=== PATIENT | male | born 1975 | race Caucasian/White ===

== ENCOUNTER 2018-06-13 03:10 | Emergency (ER) | payer BC, SELFPAY ==
[2018-06-13] VITALS (46 sets, daily range): BP systolic 121–171; BP diastolic 73–98; PULSE 64–81; RESP 9–20; TEMP 37; O2SAT 93–99
--- NOTE | 2018-06-13 03:17 | W.ED.GENAD ---
Discharge Plan Disposition Patient Disposition: HOME Condition: Good Discharge Details Chief Complaint: Chest Pain Clinical Impression: Chest pain Primary Care Provider: Rina Long ED Provider: Justice Awan Home Meds and New Rx's Prescriptions: Continued esomeprazole magnesium [Nexium] 20 mg Capsule,Delayed Release(Dr/Ec) 20 mg PO DAILY RF: 0 Discharge Instructions Instructions: Chest Pain (ED) Additional Instructions: Laboratory studies, chest x-ray, EKGs today were fine. You should follow-up with primary care next week and discuss outpatient stress testing. Return to emergency department if you develop new or worsening pain, shortness of breath, fever, other problems. Referrals: Rina Long [Primary Care Provider] - Medical Decision Making Patient presents to ED with substernal chest pressure on and off for the last few days. Has no associated symptoms. Has no cardiac risk factors. He is PERC negative. His EKG is sinus rhythm at a rate of 68. Slight left axis otherwise normal intervals and normal ST segments. Presuming his first troponin is normal he has a HEART score of 0. His history is not overly suspicious and may be related to his reflux. I will give him aspirin. Laboratory studies and chest x-ray ordered. Patient's first set of labs are unremarkable. First troponin negative. Chest x-ray is normal. He has been sleeping and having no pain while here. Second troponin is normal. EKG is unchanged. Continues to have mild left axis but normal ST segments. Patient to follow-up with primary care next week for consider alteration of outpatient stress testing. Return to ED if he develops increasing or new pain, shortness of breath, fever, or other concerns. HPI General Mode of arrival: ambulatory. Date/Time Provider Initiated Documentation: 06/13/18 03:16. Limitations to Documentation: no limitations. Information obtained by: patient. HPI Narrative: Patient presents to ED with complaint of chest pain. He has had chest pain on and off for a few days. Mostly substernal but a little bit left-sided. Described as a pressure tightness. No real radiation. Sometimes feels like his left arm is heavy but does not actually have pain in it. He has no fever or cough. He has no difficulty breathing. He has no leg pain or leg swelling. Does have a history of reflux. Denies nausea or abdominal pain. Been bothering him tonight for the last couple of hours so he came in for evaluation. Currently at the time of my interview he has no pain. Related Data Home Medications Medication Instructions Recorded Confirmed esomeprazole magnesium [Nexium] 20 mg PO DAILY 06/13/18 06/13/18 Allergies Allergy/AdvReac Type Severity Reaction Status Date / Time No Known Allergies Allergy Unverified 06/13/18 03:30 Review of Systems Constitutional Denies chills, Denies fever(s), Denies headache(s), Denies malaise and Denies weakness Eyes Denies change in vision, Denies eye discharge, Denies irritation and Denies eye pain ENT Denies otalgia, Denies headache(s), Denies neck pain and Denies sore throat Cardiovascular Reports chest pain, Denies pedal edema, Denies edema, Denies leg edema, Denies lightheadedness, Denies palpitations and Denies dyspnea Respiratory Denies chest congestion, Denies cough and Denies dyspnea Gastrointestinal Denies abdominal pain, Denies diarrhea, Denies nausea and Denies vomiting Genitourinary Denies hematuria, Denies difficulty urinating, Denies dysuria, Denies urinary frequency and Denies urinary urgency Musculoskeletal Denies back pain, Denies myalgias, Denies arthralgias, Denies joint swelling, Denies neck pain, Denies numbness and Denies tingling Integumentary/Breasts Denies erythema and Denies rash Neurologic Denies confusion, Denies headache(s), Denies focal weakness, Denies numbness, Denies tingling and Denies weakness Psychiatric Denies confusion Endocrine Denies palpitations [facility] Medical History GERD (gastroesophageal reflux disease) (Chronic) Heart murmur (Chronic) Social History Smoking/Tobacco Use Status: Never Exam Const General: cooperative, comfortable and no acute distress Orientation: alert and oriented x3 HENMT Head: normocephalic and atraumatic Mouth: moist mucous membranes Eyes Conjunctivae: conjunctivae normal Pupils: PERRL EOM: EOM intact bilaterally Neck Neck: full ROM, no lymphadenopathy, trachea midline and supple Resp Effort & Inspection: normal respiratory effort Auscultation: clear to auscultation bilaterally Cardio Rate: regular rate Rhythm: regular rhythm Heart Sounds: S1 normal, S2 normal and murmur systolic Pulses: normal peripheral pulses GI Inspection: non-distended Palpation: soft, not firm, no guarding and nontender Skin General skin exam: no erythema Rashes: no rashes Trauma: no lacerations or abrasions Other: warm and dry Neuro General: alert, oriented x3, no focal motor deficits and CN's II-XI intact bilaterally Cognition: normal cognition Speech: speech normal Sensory Exam: no sensory deficits noted Extrem General: normal to inspection, full ROM and no clubbing, cyanosis or edema Psych Appearance: grossly normal Mental Status: mental status grossly normal Affect: normal affect Attitude: cooperative
--- NOTE | 2018-06-13 03:34 | ED.GENADUL_ITS ---
Discharge Plan Disposition Patient Disposition: HOME Condition: Good Discharge Details Chief Complaint: Chest Pain Clinical Impression: Chest pain Primary Care Provider: Rina Long ED Provider: Justice Awan Home Meds and New Rx's Prescriptions: Continued esomeprazole magnesium [Nexium] 20 mg Capsule,Delayed Release(Dr/Ec) 20 mg PO DAILY RF: 0 Discharge Instructions Instructions: Chest Pain (ED) Additional Instructions: Laboratory studies, chest x-ray, EKGs today were fine. You should follow-up with primary care next week and discuss outpatient stress testing. Return to emergency department if you develop new or worsening pain, shortness of breath, fever, other problems. Referrals: Rina Long [Primary Care Provider] - Medical Decision Making Patient presents to ED with substernal chest pressure on and off for the last few days. Has no associated symptoms. Has no cardiac risk factors. He is PERC negative. His EKG is sinus rhythm at a rate of 68. Slight left axis otherwise normal intervals and normal ST segments. Presuming his first troponin is normal he has a HEART score of 0. His history is not overly suspicious and may be related to his reflux. I will give him aspirin. Laboratory studies and chest x-ray ordered. Patient's first set of labs are unremarkable. First troponin negative. Chest x-ray is normal. He has been sleeping and having no pain while here. Second troponin is normal. EKG is unchanged. Continues to have mild left axis but normal ST segments. Patient to follow-up with primary care next week for consider alteration of outpatient stress testing. Return to ED if he develops increasing or new pain, shortness of breath, fever, or other concerns. HPI General Mode of arrival: ambulatory . Date/Time Provider Initiated Documentation: 06/13/18 03:16 . Limitations to Documentation: no limitations . Information obtained by: patient . HPI Narrative: Patient presents to ED with complaint of chest pain. He has had chest pain on and off for a few days. Mostly substernal but a little bit left-sided. Described as a pressure tightness. No real radiation. Sometimes feels like his left arm is heavy but does not actually have pain in it. He has no fever or cough. He has no difficulty breathing. He has no leg pain or leg swelling. Does have a history of reflux. Denies nausea or abdominal pain. Been bothering him tonight for the last couple of hours so he came in for evaluation. Currently at the time of my interview he has no pain. Related Data Home Medications Medication Instructions Recorded Confirmed esomeprazole magnesium [Nexium] 20 mg PO DAILY 06/13/18 06/13/18 Allergies Allergy/AdvReac Type Severity Reaction Status Date / Time No Known Allergies Allergy Unverified 06/13/18 03:30 Review of Systems Constitutional Denies chills, Denies fever(s), Denies headache(s), Denies malaise and Denies weakness Eyes Denies change in vision, Denies eye discharge, Denies irritation and Denies eye pain ENT Denies otalgia, Denies headache(s), Denies neck pain and Denies sore throat Cardiovascular Reports chest pain, Denies pedal edema, Denies edema, Denies leg edema, Denies lightheadedness, Denies palpitations and Denies dyspnea Respiratory Denies chest congestion, Denies cough and Denies dyspnea Gastrointestinal Denies abdominal pain, Denies diarrhea, Denies nausea and Denies vomiting Genitourinary Denies hematuria, Denies difficulty urinating, Denies dysuria, Denies urinary frequency and Denies urinary urgency Musculoskeletal Denies back pain, Denies myalgias, Denies arthralgias, Denies joint swelling, Denies neck pain, Denies numbness and Denies tingling Integumentary/Breasts Denies erythema and Denies rash Neurologic Denies confusion, Denies headache(s), Denies focal weakness, Denies numbness, Denies tingling and Denies weakness Psychiatric Denies confusion Endocrine Denies palpitations [facility] Medical History GERD (gastroesophageal reflux disease) (Chronic) Heart murmur (Chronic) Social History Smoking/Tobacco Use Status: Never Exam Const General: cooperative, comfortable and no acute distress Orientation: alert and oriented x3 HENMT Head: normocephalic and atraumatic Mouth: moist mucous membranes Eyes Conjunctivae: conjunctivae normal Pupils: PERRL EOM: EOM intact bilaterally Neck Neck: full ROM, no lymphadenopathy, trachea midline and supple Resp Effort & Inspection: normal respiratory effort Auscultation: clear to auscultation bilaterally Cardio Rate: regular rate Rhythm: regular rhythm Heart Sounds: S1 normal, S2 normal and murmur systolic Pulses: normal peripheral pulses GI Inspection: non-distended Palpation: soft, not firm, no guarding and nontender Skin General skin exam: no erythema Rashes: no rashes Trauma: no lacerations or abrasions Other: warm and dry Neuro General: alert, oriented x3, no focal motor deficits and CN's II-XI intact bilaterally Cognition: normal cognition Speech: speech normal Sensory Exam: no sensory deficits noted Extrem General: normal to inspection, full ROM and no clubbing, cyanosis or edema Psych Appearance: grossly normal Mental Status: mental status grossly normal Affect: normal affect Attitude: cooperative
[2018-06-13] MEDS: Normal Saline Flush 10 ML SYR IVP (03:38)
[2018-06-13] MEDS: Aspirin 81 MG CHEW 324 MG CH (03:38)
--- NOTE | 2018-06-13 03:45 | DI.RAD_ITS ---
SYMPTOM/DIAGNOSIS: CHEST PAIN PA AND LATERAL CHEST: No priors. The heart is normal in size. The lungs are clear. The mediastinal structures and pleura appear intact. CONCLUSION: Normal chest.
[2018-06-13 03:52] LABS: Abs Immature Grans 0.02 k/cumm (0.0-0.09); Absolute Basophil Count 0.02 k/cumm (0.0-0.2); Absolute Eosinophil Count 0.33 k/cumm (0.0-0.7); Absolute Lymphocyte Count 2.49 k/cumm (1.2-3.4); Absolute Monocyte Count 0.53 k/cumm (0.11-0.7); Absolute Neutrophil Count 4.33 k/cumm (1.2-6.7); Basophils % 0.3; Eosinophils % 4.3; HCT 43.7 % (40.0-50.0); HGB 15.3 g/dL (13.5-17.5); Immature Grans % 0.3; Lymphocytes % 32.3; Mean Corpuscular Hemoglobin 30.1 pg (27.0-33.0); Mean Corpuscular Volume 85.9 fL (80-95); Mean Platelet Volume 9.6 fL (8.0-11.0); Monocytes % 6.9; Neutrophils % 55.9; Platelet Count 266 x1000/uL (130-400); RBC 5.09 m/cumm (4.50-6.00); RBC Distribution Width 12.8 % (11.8-14.1); White Blood Cell Count 7.72 k/cumm (4.4-10.8)
[2018-06-13 04:03] LABS: ALT 30 U/L (12-78); AST 14 U/L (15-37); Albumin 4.2 g/dL (3.4-5.0); Alkaline Phosphatase 73 U/L (46-116); Anion Gap 8.3 mmol/L (3-11); BUN 9 mg/dL (7-18); Bilirubin, Total 0.6 mg/dL (0.2-1.0); CO2 28.7 mmol/L (21.0-32.0); Calcium 8.9 mg/dL (8.5-10.1); Chloride 102 mmol/L (98-107); Glucose 116 mg/dL (70-100); Magnesium 1.8 mg/dL (1.8-2.4); Potassium 3.6 mmol/L (3.5-5.1); Sodium 139 mmol/L (136-145); Total Protein 7.7 g/dL (6.4-8.2)
[2018-06-13 04:04] LABS: Troponin I < 0.02 ng/mL (0.00-0.06)
--- NOTE | 2018-06-13 06:16 | DI.VRAD_ITS ---
EXAM: XR Chest, 2 Views EXAM DATE/TIME: 06/13/2018 3:47 AM CLINICAL HISTORY: 43 years old, male; Pain; Chest pain; Left-sided chest pain; Patient HX: Chest tightness over the last few days and left upper chest pain today. TECHNIQUE: XR of the chest, 2 views. COMPARISON: No relevant prior studies available. FINDINGS: Lungs: Unremarkable. No consolidation. Pleural space: Unremarkable. No pleural effusion. No pneumothorax. Heart/Mediastinum: Unremarkable. No cardiomegaly. Bones/joints: Unremarkable. IMPRESSION: No acute findings. Dictated and Authenticated by: Michael Em MD. Ordering:JASPREET Rendon MD
[2018-06-13 06:53] LABS: Troponin I < 0.02 ng/mL (0.00-0.06)
== END 2018-06-13 07:37 | disposition home or self-care (01) ==
PROVIDERS: Emergency Provider Emergency Medicine; PCP Family Medicine
DX: R07.9 Chest pain, unspecified (principal); K21.9 Gastro-esophageal reflux disease without esophagitis
CPT/HCPCS: 36415; 80053; 93005; 99285; 71046; 83735; 84484; 85025; 93010; 99284

== ENCOUNTER 2018-07-21 08:04 | Outpatient (REF) | payer BC, SELFPAY | END 2018-07-21 08:24 | LOC: NCHCN 08:04 | PROVIDERS: PCP Family Medicine; Visit Provider Internal Medicine | DX: R14.0 Abdominal distension (gaseous) (principal); R19.7 Diarrhea, unspecified | CPT/HCPCS: 82272; 83630 ==

== ENCOUNTER 2018-07-22 08:06 | Outpatient (REF) | payer BC, SELFPAY ==
[2018-07-23 11:06] LABS: Campylobacter PCR SEE COMMENTS; Salmonella PCR SEE COMMENTS; Shiga Toxin PCR SEE COMMENTS; Shigella/Enteroinvasive Ecoli SEE COMMENTS
== END 2018-07-22 08:26 ==
LOC: NCHCN 08:06
PROVIDERS: PCP Family Medicine; Visit Provider Internal Medicine
DX: R19.7 Diarrhea, unspecified (principal); R14.0 Abdominal distension (gaseous)
CPT/HCPCS: 87329; 87505

== ENCOUNTER 2018-07-27 12:14 | Emergency (ER) | payer BC, SELFPAY ==
[2018-07-27] VITALS (18 sets, daily range): BP systolic 123–156; BP diastolic 65–84; PULSE 90–114; RESP 8–22; TEMP 36.7–38.8; O2SAT 93–98
--- NOTE | 2018-07-27 13:19 | ED.GENADUL_ITS ---
Discharge Plan Disposition Patient Disposition: HOME Discharge Details Chief Complaint: Nausea/Vomit/Diar Clinical Impression: Colitis, Hypokalemia Primary Care Provider: Rina Long ED Provider: David Simms Home Meds and New Rx's Prescriptions: New metronidazole 500 mg tablet 500 mg PO TID Qty: 29 RF: 0 ciprofloxacin HCl 500 mg tablet 500 mg PO BID Qty: 16 RF: 0 No Action acetaminophen [Tylenol] 325 mg Tablet 650 mg PO Q6H PRNRF: 0 esomeprazole magnesium [Nexium] 40 mg Capsule,Delayed Release(Dr/Ec) 40 mg PO DAILY RF: 0 Discharge Instructions Instructions: Hypokalemia (ED), Colitis (ED) Additional Instructions: Be sure to drink plenty of clear fluid -like Gatorade - to stay hydrated. Please follow-up with your primary care physician -call for an appointment. Follow-up with general surgery as scheduled for endoscopy and colonoscopy. Take antibiotic as prescribed. Be sure to complete the full course. Return to the ER for any worsening or new concerning symptoms. Referrals: Rina Long [Primary Care Provider] - Discharge Data Discharge Date/Time-TO BE ENTERED AT DEPARTURE: 07/27/18 19:11 Medical Decision Making 13:18 -- 43yo male here with 2 weeks of diarrhea, intermittent bloody stool, generalized body aches and abdominal pain. Tender in his left lower quadrant. Concern for acute surgical pathology including diverticulitis with perforation, consider abscess. Plan to CT abdomen pelvis. Patient appears dehydrated. We will give him IV fluid bolus. Consider electrolyte abnormalities. --CT of the abdomen pelvis interpreted by radiology: Low-attenuation bowel wall thickening is seen throughout the colon consistent with colitis. Differential diagnosis includes infectious and inflammatory etiologies. --Reassessed after IV fluid and is improved. Patient does have hypokalemia. Patient was given p.o. and IV potassium. Plan at this time is to discharge on Flagyl and ciprofloxacin and have him follow-up with his primary care physician and for endoscopy as scheduled. HPI General Mode of arrival: ambulatory . Date/Time Provider Initiated Documentation: 07/27/18 12:51 . Limitations to Documentation: no limitations . Information obtained by: patient . HPI Narrative: 43-year-old male with history of GERD, here with chief complaint of loose stool. Patient notes symptoms started about 2 weeks ago and have persisted. He said intermittently bloody stool. Symptoms are severe with no modifiers. He notes associated generalized achiness and fatigue. He was seen by his primary care physician last week and diagnosed with colitis. He has been maintaining bowel rest and continues to have symptoms. He has had intermittent fever. Also intermittent nausea. He has not been treated with antibiotics. No recent freshwater ingestion. No recent travel. Related Data Home Medications Medication Instructions Recorded Confirmed acetaminophen [Tylenol] 650 mg PO Q6H PRN 07/27/18 07/27/18 ciprofloxacin HCl 500 mg PO BID #16 tab 07/27/18 esomeprazole magnesium [Nexium] 40 mg PO DAILY 07/27/18 07/27/18 metronidazole 500 mg PO TID #29 tab 07/27/18 Previous Rx's Medication Instructions Recorded ciprofloxacin HCl 500 mg PO BID #16 tab 07/27/18 metronidazole 500 mg PO TID #29 tab 07/27/18 Allergies Allergy/AdvReac Type Severity Reaction Status Date / Time No Known Allergies Allergy Verified 07/27/18 12:34 General Stated Complaint: Nausea/Vomit/Diar REBECCA: 3 Review of Systems Review of Systems All systems reviewed & are unremarkable except as noted in HPI and below Respiratory Denies cough Gastrointestinal Reports abdominal pain, Reports diarrhea and Reports nausea PFSH Medical History Chest pain due to gastrointestinal reflux disease (Chronic) GERD (gastroesophageal reflux disease) (Chronic) Shoulder joint pain (Acute) Heart murmur (Chronic) VSD (ventricular septal defect) (Chronic) Surgical History History of esophagogastroduodenoscopy (EGD) (Chronic) Social History Smoking and Tabacco status: Never Exam Const General: cooperative and no acute distress HENMT Head: normocephalic and atraumatic Mouth: mucous membranes dry Eyes Conjunctivae: normal conjunctivae Sclera: normal sclerae EOM: EOM intact bilaterally Neck Neck: trachea midline and supple Resp Auscultation: clear to auscultation bilaterally, no rales, no rhonchi and no wheezes Cardio Jugular venous pressure: no JVD Rate: regular rate and not tachycardic Rhythm: regular rhythm Heart Sounds: murmur systolic III/ GI Palpation: soft, not firm, no guarding, no masses, not rigid and tender in the LLQ Auscultation: normal bowel sounds Skin General skin exam: no rashes or lesions noted Neuro General: alert, awake, oriented x3 and tone normal Extrem General: no edema Psych Appearance: grossly normal Mental Status: mental status grossly normal Speech and Movement: speech and movement normal Course Vital Signs Temperature 36.7 C 07/27/18 12:29 Pulse 94 H 07/27/18 12:29 Respiratory Rate 12 07/27/18 12:29 Blood Pressure 145/84 H 07/27/18 12:29 Pulse Oximetry 98 07/27/18 12:29 Temperature 36.7 C 07/27/18 12:29 Temperature Source Temporal Artery Scan 07/27/18 12:29 Pulse 94 H 07/27/18 12:29 Respiratory Rate 12 07/27/18 12:29 Respiratory Effort Non-Labored 07/27/18 12:32 Blood Pressure 145/84 H 07/27/18 12:29 Blood Pressure Position Sitting 07/27/18 12:29 Pulse Oximetry 98 07/27/18 12:29 Oxygen Delivery Method Room Air 07/27/18 12:29 Oxygen Flow Rate 0 07/27/18 12:29 Pain Level 0 07/27/18 12:29
[2018-07-27] MEDS: Lactated Ringers 1,000 ML 1000 ML IV ×2 (13:30→16:03)
[2018-07-27 13:34] LABS: Lactate 1.3 mmol/L (0.6-1.4)
[2018-07-27 13:36] LABS: Abs Immature Grans 0.09 k/cumm (0.0-0.09); Absolute Monocyte Count 1.98 k/cumm (0.11-0.7); Basophils % 0.2; Eosinophils % 1.4; HCT 40.4 % (40.0-50.0); Immature Grans % 0.5; Lymphocytes % 14.6; Mean Corp. HGB Concentration 34.7 g/dL (32.0-36.0); Mean Corpuscular Hemoglobin 29.2 pg (27.0-33.0); Mean Corpuscular Volume 84.2 fL (80-95); Mean Platelet Volume 9.4 fL (8.0-11.0); Monocytes % 10.4; Neutrophils % 72.9; Platelet Count 418 x1000/uL (130-400); RBC Distribution Width 13.1 % (11.8-14.1)
[2018-07-27] MEDS: Omnipaque 350 MG/ML 100 ML BTL IJ (13:36)
[2018-07-27 13:37] LABS: Absolute Basophil Count 0.04 k/cumm (0.0-0.2); Absolute Eosinophil Count 0.27 k/cumm (0.0-0.7); Absolute Lymphocyte Count 2.77 k/cumm (1.2-3.4); Absolute Neutrophil Count 13.85 k/cumm (1.2-6.7)
[2018-07-27 13:38] LABS: Bilirubin Small (Negative); Blood Trace-intact (Negative); Clarity Clear; Glucose Negative (Negative); Ketones 40 mg/dL (Negative); Leukocyte Esterase Negative (Negative); Nitrite Negative (Negative); Specific Gravity 1.015 (1.005-1.025)
[2018-07-27 13:50] LABS: ALT 57 U/L (12-78); AST 33 U/L (15-37); Albumin 3.2 g/dL (3.4-5.0); Alkaline Phosphatase 93 U/L (46-116); Anion Gap 10.8 mmol/L (3-11); BUN 6 mg/dL (7-18); Bilirubin, Total 0.8 mg/dL (0.2-1.0); CO2 28.2 mmol/L (21.0-32.0); CREATININE 1.11 mg/dL (0.70-1.30); Calcium 8.7 mg/dL (8.5-10.1); Chloride 99 mmol/L (98-107); Glucose 102 mg/dL (70-100); Lipase 98 U/L (73-393); Potassium 3.1 mmol/L (3.5-5.1); Sodium 138 mmol/L (136-145); Total Protein 7.9 g/dL (6.4-8.2)
[2018-07-27 13:50] LABS: Bacteria Rare HPF (Negative); C & S Indicated? No; Casts Negative LPF (Negative); Crystals Negative HPF (Negative); Epithelial Cells Rare HPF (Negative); Mucus Trace (Negative); WBC Negative HPF (0-5)
--- NOTE | 2018-07-27 13:50 | DI.CT_ITS ---
SYMPTOMS/DIAGNOSIS: ABD PAIN, LLQ TENDERNESS CT SCAN OF THE ABDOMEN AND PELVIS: CT scan of the abdomen and pelvis was performed following the uneventful administration of intravenous contrast material. There are no priors for comparison. The lung bases are clear. The liver, spleen, pancreas, gallbladder, bile ducts and adrenal glands are unremarkable. The portal and superior mesenteric veins and splenic veins are all patent. The abdominal aorta is of normal caliber. No significant abdominal or pelvic adenopathy or pneumoperitoneum is seen. There is minimal atherosclerosis of the thoracic aorta. There is bowel wall thickening seen in the colon predominantly involving the transverse, descending and sigmoid colon. There does appear to be mild thickening of the wall of the rectum. The remainder of the bowel is unremarkable. There is a normal appendix present. There is spondylolysis at L 5 with grade 1 spondylolisthesis of L 5 on S 1. IMPRESSION: Findings consistent with colitis. This may represent infectious or inflammatory colitis.
--- NOTE | 2018-07-27 14:47 | DI.VRAD_ITS ---
EXAM: CT Abdomen and Pelvis With Contrast EXAM DATE/TIME: 07/27/2018 1:12 PM CLINICAL HISTORY: 43 years old, male; Pain and signs and symptoms; Nausea and vomiting; Abdominal pain; Localized; Left lower quadrant (llq) TECHNIQUE: Axial computed tomography images of the abdomen and pelvis with intravenous contrast. Coronal and sagittal reformatted images were created and reviewed. CONTRAST: 100 ml of Omnipaque 350 administered intravenously. COMPARISON: No relevant prior studies available. FINDINGS: Lower thorax: No acute findings. ABDOMEN: Liver: Normal. No mass. Gallbladder and bile ducts: Normal. No calcified stones. No ductal dilation. Pancreas: Normal. No ductal dilation. Spleen: Normal. No splenomegaly. Adrenals: Normal. No mass. Kidneys and ureters: Normal. No hydronephrosis. Stomach and bowel: Low-attenuation bowel wall thickening is seen throughout the colon consistent with colitis. Differential diagnosis includes infectious and inflammatory etiologies.. Appendix: Normal appendix PELVIS: Bladder: Unremarkable as visualized. Reproductive: Unremarkable as visualized. ABDOMEN and PELVIS: Intraperitoneal space: Normal. No free air. No significant fluid collection. Bones/joints: There is a bilateral spondylolysis defect of the L5-S1 level, with grade 1 spondylolisthesis. Soft tissues: Unremarkable. Vasculature: Normal. No abdominal aortic aneurysm. Lymph nodes: Small retroperitoneal nodes IMPRESSION: Low-attenuation bowel wall thickening is seen throughout the colon consistent with colitis. Differential diagnosis includes infectious and inflammatory etiologies.. Dictated and Authenticated by: Jus Perdomo MD. Ordering:TALA Hernandez MD
[2018-07-27] MEDS: POTASSIUM CHLORIDE 20 MEQ/100 ML BAG 50 MEQ IVPB (16:03)
[2018-07-27 16:04] LABS: Magnesium 1.9 mg/dL (1.8-2.4)
[2018-07-27] MEDS: Potassium Chloride 10 MEQ TABCR 20 MEQ PO (16:28)
[2018-07-27] MEDS: metroNIDAZOLE 500 MG TAB PO (19:02)
[2018-07-27] MEDS: Ciprofloxacin 500 MG TAB PO (19:03)
== END 2018-07-27 19:11 | disposition home or self-care (01) ==
PROVIDERS: Emergency Provider Student in an Organized Health Care Education/Training Program; PCP Family Medicine
DX: K92.1 Melena (principal); R10.32 Left lower quadrant pain; K52.9 Noninfective gastroenteritis and colitis, unspecified; E87.6 Hypokalemia; R11.2 Nausea with vomiting, unspecified
CPT/HCPCS: 12001; 36415; 80053; 83690; 94640; 96360; 96361; 96365; 96366; 99284; 99285; 74177; 81003; 81015; 83605; 83735; 85025; J3480; J3490

== ENCOUNTER 2018-07-30 16:30 | Emergency (ER) | payer BC, SELFPAY ==
[2018-07-30] VITALS (7 sets, daily range): BP systolic 114–152; BP diastolic 59–86; PULSE 93–108; RESP 16–22; TEMP 36.8–39.6; O2SAT 94–100
[2018-07-30] MEDS: Normal Saline 1,000 ML 1000 ML IV ×2 (17:28→19:25)
[2018-07-30 17:38] LABS: HCT 41.6 % (40.0-50.0); HGB 14.3 g/dL (13.5-17.5); Mean Corp. HGB Concentration 34.4 g/dL (32.0-36.0); Mean Corpuscular Hemoglobin 28.7 pg (27.0-33.0); Mean Corpuscular Volume 83.4 fL (80-95); Mean Platelet Volume 9.6 fL (8.0-11.0); Platelet Count 481 x1000/uL (130-400); RBC 4.99 m/cumm (4.50-6.00); RBC Distribution Width 13.2 % (11.8-14.1); White Blood Cell Count 16.45 k/cumm (4.4-10.8)
[2018-07-30 17:45] LABS: ALT 62 U/L (12-78); AST 41 U/L (15-37); Albumin 2.8 g/dL (3.4-5.0); Alkaline Phosphatase 112 U/L (46-116); Anion Gap 11.2 mmol/L (3-11); BUN 6 mg/dL (7-18); Bilirubin, Total 0.8 mg/dL (0.2-1.0); CO2 27.8 mmol/L (21.0-32.0); CREATININE 0.97 mg/dL (0.70-1.30); Calcium 8.7 mg/dL (8.5-10.1); Chloride 97 mmol/L (98-107); Glucose 125 mg/dL (70-100); Lipase 110 U/L (73-393); Potassium 3.2 mmol/L (3.5-5.1); Sodium 136 mmol/L (136-145); Total Protein 7.9 g/dL (6.4-8.2)
[2018-07-30 17:52] LABS: Absolute Eosinophil Count 0.33 k/cumm (0.0-0.7); Absolute Monocyte Count 1.32 k/cumm (0.11-0.7); Absolute Neutrophil Count 12.01 k/cumm (1.2-6.7); Atypical Lymphocytes % 0; Diff Comment Manual Differential; RBC Morphology Normal
[2018-07-30] MEDS: ACETAMINOPHEN 1,000 MG/100 ML BTL 400 MG IVPB (18:39)
--- NOTE | 2018-07-30 18:47 | NUR.NOTE ---
patient medicated per provider order Nursing Note:
[2018-07-30 19:07] LABS: Bilirubin Moderate (Negative); Blood Negative (Negative); Clarity Clear; Glucose 100 mg/dL (Negative); Ketones >=160 mg/dL (Negative); Leukocyte Esterase Negative (Negative); Nitrite Negative (Negative); Urobilinogen >=8.0 EU/dL (Up TO 0.2); pH 7.5 (5-8)
[2018-07-30 19:21] LABS: Bacteria Rare HPF (Negative); C & S Indicated? No; Casts Negative LPF (Negative); Crystals Negative HPF (Negative); Epithelial Cells Rare HPF (Negative); Mucus Negative (Negative); RBC 0-2 (0-2); WBC 0-2 HPF (0-5)
--- NOTE | 2018-07-30 20:25 | DI.RAD_ITS ---
SYMPTOMS/DIAGNOSIS: ABD PAIN ACUTE ABDOMINAL SERIES: Comparison 06/13/18. PA CHEST: The heart size and pulmonary vasculature are within normal limits. The lungs are clear and well expanded. No effusions or pneumothoraces are identified. IMPRESSION: No acute pulmonary process. FLAT AND UPRIGHT ABDOMEN: The bowel gas pattern is nonspecific without evidence of obstruction. No organomegaly or pneumoperitoneum is seen. The bones and joints appear intact. IMPRESSION: No evidence of an acute abdomen.
[2018-07-30 20:30] LABS: ESR 64 MM/HR (0-15)
--- NOTE | 2018-07-30 20:59 | DI.VRAD_ITS ---
EXAM: XR Abdomen 2 Views with XR Chest 1 View EXAM DATE/TIME: 07/30/2018 7:49 PM CLINICAL HISTORY: 43 years old, male; Pain; Abdominal pain; Generalized TECHNIQUE: XR of the abdomen (2 views) with XR chest (1 view). COMPARISON: CR XR CHEST 2V PA LATERAL 06/13/2018 3:42 AM FINDINGS: Lungs: Normal. No consolidation. Pleural space: Normal. No pneumothorax. Heart/Mediastinum: Normal. No cardiomegaly. Gastrointestinal tract: Nonobstructive bowel gas pattern with distal rectal air present. Fecal material seen in the ascending colon. Intraperitoneal space: No abnormal calcifications or mass effect. Bones/joints: Normal. No acute fracture. Soft tissues: Normal. IMPRESSION: 1. Negative for acute thoracic pathology. 2. Negative for acute abdominal pathology. Dictated and Authenticated by: Jagdish Mcclure MD. Ordering:GLORY Tenorio MD
--- NOTE | 2018-07-30 20:59 | NUR.NOTE ---
Nursing Note: Pt resting in bed, no further needs at this time. results pending. will continue to monitor.
--- NOTE | 2018-07-30 21:28 | W.ED.GENAD ---
Discharge Plan Disposition Patient Disposition: HOME Condition: Stable Discharge Details Chief Complaint: Abd Prob Clinical Impression: Colitis with rectal bleeding Primary Care Provider: Rina Long ED Provider: Jona Madden Home Meds and New Rx's Prescriptions: New promethazine [Phenergan] 25 mg suppository 25 mg [place] Q6H PRN (Reason: nausea and vomiting) Qty: 12 RF: 0 ondansetron 4 mg tablet,disintegrating 4 mg PO TID PRN (Reason: nausea and vomiting) Qty: 12 RF: 0 Continued acetaminophen [Tylenol] 325 mg Tablet 650 mg PO Q6H PRNRF: 0 esomeprazole magnesium [Nexium] 40 mg Capsule,Delayed Release(Dr/Ec) 40 mg PO DAILY RF: 0 Discontinued metronidazole 500 mg tablet 500 mg PO TID Qty: 29 RF: 0 ciprofloxacin HCl 500 mg tablet 500 mg PO BID Qty: 16 RF: 0 Discharge Instructions Instructions: Rectal Bleeding (ED), Clear Liquid Diet (ED), Colitis (ED) Additional Instructions: Return immediately to the emergency department for any new or significant worsening of symptoms, change in your symptoms, severe abdominal pain, or any concerns you have. Otherwise start clear liquid diet this evening and follow bowel prep as recommended by general surgery office and keep your appointment with them for Saturday. Feel free to call their office for any further questions that you may have or return to emergency department as needed. Referrals: [facility] [Provider Group] (As needed for any further questions in regards to your colonoscopy and keep your appointment for saturday) Discharge Data Discharge Date/Time-TO BE ENTERED AT DEPARTURE: 07/30/18 21:55 Medical Decision Making Patient presenting to the emergency department for chief complaint of abdominal pain, nausea vomiting, and bloody diarrhea. Patient states that this is been going on for the past 3 weeks with visits to his primary care provider to the emergency department. Left lower quadrant tenderness, labs reviewed and show improvement from Saturday. Patient given IV fluids and Phenergan. spoke with surgeon senior application programmer Dr. Goncalves about need for CT imaging due to patient recently having imaging performed. She recommended against CT imaging but did state to have send out additional labs for workup of Crohn's and for patient to be on clear liquid diet. She was informed that patient became febrile in the emergency department is not hypotensive no signs of toxicity or sepsis are noted at this time. She stated to have patient stop Cipro Flagyl if this is causing more nausea vomiting and previous stool specimen showed no infectious process more concern for inflammatory markers. Return precautions discussed, and for patient to continue with plan to have colonoscopy on Saturday as scheduled. Patient was prescribed rectal Phenergan and ODT Zofran. He was also informed to stay well-hydrated. After discussion of diagnosis and plan of care patient has no further needs, questions, or concerns and states clear understanding to return to the emergency department for any worsening symptoms. HPI General Mode of arrival: ambulatory. Date/Time Provider Initiated Documentation: 07/30/18 16:43. Limitations to Documentation: no limitations. Information obtained by: patient, RN notes reviewed and old records reviewed. History of Present Illness 43 year old M presents to the emergency department with the chief complaint of Abdominal pain, nausea, diarrhea, described as mild, Quality is described as aching, and is localized to the abdomen. Patient started experiencing this week(s) (3) and it has been colicky. No relieving factors improve symptom(s), No exacerbating factors reported . Patient did receive the following treatments prior to arrival, none Related Data Home Medications Medication Instructions Recorded Confirmed acetaminophen [Tylenol] 650 mg PO Q6H PRN 07/27/18 08/01/18 esomeprazole magnesium [Nexium] 40 mg PO DAILY 07/27/18 08/01/18 ondansetron 4 mg PO TID PRN #12 tab 07/30/18 08/01/18 promethazine [Phenergan] 25 mg CO Q6H PRN #12 each 07/30/18 08/01/18 Previous Rx's Medication Instructions Recorded ondansetron 4 mg PO TID PRN #12 tab 07/30/18 promethazine [Phenergan] 25 mg CO Q6H PRN #12 each 07/30/18 Allergies Allergy/AdvReac Type Severity Reaction Status Date / Time No Known Allergies Allergy Verified 07/29/18 14:21 General Stated Complaint: Abd Prob REBECCA: 3 Review of Systems Constitutional Denies chills, Reports fever(s) and Reports poor appetite Cardiovascular Denies chest pain and Denies dyspnea Respiratory Denies cough and Denies dyspnea Gastrointestinal Reports as per HPI, Reports abdominal pain, Denies melena, Reports hematochezia, Denies change in bowel habits, Denies constipation, Reports diarrhea, Reports nausea and Reports vomiting Genitourinary Denies hematuria, Denies difficulty urinating, Denies urinary hesitancy, Denies urinary incontinence and Denies urinary urgency Integumentary/Breasts Denies rash [facility] Medical History Chest pain due to gastrointestinal reflux disease (Chronic) GERD (gastroesophageal reflux disease) (Chronic) Shoulder joint pain (Acute) Heart murmur (Chronic) VSD (ventricular septal defect) (Chronic) Surgical History History of esophagogastroduodenoscopy (EGD) (Chronic) Social History Smoking and Tabacco status: Never Exam Const General: cooperative Orientation: alert, awake and oriented x3 Resp Effort & Inspection: normal respiratory effort and able to speak in complete sentences Auscultation: clear to auscultation bilaterally Cardio Rate: regular rate Rhythm: regular rhythm Heart Sounds: S1 normal and S2 normal GI Palpation: soft, no hepatosplenomegaly, not firm, no guarding, no masses, no pulsatile masses, not rigid, no splenomegaly and tender in the LLQ Auscultation: normal bowel sounds Back/Spine/Pelvis Back: no CVA tenderness Neuro General: alert, awake, oriented x3, gait normal and moves all extremities Course Vital Signs Temperature 36.8 C 07/30/18 16:34 Pulse 108 H 07/30/18 16:34 Respiratory Rate 18 07/30/18 16:34 Blood Pressure 152/86 H 07/30/18 16:34 Pulse Oximetry 100 07/30/18 16:34 Temperature 37.9 C H 07/30/18 19:24 Temperature Source Oral 07/30/18 19:24 Pulse 108 H 07/30/18 18:46 Respiratory Rate 18 07/30/18 19:24 Respiratory Effort Non-Labored 07/30/18 16:35 Blood Pressure 133/67 07/30/18 18:46 Blood Pressure Position Sitting 07/30/18 16:34 Pulse Oximetry 100 07/30/18 16:34 Pain Level 3 07/30/18 18:46 Lab/Test Results Lab/Test Results: Laboratory Tests Range/Units 07/30/18 07/30/18 07/30/18 17:22 17:22 17:22 WBC (4.4-10.8) k/cumm 16.45 H RBC (4.50-6.00) m/cumm 4.99 Hgb (13.5-17.5) g/dL 14.3 Hct (40.0-50.0) % 41.6 MCV (80-95) fL 83.4 MCH (27.0-33.0) pg 28.7 MCHC (32.0-36.0) g/dL 34.4 RDW (11.8-14.1) % 13.2 Plt Count (130-400) x1000/uL 481 H MPV (8.0-11.0) fL 9.6 Immature Gran % 0.0 Neutrophils % 68.0 Band Neutrophils % % 5.0 Lymphocytes % 17.0 Atypical Lymphs % 0 Monocytes % 8.0 Eosinophils % 2.0 Basophils % 0.0 Absolute Neutrophils (1.2-6.7) k/cumm 12.01 H Absolute Lymphocytes (1.2-3.4) k/cumm 2.80 Absolute Monocytes (0.11-0.7) k/cumm 1.32 H Absolute Eosinophils (0.0-0.7) k/cumm 0.33 Absolute Basophils (0.0-0.2) k/cumm 0.00 Differential Comment Manual differential RBC Morphology Normal ESR (0-15) MM/HR Sodium (136-145) mmol/L 136 Potassium (3.5-5.1) mmol/L 3.2 L Chloride (98-107) mmol/L 97 L Carbon Dioxide (21.0-32.0) mmol/L 27.8 Anion Gap (3-11) mmol/L 11.2 H BUN (7-18) mg/dL 6 L Creatinine (0.70-1.30) mg/dL 0.97 Estimated GFR/1.73 m2 (mL/min/1.73m2) >= 60.00 Glucose (70-100) mg/dL 125 H Calcium (8.5-10.1) mg/dL 8.7 Total Bilirubin (0.2-1.0) mg/dL 0.8 AST (15-37) U/L 41 H ALT (12-78) U/L 62 Alkaline Phosphatase (46-116) U/L 112 C-Reactive Protein (0.0-0.3) mg/dL 14.50 H Total Protein (6.4-8.2) g/dL 7.9 Albumin (3.4-5.0) g/dL 2.8 L Lipase (73-393) U/L 110 Urine Color (Yellow) Urine Clarity Urine pH (5-8) Ur Specific [place] (1.005-1.025) Urine Protein (Negative) mg/dL Urine Ketones (Negative) mg/dL Urine Blood (Negative) Urine Nitrite (Negative) Urine Bilirubin (Negative) Urine Urobilinogen (Up TO 0.2) EU/dL Ur Leukocyte Esterase (Negative) Urine RBC (0-2) Urine WBC (0-5) HPF Ur Epithelial Cells (Negative) HPF Urine Crystals (Negative) HPF Urine Bacteria (Negative) HPF Urine Casts (Negative) LPF Urine Mucus (Negative) Ur Culture Indicated? Urine Glucose (Negative) mg/dL Range/Units 07/30/18 07/30/18 17:22 19:02 WBC (4.4-10.8) k/cumm RBC (4.50-6.00) m/cumm Hgb (13.5-17.5) g/dL Hct (40.0-50.0) % MCV (80-95) fL MCH (27.0-33.0) pg MCHC (32.0-36.0) g/dL RDW (11.8-14.1) % Plt Count (130-400) x1000/uL MPV (8.0-11.0) fL Immature Gran % Neutrophils % Band Neutrophils % % Lymphocytes % Atypical Lymphs % Monocytes % Eosinophils % Basophils % Absolute Neutrophils (1.2-6.7) k/cumm Absolute Lymphocytes (1.2-3.4) k/cumm Absolute Monocytes (0.11-0.7) k/cumm Absolute Eosinophils (0.0-0.7) k/cumm Absolute Basophils (0.0-0.2) k/cumm Differential Comment RBC Morphology ESR (0-15) MM/HR 64 H Sodium (136-145) mmol/L Potassium (3.5-5.1) mmol/L Chloride (98-107) mmol/L Carbon Dioxide (21.0-32.0) mmol/L Anion Gap (3-11) mmol/L BUN (7-18) mg/dL Creatinine (0.70-1.30) mg/dL Estimated GFR/1.73 m2 (mL/min/1.73m2) Glucose (70-100) mg/dL Calcium (8.5-10.1) mg/dL Total Bilirubin (0.2-1.0) mg/dL AST (15-37) U/L ALT (12-78) U/L Alkaline Phosphatase (46-116) U/L C-Reactive Protein (0.0-0.3) mg/dL Total Protein (6.4-8.2) g/dL Albumin (3.4-5.0) g/dL Lipase (73-393) U/L Urine Color (Yellow) Yellow Urine Clarity Clear Urine pH (5-8) 7.5 Ur Specific [place] (1.005-1.025) 1.020 Urine Protein (Negative) mg/dL 30 H Urine Ketones (Negative) mg/dL >=160 H Urine Blood (Negative) Negative Urine Nitrite (Negative) Negative Urine Bilirubin (Negative) Moderate H Urine Urobilinogen (Up TO 0.2) EU/dL >=8.0 Ur Leukocyte Esterase (Negative) Negative Urine RBC (0-2) 0-2 Urine WBC (0-5) HPF 0-2 Ur Epithelial Cells (Negative) HPF Rare Urine Crystals (Negative) HPF Negative Urine Bacteria (Negative) HPF Rare Urine Casts (Negative) LPF Negative Urine Mucus (Negative) Negative Ur Culture Indicated? No Urine Glucose (Negative) mg/dL 100
--- NOTE | 2018-07-30 21:31 | ED.GENADUL_ITS ---
Discharge Plan Disposition Patient Disposition: HOME Condition: Stable Discharge Details Chief Complaint: Abd Prob Clinical Impression: Colitis with rectal bleeding Primary Care Provider: Rina Long ED Provider: Jona Madden Home Meds and New Rx's Prescriptions: New promethazine [Phenergan] 25 mg suppository 25 mg [place] Q6H PRN (Reason: nausea and vomiting) Qty: 12 RF: 0 ondansetron 4 mg tablet,disintegrating 4 mg PO TID PRN (Reason: nausea and vomiting) Qty: 12 RF: 0 Continued acetaminophen [Tylenol] 325 mg Tablet 650 mg PO Q6H PRNRF: 0 esomeprazole magnesium [Nexium] 40 mg Capsule,Delayed Release(Dr/Ec) 40 mg PO DAILY RF: 0 Discontinued metronidazole 500 mg tablet 500 mg PO TID Qty: 29 RF: 0 ciprofloxacin HCl 500 mg tablet 500 mg PO BID Qty: 16 RF: 0 Discharge Instructions Instructions: Rectal Bleeding (ED), Clear Liquid Diet (ED), Colitis (ED) Additional Instructions: Return immediately to the emergency department for any new or significant worsening of symptoms, change in your symptoms, severe abdominal pain, or any concerns you have. Otherwise start clear liquid diet this evening and follow bowel prep as recommended by general surgery office and keep your appointment with them for Saturday. Feel free to call their office for any further questions that you may have or return to emergency department as needed. Referrals: [facility] [Provider Group] (As needed for any further questions in regards to your colonoscopy and keep your appointment for saturday) Discharge Data Discharge Date/Time-TO BE ENTERED AT DEPARTURE: 07/30/18 21:55 Medical Decision Making Patient presenting to the emergency department for chief complaint of abdominal pain, nausea vomiting, and bloody diarrhea. Patient states that this is been going on for the past 3 weeks with visits to his primary care provider to the emergency department. Left lower quadrant tenderness, labs reviewed and show improvement from Saturday. Patient given IV fluids and Phenergan. spoke with surgeon concrete buildings assembler Dr. Goncalves about need for CT imaging due to patient recently having imaging performed. She recommended against CT imaging but did state to have send out additional labs for workup of Crohn's and for patient to be on clear liquid diet. She was informed that patient became febrile in the emergency department is not hypotensive no signs of toxicity or sepsis are noted at this time. She stated to have patient stop Cipro Flagyl if this is causing more nausea vomiting and previous stool specimen showed no infectious process more concern for inflammatory markers. Return precautions discussed, and for patient to continue with plan to have colonoscopy on Saturday as scheduled. Patient was prescribed rectal Phenergan and ODT Zofran. He was also informed to stay well-hydrated. After discussion of diagnosis and plan of care patient has no further needs, questions, or concerns and states clear understanding to return to the emergency department for any worsening symptoms. HPI General Mode of arrival: ambulatory . Date/Time Provider Initiated Documentation: 07/30/18 16:43 . Limitations to Documentation: no limitations . Information obtained by: patient, RN notes reviewed and old records reviewed . History of Present Illness 43 year old M presents to the emergency department with the chief complaint of Abdominal pain, nausea, diarrhea, described as mild, Quality is described as aching, and is localized to the abdomen. Patient started experiencing this week(s) (3) and it has been colicky. No relieving factors improve symptom(s), No exacerbating factors reported . Patient did receive the following treatments prior to arrival, none Related Data Home Medications Medication Instructions Recorded Confirmed acetaminophen [Tylenol] 650 mg PO Q6H PRN 07/27/18 08/01/18 esomeprazole magnesium [Nexium] 40 mg PO DAILY 07/27/18 08/01/18 ondansetron 4 mg PO TID PRN #12 tab 07/30/18 08/01/18 promethazine [Phenergan] 25 mg [place] Q6H PRN #12 each 07/30/18 08/01/18 Previous Rx's Medication Instructions Recorded ondansetron 4 mg PO TID PRN #12 tab 07/30/18 promethazine [Phenergan] 25 mg [place] Q6H PRN #12 each 07/30/18 Allergies Allergy/AdvReac Type Severity Reaction Status Date / Time No Known Allergies Allergy Verified 07/29/18 14:21 General Stated Complaint: Abd Prob REBECCA: 3 Review of Systems Constitutional Denies chills, Reports fever(s) and Reports poor appetite Cardiovascular Denies chest pain and Denies dyspnea Respiratory Denies cough and Denies dyspnea Gastrointestinal Reports as per HPI, Reports abdominal pain, Denies melena, Reports hematochezia, Denies change in bowel habits, Denies constipation, Reports diarrhea, Reports nausea and Reports vomiting Genitourinary Denies hematuria, Denies difficulty urinating, Denies urinary hesitancy, Denies urinary incontinence and Denies urinary urgency Integumentary/Breasts Denies rash [facility] Medical History Chest pain due to gastrointestinal reflux disease (Chronic) GERD (gastroesophageal reflux disease) (Chronic) Shoulder joint pain (Acute) Heart murmur (Chronic) VSD (ventricular septal defect) (Chronic) Surgical History History of esophagogastroduodenoscopy (EGD) (Chronic) Social History Smoking and Tabacco status: Never Exam Const General: cooperative Orientation: alert, awake and oriented x3 Resp Effort & Inspection: normal respiratory effort and able to speak in complete sentences Auscultation: clear to auscultation bilaterally Cardio Rate: regular rate Rhythm: regular rhythm Heart Sounds: S1 normal and S2 normal GI Palpation: soft, no hepatosplenomegaly, not firm, no guarding, no masses, no pulsatile masses, not rigid, no splenomegaly and tender in the LLQ Auscultation: normal bowel sounds Back/Spine/Pelvis Back: no CVA tenderness Neuro General: alert, awake, oriented x3, gait normal and moves all extremities Course Vital Signs Temperature 36.8 C 07/30/18 16:34 Pulse 108 H 07/30/18 16:34 Respiratory Rate 18 07/30/18 16:34 Blood Pressure 152/86 H 07/30/18 16:34 Pulse Oximetry 100 07/30/18 16:34 Temperature 37.9 C H 07/30/18 19:24 Temperature Source Oral 07/30/18 19:24 Pulse 108 H 07/30/18 18:46 Respiratory Rate 18 07/30/18 19:24 Respiratory Effort Non-Labored 07/30/18 16:35 Blood Pressure 133/67 07/30/18 18:46 Blood Pressure Position Sitting 07/30/18 16:34 Pulse Oximetry 100 07/30/18 16:34 Pain Level 3 07/30/18 18:46 Lab/Test Results Lab/Test Results: Laboratory Tests Range/Units 07/30/18 07/30/18 07/30/18 17:22 17:22 17:22 WBC (4.4-10.8) k/cumm 16.45 H RBC (4.50-6.00) m/cumm 4.99 Hgb (13.5-17.5) g/dL 14.3 Hct (40.0-50.0) % 41.6 MCV (80-95) fL 83.4 MCH (27.0-33.0) pg 28.7 MCHC (32.0-36.0) g/dL 34.4 RDW (11.8-14.1) % 13.2 Plt Count (130-400) x1000/uL 481 H MPV (8.0-11.0) fL 9.6 Immature Gran % 0.0 Neutrophils % 68.0 Band Neutrophils % % 5.0 Lymphocytes % 17.0 Atypical Lymphs % 0 Monocytes % 8.0 Eosinophils % 2.0 Basophils % 0.0 Absolute Neutrophils (1.2-6.7) k/cumm 12.01 H Absolute Lymphocytes (1.2-3.4) k/cumm 2.80 Absolute Monocytes (0.11-0.7) k/cumm 1.32 H Absolute Eosinophils (0.0-0.7) k/cumm 0.33 Absolute Basophils (0.0-0.2) k/cumm 0.00 Differential Comment Manual differential RBC Morphology Normal ESR (0-15) MM/HR Sodium (136-145) mmol/L 136 Potassium (3.5-5.1) mmol/L 3.2 L Chloride (98-107) mmol/L 97 L Carbon Dioxide (21.0-32.0) mmol/L 27.8 Anion Gap (3-11) mmol/L 11.2 H BUN (7-18) mg/dL 6 L Creatinine (0.70-1.30) mg/dL 0.97 Estimated GFR/1.73 m2 (mL/min/1.73m2) >= 60.00 Glucose (70-100) mg/dL 125 H Calcium (8.5-10.1) mg/dL 8.7 Total Bilirubin (0.2-1.0) mg/dL 0.8 AST (15-37) U/L 41 H ALT (12-78) U/L 62 Alkaline Phosphatase (46-116) U/L 112 C-Reactive Protein (0.0-0.3) mg/dL 14.50 H Total Protein (6.4-8.2) g/dL 7.9 Albumin (3.4-5.0) g/dL 2.8 L Lipase (73-393) U/L 110 Urine Color (Yellow) Urine Clarity Urine pH (5-8) Ur Specific [place] (1.005-1.025) Urine Protein (Negative) mg/dL Urine Ketones (Negative) mg/dL Urine Blood (Negative) Urine Nitrite (Negative) Urine Bilirubin (Negative) Urine Urobilinogen (Up TO 0.2) EU/dL Ur Leukocyte Esterase (Negative) Urine RBC (0-2) Urine WBC (0-5) HPF Ur Epithelial Cells (Negative) HPF Urine Crystals (Negative) HPF Urine Bacteria (Negative) HPF Urine Casts (Negative) LPF Urine Mucus (Negative) Ur Culture Indicated? Urine Glucose (Negative) mg/dL Range/Units 07/30/18 07/30/18 17:22 19:02 WBC (4.4-10.8) k/cumm RBC (4.50-6.00) m/cumm Hgb (13.5-17.5) g/dL Hct (40.0-50.0) % MCV (80-95) fL MCH (27.0-33.0) pg MCHC (32.0-36.0) g/dL RDW (11.8-14.1) % Plt Count (130-400) x1000/uL MPV (8.0-11.0) fL Immature Gran % Neutrophils % Band Neutrophils % % Lymphocytes % Atypical Lymphs % Monocytes % Eosinophils % Basophils % Absolute Neutrophils (1.2-6.7) k/cumm Absolute Lymphocytes (1.2-3.4) k/cumm Absolute Monocytes (0.11-0.7) k/cumm Absolute Eosinophils (0.0-0.7) k/cumm Absolute Basophils (0.0-0.2) k/cumm Differential Comment RBC Morphology ESR (0-15) MM/HR 64 H Sodium (136-145) mmol/L Potassium (3.5-5.1) mmol/L Chloride (98-107) mmol/L Carbon Dioxide (21.0-32.0) mmol/L Anion Gap (3-11) mmol/L BUN (7-18) mg/dL Creatinine (0.70-1.30) mg/dL Estimated GFR/1.73 m2 (mL/min/1.73m2) Glucose (70-100) mg/dL Calcium (8.5-10.1) mg/dL Total Bilirubin (0.2-1.0) mg/dL AST (15-37) U/L ALT (12-78) U/L Alkaline Phosphatase (46-116) U/L C-Reactive Protein (0.0-0.3) mg/dL Total Protein (6.4-8.2) g/dL Albumin (3.4-5.0) g/dL Lipase (73-393) U/L Urine Color (Yellow) Yellow Urine Clarity Clear Urine pH (5-8) 7.5 Ur Specific [place] (1.005-1.025) 1.020 Urine Protein (Negative) mg/dL 30 H Urine Ketones (Negative) mg/dL >=160 H Urine Blood (Negative) Negative Urine Nitrite (Negative) Negative Urine Bilirubin (Negative) Moderate H Urine Urobilinogen (Up TO 0.2) EU/dL >=8.0 Ur Leukocyte Esterase (Negative) Negative Urine RBC (0-2) 0-2 Urine WBC (0-5) HPF 0-2 Ur Epithelial Cells (Negative) HPF Rare Urine Crystals (Negative) HPF Negative Urine Bacteria (Negative) HPF Rare Urine Casts (Negative) LPF Negative Urine Mucus (Negative) Negative Ur Culture Indicated? No Urine Glucose (Negative) mg/dL 100
[2018-07-30] MEDS: Ondansetron O.D.T. 4 MG TABEF 8 MG PO (21:54)
[2018-08-01 14:26] LABS: ANA Interpretation Negative (NEGAT); ANCA Interpretation Negative (NEGAT)
== END 2018-07-30 21:55 | disposition home or self-care (01) ==
PROVIDERS: Emergency Provider Nurse Practitioner Family; PCP Family Medicine
DX: K52.89 Other specified noninfective gastroenteritis and colitis (principal); K62.5 Hemorrhage of anus and rectum
CPT/HCPCS: 36415; 80053; 83690; 85652; 86255; 96361; 96374; 96375; 99284; 74022; 81003; 81015; 85025; 86038; 86140; 86671; J0131

== ENCOUNTER 2018-08-01 14:50 | Inpatient (IN) | payer BC, SELFPAY ==
[2018-08-01 07:24] VITALS: BP 131/80; PULSE 97; RESP 16; TEMP 37.1; O2SAT 98
--- NOTE | 2018-08-01 08:18 | W.PM.ENDDOP ---
Date of service: 08/01/18 Time of Service: 08:18 Endoscopy Report DATE OF PROCEDURE: 08/01/18 PRE-OP DIAGNOSIS: dysphagia/llq pain and rectal bleeding POST-OP DIAGNOSIS: same PROCEDURE: egd w/ biopsy and flex sig w/ bx ANESTHESIA: MAC ESTIMATED BLOOD LOSS: 5 PATHOLOGY: other COMPLICATIONS: None DISPOSITION: same day INDICATIONS: dysphasia and Hx of prior esophageal stricture LLQ pain and rectal bleeding PREP: Miralax PROCEDURE START TIME: 08:56 PROCEDURE END TIME: 09:21 COLONOSCOPY RETRACTION TIME: n/a FINDINGS: CE: edema/swelling of bowel wall. bowel wall is very friable and bleeding. ulceration and membrane. from rectum to 30cm. at 30cm the colon b/c so swollen and narrowed that I cannot visualize the lumen and not safe to proceed and the procedure is abandoned. labs are drawn and pt will be started on IV PPI adn abx. admission if bed is available. stool for c dif sent. awaiting on labs to consider starting steroids. PROCEDURE DESCRIPTION: Mr. Nguyễn is here today for EGD and colonoscopy. Informed consent is obtained explaining risks and benefits of the procedure including but not limited to: Bleeding, infection, perforation, aspiration, and complications from anesthesia and other complications. Patient is brought back to the endoscopy suite and placed in supine position. Anesthesia is ministered per the department of anesthesia. Timeout is performed. The previously lubricated Olympus scope was inserted into the oropharynx and passed down into the esophagus. there are no esophageal erosions, varices, diverticular, stricture apparent. The scope was passed into the fundus. The pylorus is easily cannulated. The scope was passed in the first and second portions of the duodenum. Bile was identified there are no lesions or ulcers or other abnormalities within the duodenum. Biopsy was taken of the duodenum. Antrum and pylorus are normal. There is no signs of stricture or ulcer disease. Biopsies taken in the antrum. He does have a few small polyps within the body of the stomach. Finishing Area Operator sample was obtained. These are probably hypertrophied glands from being on long-standing PPI therapy. There is no redness, erosions, ulcerations, or gastritis. There is no mass other masses. Retroflexion is done. There is no hiatal hernia. GE junction is intact. There is no redness ulceration or stricture noted biopsy is taken of the GE junction and distal esophagus. The scope was then withdrawn. All biopsies are obtained. There is no bleeding noted. Scope had been exchanged and attention is turned to the colonoscopy topic portion of the procedure. Digital rectal exam was performed prior to beginning the procedure which did reveal gross blood in the purulent feculent discharge. There are no masses in the ano-rectal region and normal rectal tone. As we move into the rectum the mucosa was noted to be erythematous edematous very friable. There is no active arterial bleeding. There is anal sparing. the disease appears to extend from the rectum all the way to 30 cm. The disease becomes more severe as we progress and once a reached 30 cm, I am not able to visualize the lumen and the scope will not pass so the procedure was abandoned at this time time. There is extreme edema and swelling of the mucosa there is actually actual ulceration and have a whitish/yellowish mucoid membrane. Biopsies are taken at 30 cm 20 cm and in the rectum. No significant bleeding is noted. pt will be admitted for abx and steriods. results of labs and imaging are reviewed. IBD lads are sent. stool cultures are neg. C. diff is pd at this time.
--- NOTE | 2018-08-01 09:00 | STOM_PTH ---
PATIENT: Albert Nguyễn LOC: [id number] AGE/SX: 43/M ROOM: [id number] RE08/01/[address]: Catie Mcgrath : 1975 BED: B DIS: 08/12/2018 SPEC #: [id number] RECD: 08/01/18 12:58 STATUS: MITZY RE #: [id number] RANDEE: 08/01/18 09:[address]: Catie Mcgrath DEPT: Surgical Specimen RECD BY: Sofya Hensley ENTERED: 08/01/18 13:04 SP TYPE: STOMACH OTHR DR: Rina Long Tissues: 1 - STOMACH BIOPSY 2 - STOMACH BIOPSY 3 - STOMACH BIOPSY 4 - STOMACH BIOPSY 5 - ESOPHAGUS BIOPSY 6 - ESOPHAGUS BIOPSY 7 - BIOPSY BOWEL 8 - BIOPSY BOWEL 9 - BIOPSY BOWEL Procedures: GROSS AND MICRO LEVEL 4 IMMUNOPEROXIDASE STAIN Comments: [id number]
[2018-08-01] MEDS: Normal Saline Flush 10 ML SYR IV ×5 (09:45→20:33)
[2018-08-01] MEDS: Lactated Ringers 1,000 ML 80 ML IV (09:46)
[2018-08-01 10:15] VITALS: BP 118/67; PULSE 90; RESP 16; TEMP 37.2; O2SAT 95
[2018-08-01 10:22] LABS: HCT 33.6 % (40.0-50.0); HGB 11.6 g/dL (13.5-17.5); Mean Corp. HGB Concentration 34.5 g/dL (32.0-36.0); Mean Platelet Volume 9.3 fL (8.0-11.0); Platelet Count 368 x1000/uL (130-400); RBC Distribution Width 12.8 % (11.8-14.1); White Blood Cell Count 13.71 k/cumm (4.4-10.8)
[2018-08-01 10:34] LABS: Anion Gap 7.6 mmol/L (3-11); BUN 7 mg/dL (7-18); CO2 29.4 mmol/L (21.0-32.0); CREATININE 0.87 mg/dL (0.70-1.30); Calcium 7.5 mg/dL (8.5-10.1); Chloride 99 mmol/L (98-107); Glucose 114 mg/dL (70-100); Potassium 3.2 mmol/L (3.5-5.1); Sodium 136 mmol/L (136-145)
[2018-08-01 10:35] LABS: Magnesium 1.6 mg/dL (1.8-2.4)
[2018-08-01] MEDS: Pantoprazole 40 MG VIAL IVP ×2 (10:36→17:58)
[2018-08-01 10:38] LABS: Absolute Lymphocyte Count 1.23 k/cumm (1.2-3.4); Absolute Monocyte Count 1.78 k/cumm (0.11-0.7); Absolute Neutrophil Count 10.56 k/cumm (1.2-6.7); Atypical Lymphocytes % 3
[2018-08-01 10:39] LABS: Absolute Eosinophil Count 0.14 k/cumm (0.0-0.7); Diff Comment Manual Differential; RBC Morphology Normal
[2018-08-01] MEDS: CIPROFLOXACIN 400 MG/200 ML BAG 200 MG IVPB ×2 (10:40→20:33)
[2018-08-01 10:41] LABS: ALT 51 U/L (12-78); AST 22 U/L (15-37); Albumin 2.1 g/dL (3.4-5.0); Alkaline Phosphatase 112 U/L (46-116); Bilirubin, Direct 0.35 mg/dL (0.00-0.20); Bilirubin, Total 0.7 mg/dL (0.2-1.0); Total Protein 6.1 g/dL (6.4-8.2)
[2018-08-01 11:05] LABS: ESR 57 MM/HR (0-15)
[2018-08-01 11:08] LABS: INR 1.2 (0.9-1.1)
[2018-08-01] MEDS: MetroNIDAZOLE 500 MG/100 ML BAG 100 MG IVPB ×2 (11:57→18:07)
[2018-08-01] MEDS: Ondansetron 4 MG/2 ML VIAL IVP (12:04)
[2018-08-01 13:47] VITALS: BP 116/67; PULSE 108; RESP 20; TEMP 39.3; O2SAT 94
--- NOTE | 2018-08-01 14:22 | W.PM.HP.N ---
Date of service: 08/01/18 Time of Service: 14:22 History of Present Illness Chief Complaint: rectal bleeding and abdom pain Consults Consult date: 08/01/18 Review of Systems Review of Systems fever/chills. vomiting and can't eat/keep anything down. anorexia. + wt looss. All systems reviewed & are unremarkable except as noted in HPI and below Constitutional Reports anorexia, Reports body ache(s), Reports chills, Reports fatigue, Reports fever(s), Reports lethargy, Reports poor appetite, Reports weakness and Reports weight loss Comments: no URI type s/s. Eyes Comments: no pain. no drainage. no jaundice ENT Reports dysphagia Comments: no pain swallowing pt reports inability to swallow lg pills. he has a Hx of esophageal stricture which he had dilated >10yrs. + vomiting + anorexia + wt loss. no smoker. - thrush Cardiovascular Denies chest pain at rest, Denies chest pain with activity, Denies diaphoresis and Denies irregular heart rhythm Respiratory Denies chest congestion, Denies cough, Denies hemoptysis, Denies excessive phlegm production and Denies pain on inspiration Gastrointestinal Reports as per HPI, Reports abdominal pain, Denies melena, Reports bloating, Reports hematochezia, Reports change in bowel habits, Reports change in stool character, Reports cramping, Reports dysphagia, Reports early satiety, Reports diarrhea, Reports loose stools, Reports nausea, Reports vomiting and Denies hematemesis Genitourinary Denies difficulty urinating and Denies urinary incontinence Musculoskeletal Comments: no joint pain or swelling or resness Integumentary/Breasts Comments: no rashes or open lesions Neurologic Reports weakness Endocrine Reports fatigue Comments: no DM Allergic/Immunologic Reports as per HPI Comments: no prior hx or family hx of IBD. [facility] Medical History Chest pain due to gastrointestinal reflux disease (Chronic) GERD (gastroesophageal reflux disease) (Chronic) Shoulder joint pain (Acute) Heart murmur (Chronic) VSD (ventricular septal defect) (Chronic) Surgical History History of esophagogastroduodenoscopy (EGD) (Chronic) Social History Smoking and Tabacco status: Never Meds Home Medications Medication Instructions Recorded Confirmed Type acetaminophen [Tylenol] 650 mg PO Q6H PRN 07/27/18 08/01/18 History esomeprazole magnesium [Nexium] 40 mg PO DAILY 07/27/18 08/01/18 History ondansetron 4 mg PO TID PRN #12 tab 07/30/18 08/01/18 Rx promethazine [Phenergan] 25 mg [place] Q6H PRN #12 each 07/30/18 08/01/18 Rx Allergies Allergy/AdvReac Type Severity Reaction Status Date / Time No Known Allergies Allergy Verified 07/29/18 14:21 Exam Const General: in distress Orientation: alert, awake and oriented x3 Other: appears ill Eyes General: appearance normal, both eyes and all related structures Sclera: sclerae normal Neck Neck: no JVD Chest Chest: normal inspection of the chest Resp Effort & Inspection: normal respiratory effort, able to speak in complete sentences and no cough Auscultation: clear to auscultation bilaterally Cardio Jugular venous pressure: no JVD Rate: regular rate Rhythm: regular rhythm GI Inspection: normal to inspection, non-distended, no incisions and no striae Palpation: soft, no hernias and No ascites Auscultation: normal bowel sounds Rectal Exam: other Other: gross blood and muco-purulent discharge . mild pain in LLQ. no peritoneal signs Skin General skin exam: no rashes or lesions noted Results Imaging Abdomen CT scan report/results: report reviewed and image reviewed Imaging Studies: Patient Name: EMILY GAGNON #: [id number]: ER Ordering Provider: David Simms M.D. : [facility] ER Primary Care Provider: Rina Long Date of Exam: 07/27/18Sex: M : 1975Age: 43 Exam(s) a CT:CT abdomen & pelvis w SYMPTOMS/DIAGNOSIS: ABD PAIN, LLQ TENDERNESS CT SCAN OF THE ABDOMEN AND PELVIS: CT scan of the abdomen and pelvis was performed following the uneventful administration of intravenous contrast material. There are no priors for comparison. The lung bases are clear. The liver, spleen, pancreas, gallbladder, bile ducts and adrenal glands are unremarkable. The portal and superior mesenteric veins and splenic veins are all patent. The abdominal aorta is of normal caliber. No significant abdominal or pelvic adenopathy or pneumoperitoneum is seen. There is minimal atherosclerosis of the thoracic aorta. There is bowel wall thickening seen in the colon predominantly involving the transverse, descending and sigmoid colon. There does appear to be mild thickening of the wall of the rectum. The remainder of the bowel is unremarkable. There is a normal appendix present. There is spondylolysis at L 5 with grade 1 spondylolisthesis of L 5 on S 1. IMPRESSION: Findings consistent with colitis. This may represent infectious or inflammatory colitis. [id number]: Total DLP = 0.00 mGy-cm Ordered By: David Simms M.D. CC: Dictated By: Justice Cahrles M.D. 07/28/18 1445 <Electronically signed by Justice Charles M.D.> 07/29/18 1040 Transcribed By: Amanda Rodriguez 07/28/18 1506 This is privileged, confidential information intended only for the provider named. Any use or distribution by any person other than this provider is strictly prohibited. If you receive this report in error, please notify us immediately at [phone] and return the original report to us at the address above. Thank-you. Labs : 08/01/18 10:10 08/01/18 10:10 Laboratory Results - last 24 hr 08/01/18 08/01/18 08/01/18 09:25 10:10 10:10 WBC 13.71 H RBC 4.00 L Hgb 11.6 L D Hct 33.6 L MCV 84.0 MCH 29.0 MCHC 34.5 RDW 12.8 Plt Count 368 D MPV 9.3 Immature Gran % 0.0 Neutrophils % 72.0 Band Neutrophils % 5.0 Lymphocytes % 6.0 Atypical Lymphs % 3 Monocytes % 13.0 Eosinophils % 1.0 Basophils % 0.0 Absolute Neutrophils 10.56 H Absolute Lymphocytes 1.23 Absolute Monocytes 1.78 H Absolute Eosinophils 0.14 Absolute Basophils 0.00 Differential Comment Manual differential RBC Morphology Normal ESR 57 H PT INR Sodium Potassium Chloride Carbon Dioxide Anion Gap BUN Creatinine Estimated GFR/1.73 m2 Glucose Calcium Magnesium Total Bilirubin 0.7 Conjugated Bilirubin 0.35 H AST 22 ALT 51 Alkaline Phosphatase 112 Total Protein 6.1 L Albumin 2.1 L C.difficile Tox Ab Neut Cancelled 08/01/18 08/01/18 08/01/18 10:10 10:10 10:10 WBC RBC Hgb Hct MCV MCH MCHC RDW Plt Count MPV Immature Gran % Neutrophils % Band Neutrophils % Lymphocytes % Atypical Lymphs % Monocytes % Eosinophils % Basophils % Absolute Neutrophils Absolute Lymphocytes Absolute Monocytes Absolute Eosinophils Absolute Basophils Differential Comment RBC Morphology ESR PT 12.0 H INR 1.2 H Sodium 136 Potassium 3.2 L Chloride 99 Carbon Dioxide 29.4 Anion Gap 7.6 BUN 7 Creatinine 0.87 Estimated GFR/1.73 m2 >= 60.00 Glucose 114 H Calcium 7.5 L Magnesium 1.6 L Total Bilirubin Conjugated Bilirubin AST ALT Alkaline Phosphatase Total Protein Albumin C.difficile Tox Ab Neut 08/01/18 Unknown WBC RBC Hgb Hct MCV MCH MCHC RDW Plt Count MPV Immature Gran % Neutrophils % Band Neutrophils % Lymphocytes % Atypical Lymphs % Monocytes % Eosinophils % Basophils % Absolute Neutrophils Absolute Lymphocytes Absolute Monocytes Absolute Eosinophils Absolute Basophils Differential Comment RBC Morphology ESR PT INR Cancelled Sodium Potassium Chloride Carbon Dioxide Anion Gap BUN Creatinine Estimated GFR/1.73 m2 Glucose Calcium Magnesium Total Bilirubin Conjugated Bilirubin AST ALT Alkaline Phosphatase Total Protein Albumin C.difficile Tox Ab Neut Last Vital Signs Temp 39.3 C H 08/01/18 13:47 Pulse 108 H 08/01/18 13:47 Resp 20 08/01/18 13:47 BP 116/67 08/01/18 13:47 Pulse Ox 94 L 08/01/18 13:47 Procedures Other Procedure Description/Findings: EGD and CE w/ biopsy's
--- NOTE | 2018-08-01 14:32 | HPE_ITS ---
Date of service: 08/01/18 Time of Service: 14:22 History of Present Illness Chief Complaint: rectal bleeding and abdom pain Consults Consult date: 08/01/18 Review of Systems Review of Systems fever/chills. vomiting and can't eat/keep anything down. anorexia. + wt looss. All systems reviewed & are unremarkable except as noted in HPI and below Constitutional Reports anorexia, Reports body ache(s), Reports chills, Reports fatigue, Reports fever(s), Reports lethargy, Reports poor appetite, Reports weakness and Reports weight loss Comments: no URI type s/s. Eyes Comments: no pain. no drainage. no jaundice ENT Reports dysphagia Comments: no pain swallowing pt reports inability to swallow lg pills. he has a Hx of esophageal stricture which he had dilated >10yrs. + vomiting + anorexia + wt loss. no smoker. - thrush Cardiovascular Denies chest pain at rest, Denies chest pain with activity, Denies diaphoresis and Denies irregular heart rhythm Respiratory Denies chest congestion, Denies cough, Denies hemoptysis, Denies excessive phlegm production and Denies pain on inspiration Gastrointestinal Reports as per HPI, Reports abdominal pain, Denies melena, Reports bloating, Reports hematochezia, Reports change in bowel habits, Reports change in stool character, Reports cramping, Reports dysphagia, Reports early satiety, Reports diarrhea, Reports loose stools, Reports nausea, Reports vomiting and Denies hematemesis Genitourinary Denies difficulty urinating and Denies urinary incontinence Musculoskeletal Comments: no joint pain or swelling or resness Integumentary/Breasts Comments: no rashes or open lesions Neurologic Reports weakness Endocrine Reports fatigue Comments: no DM Allergic/Immunologic Reports as per HPI Comments: no prior hx or family hx of IBD. [facility] Medical History Chest pain due to gastrointestinal reflux disease (Chronic) GERD (gastroesophageal reflux disease) (Chronic) Shoulder joint pain (Acute) Heart murmur (Chronic) VSD (ventricular septal defect) (Chronic) Surgical History History of esophagogastroduodenoscopy (EGD) (Chronic) Social History Smoking and Tabacco status: Never Meds Home Medications Medication Instructions Recorded Confirmed Type acetaminophen [Tylenol] 650 mg PO Q6H PRN 07/27/18 08/01/18 History esomeprazole magnesium [Nexium] 40 mg PO DAILY 07/27/18 08/01/18 History ondansetron 4 mg PO TID PRN #12 tab 07/30/18 08/01/18 Rx promethazine [Phenergan] 25 mg [place] Q6H PRN #12 each 07/30/18 08/01/18 Rx Allergies Allergy/AdvReac Type Severity Reaction Status Date / Time No Known Allergies Allergy Verified 07/29/18 14:21 Exam Const General: in distress Orientation: alert, awake and oriented x3 Other: appears ill Eyes General: appearance normal, both eyes and all related structures Sclera: sclerae normal Neck Neck: no JVD Chest Chest: normal inspection of the chest Resp Effort & Inspection: normal respiratory effort, able to speak in complete sentences and no cough Auscultation: clear to auscultation bilaterally Cardio Jugular venous pressure: no JVD Rate: regular rate Rhythm: regular rhythm GI Inspection: normal to inspection, non-distended, no incisions and no striae Palpation: soft, no hernias and No ascites Auscultation: normal bowel sounds Rectal Exam: other Other: gross blood and muco-purulent discharge . mild pain in LLQ. no peritoneal signs Skin General skin exam: no rashes or lesions noted Results Imaging Abdomen CT scan report/results: report reviewed and image reviewed Imaging Studies: Patient Name: EMILY GAGNON #: [id number]: ER Ordering Provider: David Simms M.D. : [facility] ER Primary Care Provider: Rina Long Date of Exam: 07/27/18Sex: M : 1975Age: 43 Exam(s) a CT:CT abdomen & pelvis w SYMPTOMS/DIAGNOSIS: ABD PAIN, LLQ TENDERNESS CT SCAN OF THE ABDOMEN AND PELVIS: CT scan of the abdomen and pelvis was performed following the uneventful administration of intravenous contrast material. There are no priors for comparison. The lung bases are clear. The liver, spleen, pancreas, gallbladder, bile ducts and adrenal glands are unremarkable. The portal and superior mesenteric veins and splenic veins are all patent. The abdominal aorta is of normal caliber. No significant abdominal or pelvic adenopathy or pneumoperitoneum is seen. There is minimal atherosclerosis of the thoracic aorta. There is bowel wall thickening seen in the colon predominantly involving the transverse, descending and sigmoid colon. There does appear to be mild thickening of the wall of the rectum. The remainder of the bowel is unremarkable. There is a normal appendix present. There is spondylolysis at L 5 with grade 1 spondylolisthesis of L 5 on S 1. IMPRESSION: Findings consistent with colitis. This may represent infectious or inflammatory colitis. [id number]: Total DLP = 0.00 mGy-cm Ordered By: David Simms M.D. CC: Dictated By: Justice Charles M.D. 07/28/18 1445 <Electronically signed by Justice Charles M.D.> 07/29/18 1040 Transcribed By: Amanda Rodriguez 07/28/18 1506 This is privileged, confidential information intended only for the provider named. Any use or distribution by any person other than this provider is strictly prohibited. If you receive this report in error, please notify us immediately at [phone] and return the original report to us at the address above. Thank-you. Labs : 08/01/18 10:10 08/01/18 10:10 Laboratory Results - last 24 hr 08/01/18 08/01/18 08/01/18 09:25 10:10 10:10 WBC 13.71 H RBC 4.00 L Hgb 11.6 L D Hct 33.6 L MCV 84.0 MCH 29.0 MCHC 34.5 RDW 12.8 Plt Count 368 D MPV 9.3 Immature Gran % 0.0 Neutrophils % 72.0 Band Neutrophils % 5.0 Lymphocytes % 6.0 Atypical Lymphs % 3 Monocytes % 13.0 Eosinophils % 1.0 Basophils % 0.0 Absolute Neutrophils 10.56 H Absolute Lymphocytes 1.23 Absolute Monocytes 1.78 H Absolute Eosinophils 0.14 Absolute Basophils 0.00 Differential Comment Manual differential RBC Morphology Normal ESR 57 H PT INR Sodium Potassium Chloride Carbon Dioxide Anion Gap BUN Creatinine Estimated GFR/1.73 m2 Glucose Calcium Magnesium Total Bilirubin 0.7 Conjugated Bilirubin 0.35 H AST 22 ALT 51 Alkaline Phosphatase 112 Total Protein 6.1 L Albumin 2.1 L C.difficile Tox Ab Neut Cancelled 08/01/18 08/01/18 08/01/18 10:10 10:10 10:10 WBC RBC Hgb Hct MCV MCH MCHC RDW Plt Count MPV Immature Gran % Neutrophils % Band Neutrophils % Lymphocytes % Atypical Lymphs % Monocytes % Eosinophils % Basophils % Absolute Neutrophils Absolute Lymphocytes Absolute Monocytes Absolute Eosinophils Absolute Basophils Differential Comment RBC Morphology ESR PT 12.0 H INR 1.2 H Sodium 136 Potassium 3.2 L Chloride 99 Carbon Dioxide 29.4 Anion Gap 7.6 BUN 7 Creatinine 0.87 Estimated GFR/1.73 m2 >= 60.00 Glucose 114 H Calcium 7.5 L Magnesium 1.6 L Total Bilirubin Conjugated Bilirubin AST ALT Alkaline Phosphatase Total Protein Albumin C.difficile Tox Ab Neut 08/01/18 Unknown WBC RBC Hgb Hct MCV MCH MCHC RDW Plt Count MPV Immature Gran % Neutrophils % Band Neutrophils % Lymphocytes % Atypical Lymphs % Monocytes % Eosinophils % Basophils % Absolute Neutrophils Absolute Lymphocytes Absolute Monocytes Absolute Eosinophils Absolute Basophils Differential Comment RBC Morphology ESR PT INR Cancelled Sodium Potassium Chloride Carbon Dioxide Anion Gap BUN Creatinine Estimated GFR/1.73 m2 Glucose Calcium Magnesium Total Bilirubin Conjugated Bilirubin AST ALT Alkaline Phosphatase Total Protein Albumin C.difficile Tox Ab Neut Last Vital Signs Temp 39.3 C H 08/01/18 13:47 Pulse 108 H 08/01/18 13:47 Resp 20 08/01/18 13:47 BP 116/67 08/01/18 13:47 Pulse Ox 94 L 08/01/18 13:47 Procedures Other Procedure Description/Findings: EGD and CE w/ biopsy's
[2018-08-01] MEDS: ACETAMINOPHEN 1,000 MG/100 ML BTL 400 MG IVPB ×2 (14:56→22:00)
[2018-08-01 15:45] VITALS: BP 116/64; PULSE 102; RESP 18; TEMP 37.3; O2SAT 95
[2018-08-01] MEDS: Hydrocortisone SOD SUC. 100 MG VIAL IVP ×2 (16:00→22:00)
[2018-08-01] MEDS: Lactated Ringers 1,000 ML 125 ML IV (17:00)
[2018-08-01 17:03] VITALS: BP 121/72; PULSE 99; RESP 18; TEMP 37.1; O2SAT 95
[2018-08-01] MEDS: Enoxaparin 40 MG/0.4 ML SYR SC (18:04)
[2018-08-01] MEDS: MAGNESIUM SULFATE 2 GM/50 ML BAG IVPB (18:06)
[2018-08-02] VITALS (10 sets, daily range): BP systolic 101–139; BP diastolic 60–79; PULSE 66–81; RESP 16–18; TEMP 34.1–36.7; O2SAT 94–100
[2018-08-02] MEDS: MetroNIDAZOLE 500 MG/100 ML BAG 100 MG IVPB ×3 (01:35→17:57)
--- NOTE | 2018-08-02 01:44 | NUR.NOTE ---
Nursing Note: Pt is having low temps, see VS charting. Bed just changed as it was sweaty. Pt does not feel bad other than being tired. BG was checked one hour ago and was 158. Room temp was turned up, it does feel chilly in his room. Pt feels cool to the touch. He is A/O, following commands, Ind. with ambulation. Charge nurse notified and will continue to monitor.
[2018-08-02] MEDS: Lactated Ringers 1,000 ML 125 ML IV ×2 (02:17→12:01)
[2018-08-02] MEDS: Hydrocortisone SOD SUC. 100 MG VIAL IVP ×3 (06:19→21:26)
[2018-08-02] MEDS: ACETAMINOPHEN 1,000 MG/100 ML BTL 400 MG IVPB ×3 (06:20→21:25)
[2018-08-02 07:19] LABS: Abs Immature Grans 0.12 k/cumm (0.0-0.09); Absolute Basophil Count 0.01 k/cumm (0.0-0.2); Absolute Lymphocyte Count 0.86 k/cumm (1.2-3.4); Absolute Monocyte Count 0.99 k/cumm (0.11-0.7); Basophils % 0.1; HCT 34.8 % (40.0-50.0); Immature Grans % 0.9; Lymphocytes % 6.2; Mean Corp. HGB Concentration 34.5 g/dL (32.0-36.0); Mean Corpuscular Hemoglobin 29.1 pg (27.0-33.0); Mean Corpuscular Volume 84.5 fL (80-95); Mean Platelet Volume 9.9 fL (8.0-11.0); Monocytes % 7.1; Neutrophils % 85.7; Platelet Count 380 x1000/uL (130-400); RBC 4.12 m/cumm (4.50-6.00); White Blood Cell Count 13.92 k/cumm (4.4-10.8)
[2018-08-02 07:23] LABS: Absolute Neutrophil Count 11.93 k/cumm (1.2-6.7)
[2018-08-02 07:37] LABS: ALT 46 U/L (12-78); AST 20 U/L (15-37); Albumin 1.9 g/dL (3.4-5.0); Alkaline Phosphatase 107 U/L (46-116); Anion Gap 8.3 mmol/L (3-11); BUN 8 mg/dL (7-18); Bilirubin, Total 0.5 mg/dL (0.2-1.0); CO2 28.7 mmol/L (21.0-32.0); CREATININE 0.79 mg/dL (0.70-1.30); Calcium 7.8 mg/dL (8.5-10.1); Chloride 101 mmol/L (98-107); Glucose 144 mg/dL (70-100); Potassium 3.2 mmol/L (3.5-5.1); Sodium 138 mmol/L (136-145)
--- NOTE | 2018-08-02 07:50 | PDOC.CMIN ---
- If Service Date Differs Date of service: 08/02/18 Time of Service: 07:50 Care Management Initial Assess REASON FOR HOSPITALIZATION:: Rectal bleeding and abdominal pain, colitis PAST MEDICAL HISTORY/PAST SURGICAL HISTORY:: Chest pain, GERD, murmur, ventricular septal defect. 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 [facility] with his significant other Ginette , together they have 3 children. Albert is independent with activities of daily living, and transportation. CURRENT FUNCTIONAL STATUS:: Albert is lying in bed his significant other is at the bedside. Albert states that he has been having nausea and vomiting today he is not tolerating a clear liquid diet. He is on IV antibiotics, steroids, and antiemetics. He states he has been sick for several weeks, he states he has not been given a definite diagnosis. Albert states that he is discouraged, and has difficulty believing he will feel better. ADVANCE DIRECTIVES:: None on file-does not want to complete at this time. Has patient been provided with information about the portal?: Yes Did the patient sign up for the portal?: No CODE STATUS:: Full Code INSURANCE COVERAGE / FINANCIAL ISSUES:: [facility] CURRENT HOME/COMMUNITY SERVICES/EQUIPMENT:: No current services or equipment at home. PRIMARY CARE PHYSICIAN:: Dr. Long POTENTIAL DISCHARGE NEEDS:: Follow-up appointment scheduled with primary care and potential referral to GI. PATIENT/FAMILY EDUCATION NEEDS:: Discharge education, follow-up plan of care, ask me 3 and self-management. ANTICIPATED BARRIERS TO DISCHARGE:: None identified at this time. TRANSPORTATION:: Via private car with significant other at time of discharge. PLAN:: Albert remains inpatient today, IV antibiotics, steroids, IV fluids. He has had difficulty tolerating a clear liquid diet related to nausea and vomiting. Anticipate no additional services at time of discharge. CM to continue to provide support and ongoing discharge planning.
--- NOTE | 2018-08-02 07:54 | INITIAL_ITS ---
- If Service Date Differs Date of service: 08/02/18 Time of Service: 07:50 Care Management Initial Assess REASON FOR HOSPITALIZATION:: Rectal bleeding and abdominal pain, colitis PAST MEDICAL HISTORY/PAST SURGICAL HISTORY:: Chest pain, GERD, murmur, ventricu lar septal defect. 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 Albert is independent with activities of daily living, and transportation. CURRENT FUNCTIONAL STATUS:: Albert is lying in bed his significant other is at the bedside. Albert states that he has been having nausea and vomiting today he is not tolerating a clear liquid diet. He is on IV antibiotics, steroids, and antiemetics. He states he has been sick for several weeks, he states he has not been given a definite diagnosis. Albert states that he is discouraged, and has difficulty believing he will feel better. ADVANCE DIRECTIVES:: None on file-does not want to complete at this time. Has patient been provided with information about the portal?: Yes Did the patient sign up for the portal?: No CODE STATUS:: Full Code INSURANCE COVERAGE / FINANCIAL ISSUES:: [facility] CURRENT HOME/COMMUNITY SERVICES/EQUIPMENT:: No current services or equipment at home. PRIMARY CARE PHYSICIAN:: Dr. Long POTENTIAL DISCHARGE NEEDS:: Follow-up appointment scheduled with primary care and potential referral to GI. PATIENT/FAMILY EDUCATION NEEDS:: Discharge education, follow-up plan of care, ask me 3 and self-management. ANTICIPATED BARRIERS TO DISCHARGE:: None identified at this time. TRANSPORTATION:: Via private car with significant other at time of discharge. PLAN:: Albert remains inpatient today, IV antibiotics, steroids, IV fluids. He has had difficulty tolerating a clear liquid diet related to nausea and vomiting. Anticipate no additional services at time of discharge. CM to continue to provide support and ongoing discharge planning.
[2018-08-02] MEDS: Ondansetron 4 MG/2 ML VIAL IVP (08:02)
[2018-08-02] MEDS: CIPROFLOXACIN 400 MG/200 ML BAG 200 MG IVPB ×2 (09:03→20:20)
--- NOTE | 2018-08-02 11:32 | PHARADMIT ---
Addendum entered by Kt Gutierrez III 08/09/18 13:34: Pharmacy Note Subjective MD reports patient contines to improve post Infliximab. May have to continue TPN at home. Objective VS-OK K+2.3 Na-142 Mag-2.2 Phos-2.8 Havaing BM Assessment Flagyl DC'd, TPN continues, Required K+ 101mEq boluses x 4 Plan MD mesha decide on Saturday whether to continie TPN aat home. Original Note: Addendum entered by Kt Gutierrez III 08/08/18 11:32: Pharmacy Note Subjective MD notes that patient has tolerated second dose on Infliximab, and continues to show signs of improvement. Drank bottle of Gatorade, some dry heaves overnight, had two BMs (bloody). Objective VS-OK K+2.4 Phos-3.2 WBC-20.20 Albumin-1.9 Assessment TPN continues unchanged for now. On IV Hydrocortisone. Flagyl continues Plan Ulcerative colitis with rectal bleeding. Awaiting bowel to calm down. Original Note: Addendum entered by Kt Gutierrez III 08/07/18 16:01: Pharmacy Note Subjective Infliximab appears to have improved patient,. MD spoke the [facility] fellow , another Infliximab 850mg dose given today per their protocol. Objective VS-OK K+2.6 Mag-2.2 Na-140 Phos-2.8 H&H-11./33.6 WBC-16.30 passing liquid stool. Assessment TPN continues, Potassium IV bolus given 10mEq x4 dose. Cipro dc'd, Flagy continues. Plan If paatient continues to improve he will stay here, if not transfer to [facility] for surgery. Original Note: Addendum entered by Giovanna Benavidez 08/06/18 12:52: Pharmacy Note Subjective Objective VS-okay K+2.5 phos-2.3 WBC-14.08(down) Assessment Kphos added to TPN, additional K+ replacement given today infliximab ordered 850 mg x1 today per [facility] recommendation cipro and metronidazole continue (day 5) Plan possible transfer to [facility] if beds become available watch CRP Original Note: Addendum entered by Kt Gutierrez III 08/05/18 15:18: Pharmacy Note Subjective MD suspect Crohn's, PICC line ordered TPN starts tonight. Objective VS-OK K+3.0 WBC-25.11 H&H-12.3/36.9 Plts-572 Liquid stooling Assessment On IV Protonix & Steroids, IV Flagyl & Cipro Lovenox continues, Plan Watch Lytes, WBC, Plts. TPN is basic formula using 4.25/10 mix,which is back ordered Original Note: Admission Pharmacy Clinical Review ACUTE IBD-rectal bleed (Surgical pt, had Endoscopy & Colonoscopy 08/01/18) Code Status Full Code Current Weight 85.1 kg Renally Cleared and Narrow Therapeutic Index Meds CrCl~128ml/min QTc Value / Action Taken BP Control, Fever BP 136/76 Afebrile (Tmax 39.3) Electrolytes reviewed K+ 3.2 (not replaced) Mag 1.6 (2 gram IV last evening) DVT Prophylaxis Bloody stool....Lovenox 40mg (should be held?) Opiate Usage / Scheduled Bowel Regimen Ordered MS IVP-not using, no bowel meds, diarrhea Plt/SCr for Heparin / Enoxaparin Plt 380 SCr 0.79 INR for Warfarin H/H stable, WBC/Bands H/H 12.0/34.8 wBC 13.92 Antibiotic appropriateness Cipro/Flagyl IV Cultures and Sensitivities C.Diff Negative Blood cultures pending Surgical ABX d/c within 24 hr DM control / Insulin Dosing BG 144 Heart Failure (Check EF%) (ALLEN's, B-Block, Diuretics) IV to PO Switch IV APAP ATC...switch to oral when ready, Cipro/Flagyl IV steroids Home Meds Reviewed Home Meds Not Ordered Nexium (has Protonix IV), Promethazine (has Zofran) Comments N/V/D-bloody stool
--- NOTE | 2018-08-02 12:47 | PGE_ITS ---
Date of Service Date of service: 08/02/18 Time of Service: 12:45 Assessment and Plan (1) Colitis: Current visit: Yes Status: Acute 43 y/o male with colitis on limited colonoscopy 08/01/18. Biopsies and IBD workup pending. Blood cultures pending. C. diff screen (-). Bloody diarrhea. Continue Lovenox/ SCDs for DVT prophylaxis. Monitor H/H. Check U/A for hematuria. Continue steroids/Cipro/Flagyl. All questions answered. Patient agreeable with plans as discussed. (2) Hypokalemia: Current visit: Yes Status: Acute Likely related to diarrhea/emesis. Replace K+. Follow-up labs in am. (3) Hypomagnesemia: Current visit: Yes Status: Acute Likely related to diarrhea/emesis. Replace Magnesium. Follow-up labs in am. Subjective Interval history since last seen: Notified of reported hypothermia overnight. Resolved. More normothermic this am. Blood cultures sent. Patient denies abdominal pain at this time. He had emesis x 2 this am - bilious per nurse. (+) BM x3 - bloody, then blood w/ mucus, then worm-like. Patient noted to have hematuria this am per nurse. Taking clears. Labs noted. Hb - 12. WBC ~ 14. K - 3.2. Mg - 1.6. Exam Const General: cooperative and no acute distress Orientation: alert and oriented x3 [facility] Head: normocephalic and atraumatic Eyes Sclera: sclerae normal Resp Effort & Inspection: normal respiratory effort and able to speak in complete sentences GI Inspection: non-distended Palpation: soft, not firm, no guarding, no masses, not rigid and nontender Auscultation: normal bowel sounds Objective Objective Clinical Data: Abnormal lab results 08/02/18 08/02/18 Range/Units 06:20 06:20 WBC 13.92 H (4.4-10.8) k/cumm RBC 4.12 L (4.50-6.00) m/cumm Hgb 12.0 L (13.5-17.5) g/dL Hct 34.8 L (40.0-50.0) % Absolute Neutrophils 11.93 H (1.2-6.7) k/cumm Absolute Lymphocytes 0.86 L (1.2-3.4) k/cumm Absolute Monocytes 0.99 H (0.11-0.7) k/cumm Potassium 3.2 L (3.5-5.1) mmol/L Glucose 144 H (70-100) mg/dL Calcium 7.8 L (8.5-10.1) mg/dL Total Protein 6.0 L (6.4-8.2) g/dL Albumin 1.9 L (3.4-5.0) g/dL Vital Signs Temperature 36.3 C L 08/02/18 08:11 Temperature Source Temporal Artery Scan 08/02/18 08:11 Pulse 78 08/02/18 08:11 Pulse Rhythm Irregular 08/02/18 08:39 Respiratory Rate 18 08/02/18 08:11 Respiratory Effort Non-Labored 08/02/18 08:39 Respiratory Depth Normal 08/02/18 08:39 Respiratory Pattern Normal 08/02/18 08:39 Blood Pressure 136/76 08/02/18 08:11 Pulse Oximetry 97 08/02/18 08:11 Oxygen Delivery Method Room Air 08/02/18 08:11 Oxygen Flow Rate 0 08/02/18 08:11 Pain Level 0 08/02/18 08:11 Comment 08/02/18 08:11 Intake & Output 08/01/18 08/02/18 08/02/18 23:59 11:59 23:59 Intake Total 1586.667 / 5727.182 7525 / 3410 Output Total 1100 / 1100 Balance 1586.667 / 3122.466 3896 / 2310 Weight 85.1 kg Intake: IV 1526.667 / 5629.137 2172 / 2200 Oral 60 / 70 1210 / 1210 Output: Urine 500 / 500 Stool 300 / 300 Emesis 300 / 300 Other: Urine Color Light Lenora Dark Lenora Urine Appearance Clear Clear Urine Odor Normal Stool Characteristics Soft Liquid Mucoid Brown Bloody Emesis Description Retching Clear/Water Voiding Methods Urinal Laboratory Results WBC 13.92 k/cumm (4.4-10.8) H 08/02/18 06:20 RBC 4.12 m/cumm (4.50-6.00) L 08/02/18 06:20 Hgb 12.0 g/dL (13.5-17.5) L 08/02/18 06:20 Hct 34.8 % (40.0-50.0) L 08/02/18 06:20 MCV 84.5 fL (80-95) 08/02/18 06:20 MCH 29.1 pg (27.0-33.0) 08/02/18 06:20 MCHC 34.5 g/dL (32.0-36.0) 08/02/18 06:20 RDW 13.0 % (11.8-14.1) 08/02/18 06:20 Plt Count 380 x1000/uL (130-400) 08/02/18 06:20 MPV 9.9 fL (8.0-11.0) 08/02/18 06:20 Immature Gran % 0.9 08/02/18 06:20 Neutrophils % 85.7 08/02/18 06:20 Band Neutrophils % 5.0 % 08/01/18 10:10 Lymphocytes % 6.2 08/02/18 06:20 Atypical Lymphs % 3 08/01/18 10:10 Monocytes % 7.1 08/02/18 06:20 Eosinophils % 0.0 08/02/18 06:20 Basophils % 0.1 08/02/18 06:20 Absolute Neutrophils 11.93 k/cumm (1.2-6.7) H 08/02/18 06:20 Absolute Lymphocytes 0.86 k/cumm (1.2-3.4) L 08/02/18 06:20 Absolute Monocytes 0.99 k/cumm (0.11-0.7) H 08/02/18 06:20 Absolute Eosinophils 0.00 k/cumm (0.0-0.7) 08/02/18 06:20 Absolute Basophils 0.01 k/cumm (0.0-0.2) 08/02/18 06:20 Differential Comment Manual differential 08/01/18 10:10 RBC Morphology Normal 08/01/18 10:10 ESR 57 MM/HR (0-15) H 08/01/18 10:10 PT 12.0 sec (9.3-11.0) H 08/01/18 10:10 INR Cancelled 08/01/18 Unknown Sodium 138 mmol/L (136-145) 08/02/18 06:20 Potassium 3.2 mmol/L (3.5-5.1) L 08/02/18 06:20 Chloride 101 mmol/L (98-107) 08/02/18 06:20 Carbon Dioxide 28.7 mmol/L (21.0-32.0) 08/02/18 06:20 Anion Gap 8.3 mmol/L (3-11) 08/02/18 06:20 BUN 8 mg/dL (7-18) 08/02/18 06:20 Creatinine 0.79 mg/dL (0.70-1.30) 08/02/18 06:20 Estimated GFR/1.73 m2 >= 60.00 (mL/min/1.73m2) 08/02/18 06:20 Glucose 144 mg/dL (70-100) H 08/02/18 06:20 Calcium 7.8 mg/dL (8.5-10.1) L 08/02/18 06:20 Magnesium 1.6 mg/dL (1.8-2.4) L 08/01/18 10:10 Total Bilirubin 0.5 mg/dL (0.2-1.0) 08/02/18 06:20 Conjugated Bilirubin 0.35 mg/dL (0.00-0.20) H 08/01/18 10:10 AST 20 U/L (15-37) 08/02/18 06:20 ALT 46 U/L (12-78) 08/02/18 06:20 Alkaline Phosphatase 107 U/L (46-116) 08/02/18 06:20 Total Protein 6.0 g/dL (6.4-8.2) L 08/02/18 06:20 Albumin 1.9 g/dL (3.4-5.0) L 08/02/18 06:20 C.difficile Tox Ab Neut Cancelled 08/01/18 09:25
[2018-08-02] MEDS: MAGNESIUM SULFATE 1 GM/100 ML BAG IVPB (14:42)
[2018-08-02] MEDS: Enoxaparin 40 MG/0.4 ML SYR SC (16:02)
[2018-08-02] MEDS: Pantoprazole 40 MG VIAL IVP (16:04)
[2018-08-02] MEDS: Normal Saline Flush 10 ML SYR IV (16:05)
[2018-08-02] MEDS: POTASSIUM CHLORIDE 20 MEQ/100 ML BAG 50 MEQ IVPB ×2 (16:10→17:57)
[2018-08-03 00:10] VITALS: BP 109/64; PULSE 82; RESP 17; TEMP 36.7; O2SAT 98
[2018-08-03] MEDS: Normal Saline Flush 10 ML SYR IV ×5 (01:24→22:39)
[2018-08-03] MEDS: Ondansetron 4 MG/2 ML VIAL IVP ×3 (01:25→16:12)
[2018-08-03] MEDS: Lactated Ringers 1,000 ML 125 ML IV ×2 (01:32→01:33)
[2018-08-03] MEDS: MetroNIDAZOLE 500 MG/100 ML BAG 100 MG IVPB ×3 (01:34→18:36)
[2018-08-03] MEDS: Hydrocortisone SOD SUC. 100 MG VIAL IVP ×3 (06:13→22:39)
[2018-08-03] MEDS: ACETAMINOPHEN 1,000 MG/100 ML BTL 400 MG IVPB ×3 (06:15→22:39)
[2018-08-03 07:26] LABS: Abs Immature Grans 0.24 k/cumm (0.0-0.09); HGB 11.3 g/dL (13.5-17.5); Mean Corp. HGB Concentration 34.2 g/dL (32.0-36.0); Mean Corpuscular Hemoglobin 28.9 pg (27.0-33.0); Mean Corpuscular Volume 84.4 fL (80-95); Mean Platelet Volume 9.9 fL (8.0-11.0); Platelet Count 450 x1000/uL (130-400); RBC 3.91 m/cumm (4.50-6.00); White Blood Cell Count 18.96 k/cumm (4.4-10.8)
[2018-08-03 07:33] VITALS: BP 132/74; PULSE 75; RESP 18; TEMP 35.7; O2SAT 100
[2018-08-03 07:39] LABS: Anion Gap 7.8 mmol/L (3-11); BUN 5 mg/dL (7-18); CO2 30.2 mmol/L (21.0-32.0); CREATININE 0.78 mg/dL (0.70-1.30); Calcium 7.6 mg/dL (8.5-10.1); Chloride 102 mmol/L (98-107); Glucose 150 mg/dL (70-100); Sodium 140 mmol/L (136-145)
[2018-08-03] MEDS: CIPROFLOXACIN 400 MG/200 ML BAG 200 MG IVPB ×2 (07:53→20:15)
[2018-08-03 08:17] LABS: Absolute Lymphocyte Count 1.33 k/cumm (1.2-3.4); Absolute Monocyte Count 1.14 k/cumm (0.11-0.7); Atypical Lymphocytes % 1; Diff Comment Manual Differential
[2018-08-03 08:18] LABS: RBC Morphology Normal
--- NOTE | 2018-08-03 09:15 | PDOC.CMPRO ---
- If Service Date Differs Date of service: 08/03/18 Time of Service: 09:15 Care Management Progress Note S/O: No change in Albert status today. He will have a follow-up CT, continues on IV antibiotics, blood cultures pending. He continues to receive pain control and antiemetics as needed. A:Albert is a 43 year old male admitted with abdominal pain, colitis and recent weight loss P:Albert remains inpatient today, IV antibiotics, steroids, IV fluids. Albert continues to be monitored no change in status today. Anticipate no additional services at time of discharge. CM to continue to provide support and ongoing discharge planning.
--- NOTE | 2018-08-03 10:45 | PGE_ITS ---
Date of Service Date of service: 08/03/18 Time of Service: 10:39 Assessment and Plan (1) Colitis: Current visit: Yes Status: Acute 43 y/o male with colitis on limited colonoscopy 08/01/18. Biopsies and IBD workup pending. Blood cultures pending, (-) so far. C. diff screen (-). Bloody diarrhea. Continue Lovenox/ SCDs for DVT prophylaxis. Monitor H/H. Check U/A for hematuria. Continue steroids/Cipro/Flagyl. Leukocytosis with bandemia noted. Some of this may be attributable to steroids. However, his last CT was [address] abd/pelvis with po/iv contrast to rule out abscess/microperforation. Gross perforation unlikely as he is nontender at this time. All questions answered. Patient and family agreeable with plans as discussed. (2) Hypokalemia: Current visit: Yes Status: Acute Likely related to diarrhea/emesis. Add K+ to maintenance IVF. Follow-up labs in am. Subjective Interval history since last seen: Patient denies any abdominal pain at this t geraldine. He notes he is still having bloody diarrhea. C/o nausea and dry heaves. Tolerating sips of Gatorade. Low temp 34.1-36.3 again noted overnight. Blood cultures x 2 (-) so far. WBC ~ 19k with 27% bandemia noted. Last CT scan as noted on 07/27/16. Awaiting IBD panel. Patient seen with nurse, , parents at bedside. Exam Const General: cooperative and no acute distress Orientation: alert and oriented x3 [facility] Head: normocephalic and atraumatic Eyes Sclera: sclerae normal Resp Effort & Inspection: normal respiratory effort and able to speak in complete sentences GI Inspection: non-distended Palpation: soft, not firm, no guarding, not rigid and nontender Auscultation: normal bowel sounds Skin General skin exam: no rashes or lesions noted and no jaundice Neuro General: alert and oriented x3 Speech: speech normal Objective Objective Clinical Data: Abnormal lab results 08/03/18 08/03/18 Range/Units 06:28 06:28 WBC 18.96 H D (4.4-10.8) k/cumm RBC 3.91 L (4.50-6.00) m/cumm Hgb 11.3 L (13.5-17.5) g/dL Hct 33.0 L (40.0-50.0) % Plt Count 450 H (130-400) x1000/uL Absolute Neutrophils 16.50 H (1.2-6.7) k/cumm Absolute Monocytes 1.14 H (0.11-0.7) k/cumm Potassium 3.0 L (3.5-5.1) mmol/L BUN 5 L (7-18) mg/dL Glucose 150 H (70-100) mg/dL Calcium 7.6 L (8.5-10.1) mg/dL Vital Signs Temperature 35.7 C L 08/03/18 07:33 Temperature Source Tympanic 08/03/18 07:33 Pulse 75 08/03/18 07:33 Pulse Rhythm Regular 08/03/18 01:35 Respiratory Rate 18 08/03/18 07:33 Respiratory Effort 08/03/18 01:35 Respiratory Depth Normal 08/03/18 01:35 Respiratory Pattern Normal 08/03/18 01:35 Blood Pressure 132/74 08/03/18 07:33 Pulse Oximetry 100 08/03/18 07:33 Oxygen Delivery Method Room Air 08/03/18 07:33 Oxygen Flow Rate 0 08/03/18 07:33 Pain Level 5 08/03/18 07:53 Comment 08/02/18 08:11 Intake & Output 08/02/18 08/02/18 08/03/18 11:59 23:59 11:59 Intake Total 3710 / 5989.167 2279.167 / 5989.167 902.083 / 902.083 Output Total 1100 / 1100 Balance 2610 / 4889.167 2279.167 / 4889.167 902.083 / 902.083 Intake: IV 2500 / 3789.167 1289.167 / 3789.167 602.083 / 602.083 Oral 1210 / 2200 990 / 2200 300 / 300 Output: Urine 500 / 500 Stool 300 / 300 Emesis 300 / 300 Other: Urine Color Light Lenora Dark Lenora Urine Appearance Clear Clear Urine Odor Normal Comment unable to assess due to bloody stools. voided some with bm. REMINDED PT WE NEED A URINE SPECIMEN AND USE URINAL AFTER. PT REPORTS NOT MUCH URINE Stool Occult Blood Positive Stool Size Moderate Small Stool Characteristics Soft Mucoid Liquid Liquid Mucoid Brown Bloody Emesis Description Clear/Water Voiding Methods Urinal Toilet Toilet Laboratory Results WBC 18.96 k/cumm (4.4-10.8) H D 08/03/18 06:28 RBC 3.91 m/cumm (4.50-6.00) L 08/03/18 06:28 Hgb 11.3 g/dL (13.5-17.5) L 08/03/18 06:28 Hct 33.0 % (40.0-50.0) L 08/03/18 06:28 MCV 84.4 fL (80-95) 08/03/18 06:28 MCH 28.9 pg (27.0-33.0) 08/03/18 06:28 MCHC 34.2 g/dL (32.0-36.0) 08/03/18 06:28 RDW 13.0 % (11.8-14.1) 08/03/18 06:28 Plt Count 450 x1000/uL (130-400) H 08/03/18 06:28 MPV 9.9 fL (8.0-11.0) 08/03/18 06:28 Immature Gran % 0.0 08/03/18 06:28 Neutrophils % 60.0 08/03/18 06:28 Band Neutrophils % 27.0 % 08/03/18 06:28 Lymphocytes % 6.0 08/03/18 06:28 Atypical Lymphs % 1 08/03/18 06:28 Monocytes % 6.0 08/03/18 06:28 Eosinophils % 0.0 08/03/18 06:28 Basophils % 0.0 08/03/18 06:28 Absolute Neutrophils 16.50 k/cumm (1.2-6.7) H 08/03/18 06:28 Absolute Lymphocytes 1.33 k/cumm (1.2-3.4) 08/03/18 06:28 Absolute Monocytes 1.14 k/cumm (0.11-0.7) H 08/03/18 06:28 Absolute Eosinophils 0.00 k/cumm (0.0-0.7) 08/03/18 06:28 Absolute Basophils 0.00 k/cumm (0.0-0.2) 08/03/18 06:28 Differential Comment Manual differential 08/03/18 06:28 RBC Morphology Normal 08/03/18 06:28 ESR 57 MM/HR (0-15) H 08/01/18 10:10 PT 12.0 sec (9.3-11.0) H 08/01/18 10:10 INR Cancelled 08/01/18 Unknown Sodium 140 mmol/L (136-145) 08/03/18 06:28 Potassium 3.0 mmol/L (3.5-5.1) L 08/03/18 06:28 Chloride 102 mmol/L (98-107) 08/03/18 06:28 Carbon Dioxide 30.2 mmol/L (21.0-32.0) 08/03/18 06:28 Anion Gap 7.8 mmol/L (3-11) 08/03/18 06:28 BUN 5 mg/dL (7-18) L 08/03/18 06:28 Creatinine 0.78 mg/dL (0.70-1.30) 08/03/18 06:28 Estimated GFR/1.73 m2 >= 60.00 (mL/min/1.73m2) 08/03/18 06:28 Glucose 150 mg/dL (70-100) H 08/03/18 06:28 Calcium 7.6 mg/dL (8.5-10.1) L 08/03/18 06:28 Magnesium 2.0 mg/dL (1.8-2.4) 08/03/18 06:28 Total Bilirubin 0.5 mg/dL (0.2-1.0) 08/02/18 06:20 Conjugated Bilirubin 0.35 mg/dL (0.00-0.20) H 08/01/18 10:10 AST 20 U/L (15-37) 08/02/18 06:20 ALT 46 U/L (12-78) 08/02/18 06:20 Alkaline Phosphatase 107 U/L (46-116) 08/02/18 06:20 Total Protein 6.0 g/dL (6.4-8.2) L 08/02/18 06:20 Albumin 1.9 g/dL (3.4-5.0) L 08/02/18 06:20 C.difficile Tox Ab Neut Cancelled 08/01/18 09:25
[2018-08-03 11:50] VITALS: BP 137/80; PULSE 67; RESP 18; TEMP 35.9; O2SAT 98
[2018-08-03] MEDS: Omnipaque 350 MG/ML 100 ML BTL IV (12:48)
--- NOTE | 2018-08-03 12:58 | DI.CT_ITS ---
SYMPTOMS/DIAGNOSIS: LEUKOCYTOSIS, COLITIS, ACUTE IBD CT OF THE ABDOMEN AND PELVIS: Comparison is made with July,. Images were performed from the lung bases through the ischial tuberosities after IV and without oral contrast. There is again noted to be wall thickening of the colon seen from the ascending through the rectosigmoid. The findings are less prominent when compared with the previous exam. The appendix appears normal. There is a small amount of fluid in the low pelvis, similar to the previous exam. The bladder and prostate are unremarkable. No small bowel dilatation is seen. The lung bases are clear. The liver, gallbladder, spleen, pancreas, adrenals and kidneys are unremarkable. IMPRESSION: Some interval improvement in degree of previously noted colitis, greatest in the rectosigmoid. There is no evidence of abscess or perforation.
--- NOTE | 2018-08-03 13:40 | DI.VRAD_ITS ---
EXAM: CT Abdomen and Pelvis With Contrast EXAM DATE/TIME: 08/03/2018 10:38 AM CLINICAL HISTORY: 43 years old, male; Signs and symptoms; Other: Leukocytosis, colitis TECHNIQUE: Axial computed tomography images of the abdomen and pelvis with intravenous contrast. All CT scans at this facility use at least one of these dose optimization techniques: automated exposure control; mA and/or kV adjustment per patient size (includes targeted exams where dose is matched to clinical indication); or iterative reconstruction. Coronal and sagittal reformatted images were created and reviewed. COMPARISON: CT ABDOMEN PELVIS W 07/27/2018 1:36 PM FINDINGS: Lower thorax: No acute findings. ABDOMEN: Liver: Normal. No mass. Gallbladder and bile ducts: Normal. No calcified stones. No ductal dilation. Pancreas: Normal. No ductal dilation. Spleen: Normal. No splenomegaly. Adrenals: Normal. No mass. Kidneys and ureters: Normal. No hydronephrosis. Stomach and bowel: Low-attenuation bowel wall thickening is seen throughout the colon consistent with colitis. Differential diagnosis includes infectious and inflammatory etiologies.. Appendix: Normal appendix PELVIS: Bladder: Unremarkable as visualized. Reproductive: Unremarkable as visualized. ABDOMEN and PELVIS: Intraperitoneal space: Mild amount of free fluid in the pelvis. 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 Soft tissues: Unremarkable. Vasculature: Normal. No abdominal aortic aneurysm. Lymph nodes: Small retroperitoneal nodes IMPRESSION: Low-attenuation bowel wall thickening is seen throughout the colon consistent with colitis. Differential diagnosis includes infectious and inflammatory etiologies.. Dictated and Authenticated by: Jus Perdomo MD. Ordering:CYNTHIA Carrington MD
[2018-08-03 15:12] LABS: Bilirubin Negative (Negative); Blood Negative (Negative); Clarity Clear; Glucose Negative (Negative); Ketones Trace mg/dL (Negative); Leukocyte Esterase Negative (Negative); Nitrite Negative (Negative); Urobilinogen 0.2 EU/dL (Up TO 0.2); pH 7.5 (5-8)
[2018-08-03] MEDS: Enoxaparin 40 MG/0.4 ML SYR SC (16:13)
[2018-08-03] MEDS: Pantoprazole 40 MG VIAL IVP (16:13)
[2018-08-03 16:31] VITALS: BP 129/74; PULSE 77; RESP 17; TEMP 36.6; O2SAT 95
[2018-08-03 23:51] VITALS: BP 122/72; PULSE 83; RESP 17; TEMP 36.3; O2SAT 95
[2018-08-04] MEDS: MetroNIDAZOLE 500 MG/100 ML BAG 100 MG IVPB ×3 (02:01→17:48)
[2018-08-04] MEDS: ACETAMINOPHEN 1,000 MG/100 ML BTL 400 MG IVPB (05:12)
[2018-08-04] MEDS: Normal Saline Flush 10 ML SYR IV ×3 (05:13→16:16)
[2018-08-04] MEDS: Hydrocortisone SOD SUC. 100 MG VIAL IVP ×3 (05:13→21:56)
[2018-08-04 07:15] VITALS: BP 110/66; PULSE 61; RESP 18; TEMP 36.8; O2SAT 96
[2018-08-04 07:17] LABS: HCT 32.3 % (40.0-50.0); Mean Corp. HGB Concentration 34.1 g/dL (32.0-36.0); Mean Corpuscular Volume 85.2 fL (80-95); Mean Platelet Volume 9.9 fL (8.0-11.0); Platelet Count 428 x1000/uL (130-400); RBC 3.79 m/cumm (4.50-6.00); RBC Distribution Width 13.3 % (11.8-14.1); White Blood Cell Count 19.42 k/cumm (4.4-10.8)
[2018-08-04 07:32] LABS: ALT 40 U/L (12-78); AST 30 U/L (15-37); Albumin 1.8 g/dL (3.4-5.0); Alkaline Phosphatase 94 U/L (46-116); Anion Gap 5.2 mmol/L (3-11); BUN 3 mg/dL (7-18); Bilirubin, Total 0.4 mg/dL (0.2-1.0); CO2 31.8 mmol/L (21.0-32.0); CREATININE 0.79 mg/dL (0.70-1.30); Calcium 7.7 mg/dL (8.5-10.1); Chloride 102 mmol/L (98-107); Glucose 180 mg/dL (70-100); Potassium 3.1 mmol/L (3.5-5.1); Sodium 139 mmol/L (136-145); Total Protein 5.6 g/dL (6.4-8.2)
--- NOTE | 2018-08-04 07:34 | W.PM.PROGNOT ---
Date of Service Date of service: 08/04/18 Time of Service: 07:15 Assessment and Plan (1) Hypokalemia: Current visit: Yes Status: Acute P\\ Replace with 4 riders of potassium (2) Colitis: Current visit: Yes Status: Acute A\\ Leukocytosis but no fevers. CT scan yesterday without free air or worsening inflammation. ? due to steroid. Platelet count decreasing. Will check ESR to make sure it is coming down Abdomen is benign P\\ Continue with antibiotics and prednisone Adnvance diet to regular low fiber as tolerated Subjective Interval history since last seen: Feeling a little better today. Has pain in the LLQ right before he has to have a BM. Still with liquid, bloody BM's. Some nausea/dry heaving. Not related to eating. NO fevers or chills. Exam Resp Effort & Inspection: normal respiratory effort Auscultation: clear to auscultation bilaterally Cardio Rate: regular rate Rhythm: regular rhythm Heart Sounds: no gallops, no murmurs and no rubs GI Inspection: normal to inspection Palpation: soft, no hepatosplenomegaly and nontender Auscultation: normal bowel sounds Objective Objective Clinical Data: Abnormal lab results 08/03/18 08/03/18 08/03/18 Range/Units 06:28 06:28 14:55 WBC 18.96 H D (4.4-10.8) k/cumm RBC 3.91 L (4.50-6.00) m/cumm Hgb 11.3 L (13.5-17.5) g/dL Hct 33.0 L (40.0-50.0) % Plt Count 450 H (130-400) x1000/uL Absolute Neutrophils 16.50 H (1.2-6.7) k/cumm Absolute Monocytes 1.14 H (0.11-0.7) k/cumm Potassium 3.0 L (3.5-5.1) mmol/L BUN 5 L (7-18) mg/dL Glucose 150 H (70-100) mg/dL Calcium 7.6 L (8.5-10.1) mg/dL Urine Ketones Trace H (Negative) mg/dL Vital Signs Temperature 97.3 F L 08/03/18 23:51 Temperature Source Tympanic 08/03/18 23:51 Pulse 83 08/03/18 23:51 Pulse Rhythm Regular 08/04/18 07:21 Respiratory Rate 17 08/03/18 23:51 Respiratory Effort Non-Labored 08/04/18 07:21 Respiratory Depth Normal 08/04/18 07:21 Respiratory Pattern Normal 08/04/18 07:21 Blood Pressure 122/72 08/03/18 23:51 Pulse Oximetry 95 08/03/18 23:51 Oxygen Delivery Method Room Air 08/03/18 23:51 Oxygen Flow Rate 0 08/03/18 23:51 Pain Level 5 08/03/18 07:53 Comment 08/02/18 08:11 Intake & Output 08/03/18 08/03/18 08/04/18 11:59 23:59 11:59 Intake Total 1412.083 / 3612.083 2200 / 3612.083 1400 / 1400 Output Total 1450 / 1450 600 / 600 Balance 1412.083 / 2162.083 750 / 2162.083 800 / 800 Intake: IV 902.083 / 3102.083 2200 / 3102.083 1400 / 1400 Oral 510 / 510 Output: Urine 1250 / 1250 400 / 400 Stool 200 / 200 200 / 200 Other: Urine Color Yellow Yellow Urine Appearance Clear Clear Urine Odor Normal Comment voided some with bm. REMINDED PT WE NEED A URINE SPECIMEN AND USE URINAL AFTER. PT REPORTS NOT MUCH URINE uop x 1 Stool Size Small Moderate Stool Characteristics Liquid Soft Liquid Liquid Brown Brown Bloody Bloody Emesis Description None Voiding Methods Toilet Toilet Toilet Laboratory Results WBC 18.96 k/cumm (4.4-10.8) H D 08/03/18 06:28 RBC 3.91 m/cumm (4.50-6.00) L 08/03/18 06:28 Hgb 11.3 g/dL (13.5-17.5) L 08/03/18 06:28 Hct 33.0 % (40.0-50.0) L 08/03/18 06:28 MCV 84.4 fL (80-95) 08/03/18 06:28 MCH 28.9 pg (27.0-33.0) 08/03/18 06:28 MCHC 34.2 g/dL (32.0-36.0) 08/03/18 06:28 RDW 13.0 % (11.8-14.1) 08/03/18 06:28 Plt Count 450 x1000/uL (130-400) H 08/03/18 06:28 MPV 9.9 fL (8.0-11.0) 08/03/18 06:28 Immature Gran % 0.0 08/03/18 06:28 Neutrophils % 60.0 08/03/18 06:28 Band Neutrophils % 27.0 % 08/03/18 06:28 Lymphocytes % 6.0 08/03/18 06:28 Atypical Lymphs % 1 08/03/18 06:28 Monocytes % 6.0 08/03/18 06:28 Eosinophils % 0.0 08/03/18 06:28 Basophils % 0.0 08/03/18 06:28 Absolute Neutrophils 16.50 k/cumm (1.2-6.7) H 08/03/18 06:28 Absolute Lymphocytes 1.33 k/cumm (1.2-3.4) 08/03/18 06:28 Absolute Monocytes 1.14 k/cumm (0.11-0.7) H 08/03/18 06:28 Absolute Eosinophils 0.00 k/cumm (0.0-0.7) 08/03/18 06:28 Absolute Basophils 0.00 k/cumm (0.0-0.2) 08/03/18 06:28 Differential Comment Manual differential 08/03/18 06:28 RBC Morphology Normal 08/03/18 06:28 ESR 57 MM/HR (0-15) H 08/01/18 10:10 PT 12.0 sec (9.3-11.0) H 08/01/18 10:10 INR Cancelled 08/01/18 Unknown Sodium 140 mmol/L (136-145) 08/03/18 06:28 Potassium 3.0 mmol/L (3.5-5.1) L 08/03/18 06:28 Chloride 102 mmol/L (98-107) 08/03/18 06:28 Carbon Dioxide 30.2 mmol/L (21.0-32.0) 08/03/18 06:28 Anion Gap 7.8 mmol/L (3-11) 08/03/18 06:28 BUN 5 mg/dL (7-18) L 08/03/18 06:28 Creatinine 0.78 mg/dL (0.70-1.30) 08/03/18 06:28 Estimated GFR/1.73 m2 >= 60.00 (mL/min/1.73m2) 08/03/18 06:28 Glucose 150 mg/dL (70-100) H 08/03/18 06:28 Calcium 7.6 mg/dL (8.5-10.1) L 08/03/18 06:28 Magnesium 2.0 mg/dL (1.8-2.4) 08/03/18 06:28 Total Bilirubin 0.5 mg/dL (0.2-1.0) 08/02/18 06:20 Conjugated Bilirubin 0.35 mg/dL (0.00-0.20) H 08/01/18 10:10 AST 20 U/L (15-37) 08/02/18 06:20 ALT 46 U/L (12-78) 08/02/18 06:20 Alkaline Phosphatase 107 U/L (46-116) 08/02/18 06:20 Total Protein 6.0 g/dL (6.4-8.2) L 08/02/18 06:20 Albumin 1.9 g/dL (3.4-5.0) L 08/02/18 06:20 Urine Color Yellow (Yellow) 08/03/18 14:55 Urine Clarity Clear 08/03/18 14:55 Urine pH 7.5 (5-8) 08/03/18 14:55 Ur Specific [place] 1.010 (1.005-1.025) 08/03/18 14:55 Urine Protein Negative mg/dL (Negative) 08/03/18 14:55 Urine Ketones Trace mg/dL (Negative) H 08/03/18 14:55 Urine Blood Negative (Negative) 08/03/18 14:55 Urine Nitrite Negative (Negative) 08/03/18 14:55 Urine Bilirubin Negative (Negative) 08/03/18 14:55 Urine Urobilinogen 0.2 EU/dL (Up TO 0.2) 08/03/18 14:55 Ur Leukocyte Esterase Negative (Negative) 08/03/18 14:55 Urine Glucose Negative mg/dL (Negative) 08/03/18 14:55 C.difficile Tox Ab Neut Cancelled 08/01/18 09:25
[2018-08-04] MEDS: CIPROFLOXACIN 400 MG/200 ML BAG 200 MG IVPB ×2 (07:37→21:57)
[2018-08-04 07:58] LABS: Absolute Lymphocyte Count 0.97 k/cumm (1.2-3.4); Absolute Monocyte Count 0.58 k/cumm (0.11-0.7); Absolute Neutrophil Count 17.87 k/cumm (1.2-6.7); Diff Comment Manual Differential
[2018-08-04 07:59] LABS: Poikilocytes 1+; Polychromasia Present
[2018-08-04] MEDS: POTASSIUM CHLORIDE 10 MEQ/100 ML BAG 100 MEQ IVPB ×4 (09:28→14:24)
--- NOTE | 2018-08-04 11:42 | PDOC.CMPRO ---
- If Service Date Differs Date of service: 08/04/18 Time of Service: 11:42 Care Management Progress Note S/O: CM met with the patient and his family at the bedside. He was able to eat some breakfast. He continues on IV antibiotics, steroids. No change in status today. A:Albert is a 43 year old male admitted with abdominal pain, colitis and recent weight loss P:Albert remains inpatient today, IV antibiotics, steroids, IV fluids. Albert continues to be monitored no change in status today. Anticipate no additional services at time of discharge. CM to continue to provide support and ongoing discharge planning.
[2018-08-04] MEDS: Ondansetron 4 MG/2 ML VIAL IVP (13:45)
[2018-08-04 13:52] LABS: ANA Interpretation Positive (NEGAT); ANA Titer Pattern 1:80 Speckled
[2018-08-04] MEDS: Lactobacillus Acidophilus CAP 1 CAP PO (14:01)
--- NOTE | 2018-08-04 15:03 | PGE_ITS ---
Date of Service Date of service: 08/04/18 Time of Service: 15:00 Assessment and Plan (1) Colitis: Current visit: Yes Status: Acute P\\ Continue with soft, band diet. Discussed with patient to eat small amounts 5 x a day. If has emesis again tonight then will need to go back to clears and we will get a PICC line and start TPN tomorrow Subjective Interval history since last seen: Doing OK. No increased pain Did have some emesis after eating a pretty big lunch of chicken and potatoe. Exam Const Orientation: alert and oriented x3 Resp Effort & Inspection: normal respiratory effort Auscultation: clear to auscultation bilaterally Cardio Rate: regular rate Rhythm: regular rhythm Heart Sounds: no gallops, no murmurs and no rubs GI Inspection: normal to inspection Palpation: soft, no hepatosplenomegaly and nontender Objective Objective Clinical Data: Abnormal lab results 08/03/18 08/04/18 08/04/18 Range/Units 14:55 06:10 06:10 WBC 19.42 H (4.4-10.8) k/cumm RBC 3.79 L (4.50-6.00) m/cumm Hgb 11.0 L (13.5-17.5) g/dL Hct 32.3 L (40.0-50.0) % Plt Count 428 H (130-400) x1000/uL Absolute Neutrophils 17.87 H (1.2-6.7) k/cumm Absolute Lymphocytes 0.97 L (1.2-3.4) k/cumm Potassium 3.1 L (3.5-5.1) mmol/L BUN 3 L (7-18) mg/dL Glucose 180 H (70-100) mg/dL Calcium 7.7 L (8.5-10.1) mg/dL Total Protein 5.6 L (6.4-8.2) g/dL Albumin 1.8 L (3.4-5.0) g/dL Urine Ketones Trace H (Negative) mg/dL Vital Signs Temperature 98.2 F 08/04/18 07:15 Temperature Source Tympanic 08/04/18 07:15 Pulse 61 08/04/18 07:15 Pulse Rhythm Regular 08/04/18 07:21 Respiratory Rate 18 08/04/18 07:15 Respiratory Effort Non-Labored 08/04/18 07:21 Respiratory Depth Normal 08/04/18 07:21 Respiratory Pattern Normal 08/04/18 07:21 Blood Pressure 110/66 08/04/18 07:15 Pulse Oximetry 96 08/04/18 07:15 Oxygen Delivery Method Room Air 08/04/18 07:15 Oxygen Flow Rate 0 08/04/18 07:15 Pain Level 5 08/03/18 07:53 Comment 08/02/18 08:11 Intake & Output 08/03/18 08/04/18 08/04/18 23:59 11:59 23:59 Intake Total 2200 / 3612.083 3100 / 3300 200 / 3300 Output Total 1450 / 1450 600 / 600 Balance 750 / 2162.083 2500 / 2700 200 / 2700 Intake: IV 2200 / 3102.083 2900 / 3100 200 / 3100 Oral 200 / 200 Output: Urine 1250 / 1250 400 / 400 Stool 200 / 200 200 / 200 Other: Urine Color Yellow Yellow Urine Appearance Clear Clear Urine Odor Normal Comment uop x 1 Stool Size Moderate Stool Characteristics Soft Liquid Liquid Brown Brown Bloody Bloody Emesis Description None Voiding Methods Toilet Toilet Laboratory Results WBC 19.42 k/cumm (4.4-10.8) H 08/04/18 06:10 RBC 3.79 m/cumm (4.50-6.00) L 08/04/18 06:10 Hgb 11.0 g/dL (13.5-17.5) L 08/04/18 06:10 Hct 32.3 % (40.0-50.0) L 08/04/18 06:10 MCV 85.2 fL (80-95) 08/04/18 06:10 MCH 29.0 pg (27.0-33.0) 08/04/18 06:10 MCHC 34.1 g/dL (32.0-36.0) 08/04/18 06:10 RDW 13.3 % (11.8-14.1) 08/04/18 06:10 Plt Count 428 x1000/uL (130-400) H 08/04/18 06:10 MPV 9.9 fL (8.0-11.0) 08/04/18 06:10 Immature Gran % 0.0 08/04/18 06:10 Neutrophils % 90.0 08/04/18 06:10 Band Neutrophils % 2.0 % 08/04/18 06:10 Lymphocytes % 5.0 08/04/18 06:10 Atypical Lymphs % 1 08/03/18 06:28 Monocytes % 3.0 08/04/18 06:10 Eosinophils % 0.0 08/04/18 06:10 Basophils % 0.0 08/04/18 06:10 Absolute Neutrophils 17.87 k/cumm (1.2-6.7) H 08/04/18 06:10 Absolute Lymphocytes 0.97 k/cumm (1.2-3.4) L 08/04/18 06:10 Absolute Monocytes 0.58 k/cumm (0.11-0.7) 08/04/18 06:10 Absolute Eosinophils 0.00 k/cumm (0.0-0.7) 08/04/18 06:10 Absolute Basophils 0.00 k/cumm (0.0-0.2) 08/04/18 06:10 Differential Comment Manual differential 08/04/18 06:10 RBC Morphology See below 08/04/18 06:10 Polychromasia Present 08/04/18 06:10 Poikilocytosis 1+ 08/04/18 06:10 ESR 57 MM/HR (0-15) H 08/01/18 10:10 PT 12.0 sec (9.3-11.0) H 08/01/18 10:10 INR Cancelled 08/01/18 Unknown Sodium 139 mmol/L (136-145) 08/04/18 06:10 Potassium 3.1 mmol/L (3.5-5.1) L 08/04/18 06:10 Chloride 102 mmol/L (98-107) 08/04/18 06:10 Carbon Dioxide 31.8 mmol/L (21.0-32.0) 08/04/18 06:10 Anion Gap 5.2 mmol/L (3-11) 08/04/18 06:10 BUN 3 mg/dL (7-18) L 08/04/18 06:10 Creatinine 0.79 mg/dL (0.70-1.30) 08/04/18 06:10 Estimated GFR/1.73 m2 >= 60.00 (mL/min/1.73m2) 08/04/18 06:10 Glucose 180 mg/dL (70-100) H 08/04/18 06:10 Calcium 7.7 mg/dL (8.5-10.1) L 08/04/18 06:10 Magnesium 2.0 mg/dL (1.8-2.4) 08/03/18 06:28 Total Bilirubin 0.4 mg/dL (0.2-1.0) 08/04/18 06:10 Conjugated Bilirubin 0.35 mg/dL (0.00-0.20) H 08/01/18 10:10 AST 30 U/L (15-37) 08/04/18 06:10 ALT 40 U/L (12-78) 08/04/18 06:10 Alkaline Phosphatase 94 U/L (46-116) 08/04/18 06:10 Total Protein 5.6 g/dL (6.4-8.2) L 08/04/18 06:10 Albumin 1.8 g/dL (3.4-5.0) L 08/04/18 06:10 Urine Color Yellow (Yellow) 08/03/18 14:55 Urine Clarity Clear 08/03/18 14:55 Urine pH 7.5 (5-8) 08/03/18 14:55 Ur Specific [place] 1.010 (1.005-1.025) 08/03/18 14:55 Urine Protein Negative mg/dL (Negative) 08/03/18 14:55 Urine Ketones Trace mg/dL (Negative) H 08/03/18 14:55 Urine Blood Negative (Negative) 08/03/18 14:55 Urine Nitrite Negative (Negative) 08/03/18 14:55 Urine Bilirubin Negative (Negative) 08/03/18 14:55 Urine Urobilinogen 0.2 EU/dL (Up TO 0.2) 08/03/18 14:55 Ur Leukocyte Esterase Negative (Negative) 08/03/18 14:55 Urine Glucose Negative mg/dL (Negative) 08/03/18 14:55 C.difficile Tox Ab Neut Cancelled 08/01/18 09:25
[2018-08-04 15:50] VITALS: BP 130/69; PULSE 68; RESP 18; TEMP 36.8; O2SAT 100
--- NOTE | 2018-08-04 16:10 | NS.NUTBLAN_ITS ---
Date of service: 08/04/18 Time of Service: 15:56 Nutritional Consult ASSESSMENT: Mr. Nguyễn reports that three weeks ago his weight was 96.4 kg and today it is 85.1 kg. He has lost 12% of his body weight unintentionally in three weeks. He reports anorexia in this time frame as well. He is currently 72 and 85.1 kg. His BMI is 26 kg/m2 consistent with mild overweight. He started on a bland low fiber diet today and had some emesis after lunch. He states he is not sure it is all related to his eating. He did not feel bad after he ate. His estimated energy needs are 2100 kcal/day (REEx 1.2) His estimated protein needs are 85g- 100g/day (1.0-1.2g/kg/day). NUTRITIONAL DIAGNOSIS: Severe malnutrition in the setting of acute illness based on the percent weight loss and anorexia according to AND/ASPEN guidelines for diagnosing malnutrition. INTERVENTION: We discussed adding [place] to his nutrition care plan to add some glutamine and arginine for gut health. He stated he was agreeable to try it. I explained to him that we are making his supper meal smaller but adding a bland evening snack. He verbalized an understanding for the rationale. If TPN becomes necessary to maintain/replete an adequate nutritional status would recommend the following regimen: 2.0L of 5% amino acids/15% dextrose with 500 calories from lipids daily to provide 1920 calories and 100 grams of protein per day. MONITORING AND EVALUATION: 1. Will monitor his progress, tolerance to PO, weight. 2. Will evaluate nutrition care plan ongoing and adjust as needed. Thank you for the consult. Time Spent in Nutritional Counseling and Treatment: TRINIDAD
[2018-08-04] MEDS: Pantoprazole 40 MG VIAL IVP (16:16)
[2018-08-04] MEDS: Enoxaparin 40 MG/0.4 ML SYR SC (16:17)
[2018-08-04 22:40] LABS: Saccharomyces cerevisiae IgA 86.7 U; Saccharomyces cervisiae IgG 16.9 U
[2018-08-05] MEDS: MetroNIDAZOLE 500 MG/100 ML BAG 100 MG IVPB ×3 (01:34→18:10)
[2018-08-05 01:42] VITALS: BP 124/78; PULSE 68; RESP 16; TEMP 36.9; O2SAT 94
[2018-08-05] MEDS: Hydrocortisone SOD SUC. 100 MG VIAL IVP ×3 (05:57→21:46)
[2018-08-05 07:15] LABS: Abs Immature Grans 0.83 k/cumm (0.0-0.09); HCT 36.9 % (40.0-50.0); HGB 12.3 g/dL (13.5-17.5); Mean Corp. HGB Concentration 33.3 g/dL (32.0-36.0); Mean Corpuscular Hemoglobin 28.6 pg (27.0-33.0); Mean Corpuscular Volume 85.8 fL (80-95); Mean Platelet Volume 9.8 fL (8.0-11.0); Platelet Count 572 x1000/uL (130-400); RBC Distribution Width 13.5 % (11.8-14.1)
[2018-08-05 07:37] VITALS: BP 122/64; PULSE 71; RESP 16; TEMP 35.7; O2SAT 93
[2018-08-05 07:46] LABS: Absolute Lymphocyte Count 1.51 k/cumm (1.2-3.4); Absolute Monocyte Count 1.51 k/cumm (0.11-0.7); Absolute Neutrophil Count 21.34 k/cumm (1.2-6.7); White Blood Cell Count 25.11 k/cumm (4.4-10.8)
[2018-08-05 07:47] LABS: Diff Comment Manual Differential; Poikilocytes 1+; Polychromasia Present
[2018-08-05] MEDS: CIPROFLOXACIN 400 MG/200 ML BAG 200 MG IVPB ×2 (07:55→19:30)
[2018-08-05] MEDS: Ondansetron 4 MG/2 ML VIAL IVP ×2 (07:56→18:47)
[2018-08-05 08:34] LABS: ESR 48 MM/HR (0-15)
--- NOTE | 2018-08-05 09:52 | PGE_ITS ---
Date of Service Date of service: 08/05/18 Time of Service: 09:48 Assessment and Plan (1) Hypomagnesemia: Current visit: Yes Status: Acute replace and check daily (2) Hypokalemia: Current visit: Yes Status: Acute replace adn check daily (3) Colitis: Current visit: Yes Status: Acute labs and Bx still pd. Suspect Crohn's -will start TPN PICC ordered cont PPI and electrolyte support cont IV steriods -suspect elevated WBC is from high dose steroids monitor blood sugars supportive care (4) GERD (gastroesophageal reflux disease): Current visit: No Status: Chronic IV protonix Qualifiers: Esophagitis presence: esophagitis presence not specified Qualified Code(s): K21.9 - Gastro-esophageal reflux disease without esophagitis Subjective Patient reports: diarrhea, nausea and vomiting; denies fever Interval history since last seen: pt still not able to keep food down- had pancake and fruit for breakfast and vomited this up. no abdom pain. no fever chills. no cough. no calf pain/swelling. no pain or burning w/ urination. no rashes or joint pain. Still having diarrhea- but is slowing down. still bleeding. Exam Const General: cooperative and comfortable HENMT Teeth and gingiva: dentition normal Chest Chest: normal inspection of the chest Resp Effort & Inspection: normal respiratory effort and able to speak in complete sentences Auscultation: clear to auscultation bilaterally, no rales, no rhonchi and no wheezes Cardio Jugular venous pressure: no JVD Rate: regular rate Rhythm: regular rhythm GI Inspection: normal to inspection Palpation: soft Other: minimal pain Skin General skin exam: no rashes or lesions noted Other: no joint pain no breakdown Objective Objective Clinical Data: Abnormal lab results 08/05/18 08/05/18 Range/Units 06:05 06:05 WBC 25.11 H* (4.4-10.8) k/cumm RBC 4.30 L (4.50-6.00) m/cumm Hgb 12.3 L (13.5-17.5) g/dL Hct 36.9 L (40.0-50.0) % Plt Count 572 H (130-400) x1000/uL Absolute Neutrophils 21.34 H (1.2-6.7) k/cumm Absolute Monocytes 1.51 H (0.11-0.7) k/cumm ESR 48 H (0-15) MM/HR Potassium 3.0 L (3.5-5.1) mmol/L Vital Signs Temperature 35.7 C L 08/05/18 07:37 Temperature Source Tympanic 08/05/18 07:37 Pulse 71 08/05/18 07:37 Pulse Rhythm Regular 08/05/18 07:24 Respiratory Rate 16 08/05/18 07:37 Respiratory Effort 08/05/18 07:24 Respiratory Depth Normal 08/05/18 07:24 Respiratory Pattern Normal 08/05/18 07:24 Blood Pressure 122/64 08/05/18 07:37 Pulse Oximetry 93 L 08/05/18 07:37 Oxygen Delivery Method Room Air 08/05/18 07:37 Oxygen Flow Rate 0 08/05/18 07:37 Pain Level 5 08/03/18 07:53 Comment 08/02/18 08:11 Intake & Output 08/04/18 08/04/18 08/05/18 11:59 23:59 11:59 Intake Total 3100 / 4290 1190 / 4290 1405.417 / 1405.417 Output Total 600 / 1400 800 / 1400 Balance 2500 / 2890 390 / 2890 1405.417 / 1405.417 Intake: IV 2900 / 3540 640 / 3540 935.417 / 935.417 Oral 200 / 750 550 / 750 470 / 470 Output: Urine 400 / 800 400 / 800 Stool 200 / 600 400 / 600 Other: Urine Color Yellow Yellow Light [place] Urine Appearance Clear Clear Clear Urine Odor Normal Comment pt gets up AD ANDREINA to void. Stool Size Moderate Stool Characteristics Liquid Liquid Brown Brown Bloody Bloody Emesis Description Clear/Water Voiding Methods Toilet Toilet Toilet Laboratory Results WBC 25.11 k/cumm (4.4-10.8) H* 08/05/18 06:05 RBC 4.30 m/cumm (4.50-6.00) L 08/05/18 06:05 Hgb 12.3 g/dL (13.5-17.5) L 08/05/18 06:05 Hct 36.9 % (40.0-50.0) L 08/05/18 06:05 MCV 85.8 fL (80-95) 08/05/18 06:05 MCH 28.6 pg (27.0-33.0) 08/05/18 06:05 MCHC 33.3 g/dL (32.0-36.0) 08/05/18 06:05 RDW 13.5 % (11.8-14.1) 08/05/18 06:05 Plt Count 572 x1000/uL (130-400) H 08/05/18 06:05 MPV 9.8 fL (8.0-11.0) 08/05/18 06:05 Immature Gran % See Differential 08/05/18 06:05 Neutrophils % 85.0 08/05/18 06:05 Band Neutrophils % 2.0 % 08/04/18 06:10 Lymphocytes % 6.0 08/05/18 06:05 Atypical Lymphs % 1 08/03/18 06:28 Monocytes % 6.0 08/05/18 06:05 Eosinophils % 0.0 08/05/18 06:05 Basophils % 0.0 08/05/18 06:05 Metamyelocytes % 1.0 % 08/05/18 06:05 Myelocytes % 2.0 % 08/05/18 06:05 Absolute Neutrophils 21.34 k/cumm (1.2-6.7) H 08/05/18 06:05 Absolute Lymphocytes 1.51 k/cumm (1.2-3.4) 08/05/18 06:05 Absolute Monocytes 1.51 k/cumm (0.11-0.7) H 08/05/18 06:05 Absolute Eosinophils 0.00 k/cumm (0.0-0.7) 08/05/18 06:05 Absolute Basophils 0.00 k/cumm (0.0-0.2) 08/05/18 06:05 Differential Comment Manual differential 08/05/18 06:05 RBC Morphology See below 08/05/18 06:05 Polychromasia Present 08/05/18 06:05 Poikilocytosis 1+ 08/05/18 06:05 ESR 48 MM/HR (0-15) H 08/05/18 06:05 PT 12.0 sec (9.3-11.0) H 08/01/18 10:10 INR Cancelled 08/01/18 Unknown Sodium 139 mmol/L (136-145) 08/04/18 06:10 Potassium 3.0 mmol/L (3.5-5.1) L 08/05/18 06:05 Chloride 102 mmol/L (98-107) 08/04/18 06:10 Carbon Dioxide 31.8 mmol/L (21.0-32.0) 08/04/18 06:10 Anion Gap 5.2 mmol/L (3-11) 08/04/18 06:10 BUN 3 mg/dL (7-18) L 08/04/18 06:10 Creatinine 0.79 mg/dL (0.70-1.30) 08/04/18 06:10 Estimated GFR/1.73 m2 >= 60.00 (mL/min/1.73m2) 08/04/18 06:10 Glucose 180 mg/dL (70-100) H 08/04/18 06:10 Calcium 7.7 mg/dL (8.5-10.1) L 08/04/18 06:10 Magnesium 2.0 mg/dL (1.8-2.4) 08/03/18 06:28 Total Bilirubin 0.4 mg/dL (0.2-1.0) 08/04/18 06:10 Conjugated Bilirubin 0.35 mg/dL (0.00-0.20) H 08/01/18 10:10 AST 30 U/L (15-37) 08/04/18 06:10 ALT 40 U/L (12-78) 08/04/18 06:10 Alkaline Phosphatase 94 U/L (46-116) 08/04/18 06:10 Total Protein 5.6 g/dL (6.4-8.2) L 08/04/18 06:10 Albumin 1.8 g/dL (3.4-5.0) L 08/04/18 06:10 Urine Color Yellow (Yellow) 08/03/18 14:55 Urine Clarity Clear 08/03/18 14:55 Urine pH 7.5 (5-8) 08/03/18 14:55 Ur Specific [place] 1.010 (1.005-1.025) 08/03/18 14:55 Urine Protein Negative mg/dL (Negative) 08/03/18 14:55 Urine Ketones Trace mg/dL (Negative) H 08/03/18 14:55 Urine Blood Negative (Negative) 08/03/18 14:55 Urine Nitrite Negative (Negative) 08/03/18 14:55 Urine Bilirubin Negative (Negative) 08/03/18 14:55 Urine Urobilinogen 0.2 EU/dL (Up TO 0.2) 08/03/18 14:55 Ur Leukocyte Esterase Negative (Negative) 08/03/18 14:55 Urine Glucose Negative mg/dL (Negative) 08/03/18 14:55 C.difficile Tox Ab Neut Cancelled 08/01/18 09:25
[2018-08-05] MEDS: POTASSIUM CHLORIDE/D5-0.45NACL 1,000 ML 30 MEQ IV (10:37)
[2018-08-05 11:02] VITALS: BP 127/71; PULSE 65; RESP 16; TEMP 36.5; O2SAT 95
[2018-08-05] MEDS: LORazepam 2 MG/ML VIAL 1 MG IVP (11:47)
[2018-08-05] MEDS: Normal Saline Flush 10 ML SYR IV ×4 (11:47→18:48)
--- NOTE | 2018-08-05 14:50 | PDOC.CMPRO ---
- If Service Date Differs Date of service: 08/05/18 Time of Service: 14:50 Care Management Progress Note S/O: Albetr is lying in bed this morning, he has been started on TPN as of today, and continues to receive IVF, IV antibiotics, and IV steroids. No change in plan. A:Albert is a 43 year old male admitted with abdominal pain, colitis and recent weight loss P: Anticipate no additional services at time of discharge. CM to continue to provide support and ongoing discharge planning.
--- NOTE | 2018-08-05 15:02 | CHAPLAIN ---
Albert was sleeping when I visited. I spoke with his significant other, Ginette, introduced myself, explained my role and offered support.
[2018-08-05] MEDS: Pantoprazole 40 MG VIAL IVP (15:45)
[2018-08-05] MEDS: Enoxaparin 40 MG/0.4 ML SYR SC (15:46)
[2018-08-05 16:02] VITALS: BP 121/70; PULSE 80; RESP 18; TEMP 36.3; O2SAT 93
[2018-08-05] MEDS: Insulin Aspart 300 UNITS/3 ML PEN SC (18:17)
[2018-08-06] MEDS: Insulin Aspart 300 UNITS/3 ML PEN SC ×5 (00:16→23:49)
[2018-08-06 00:19] VITALS: BP 131/79; PULSE 72; RESP 16; TEMP 36.8; O2SAT 94
[2018-08-06] MEDS: MetroNIDAZOLE 500 MG/100 ML BAG 100 MG IVPB ×3 (01:59→18:58)
[2018-08-06] MEDS: Normal Saline Flush 10 ML SYR IV ×3 (05:46→16:33)
[2018-08-06] MEDS: Hydrocortisone SOD SUC. 100 MG VIAL IVP ×3 (05:51→22:37)
--- NOTE | 2018-08-06 06:42 | W.PM.PROGNOT ---
Date of Service Date of service: 08/06/18 Time of Service: 06:30 Assessment and Plan (1) Colitis: Current visit: Yes Status: Acute A\\ Colitis P\\ Continue current care with Prednisone IV, and full liquid diet. Will wait to advance his diet until his nausea and dry heaving has stopped. Labs pending this am Subjective Interval history since last seen: Feeling OK. Abdomen is less tender. Only has pain when having a BM. Some dry heaves and emesis of bile. Exam Resp Effort & Inspection: normal respiratory effort Auscultation: clear to auscultation bilaterally Cardio Rate: regular rate Rhythm: regular rhythm Heart Sounds: no gallops, no murmurs and no rubs GI Inspection: normal to inspection Palpation: soft and no hepatosplenomegaly Auscultation: normal bowel sounds Objective Objective Clinical Data: Abnormal lab results 08/01/18 08/01/18 08/05/18 Range/Units 10:10 10:10 06:05 WBC (4.4-10.8) k/cumm RBC (4.50-6.00) m/cumm Hgb (13.5-17.5) g/dL Hct (40.0-50.0) % Plt Count (130-400) x1000/uL Absolute Neutrophils (1.2-6.7) k/cumm Absolute Monocytes (0.11-0.7) k/cumm ESR (0-15) MM/HR Potassium 3.0 L (3.5-5.1) mmol/L YENNY Interpretation Positive A (NEGAT) S.cerevisiae IgA Ab 86.7 H U 08/05/18 Range/Units 06:05 WBC 25.11 H* (4.4-10.8) k/cumm RBC 4.30 L (4.50-6.00) m/cumm Hgb 12.3 L (13.5-17.5) g/dL Hct 36.9 L (40.0-50.0) % Plt Count 572 H (130-400) x1000/uL Absolute Neutrophils 21.34 H (1.2-6.7) k/cumm Absolute Monocytes 1.51 H (0.11-0.7) k/cumm ESR 48 H (0-15) MM/HR Potassium (3.5-5.1) mmol/L YENNY Interpretation (NEGAT) S.cerevisiae IgA Ab U Vital Signs Temperature 98.2 F 08/06/18 00:19 Temperature Source Tympanic 08/06/18 00:19 Pulse 72 08/06/18 00:19 Pulse Rhythm Regular 08/05/18 20:42 Respiratory Rate 16 08/06/18 00:19 Respiratory Effort Non-Labored 08/05/18 20:42 Respiratory Depth Normal 08/05/18 20:42 Respiratory Pattern Normal 08/05/18 20:42 Blood Pressure 131/79 08/06/18 00:19 Pulse Oximetry 94 L 08/06/18 00:19 Oxygen Delivery Method Room Air 08/06/18 00:19 Oxygen Flow Rate 0 08/06/18 00:19 Pain Level 5 08/03/18 07:53 Comment 08/02/18 08:11 Intake & Output 08/05/18 08/05/18 08/06/18 11:59 23:59 11:59 Intake Total 2705.417 / 4041.917 1336.5 / 4041.917 1335.776 / 1335.776 Output Total 300 / 300 Balance 2405.417 / 3741.917 1336.5 / 3741.917 1335.776 / 1335.776 Intake: IV 2235.417 / 2881.917 646.5 / 2881.917 1335.776 / 1335.776 Oral 470 / 1160 690 / 1160 Output: Emesis 300 / 300 Other: Urine Appearance Clear Clear Comment pt gets up AD ANDREINA to void. Pt voiding ad andreina in toilet. Removed hat; denies sx. Stool Size Moderate Stool Characteristics Liquid Brown Emesis Description Undigested Food Voiding Methods Toilet Toilet Laboratory Results WBC 25.11 k/cumm (4.4-10.8) H* 08/05/18 06:05 RBC 4.30 m/cumm (4.50-6.00) L 08/05/18 06:05 Hgb 12.3 g/dL (13.5-17.5) L 08/05/18 06:05 Hct 36.9 % (40.0-50.0) L 08/05/18 06:05 MCV 85.8 fL (80-95) 08/05/18 06:05 MCH 28.6 pg (27.0-33.0) 08/05/18 06:05 MCHC 33.3 g/dL (32.0-36.0) 08/05/18 06:05 RDW 13.5 % (11.8-14.1) 08/05/18 06:05 Plt Count 572 x1000/uL (130-400) H 08/05/18 06:05 MPV 9.8 fL (8.0-11.0) 08/05/18 06:05 Immature Gran % See Differential 08/05/18 06:05 Neutrophils % 85.0 08/05/18 06:05 Band Neutrophils % 2.0 % 08/04/18 06:10 Lymphocytes % 6.0 08/05/18 06:05 Atypical Lymphs % 1 08/03/18 06:28 Monocytes % 6.0 08/05/18 06:05 Eosinophils % 0.0 08/05/18 06:05 Basophils % 0.0 08/05/18 06:05 Metamyelocytes % 1.0 % 08/05/18 06:05 Myelocytes % 2.0 % 08/05/18 06:05 Absolute Neutrophils 21.34 k/cumm (1.2-6.7) H 08/05/18 06:05 Absolute Lymphocytes 1.51 k/cumm (1.2-3.4) 08/05/18 06:05 Absolute Monocytes 1.51 k/cumm (0.11-0.7) H 08/05/18 06:05 Absolute Eosinophils 0.00 k/cumm (0.0-0.7) 08/05/18 06:05 Absolute Basophils 0.00 k/cumm (0.0-0.2) 08/05/18 06:05 Differential Comment Manual differential 08/05/18 06:05 RBC Morphology See below 08/05/18 06:05 Polychromasia Present 08/05/18 06:05 Poikilocytosis 1+ 08/05/18 06:05 ESR 48 MM/HR (0-15) H 08/05/18 06:05 PT 12.0 sec (9.3-11.0) H 08/01/18 10:10 INR Cancelled 08/01/18 Unknown Sodium 139 mmol/L (136-145) 08/04/18 06:10 Potassium 3.0 mmol/L (3.5-5.1) L 08/05/18 06:05 Chloride 102 mmol/L (98-107) 08/04/18 06:10 Carbon Dioxide 31.8 mmol/L (21.0-32.0) 08/04/18 06:10 Anion Gap 5.2 mmol/L (3-11) 08/04/18 06:10 BUN 3 mg/dL (7-18) L 08/04/18 06:10 Creatinine 0.79 mg/dL (0.70-1.30) 08/04/18 06:10 Estimated GFR/1.73 m2 >= 60.00 (mL/min/1.73m2) 08/04/18 06:10 Glucose 180 mg/dL (70-100) H 08/04/18 06:10 Calcium 7.7 mg/dL (8.5-10.1) L 08/04/18 06:10 Magnesium 2.0 mg/dL (1.8-2.4) 08/03/18 06:28 Total Bilirubin 0.4 mg/dL (0.2-1.0) 08/04/18 06:10 Conjugated Bilirubin 0.35 mg/dL (0.00-0.20) H 08/01/18 10:10 AST 30 U/L (15-37) 08/04/18 06:10 ALT 40 U/L (12-78) 08/04/18 06:10 Alkaline Phosphatase 94 U/L (46-116) 08/04/18 06:10 Total Protein 5.6 g/dL (6.4-8.2) L 08/04/18 06:10 Albumin 1.8 g/dL (3.4-5.0) L 08/04/18 06:10 Urine Color Yellow (Yellow) 08/03/18 14:55 Urine Clarity Clear 08/03/18 14:55 Urine pH 7.5 (5-8) 08/03/18 14:55 Ur Specific [place] 1.010 (1.005-1.025) 08/03/18 14:55 Urine Protein Negative mg/dL (Negative) 08/03/18 14:55 Urine Ketones Trace mg/dL (Negative) H 08/03/18 14:55 Urine Blood Negative (Negative) 08/03/18 14:55 Urine Nitrite Negative (Negative) 08/03/18 14:55 Urine Bilirubin Negative (Negative) 08/03/18 14:55 Urine Urobilinogen 0.2 EU/dL (Up TO 0.2) 08/03/18 14:55 Ur Leukocyte Esterase Negative (Negative) 08/03/18 14:55 Urine Glucose Negative mg/dL (Negative) 08/03/18 14:55 YENNY Titer 1:80 speckled 08/01/18 10:10 YENNY Titer 2 Not Applicable 08/01/18 10:10 YENNY Titer 3 Not Applicable 08/01/18 10:10 YENNY Interpretation Positive (NEGAT) A 08/01/18 10:10 Neutrophil-Specific Ab Negative (Negative) 08/01/18 10:10 C.difficile Tox Ab Neut Cancelled 08/01/18 09:25 S.cerevisiae IgG Ab 16.9 U 08/01/18 10:10 S.cerevisiae IgA Ab 86.7 U H 08/01/18 10:10
[2018-08-06 07:21] VITALS: BP 133/70; PULSE 65; RESP 16; TEMP 37.1; O2SAT 95
[2018-08-06 07:29] LABS: ALT 76 U/L (12-78); AST 28 U/L (15-37); Albumin 1.8 g/dL (3.4-5.0); Alkaline Phosphatase 99 U/L (46-116); Anion Gap 4.7 mmol/L (3-11); BUN 9 mg/dL (7-18); Bilirubin, Total 0.3 mg/dL (0.2-1.0); CO2 35.3 mmol/L (21.0-32.0); CREATININE 0.81 mg/dL (0.70-1.30); Calcium 7.8 mg/dL (8.5-10.1); Chloride 100 mmol/L (98-107); Glucose 171 mg/dL (70-100); Magnesium 2.1 mg/dL (1.8-2.4); Sodium 140 mmol/L (136-145); Total Protein 5.4 g/dL (6.4-8.2)
[2018-08-06 07:34] LABS: PHOSPHORUS 2.3 mg/dL (2.6-4.7)
[2018-08-06 07:43] LABS: Potassium 2.5 mmol/L (3.5-5.1)
[2018-08-06 07:47] LABS: Abs Immature Grans 0.42 k/cumm (0.0-0.09); HCT 32.3 % (40.0-50.0); HGB 10.5 g/dL (13.5-17.5); Mean Corp. HGB Concentration 32.5 g/dL (32.0-36.0); Mean Corpuscular Hemoglobin 28.2 pg (27.0-33.0); Mean Corpuscular Volume 86.6 fL (80-95); Mean Platelet Volume 9.9 fL (8.0-11.0); Platelet Count 411 x1000/uL (130-400); RBC 3.73 m/cumm (4.50-6.00); RBC Distribution Width 13.2 % (11.8-14.1); White Blood Cell Count 14.08 k/cumm (4.4-10.8)
[2018-08-06] MEDS: CIPROFLOXACIN 400 MG/200 ML BAG 200 MG IVPB ×2 (07:56→20:42)
[2018-08-06 08:43] LABS: Absolute Lymphocyte Count 1.13 k/cumm (1.2-3.4); Absolute Monocyte Count 0.84 k/cumm (0.11-0.7); Absolute Neutrophil Count 11.83 k/cumm (1.2-6.7); Diff Comment Manual Differential; Polychromasia Present
[2018-08-06] MEDS: POTASSIUM CHLORIDE 10 MEQ/100 ML BAG 100 MEQ IVPB ×4 (09:34→17:48)
--- NOTE | 2018-08-06 10:18 | CMPROGNOTE_ITS ---
- If Service Date Differs Date of service: 08/06/18 Time of Service: 10:17 Care Management Progress Note S/O: Albert continues as acute patient,he is receiving TPN, he continues to receive IVF, IV antibiotics, and IV steroids. He was started on Infliximab today. Albert continues to have nausea and receive antiemetic. A:Albert is a 43 year old male admitted with abdominal pain, colitis and recent weight loss P: No change in Albert status today CM to continue to provide support and o ngoing discharge planning. Anticipate he may need ongoing treatment for ulcerative colitis. CM to continue to provide support and ongoing discharge planning.
--- NOTE | 2018-08-06 10:47 | W.PM.PROGNOT ---
Date of Service Date of service: 08/06/18 Time of Service: 10:47 Assessment and Plan (1) Ulcerative colitis, acute: Current visit: Yes Status: Acute d/w GI fellow- Dr. Olu Palacio from [facility]. They would like this pt transferred to [facility]- but have no beds. [facility] does not have any beds either. Curently the pt is not toxic/septic or have peritonitis. There is no arterial bleeding or toxic megacolon. Dr Palacio recommended cont all current care/meds and adding 10mg/kg 0f Remicade. D/w pharmacy and we do have this dose available. Dr. Amor recommended that if the pt does respond- than to give a #2 dose. The risks include: non response/infections (septic hock and ) perforation and immediate surgery or non response and requiring surgery. I did d/w Dr Hay (sp) hospitalists and agrees w/ starting biologics. We will also follow daily CRP. I did review all his meds today: He is not receiving any NSAID's. He does have: Ofirmev protonix Cipro/flagyl lovenox insulin coverage hydrocort 100mg/q8hrs 5 ASA TPN and electrolyte replacement 60 mins spent today d/w pt & , GI, pharm, hospitalists & nursing I did have long d/w pt and . I think he does have UC. BX still pd. At this point he continues to not be able to eat and having bloody BM. I d/w pt starting biologics- remicade.We d/w risk vs benefit. I this point I think the benefit far outway risk. risk include: infections (GI and non GI) shahbaz at induction dose. GI perforation and failure to respond to therapy- which would be surgery and subtotal colectomy (with high risk of infection/non healing/healing by secondary intent/bleeds/hernias/etc). I also d/w pt and being on care home medication for UC. steroids vs biologics and the risks and benefits of each. Biologics carry care home risks of infections and lymphomas. However, there is quality of life to consider- and if he responds to the remicade- this may be required for maintenance. pt is frustrated and really want to be able to eat and not have as many bloody BM. He and his consent to the medication and risks- infection and need for surgery I reviewed the recommendations w/ our pharmacy and hospitalists and nursing. (2) Hypoalbuminemia due to protein-calorie malnutrition: Current visit: Yes Status: Acute cont TPN electrolyte replacement monitoring blood sugars and coverage PPI DVT prophylaxis monitor albumin monitor Hgb Subjective Patient reports: voiding w/o difficulty, diarrhea, blood in stool, nausea, vomiting and afebrile; denies shortness of breath Interval history since last seen: no improvements in last 24. about 20% better than admission. pain is less than on admission. no fever/chills. still cannot eat. + n/v everything he eats. mult BM- less than admission and slt thicker. still have blood+. No signs of sepsis or peritonitis. electrolyte abnl's. protein continues to fall. Exam Const General: cooperative, comfortable, well hydrated and other (chronically ill ) Nutritional Appearance: average body habitus Orientation: alert, awake and oriented x3 HENMT Head: normal to inspection Mouth: oral mucosae normal and other (no thrush ) Teeth and gingiva: dentition normal and other (in good repair. no dental abcesses ) Eyes Other: no pain/discharge/jaundice Neck Neck: normal visual inspection and no JVD Chest Chest: normal inspection of the chest and normal palpation of entire chest wall Resp Effort & Inspection: normal respiratory effort Auscultation: no rales, no rhonchi and no wheezes Cardio Jugular venous pressure: no JVD Rate: regular rate Rhythm: regular rhythm GI Inspection: normal to inspection Auscultation: normal bowel sounds Other: min pain in LLQ. no distention/no peritonitis Skin General skin exam: no rashes or lesions noted Lesions: no lesions Rashes: no rashes Other: intact. PICC site c/d/i. no breakdown Objective Objective Clinical Data: Abnormal lab results 08/01/18 08/01/18 08/06/18 Range/Units 10:10 10:10 06:50 WBC (4.4-10.8) k/cumm RBC (4.50-6.00) m/cumm Hgb (13.5-17.5) g/dL Hct (40.0-50.0) % Plt Count (130-400) x1000/uL Absolute Neutrophils (1.2-6.7) k/cumm Absolute Lymphocytes (1.2-3.4) k/cumm Absolute Monocytes (0.11-0.7) k/cumm Potassium 2.5 L* (3.5-5.1) mmol/L Carbon Dioxide 35.3 H (21.0-32.0) mmol/L Glucose 171 H (70-100) mg/dL Calcium 7.8 L (8.5-10.1) mg/dL Phosphorus (2.6-4.7) mg/dL C-Reactive Protein (0.0-0.3) mg/dL Total Protein 5.4 L (6.4-8.2) g/dL Albumin 1.8 L (3.4-5.0) g/dL YENNY Interpretation Positive A (NEGAT) S.cerevisiae IgA Ab 86.7 H U 08/06/18 08/06/18 08/06/18 Range/Units 06:50 06:50 06:50 WBC 14.08 H D (4.4-10.8) k/cumm RBC 3.73 L (4.50-6.00) m/cumm Hgb 10.5 L (13.5-17.5) g/dL Hct 32.3 L (40.0-50.0) % Plt Count 411 H (130-400) x1000/uL Absolute Neutrophils 11.83 H (1.2-6.7) k/cumm Absolute Lymphocytes 1.13 L (1.2-3.4) k/cumm Absolute Monocytes 0.84 H (0.11-0.7) k/cumm Potassium (3.5-5.1) mmol/L Carbon Dioxide (21.0-32.0) mmol/L Glucose (70-100) mg/dL Calcium (8.5-10.1) mg/dL Phosphorus 2.3 L (2.6-4.7) mg/dL C-Reactive Protein 4.80 H (0.0-0.3) mg/dL Total Protein (6.4-8.2) g/dL Albumin (3.4-5.0) g/dL YENNY Interpretation (NEGAT) S.cerevisiae IgA Ab U Vital Signs Temperature 37.1 C 08/06/18 07:21 Temperature Source Tympanic 08/06/18 07:21 Pulse 65 08/06/18 07:21 Pulse Rhythm Regular 08/06/18 08:37 Respiratory Rate 16 08/06/18 07:21 Respiratory Effort Non-Labored 08/06/18 08:37 Respiratory Depth Normal 08/06/18 08:37 Respiratory Pattern Normal 08/06/18 08:37 Blood Pressure 133/70 08/06/18 07:21 Pulse Oximetry 95 08/06/18 07:21 Oxygen Delivery Method Room Air 08/06/18 07:21 Oxygen Flow Rate 0 08/06/18 07:21 Pain Level 5 08/03/18 07:53 Comment 08/02/18 08:11 Intake & Output 08/05/18 08/05/18 08/06/18 11:59 23:59 11:59 Intake Total 2705.417 / 4041.917 1336.5 / 4041.917 1835.776 / 1835.776 Output Total 300 / 300 Balance 2405.417 / 3741.917 1336.5 / 3741.917 1835.776 / 1835.776 Intake: IV 2235.417 / 2881.917 646.5 / 2881.917 1535.776 / 1535.776 Oral 470 / 1160 690 / 1160 300 / 300 Output: Emesis 300 / 300 Other: Urine Appearance Clear Clear Comment pt gets up AD JUDITH to void. Pt voiding ad judith in toilet. Removed hat; denies sx. Stool Size Moderate Stool Characteristics Liquid Brown Emesis Description Undigested Food Voiding Methods Toilet Toilet Laboratory Results WBC 14.08 k/cumm (4.4-10.8) H D 08/06/18 06:50 RBC 3.73 m/cumm (4.50-6.00) L 08/06/18 06:50 Hgb 10.5 g/dL (13.5-17.5) L 08/06/18 06:50 Hct 32.3 % (40.0-50.0) L 08/06/18 06:50 MCV 86.6 fL (80-95) 08/06/18 06:50 MCH 28.2 pg (27.0-33.0) 08/06/18 06:50 MCHC 32.5 g/dL (32.0-36.0) 08/06/18 06:50 RDW 13.2 % (11.8-14.1) 08/06/18 06:50 Plt Count 411 x1000/uL (130-400) H 08/06/18 06:50 MPV 9.9 fL (8.0-11.0) 08/06/18 06:50 Immature Gran % See Differential 08/06/18 06:50 Neutrophils % 76.0 08/06/18 06:50 Band Neutrophils % 8.0 % 08/06/18 06:50 Lymphocytes % 8.0 08/06/18 06:50 Atypical Lymphs % 1 08/03/18 06:28 Monocytes % 6.0 08/06/18 06:50 Eosinophils % 0.0 08/06/18 06:50 Basophils % 0.0 08/06/18 06:50 Metamyelocytes % 1.0 % 08/06/18 06:50 Myelocytes % 1.0 % 08/06/18 06:50 Absolute Neutrophils 11.83 k/cumm (1.2-6.7) H 08/06/18 06:50 Absolute Lymphocytes 1.13 k/cumm (1.2-3.4) L 08/06/18 06:50 Absolute Monocytes 0.84 k/cumm (0.11-0.7) H 08/06/18 06:50 Absolute Eosinophils 0.00 k/cumm (0.0-0.7) 08/06/18 06:50 Absolute Basophils 0.00 k/cumm (0.0-0.2) 08/06/18 06:50 Differential Comment Manual differential 08/06/18 06:50 RBC Morphology See below 08/06/18 06:50 Polychromasia Present 08/06/18 06:50 Poikilocytosis 1+ 08/05/18 06:05 ESR 48 MM/HR (0-15) H 08/05/18 06:05 PT 12.0 sec (9.3-11.0) H 08/01/18 10:10 INR Cancelled 08/01/18 Unknown Sodium 140 mmol/L (136-145) 08/06/18 06:50 Potassium 2.5 mmol/L (3.5-5.1) L* 08/06/18 06:50 Chloride 100 mmol/L (98-107) 08/06/18 06:50 Carbon Dioxide 35.3 mmol/L (21.0-32.0) H 08/06/18 06:50 Anion Gap 4.7 mmol/L (3-11) 08/06/18 06:50 BUN 9 mg/dL (7-18) D 08/06/18 06:50 Creatinine 0.81 mg/dL (0.70-1.30) 08/06/18 06:50 Estimated GFR/1.73 m2 >= 60.00 (mL/min/1.73m2) 08/06/18 06:50 Glucose 171 mg/dL (70-100) H 08/06/18 06:50 Calcium 7.8 mg/dL (8.5-10.1) L 08/06/18 06:50 Phosphorus 2.3 mg/dL (2.6-4.7) L 08/06/18 06:50 Magnesium 2.1 mg/dL (1.8-2.4) 08/06/18 06:50 Total Bilirubin 0.3 mg/dL (0.2-1.0) 08/06/18 06:50 Conjugated Bilirubin 0.35 mg/dL (0.00-0.20) H 08/01/18 10:10 AST 28 U/L (15-37) 08/06/18 06:50 ALT 76 U/L (12-78) 08/06/18 06:50 Alkaline Phosphatase 99 U/L (46-116) 08/06/18 06:50 C-Reactive Protein 4.80 mg/dL (0.0-0.3) H 08/06/18 06:50 C-React Prot High Sens Cancelled 08/06/18 Unknown Total Protein 5.4 g/dL (6.4-8.2) L 08/06/18 06:50 Albumin 1.8 g/dL (3.4-5.0) L 08/06/18 06:50 Urine Color Yellow (Yellow) 08/03/18 14:55 Urine Clarity Clear 08/03/18 14:55 Urine pH 7.5 (5-8) 08/03/18 14:55 Ur Specific [place] 1.010 (1.005-1.025) 08/03/18 14:55 Urine Protein Negative mg/dL (Negative) 08/03/18 14:55 Urine Ketones Trace mg/dL (Negative) H 08/03/18 14:55 Urine Blood Negative (Negative) 08/03/18 14:55 Urine Nitrite Negative (Negative) 08/03/18 14:55 Urine Bilirubin Negative (Negative) 08/03/18 14:55 Urine Urobilinogen 0.2 EU/dL (Up TO 0.2) 08/03/18 14:55 Ur Leukocyte Esterase Negative (Negative) 08/03/18 14:55 Urine Glucose Negative mg/dL (Negative) 08/03/18 14:55 YENNY Titer 1:80 speckled 08/01/18 10:10 YENNY Titer 2 Not Applicable 08/01/18 10:10 YENNY Titer 3 Not Applicable 08/01/18 10:10 YENNY Interpretation Positive (NEGAT) A 08/01/18 10:10 Neutrophil-Specific Ab Negative (Negative) 08/01/18 10:10 C.difficile Tox Ab Neut Cancelled 08/01/18 09:25 S.cerevisiae IgG Ab 16.9 U 08/01/18 10:10 S.cerevisiae IgA Ab 86.7 U H 08/01/18 10:10 Objective Narrative Objective Narrative: Patient Name: EMILY GAGNON #: [id number]: MS Ordering Provider: Zeb Cantrell M.D. : ADM IN Primary Care Provider: Rina Long Date of Exam: 08/03/18Sex: M : 1975Age: 43 Exam(s) a CT:CT abdomen & pelvis w SYMPTOMS/DIAGNOSIS: LEUKOCYTOSIS, COLITIS, ACUTE IBD CT OF THE ABDOMEN AND PELVIS: Comparison is made with July,. Images were performed from the lung bases through the ischial tuberosities after IV and without oral contrast. There is again noted to be wall thickening of the colon seen from the ascending through the rectosigmoid. The findings are less prominent when compared with the previous exam. The appendix appears normal. There is a small amount of fluid in the low pelvis, similar to the previous exam. The bladder and prostate are unremarkable. No small bowel dilatation is seen. The lung bases are clear. The liver, gallbladder, spleen, pancreas, adrenals and kidneys are unremarkable. IMPRESSION: Some interval improvement in degree of previously noted colitis, greatest in the rectosigmoid. There is no evidence of abscess or perforation. [id number]: Total DLP = 0.00 mGy-cm Ordered By: Zeb Cantrell M.D. CC: Dictated By: Rhoda Aggarwal M.D. 08/04/18 1411 <Electronically signed by Rhoda Aggarwal M.D.> 08/04/18 1616 Transcribed By: Michael Thomas 08/04/18 1522
--- NOTE | 2018-08-06 10:52 | PGE_ITS ---
Date of Service Date of service: 08/06/18 Time of Service: 10:47 Assessment and Plan (1) Ulcerative colitis, acute: Current visit: Yes Status: Acute d/w GI fellow- Dr. Olu Palacio from [facility]. They would like this pt transferred to [facility]- but have no beds. [facility] does not have any beds either. Curently the pt is not toxic/septic or have peritonitis. There is no arterial bleeding or toxic megacolon. Dr Palacio recommended cont all current care/meds and adding 10mg/kg 0f Remicade. D/w pharmacy and we do have this dose available. Dr. Amor recommended that if the pt does respond- than to give a #2 dose. The risks include: non response/infections (septic hock and ) perforation and immediate surgery or non response and requiring surgery. I did d/w Dr Hay (sp) hospitalists and agrees w/ starting biologics. We will also follow daily CRP. I did review all his meds today: He is not receiving any NSAID's. He does have: Ofirmev protonix Cipro/flagyl lovenox insulin coverage hydrocort 100mg/q8hrs 5 ASA TPN and electrolyte replacement 60 mins spent today d/w pt & , GI, pharm, hospitalists & nursing I did have long d/w pt and . I think he does have UC. BX still pd. At this point he continues to not be able to eat and having bloody BM. I d/w pt starting biologics- remicade.We d/w risk vs benefit. I this point I think the benefit far outway risk. risk include: infections (GI and non GI) shahbaz at induction dose. GI perforation and failure to respond to therapy- which would be surgery and subtotal colectomy (with high risk of infection/non healing/healing by secondary intent/bleeds/hernias/etc). I also d/w pt and being on senior living medication for UC. steroids vs biologics and the risks and benefits of each. Biologics carry senior living risks of infections and lymphomas. However, there is quality of life to consider- and if he responds to the remicade- this may be required for maintenance. pt is frustrated and really want to be able to eat and not have as many bloody BM. He and his consent to the medication and risks- infection and need for surgery I reviewed the recommendations w/ our pharmacy and hospitalists and nursing. (2) Hypoalbuminemia due to protein-calorie malnutrition: Current visit: Yes Status: Acute cont TPN electrolyte replacement monitoring blood sugars and coverage PPI DVT prophylaxis monitor albumin monitor Hgb Subjective Patient reports: voiding w/o difficulty, diarrhea, blood in stool, nausea, vomiting and afebrile; denies shortness of breath Interval history since last seen: no improvements in last 24. about 20% better than admission. pain is less than on admission. no fever/chills. still cannot eat. + n/v everything he eats. mult BM- less than admission and slt thicker. still have blood+. No signs of sepsis or peritonitis. electrolyte abnl's. protein continues to fall. Exam Const General: cooperative, comfortable, well hydrated and other (chronically ill ) Nutritional Appearance: average body habitus Orientation: alert, awake and oriented x3 HENMT Head: normal to inspection Mouth: oral mucosae normal and other (no thrush ) Teeth and gingiva: dentition normal and other (in good repair. no dental abcesses ) Eyes Other: no pain/discharge/jaundice Neck Neck: normal visual inspection and no JVD Chest Chest: normal inspection of the chest and normal palpation of entire chest wall Resp Effort & Inspection: normal respiratory effort Auscultation: no rales, no rhonchi and no wheezes Cardio Jugular venous pressure: no JVD Rate: regular rate Rhythm: regular rhythm GI Inspection: normal to inspection Auscultation: normal bowel sounds Other: min pain in LLQ. no distention/no peritonitis Skin General skin exam: no rashes or lesions noted Lesions: no lesions Rashes: no rashes Other: intact. PICC site c/d/i. no breakdown Objective Objective Clinical Data: Abnormal lab results 08/01/18 08/01/18 08/06/18 Range/Units 10:10 10:10 06:50 WBC (4.4-10.8) k/cumm RBC (4.50-6.00) m/cumm Hgb (13.5-17.5) g/dL Hct (40.0-50.0) % Plt Count (130-400) x1000/uL Absolute Neutrophils (1.2-6.7) k/cumm Absolute Lymphocytes (1.2-3.4) k/cumm Absolute Monocytes (0.11-0.7) k/cumm Potassium 2.5 L* (3.5-5.1) mmol/L Carbon Dioxide 35.3 H (21.0-32.0) mmol/L Glucose 171 H (70-100) mg/dL Calcium 7.8 L (8.5-10.1) mg/dL Phosphorus (2.6-4.7) mg/dL C-Reactive Protein (0.0-0.3) mg/dL Total Protein 5.4 L (6.4-8.2) g/dL Albumin 1.8 L (3.4-5.0) g/dL YENNY Interpretation Positive A (NEGAT) S.cerevisiae IgA Ab 86.7 H U 08/06/18 08/06/18 08/06/18 Range/Units 06:50 06:50 06:50 WBC 14.08 H D (4.4-10.8) k/cumm RBC 3.73 L (4.50-6.00) m/cumm Hgb 10.5 L (13.5-17.5) g/dL Hct 32.3 L (40.0-50.0) % Plt Count 411 H (130-400) x1000/uL Absolute Neutrophils 11.83 H (1.2-6.7) k/cumm Absolute Lymphocytes 1.13 L (1.2-3.4) k/cumm Absolute Monocytes 0.84 H (0.11-0.7) k/cumm Potassium (3.5-5.1) mmol/L Carbon Dioxide (21.0-32.0) mmol/L Glucose (70-100) mg/dL Calcium (8.5-10.1) mg/dL Phosphorus 2.3 L (2.6-4.7) mg/dL C-Reactive Protein 4.80 H (0.0-0.3) mg/dL Total Protein (6.4-8.2) g/dL Albumin (3.4-5.0) g/dL YENNY Interpretation (NEGAT) S.cerevisiae IgA Ab U Vital Signs Temperature 37.1 C 08/06/18 07:21 Temperature Source Tympanic 08/06/18 07:21 Pulse 65 08/06/18 07:21 Pulse Rhythm Regular 08/06/18 08:37 Respiratory Rate 16 08/06/18 07:21 Respiratory Effort Non-Labored 08/06/18 08:37 Respiratory Depth Normal 08/06/18 08:37 Respiratory Pattern Normal 08/06/18 08:37 Blood Pressure 133/70 08/06/18 07:21 Pulse Oximetry 95 08/06/18 07:21 Oxygen Delivery Method Room Air 08/06/18 07:21 Oxygen Flow Rate 0 08/06/18 07:21 Pain Level 5 08/03/18 07:53 Comment 08/02/18 08:11 Intake & Output 08/05/18 08/05/18 08/06/18 11:59 23:59 11:59 Intake Total 2705.417 / 4041.917 1336.5 / 4041.917 1835.776 / 1835.776 Output Total 300 / 300 Balance 2405.417 / 3741.917 1336.5 / 3741.917 1835.776 / 1835.776 Intake: IV 2235.417 / 2881.917 646.5 / 2881.917 1535.776 / 1535.776 Oral 470 / 1160 690 / 1160 300 / 300 Output: Emesis 300 / 300 Other: Urine Appearance Clear Clear Comment pt gets up AD JUDITH to void. Pt voiding ad judith in toilet. Removed hat; denies sx. Stool Size Moderate Stool Characteristics Liquid Brown Emesis Description Undigested Food Voiding Methods Toilet Toilet Laboratory Results WBC 14.08 k/cumm (4.4-10.8) H D 08/06/18 06:50 RBC 3.73 m/cumm (4.50-6.00) L 08/06/18 06:50 Hgb 10.5 g/dL (13.5-17.5) L 08/06/18 06:50 Hct 32.3 % (40.0-50.0) L 08/06/18 06:50 MCV 86.6 fL (80-95) 08/06/18 06:50 MCH 28.2 pg (27.0-33.0) 08/06/18 06:50 MCHC 32.5 g/dL (32.0-36.0) 08/06/18 06:50 RDW 13.2 % (11.8-14.1) 08/06/18 06:50 Plt Count 411 x1000/uL (130-400) H 08/06/18 06:50 MPV 9.9 fL (8.0-11.0) 08/06/18 06:50 Immature Gran % See Differential 08/06/18 06:50 Neutrophils % 76.0 08/06/18 06:50 Band Neutrophils % 8.0 % 08/06/18 06:50 Lymphocytes % 8.0 08/06/18 06:50 Atypical Lymphs % 1 08/03/18 06:28 Monocytes % 6.0 08/06/18 06:50 Eosinophils % 0.0 08/06/18 06:50 Basophils % 0.0 08/06/18 06:50 Metamyelocytes % 1.0 % 08/06/18 06:50 Myelocytes % 1.0 % 08/06/18 06:50 Absolute Neutrophils 11.83 k/cumm (1.2-6.7) H 08/06/18 06:50 Absolute Lymphocytes 1.13 k/cumm (1.2-3.4) L 08/06/18 06:50 Absolute Monocytes 0.84 k/cumm (0.11-0.7) H 08/06/18 06:50 Absolute Eosinophils 0.00 k/cumm (0.0-0.7) 08/06/18 06:50 Absolute Basophils 0.00 k/cumm (0.0-0.2) 08/06/18 06:50 Differential Comment Manual differential 08/06/18 06:50 RBC Morphology See below 08/06/18 06:50 Polychromasia Present 08/06/18 06:50 Poikilocytosis 1+ 08/05/18 06:05 ESR 48 MM/HR (0-15) H 08/05/18 06:05 PT 12.0 sec (9.3-11.0) H 08/01/18 10:10 INR Cancelled 08/01/18 Unknown Sodium 140 mmol/L (136-145) 08/06/18 06:50 Potassium 2.5 mmol/L (3.5-5.1) L* 08/06/18 06:50 Chloride 100 mmol/L (98-107) 08/06/18 06:50 Carbon Dioxide 35.3 mmol/L (21.0-32.0) H 08/06/18 06:50 Anion Gap 4.7 mmol/L (3-11) 08/06/18 06:50 BUN 9 mg/dL (7-18) D 08/06/18 06:50 Creatinine 0.81 mg/dL (0.70-1.30) 08/06/18 06:50 Estimated GFR/1.73 m2 >= 60.00 (mL/min/1.73m2) 08/06/18 06:50 Glucose 171 mg/dL (70-100) H 08/06/18 06:50 Calcium 7.8 mg/dL (8.5-10.1) L 08/06/18 06:50 Phosphorus 2.3 mg/dL (2.6-4.7) L 08/06/18 06:50 Magnesium 2.1 mg/dL (1.8-2.4) 08/06/18 06:50 Total Bilirubin 0.3 mg/dL (0.2-1.0) 08/06/18 06:50 Conjugated Bilirubin 0.35 mg/dL (0.00-0.20) H 08/01/18 10:10 AST 28 U/L (15-37) 08/06/18 06:50 ALT 76 U/L (12-78) 08/06/18 06:50 Alkaline Phosphatase 99 U/L (46-116) 08/06/18 06:50 C-Reactive Protein 4.80 mg/dL (0.0-0.3) H 08/06/18 06:50 C-React Prot High Sens Cancelled 08/06/18 Unknown Total Protein 5.4 g/dL (6.4-8.2) L 08/06/18 06:50 Albumin 1.8 g/dL (3.4-5.0) L 08/06/18 06:50 Urine Color Yellow (Yellow) 08/03/18 14:55 Urine Clarity Clear 08/03/18 14:55 Urine pH 7.5 (5-8) 08/03/18 14:55 Ur Specific [place] 1.010 (1.005-1.025) 08/03/18 14:55 Urine Protein Negative mg/dL (Negative) 08/03/18 14:55 Urine Ketones Trace mg/dL (Negative) H 08/03/18 14:55 Urine Blood Negative (Negative) 08/03/18 14:55 Urine Nitrite Negative (Negative) 08/03/18 14:55 Urine Bilirubin Negative (Negative) 08/03/18 14:55 Urine Urobilinogen 0.2 EU/dL (Up TO 0.2) 08/03/18 14:55 Ur Leukocyte Esterase Negative (Negative) 08/03/18 14:55 Urine Glucose Negative mg/dL (Negative) 08/03/18 14:55 YENNY Titer 1:80 speckled 08/01/18 10:10 YENNY Titer 2 Not Applicable 08/01/18 10:10 YENNY Titer 3 Not Applicable 08/01/18 10:10 YENNY Interpretation Positive (NEGAT) A 08/01/18 10:10 Neutrophil-Specific Ab Negative (Negative) 08/01/18 10:10 C.difficile Tox Ab Neut Cancelled 08/01/18 09:25 S.cerevisiae IgG Ab 16.9 U 08/01/18 10:10 S.cerevisiae IgA Ab 86.7 U H 08/01/18 10:10 Objective Narrative Objective Narrative: Patient Name: EMILY GAGNON #: [id number]: MS Ordering Provider: Zeb Cantrell M.D. : ADM IN Primary Care Provider: Rina Long Date of Exam: 08/03/18Sex: M : 1975Age: 43 Exam(s) a CT:CT abdomen & pelvis w SYMPTOMS/DIAGNOSIS: LEUKOCYTOSIS, COLITIS, ACUTE IBD CT OF THE ABDOMEN AND PELVIS: Comparison is made with July,. Images were performed from the lung bases through the ischial tuberosities after IV and without oral contrast. Ther e is again noted to be wall thickening of the colon seen from the ascending through the rectosigmoid. The findings are less prominent when compared with the previous exam. The appendix appears normal. There is a small amount of fluid in the low pelvis, similar to the previous exam. The bladder and prostate are unremarkable. No small bowel dilatation is seen. The lung bases are clear. The liver, gallbladder, spleen, pancreas, adrenals and kidneys are unremarkable. IMPRESSION: Some interval improvement in degree of previously noted colitis, greatest in the rectosigmoid. There is no evidence of abscess or perforation. [id number]: Total DLP = 0.00 mGy-cm Ordered By: Zeb Cantrell M.D. CC: Dictated By: Rhoda Aggarwal M.D. 08/04/18 1411 <Electronically signed by Rhoda Aggarwal M.D.> 08/04/18 1616 Transcribed By: Michael Thomas 08/04/18 1522
[2018-08-06] MEDS: Ondansetron 4 MG/2 ML VIAL IVP (13:53)
[2018-08-06 16:04] VITALS: BP 138/73; PULSE 69; RESP 19; TEMP 37.3; O2SAT 95
[2018-08-06] MEDS: Enoxaparin 40 MG/0.4 ML SYR SC (16:32)
[2018-08-06] MEDS: Pantoprazole 40 MG VIAL IVP (16:32)
--- NOTE | 2018-08-06 16:32 | PGE_ITS ---
Date of Service Date of service: 08/06/18 Time of Service: 16:28 Assessment and Plan (1) Ulcerative colitis, acute: Current visit: Yes Status: Acute pt is currently receiving Remicaide. Feels fine- other than nausea when he tries to eat and continued bloody BM. reviewed action of medication adn options if this does not help. cont steroids/abx/supportive meds. labs in am reviewed labs and CT. Path is still not back. 30 min spent in F/u. Qualifiers: Digestive disease complication type: with rectal bleeding Qualified Code(s): K51.911 - Ulcerative colitis, unspecified with rectal bleeding Subjective Interval history since last seen: pt doing ok. still nausea and not able to eat. + bloody BM. through up at noon as well. no fever/chills. Exam GI Other: no distention. min LLQ pain. no peritonitis . Objective Objective Clinical Data: Abnormal lab results 08/06/18 08/06/18 08/06/18 Range/Units 06:50 06:50 06:50 WBC 14.08 H D (4.4-10.8) k/cumm RBC 3.73 L (4.50-6.00) m/cumm Hgb 10.5 L (13.5-17.5) g/dL Hct 32.3 L (40.0-50.0) % Plt Count 411 H (130-400) x1000/uL Absolute Neutrophils 11.83 H (1.2-6.7) k/cumm Absolute Lymphocytes 1.13 L (1.2-3.4) k/cumm Absolute Monocytes 0.84 H (0.11-0.7) k/cumm Potassium 2.5 L* (3.5-5.1) mmol/L Carbon Dioxide 35.3 H (21.0-32.0) mmol/L Glucose 171 H (70-100) mg/dL Calcium 7.8 L (8.5-10.1) mg/dL Phosphorus 2.3 L (2.6-4.7) mg/dL C-Reactive Protein (0.0-0.3) mg/dL Total Protein 5.4 L (6.4-8.2) g/dL Albumin 1.8 L (3.4-5.0) g/dL 08/06/18 Range/Units 06:50 WBC (4.4-10.8) k/cumm RBC (4.50-6.00) m/cumm Hgb (13.5-17.5) g/dL Hct (40.0-50.0) % Plt Count (130-400) x1000/uL Absolute Neutrophils (1.2-6.7) k/cumm Absolute Lymphocytes (1.2-3.4) k/cumm Absolute Monocytes (0.11-0.7) k/cumm Potassium (3.5-5.1) mmol/L Carbon Dioxide (21.0-32.0) mmol/L Glucose (70-100) mg/dL Calcium (8.5-10.1) mg/dL Phosphorus (2.6-4.7) mg/dL C-Reactive Protein 4.80 H (0.0-0.3) mg/dL Total Protein (6.4-8.2) g/dL Albumin (3.4-5.0) g/dL Vital Signs Temperature 37.3 C 08/06/18 16:04 Temperature Source Tympanic 08/06/18 16:04 Pulse 69 08/06/18 16:04 Pulse Rhythm Regular 08/06/18 08:37 Respiratory Rate 19 08/06/18 16:04 Respiratory Effort Non-Labored 08/06/18 08:37 Respiratory Depth Normal 08/06/18 08:37 Respiratory Pattern Normal 08/06/18 08:37 Blood Pressure 138/73 08/06/18 16:04 Pulse Oximetry 95 08/06/18 16:04 Oxygen Delivery Method Room Air 08/06/18 16:04 Oxygen Flow Rate 0 08/06/18 16:04 Pain Level 5 08/03/18 07:53 Comment 08/02/18 08:11 Intake & Output 08/05/18 08/06/18 08/06/18 23:59 11:59 23:59 Intake Total 1336.5 / 4041.917 5.776 / 2295.776 240 / 229.776 Balance 1336.5 / 3741.917 2054.776 / 229.77 240 / 2294.776 Intake: IV 646.5 / 2881.917 1754.77 240 6 Oral 690 / 1160 300 / 300 Other: Urine Appearance Clear Comment Pt voiding ad judith in toilet. Removed hat; denies sx. Voiding Methods Toilet Laboratory Results WBC 14.08 k/cumm (4.4-10.8) H D 08/06/18 06:50 RBC 3.73 m/cumm (4.50-6.00) L 08/06/18 06:50 Hgb 10.5 g/dL (13.5-17.5) L 08/06/18 06:50 Hct 32.3 % (40.0-50.0) L 08/06/18 06:50 MCV 86.6 fL (80-95) 08/06/18 06:50 MCH 28.2 pg (27.0-33.0) 08/06/18 06:50 MCHC 32.5 g/dL (32.0-36.0) 08/06/18 06:50 RDW 13.2 % (11.8-14.1) 08/06/18 06:50 Plt Count 411 x1000/uL (130-400) H 08/06/18 06:50 MPV 9.9 fL (8.0-11.0) 08/06/18 06:50 Immature Gran % See Differential 08/06/18 06:50 Neutrophils % 76.0 08/06/18 06:50 Band Neutrophils % 8.0 % 08/06/18 06:50 Lymphocytes % 8.0 08/06/18 06:50 Atypical Lymphs % 1 08/03/18 06:28 Monocytes % 6.0 08/06/18 06:50 Eosinophils % 0.0 08/06/18 06:50 Basophils % 0.0 08/06/18 06:50 Metamyelocytes % 1.0 % 08/06/18 06:50 Myelocytes % 1.0 % 08/06/18 06:50 Absolute Neutrophils 11.83 k/cumm (1.2-6.7) H 08/06/18 06:50 Absolute Lymphocytes 1.13 k/cumm (1.2-3.4) L 08/06/18 06:50 Absolute Monocytes 0.84 k/cumm (0.11-0.7) H 08/06/18 06:50 Absolute Eosinophils 0.00 k/cumm (0.0-0.7) 08/06/18 06:50 Absolute Basophils 0.00 k/cumm (0.0-0.2) 08/06/18 06:50 Differential Comment Manual differential 08/06/18 06:50 RBC Morphology See below 08/06/18 06:50 Polychromasia Present 08/06/18 06:50 Poikilocytosis 1+ 08/05/18 06:05 ESR 48 MM/HR (0-15) H 08/05/18 06:05 PT 12.0 sec (9.3-11.0) H 08/01/18 10:10 INR Cancelled 08/01/18 Unknown Sodium 140 mmol/L (136-145) 08/06/18 06:50 Potassium 2.5 mmol/L (3.5-5.1) L* 08/06/18 06:50 Chloride 100 mmol/L (98-107) 08/06/18 06:50 Carbon Dioxide 35.3 mmol/L (21.0-32.0) H 08/06/18 06:50 Anion Gap 4.7 mmol/L (3-11) 08/06/18 06:50 BUN 9 mg/dL (7-18) D 08/06/18 06:50 Creatinine 0.81 mg/dL (0.70-1.30) 08/06/18 06:50 Estimated GFR/1.73 m2 >= 60.00 (mL/min/1.73m2) 08/06/18 06:50 Glucose 171 mg/dL (70-100) H 08/06/18 06:50 Calcium 7.8 mg/dL (8.5-10.1) L 08/06/18 06:50 Phosphorus 2.3 mg/dL (2.6-4.7) L 08/06/18 06:50 Magnesium 2.1 mg/dL (1.8-2.4) 08/06/18 06:50 Total Bilirubin 0.3 mg/dL (0.2-1.0) 08/06/18 06:50 Conjugated Bilirubin 0.35 mg/dL (0.00-0.20) H 08/01/18 10:10 AST 28 U/L (15-37) 08/06/18 06:50 ALT 76 U/L (12-78) 08/06/18 06:50 Alkaline Phosphatase 99 U/L (46-116) 08/06/18 06:50 C-Reactive Protein 4.80 mg/dL (0.0-0.3) H 08/06/18 06:50 C-React Prot High Sens Cancelled 08/06/18 Unknown Total Protein 5.4 g/dL (6.4-8.2) L 08/06/18 06:50 Albumin 1.8 g/dL (3.4-5.0) L 08/06/18 06:50 Urine Color Yellow (Yellow) 08/03/18 14:55 Urine Clarity Clear 08/03/18 14:55 Urine pH 7.5 (5-8) 08/03/18 14:55 Ur Specific [place] 1.010 (1.005-1.025) 08/03/18 14:55 Urine Protein Negative mg/dL (Negative) 08/03/18 14:55 Urine Ketones Trace mg/dL (Negative) H 08/03/18 14:55 Urine Blood Negative (Negative) 08/03/18 14:55 Urine Nitrite Negative (Negative) 08/03/18 14:55 Urine Bilirubin Negative (Negative) 08/03/18 14:55 Urine Urobilinogen 0.2 EU/dL (Up TO 0.2) 08/03/18 14:55 Ur Leukocyte Esterase Negative (Negative) 08/03/18 14:55 Urine Glucose Negative mg/dL (Negative) 08/03/18 14:55 YENNY Titer 1:80 speckled 08/01/18 10:10 YENNY Titer 2 Not Applicable 08/01/18 10:10 YENNY Titer 3 Not Applicable 08/01/18 10:10 YENNY Interpretation Positive (NEGAT) A 08/01/18 10:10 Neutrophil-Specific Ab Negative (Negative) 08/01/18 10:10 C.difficile Tox Ab Neut Cancelled 08/01/18 09:25 S.cerevisiae IgG Ab 16.9 U 08/01/18 10:10 S.cerevisiae IgA Ab 86.7 U H 08/01/18 10:10
[2018-08-06] MEDS: Lactobacillus Acidophilus CAP 1 CAP PO (20:41)
[2018-08-06 23:31] VITALS: BP 142/74; PULSE 70; RESP 19; TEMP 36.6; O2SAT 95
[2018-08-07] MEDS: MetroNIDAZOLE 500 MG/100 ML BAG 100 MG IVPB ×3 (02:13→18:16)
[2018-08-07] MEDS: Ondansetron 4 MG/2 ML VIAL IVP (06:43)
[2018-08-07] MEDS: Hydrocortisone SOD SUC. 100 MG VIAL IVP ×3 (06:46→21:24)
[2018-08-07] MEDS: Insulin Aspart 300 UNITS/3 ML PEN SC ×4 (06:57→23:03)
[2018-08-07] MEDS: Normal Saline Flush 10 ML SYR IV ×4 (06:58→18:07)
[2018-08-07 07:36] LABS: Abs Immature Grans 0.93 k/cumm (0.0-0.09); HCT 33.6 % (40.0-50.0); HGB 11.3 g/dL (13.5-17.5); Mean Corp. HGB Concentration 33.6 g/dL (32.0-36.0); Mean Corpuscular Hemoglobin 28.8 pg (27.0-33.0); Mean Corpuscular Volume 85.5 fL (80-95); Mean Platelet Volume 9.6 fL (8.0-11.0); Platelet Count 436 x1000/uL (130-400); RBC 3.93 m/cumm (4.50-6.00); RBC Distribution Width 13.3 % (11.8-14.1)
[2018-08-07 07:47] LABS: Anion Gap 5.5 mmol/L (3-11); BUN 10 mg/dL (7-18); C-Reactive Protein 3.12 mg/dL (0.0-0.3); CO2 33.5 mmol/L (21.0-32.0); CREATININE 0.73 mg/dL (0.70-1.30); Calcium 7.7 mg/dL (8.5-10.1); Chloride 101 mmol/L (98-107); Glucose 146 mg/dL (70-100); Magnesium 2.2 mg/dL (1.8-2.4); PHOSPHORUS 2.8 mg/dL (2.6-4.7); Sodium 140 mmol/L (136-145)
[2018-08-07 07:50] VITALS: BP 118/68; PULSE 68; RESP 18; TEMP 36.7; O2SAT 96
[2018-08-07 07:51] LABS: Potassium 2.6 mmol/L (3.5-5.1)
[2018-08-07] MEDS: CIPROFLOXACIN 400 MG/200 ML BAG 200 MG IVPB (08:33)
[2018-08-07 08:39] LABS: Absolute Monocyte Count 1.14 k/cumm (0.11-0.7); Absolute Neutrophil Count 12.23 k/cumm (1.2-6.7)
[2018-08-07 08:40] LABS: Absolute Lymphocyte Count 2.28 k/cumm (1.2-3.4); Atypical Lymphocytes % 4; Diff Comment Manual Differential; Other Cells 0; Promyelocytes % 0 %
[2018-08-07 08:41] LABS: Polychromasia Present
[2018-08-07] MEDS: Lactobacillus Acidophilus CAP 1 CAP PO ×3 (08:48→19:42)
--- NOTE | 2018-08-07 10:19 | PDOC.CMPRO ---
- If Service Date Differs Date of service: 08/07/18 Time of Service: 10:19 Care Management Progress Note S/O: Albert is in bed in the room his spouse is at his side providing support. No change in Albert's status today he continues to receive IV management of ulcerative colitis. He continues on TPN. Will continue to provide support to patient and family on going discharge planning. A:Albert is a 43 year old male admitted with abdominal pain, colitis and recent weight loss P: No change in Albert status today CM to continue to provide support and ongoing discharge planning. Anticipate he may need ongoing treatment for ulcerative colitis. CM to continue to provide support and ongoing discharge planning.
--- NOTE | 2018-08-07 10:24 | W.PM.PROGNOT ---
Date of Service Date of service: 08/07/18 Time of Service: 10:24 Assessment and Plan (1) Ulcerative colitis, acute: Current visit: Yes Status: Acute pt does appear to be improved. Per GI at [facility]- will do another dose of Remicade today- 10mg/kg. than will see how he feels and if he is able to tolerate po's. CRP went from 5.0 to 3.0 (15 when admitted) stop cipro and 5 ASA pt is probably going to require continued infusion for some time and access. cont TPN and electrolyte supplements cont insulin coverage cont supportive care 60 mins spent in F/u today Qualifiers: Digestive disease complication type: with rectal bleeding Qualified Code(s): K51.911 - Ulcerative colitis, unspecified with rectal bleeding (2) Hypoalbuminemia due to protein-calorie malnutrition: Current visit: Yes Status: Acute TPN orals as delia (3) Hypomagnesemia: Current visit: Yes Status: Acute stable (4) Hypokalemia: Current visit: Yes Status: Acute replaced 40mEq (5) GERD (gastroesophageal reflux disease): Current visit: No Status: Chronic cont PPI Qualifiers: Esophagitis presence: esophagitis presence not specified Qualified Code(s): K21.9 - Gastro-esophageal reflux disease without esophagitis (6) Vomiting: Current visit: Yes Status: Acute cont TPN Subjective Patient reports: other Interval history since last seen: pt seen this am and tolerated the remicade well. He had two BM- one at 3am and one at 6am. pudding constancy + blood. dry heaves but no actual vomiting. no fever/chills. mild crappy abdom pain prior to BM, but no diffuse constant pain. no CP or SOB. no productive cough. no stephanie nor burning w/ urinations. no leg pain or swelling. Re Eval at Noon -pt has had one BM during the am. tolerated about 100cc of gaterade and able to swallow lactobacillus pill. no signs of peritonitis or sepsis. Pt thinks he does feel better. We will do another does of remicade today adn than see how he feels. I am going to stop cipro and the 5 ASA product (pt cannot swallow pill) Exam Const General: cooperative and comfortable Orientation: alert, awake and oriented x3 HENMT Head: normal to inspection Teeth and gingiva: dentition normal and other (no thrush ) Eyes Sclera: sclerae normal Cornea: corneas normal Chest Chest: normal inspection of the chest Resp Effort & Inspection: normal respiratory effort Auscultation: no rales, no rhonchi and no wheezes GI Inspection: normal to inspection Auscultation: hypoactive bowel sounds Other: mild pain in LLQ shahbaz w/ BM.. No distention or peritonitis no R/R/G Skin General skin exam: no rashes or lesions noted Other: no breakdown Extrem General: normal to inspection, no clubbing, cyanosis or edema and vascular access Other: no leg pain or swelling. PICC in R arm- no pain or swelling. site is dressing. routine cath cares Objective Objective Clinical Data: Abnormal lab results 08/06/18 08/07/18 08/07/18 Range/Units 06:50 06:50 06:50 WBC 16.30 H (4.4-10.8) k/cumm RBC 3.93 L (4.50-6.00) m/cumm Hgb 11.3 L (13.5-17.5) g/dL Hct 33.6 L (40.0-50.0) % Plt Count 436 H (130-400) x1000/uL Absolute Neutrophils 12.23 H (1.2-6.7) k/cumm Absolute Monocytes 1.14 H (0.11-0.7) k/cumm Potassium 2.6 L* (3.5-5.1) mmol/L Carbon Dioxide 33.5 H (21.0-32.0) mmol/L Glucose 146 H (70-100) mg/dL Calcium 7.7 L (8.5-10.1) mg/dL C-Reactive Protein 4.80 H 3.12 H (0.0-0.3) mg/dL Vital Signs Temperature 36.7 C 08/07/18 07:50 Temperature Source Tympanic 08/07/18 07:50 Pulse 68 08/07/18 07:50 Pulse Rhythm Regular 08/07/18 08:27 Respiratory Rate 18 08/07/18 07:50 Respiratory Effort Non-Labored 08/07/18 08:27 Respiratory Depth Normal 08/07/18 08:27 Respiratory Pattern Normal 08/07/18 08:27 Blood Pressure 118/68 08/07/18 07:50 Pulse Oximetry 96 08/07/18 07:50 Oxygen Delivery Method Room Air 08/07/18 07:50 Oxygen Flow Rate 0 08/07/18 07:50 Pain Level 5 08/03/18 07:53 Comment 08/02/18 08:11 Intake & Output 08/06/18 08/06/18 08/07/18 11:59 23:59 11:59 Intake Total 2055.776 / 4928.026 2872.25 / 4928.026 1444.3333 / 1444.3333 Output Total 650 / 650 400 / 400 Balance 2055.776 / 4278.026 2222.25 / 4278.026 1044.3333 / 1044.3333 Intake: IV 1755.776 / 3968.026 2212.25 / 3968.026 1174.3333 / 1174.3333 Oral 300 / 960 660 / 960 270 / 270 Output: Urine 300 / 300 Stool 350 / 350 400 / 400 Other: Urine Appearance Clear Clear Comment Pt voiding ad judith in toilet. Hat removed multiple times by patient. Urine not seen, voiding independently and flushing. No issues reported. Stool Size Moderate Stool Characteristics Soft Soft Liquid Liquid Emesis Description Bile Voiding Methods Toilet Toilet Laboratory Results WBC 16.30 k/cumm (4.4-10.8) H 08/07/18 06:50 RBC 3.93 m/cumm (4.50-6.00) L 08/07/18 06:50 Hgb 11.3 g/dL (13.5-17.5) L 08/07/18 06:50 Hct 33.6 % (40.0-50.0) L 08/07/18 06:50 MCV 85.5 fL (80-95) 08/07/18 06:50 MCH 28.8 pg (27.0-33.0) 08/07/18 06:50 MCHC 33.6 g/dL (32.0-36.0) 08/07/18 06:50 RDW 13.3 % (11.8-14.1) 08/07/18 06:50 Plt Count 436 x1000/uL (130-400) H 08/07/18 06:50 MPV 9.6 fL (8.0-11.0) 08/07/18 06:50 Immature Gran % See Differential 08/07/18 06:50 Neutrophils % 73.0 08/07/18 06:50 Band Neutrophils % 2.0 % 08/07/18 06:50 Lymphocytes % 10.0 08/07/18 06:50 Atypical Lymphs % 4 08/07/18 06:50 Monocytes % 7.0 08/07/18 06:50 Eosinophils % 0.0 08/07/18 06:50 Basophils % 0.0 08/07/18 06:50 Metamyelocytes % 4.0 % 08/07/18 06:50 Myelocytes % 0.0 % 08/07/18 06:50 Promyelocytes % 0 % 08/07/18 06:50 Absolute Neutrophils 12.23 k/cumm (1.2-6.7) H 08/07/18 06:50 Absolute Lymphocytes 2.28 k/cumm (1.2-3.4) 08/07/18 06:50 Absolute Monocytes 1.14 k/cumm (0.11-0.7) H 08/07/18 06:50 Absolute Eosinophils 0.00 k/cumm (0.0-0.7) 08/07/18 06:50 Absolute Basophils 0.00 k/cumm (0.0-0.2) 08/07/18 06:50 Differential Comment Manual differential 08/07/18 06:50 Other Cell Type 0 08/07/18 06:50 RBC Morphology See below 08/07/18 06:50 Polychromasia Present 08/07/18 06:50 Poikilocytosis 1+ 08/05/18 06:05 ESR 48 MM/HR (0-15) H 08/05/18 06:05 PT 12.0 sec (9.3-11.0) H 08/01/18 10:10 INR Cancelled 08/01/18 Unknown Sodium 140 mmol/L (136-145) 08/07/18 06:50 Potassium 2.6 mmol/L (3.5-5.1) L* 08/07/18 06:50 Chloride 101 mmol/L (98-107) 08/07/18 06:50 Carbon Dioxide 33.5 mmol/L (21.0-32.0) H 08/07/18 06:50 Anion Gap 5.5 mmol/L (3-11) 08/07/18 06:50 BUN 10 mg/dL (7-18) 08/07/18 06:50 Creatinine 0.73 mg/dL (0.70-1.30) 08/07/18 06:50 Estimated GFR/1.73 m2 >= 60.00 (mL/min/1.73m2) 08/07/18 06:50 Glucose 146 mg/dL (70-100) H 08/07/18 06:50 Calcium 7.7 mg/dL (8.5-10.1) L 08/07/18 06:50 Phosphorus 2.8 mg/dL (2.6-4.7) 08/07/18 06:50 Magnesium 2.2 mg/dL (1.8-2.4) 08/07/18 06:50 Total Bilirubin 0.3 mg/dL (0.2-1.0) 08/06/18 06:50 Conjugated Bilirubin 0.35 mg/dL (0.00-0.20) H 08/01/18 10:10 AST 28 U/L (15-37) 08/06/18 06:50 ALT 76 U/L (12-78) 08/06/18 06:50 Alkaline Phosphatase 99 U/L (46-116) 08/06/18 06:50 C-Reactive Protein 3.12 mg/dL (0.0-0.3) H 08/07/18 06:50 C-React Prot High Sens Cancelled 08/06/18 Unknown Total Protein 5.4 g/dL (6.4-8.2) L 08/06/18 06:50 Albumin 1.8 g/dL (3.4-5.0) L 08/06/18 06:50 Urine Color Yellow (Yellow) 08/03/18 14:55 Urine Clarity Clear 08/03/18 14:55 Urine pH 7.5 (5-8) 08/03/18 14:[address] [place] 1.010 (1.005-1.025) 08/03/18 14:55 Urine Protein Negative mg/dL (Negative) 08/03/18 14:55 Urine Ketones Trace mg/dL (Negative) H 08/03/18 14:55 Urine Blood Negative (Negative) 08/03/18 14:55 Urine Nitrite Negative (Negative) 08/03/18 14:55 Urine Bilirubin Negative (Negative) 08/03/18 14:55 Urine Urobilinogen 0.2 EU/dL (Up TO 0.2) 08/03/18 14:55 Ur Leukocyte Esterase Negative (Negative) 08/03/18 14:55 Urine Glucose Negative mg/dL (Negative) 08/03/18 14:55 YENNY Titer 1:80 speckled 08/01/18 10:10 YENNY Titer 2 Not Applicable 08/01/18 10:10 YENNY Titer 3 Not Applicable 08/01/18 10:10 YENNY Interpretation Positive (NEGAT) A 08/01/18 10:10 Neutrophil-Specific Ab Negative (Negative) 08/01/18 10:10 C.difficile Tox Ab Neut Cancelled 08/01/18 09:25 S.cerevisiae IgG Ab 16.9 U 08/01/18 10:10 S.cerevisiae IgA Ab 86.7 U H 08/01/18 10:10
[2018-08-07 10:45] VITALS: BP 151/84; PULSE 71; RESP 20; TEMP 36.4; O2SAT 96
[2018-08-07] MEDS: POTASSIUM CHLORIDE 10 MEQ/100 ML BAG 100 MEQ IVPB ×4 (11:42→15:54)
[2018-08-07] MEDS: Enoxaparin 40 MG/0.4 ML SYR SC (15:54)
[2018-08-07] MEDS: Pantoprazole 40 MG VIAL IVP (15:54)
[2018-08-07 16:11] VITALS: BP 130/79; PULSE 68; RESP 18; TEMP 36.8; O2SAT 95
[2018-08-07] MEDS: POTASSIUM CHLORIDE/D5-0.45NACL 1,000 ML 30 MEQ IV ×2 (18:16→18:20)
[2018-08-07 23:09] VITALS: BP 122/72; PULSE 62; RESP 18; TEMP 36.7; O2SAT 95
[2018-08-08] MEDS: MetroNIDAZOLE 500 MG/100 ML BAG 100 MG IVPB ×3 (01:04→18:24)
[2018-08-08] MEDS: Hydrocortisone SOD SUC. 100 MG VIAL IVP ×3 (06:07→21:18)
[2018-08-08] MEDS: Insulin Aspart 300 UNITS/3 ML PEN SC ×4 (06:08→23:06)
[2018-08-08 07:10] VITALS: BP 109/62; PULSE 68; RESP 18; TEMP 36.7; O2SAT 97
[2018-08-08 07:20] LABS: HCT 33.4 % (40.0-50.0); HGB 11.2 g/dL (13.5-17.5); Mean Corp. HGB Concentration 33.5 g/dL (32.0-36.0); Mean Corpuscular Hemoglobin 28.6 pg (27.0-33.0); Mean Corpuscular Volume 85.4 fL (80-95); Mean Platelet Volume 9.2 fL (8.0-11.0); Platelet Count 432 x1000/uL (130-400); RBC 3.91 m/cumm (4.50-6.00); RBC Distribution Width 13.4 % (11.8-14.1)
[2018-08-08 07:38] LABS: INR 1.1 (0.9-1.1); Prothrombin Time 10.6 sec (9.3-11.0)
[2018-08-08 07:47] LABS: PHOSPHORUS 3.2 mg/dL (2.6-4.7)
[2018-08-08 07:52] LABS: ALT 47 U/L (12-78); AST 16 U/L (15-37); Albumin 1.9 g/dL (3.4-5.0); Alkaline Phosphatase 91 U/L (46-116); Anion Gap 5.8 mmol/L (3-11); BUN 12 mg/dL (7-18); Bilirubin, Total 0.3 mg/dL (0.2-1.0); CO2 34.2 mmol/L (21.0-32.0); CREATININE 0.71 mg/dL (0.70-1.30); Calcium 8.1 mg/dL (8.5-10.1); Chloride 100 mmol/L (98-107); Glucose 174 mg/dL (70-100); Magnesium 2.2 mg/dL (1.8-2.4); Sodium 140 mmol/L (136-145); Total Protein 5.7 g/dL (6.4-8.2)
[2018-08-08 07:52] LABS: C-Reactive Protein 1.76 mg/dL (0.0-0.3)
[2018-08-08 07:54] LABS: Potassium 2.4 mmol/L (3.5-5.1)
[2018-08-08] MEDS: Lactobacillus Acidophilus CAP 1 CAP PO ×3 (07:56→19:35)
--- NOTE | 2018-08-08 08:04 | PGE_ITS ---
Date of Service Date of service: 08/08/18 Time of Service: 08:00 Assessment and Plan (1) Ulcerative colitis, acute: Current visit: Yes Status: Acute s/p x2 dose remicade doing well no signs of perforation or infection electrolytes addressed cont tpn cl liq as pt able to delia Qualifiers: Digestive disease complication type: with rectal bleeding Qualified Code(s): K51.911 - Ulcerative colitis, unspecified with rectal bleeding (2) Hypoalbuminemia due to protein-calorie malnutrition: Current visit: Yes Status: Acute cont tpn (3) Vomiting: Current visit: Yes Status: Acute improving (4) Dysplasia of colon: Current visit: Yes Status: Acute pt will need assessment of GI in future once acute episode resolved. high risk CRC. prob will require sx Subjective Patient reports: feels better Interval history since last seen: pt was able to drink an entire bottle of gatorade in the last 24 hrs. still occ have some dry heaves- but nothing is coming up. x2 BM since 6pm yest. this am he thinks there may be less blood. no cp or sob. no fever or chills. No productive cough. No dysuria. No leg pain or swelling. He only has mild left lower quadrant crampy pain just prior to. No distention no diffuse peritonitis. Exam Const General: cooperative and no acute distress Orientation: alert and awake [facility] Head: normal to inspection and atraumatic General nose exam: external nose normal Mouth: oral mucosae normal and moist mucous membranes abnormal Teeth and gingiva: dentition normal Other: No thrush Chest Chest: normal inspection of the chest Resp Effort & Inspection: normal respiratory effort and able to speak in complete sentences Auscultation: no rales, no rhonchi and no wheezes Cardio Jugular venous pressure: no JVD Rate: regular rate Rhythm: regular rhythm GI Inspection: normal to inspection Palpation: soft and no masses Auscultation: normal bowel sounds Other: No rebound rigidity or guarding Skin General skin exam: no rashes or lesions noted Other: No breakdown no breakdown Extrem General: normal to inspection and no clubbing, cyanosis or edema Objective Objective Clinical Data: Abnormal lab results 08/07/18 08/08/18 08/08/18 Range/Units 06:50 06:34 06:54 WBC 16.30 H (4.4-10.8) k/cumm RBC 3.93 L (4.50-6.00) m/cumm Hgb 11.3 L (13.5-17.5) g/dL Hct 33.6 L (40.0-50.0) % Plt Count 436 H (130-400) x1000/uL Absolute Neutrophils 12.23 H (1.2-6.7) k/cumm Absolute Monocytes 1.14 H (0.11-0.7) k/cumm Potassium 2.4 L* (3.5-5.1) mmol/L Carbon Dioxide 34.2 H (21.0-32.0) mmol/L Glucose 174 H (70-100) mg/dL Calcium 8.1 L (8.5-10.1) mg/dL C-Reactive Protein 1.76 H (0.0-0.3) mg/dL Total Protein 5.7 L (6.4-8.2) g/dL Albumin 1.9 L (3.4-5.0) g/dL 08/08/18 Range/Units 06:54 WBC 20.20 H (4.4-10.8) k/cumm RBC 3.91 L (4.50-6.00) m/cumm Hgb 11.2 L (13.5-17.5) g/dL Hct 33.4 L (40.0-50.0) % Plt Count 432 H (130-400) x1000/uL Absolute Neutrophils (1.2-6.7) k/cumm Absolute Monocytes (0.11-0.7) k/cumm Potassium (3.5-5.1) mmol/L Carbon Dioxide (21.0-32.0) mmol/L Glucose (70-100) mg/dL Calcium (8.5-10.1) mg/dL C-Reactive Protein (0.0-0.3) mg/dL Total Protein (6.4-8.2) g/dL Albumin (3.4-5.0) g/dL Vital Signs Temperature 36.7 C 08/07/18 23:09 Temperature Source Tympanic 08/07/18 23:09 Pulse 62 08/07/18 23:09 Pulse Rhythm Regular 08/07/18 20:54 Respiratory Rate 18 08/07/18 23:09 Respiratory Effort Non-Labored 08/07/18 20:54 Respiratory Depth Normal 08/07/18 20:54 Respiratory Pattern Normal 08/07/18 20:54 Blood Pressure 122/72 08/07/18 23:09 Pulse Oximetry 95 08/07/18 23:09 Oxygen Delivery Method Room Air 08/07/18 23:09 Oxygen Flow Rate 0 08/07/18 23:09 Pain Level 0 08/08/18 07:29 Comment 08/02/18 08:11 Intake & Output 08/07/18 08/07/18 08/08/18 11:59 23:59 11:59 Intake Total 1734.3333 / 5707.6666 3973.3333 / 5707.6666 1534.3333 / 1534.3333 Output Total 400 / 400 Balance 1334.3333 / 5307.6666 3973.3333 / 5307.6666 1534.3333 / 1534.3333 Intake: IV 1464.3333 / 4007.6666 2543.3333 / 4007.6666 1134.3333 / 1134.3333 Oral 270 / 1700 1430 / 1700 400 / 400 Output: Stool 400 / 400 Other: Urine Appearance Clear Comment Urine not seen at this time. Pt voiding ad judith. Denies sx. Stool Size Moderate Stool Characteristics Liquid Brown Emesis Description Undigested Food Bile Voiding Methods Toilet Laboratory Results WBC 20.20 k/cumm (4.4-10.8) H 08/08/18 06:54 RBC 3.91 m/cumm (4.50-6.00) L 08/08/18 06:54 Hgb 11.2 g/dL (13.5-17.5) L 08/08/18 06:54 Hct 33.4 % (40.0-50.0) L 08/08/18 06:54 MCV 85.4 fL (80-95) 08/08/18 06:54 MCH 28.6 pg (27.0-33.0) 08/08/18 06:54 MCHC 33.5 g/dL (32.0-36.0) 08/08/18 06:54 RDW 13.4 % (11.8-14.1) 08/08/18 06:54 Plt Count 432 x1000/uL (130-400) H 08/08/18 06:54 MPV 9.2 fL (8.0-11.0) 08/08/18 06:54 Immature Gran % See Differential 08/07/18 06:50 Neutrophils % 73.0 08/07/18 06:50 Band Neutrophils % 2.0 % 08/07/18 06:50 Lymphocytes % 10.0 08/07/18 06:50 Atypical Lymphs % 4 08/07/18 06:50 Monocytes % 7.0 08/07/18 06:50 Eosinophils % 0.0 08/07/18 06:50 Basophils % 0.0 08/07/18 06:50 Metamyelocytes % 4.0 % 08/07/18 06:50 Myelocytes % 0.0 % 08/07/18 06:50 Promyelocytes % 0 % 08/07/18 06:50 Absolute Neutrophils 12.23 k/cumm (1.2-6.7) H 08/07/18 06:50 Absolute Lymphocytes 2.28 k/cumm (1.2-3.4) 08/07/18 06:50 Absolute Monocytes 1.14 k/cumm (0.11-0.7) H 08/07/18 06:50 Absolute Eosinophils 0.00 k/cumm (0.0-0.7) 08/07/18 06:50 Absolute Basophils 0.00 k/cumm (0.0-0.2) 08/07/18 06:50 Differential Comment Manual differential 08/07/18 06:50 Other Cell Type 0 08/07/18 06:50 RBC Morphology See below 08/07/18 06:50 Polychromasia Present 08/07/18 06:50 Poikilocytosis 1+ 08/05/18 06:05 ESR 48 MM/HR (0-15) H 08/05/18 06:05 PT 10.6 sec (9.3-11.0) 08/08/18 06:54 INR 1.1 (0.9-1.1) 08/08/18 06:54 Sodium 140 mmol/L (136-145) 08/08/18 06:54 Potassium 2.4 mmol/L (3.5-5.1) L* 08/08/18 06:54 Chloride 100 mmol/L (98-107) 08/08/18 06:54 Carbon Dioxide 34.2 mmol/L (21.0-32.0) H 08/08/18 06:54 Anion Gap 5.8 mmol/L (3-11) 08/08/18 06:54 BUN 12 mg/dL (7-18) 08/08/18 06:54 Creatinine 0.71 mg/dL (0.70-1.30) 08/08/18 06:54 Estimated GFR/1.73 m2 >= 60.00 (mL/min/1.73m2) 08/08/18 06:54 Glucose 174 mg/dL (70-100) H 08/08/18 06:54 Calcium 8.1 mg/dL (8.5-10.1) L 08/08/18 06:54 Phosphorus 3.2 mg/dL (2.6-4.7) 08/08/18 06:54 Magnesium 2.2 mg/dL (1.8-2.4) 08/08/18 06:54 Total Bilirubin 0.3 mg/dL (0.2-1.0) 08/08/18 06:54 Conjugated Bilirubin 0.35 mg/dL (0.00-0.20) H 08/01/18 10:10 AST 16 U/L (15-37) 08/08/18 06:54 ALT 47 U/L (12-78) 08/08/18 06:54 Alkaline Phosphatase 91 U/L (46-116) 08/08/18 06:54 C-Reactive Protein 1.76 mg/dL (0.0-0.3) H 08/08/18 06:34 C-React Prot High Sens Cancelled 08/06/18 Unknown Total Protein 5.7 g/dL (6.4-8.2) L 08/08/18 06:54 Albumin 1.9 g/dL (3.4-5.0) L 08/08/18 06:54 Urine Color Yellow (Yellow) 08/03/18 14:55 Urine Clarity Clear 08/03/18 14:55 Urine pH 7.5 (5-8) 08/03/18 14:55 Ur Specific [place] 1.010 (1.005-1.025) 08/03/18 14:55 Urine Protein Negative mg/dL (Negative) 08/03/18 14:55 Urine Ketones Trace mg/dL (Negative) H 08/03/18 14:55 Urine Blood Negative (Negative) 08/03/18 14:55 Urine Nitrite Negative (Negative) 08/03/18 14:55 Urine Bilirubin Negative (Negative) 08/03/18 14:55 Urine Urobilinogen 0.2 EU/dL (Up TO 0.2) 08/03/18 14:55 Ur Leukocyte Esterase Negative (Negative) 08/03/18 14:55 Urine Glucose Negative mg/dL (Negative) 08/03/18 14:55 YENNY Titer 1:80 speckled 08/01/18 10:10 YENNY Titer 2 Not Applicable 08/01/18 10:10 YENNY Titer 3 Not Applicable 08/01/18 10:10 YENNY Interpretation Positive (NEGAT) A 08/01/18 10:10 Neutrophil-Specific Ab Negative (Negative) 08/01/18 10:10 C.difficile Tox Ab Neut Cancelled 08/01/18 09:25 S.cerevisiae IgG Ab 16.9 U 08/01/18 10:10 S.cerevisiae IgA Ab 86.7 U H 08/01/18 10:10
[2018-08-08] MEDS: POTASSIUM CHLORIDE 10 MEQ/100 ML BAG 100 MEQ IVPB ×4 (09:34→13:23)
--- NOTE | 2018-08-08 10:02 | PDOC.CMPRO ---
- If Service Date Differs Date of service: 08/08/18 Time of Service: 10:03 Care Management Progress Note S/O: Albert remains on TPN, and receiving IV medications to treat ulcerative colitis. He is on a clear liquid diet, activity as tolerated. His spouse remains at the bedside and supportive. A:Albert is a 43 year male admitted with ulcerative collitis P:Albert will be discharged when medically ready per provider. Anticipate no services at time of discharge, except outpatient services and provider follow-up related to admission. CM to continue to provide support to patient and family.
[2018-08-08 11:00] VITALS: BP 128/77; PULSE 69; RESP 16; TEMP 36.6; O2SAT 96
--- NOTE | 2018-08-08 13:02 | W.NUTRFU ---
Date of service: 08/08/18 Time of Service: 13:02 Nutritional Follow up NOTE: Would recommend please weighing patient so we can fully assess the adequacy of the nutrition interventions that are in place. Would suggest daily weights or at least every other day. Time Spent in Nutritional Counseling and Treatment: NA
[2018-08-08] MEDS: Normal Saline Flush 10 ML SYR IV ×2 (14:13→16:12)
[2018-08-08 15:10] VITALS: BP 146/81; PULSE 63; RESP 16; TEMP 36.6; O2SAT 96
[2018-08-08] MEDS: Enoxaparin 40 MG/0.4 ML SYR SC (16:11)
[2018-08-08] MEDS: Pantoprazole 40 MG VIAL IVP (16:11)
[2018-08-09] VITALS: BP 127/72; PULSE 69; RESP 17; TEMP 36.8; O2SAT 97
[2018-08-09] MEDS: MetroNIDAZOLE 500 MG/100 ML BAG 100 MG IVPB ×2 (01:30→09:36)
[2018-08-09] MEDS: Hydrocortisone SOD SUC. 100 MG VIAL IVP ×3 (05:22→21:19)
[2018-08-09 07:23] VITALS: BP 106/60; PULSE 64; RESP 18; TEMP 36.8; O2SAT 97
[2018-08-09 07:28] LABS: HCT 33.3 % (40.0-50.0); HGB 11.1 g/dL (13.5-17.5); Mean Corp. HGB Concentration 33.3 g/dL (32.0-36.0); Mean Corpuscular Hemoglobin 28.9 pg (27.0-33.0); Mean Corpuscular Volume 86.7 fL (80-95); Mean Platelet Volume 9.8 fL (8.0-11.0); Platelet Count 425 x1000/uL (130-400); RBC 3.84 m/cumm (4.50-6.00); RBC Distribution Width 13.5 % (11.8-14.1); White Blood Cell Count 17.17 k/cumm (4.4-10.8)
[2018-08-09 07:45] LABS: C-Reactive Protein 0.89 mg/dL (0.0-0.3); Magnesium 2.2 mg/dL (1.8-2.4)
[2018-08-09 07:46] LABS: Anion Gap 4.6 mmol/L (3-11); BUN 12 mg/dL (7-18); CO2 35.4 mmol/L (21.0-32.0); CREATININE 0.67 mg/dL (0.70-1.30); Calcium 7.6 mg/dL (8.5-10.1); Chloride 102 mmol/L (98-107); Glucose 117 mg/dL (70-100); PHOSPHORUS 2.8 mg/dL (2.6-4.7); Sodium 142 mmol/L (136-145)
[2018-08-09 07:48] LABS: Potassium 2.3 mmol/L (3.5-5.1)
[2018-08-09] MEDS: Lactobacillus Acidophilus CAP 1 CAP PO ×3 (08:07→19:41)
[2018-08-09] MEDS: POTASSIUM CHLORIDE/D5-0.45NACL 1,000 ML 30 MEQ IV (08:13)
[2018-08-09] MEDS: POTASSIUM CHLORIDE 10 MEQ/100 ML BAG 100 MEQ IVPB ×8 (09:35→19:41)
--- NOTE | 2018-08-09 10:08 | PDOC.CMPRO ---
- If Service Date Differs Date of service: 08/09/18 Time of Service: 10:08 Care Management Progress Note S/O: Albert is ambulating in the halls this morning, he states I hope I'm starting to get better. He is pleasant and receptive to discussion. Albert, remains on TPN at this time, and has been tolerating liquids PO. No change in plan. A:Albert is a 43 year male admitted with ulcerative colitis P:Albert will be discharged when medically ready per provider. Anticipate no services at time of discharge. Albert will F/U with Dr. Mcgrath and plan of care as prescribed.
[2018-08-09 12:00] VITALS: BP 118/76; PULSE 71; RESP 18; TEMP 36.4; O2SAT 98
[2018-08-09] MEDS: Insulin Aspart 300 UNITS/3 ML PEN SC ×3 (12:21→23:48)
--- NOTE | 2018-08-09 12:52 | W.PM.PROGNOT ---
Date of Service Date of service: 08/09/18 Time of Service: 12:58 Assessment and Plan (1) GERD (gastroesophageal reflux disease): Current visit: No Status: Chronic Qualifiers: Esophagitis presence: esophagitis presence not specified Qualified Code(s): K21.9 - Gastro-esophageal reflux disease without esophagitis (2) Hypokalemia: Current visit: Yes Status: Acute replaced will re-check electrolytes at 3pm (3) Ulcerative colitis, acute: Current visit: Yes Status: Acute s/p remicaide infusion and doing much better stop flagyl pt appetite slowly returning hopefully will not have to send home on TPN cont supportive care over weakend and will decide on saturday on home tpn cont steriods CRP .9 today (high 15) Qualifiers: Digestive disease complication type: with rectal bleeding Qualified Code(s): K51.911 - Ulcerative colitis, unspecified with rectal bleeding (4) Hypoalbuminemia due to protein-calorie malnutrition: Current visit: Yes Status: Acute TPN insulin coverage (5) Vomiting: Current visit: Yes Status: Acute slowly resolving try scheduled zofran prior to eating (6) Dysplasia of colon: Current visit: Yes Status: Acute will send pt to [facility] [place] to eval when acute episode resolved (7) Anemia, chronic disease: Current visit: Yes Status: Acute check iron stores Subjective Patient reports: feels better Interval history since last seen: the number and size of BM has diminished. only had 2-3 in last 12 hrs. amble to drink Gatorade and eat some pudding and ice cream. had x1 episode of N/V- only threw up some bile. no rash or joint pain. no productive cough. no leg pain or swelling. cath site c/d/i. no breakdown. no urinary s/s. thinks bleeding is slowing down. no distention or abdom pain generally. still has some moderate LLQ crampy pain prior to BM. Exam Const General: cooperative, comfortable and no acute distress Orientation: alert, awake and oriented x3 HENMT Head: normal to inspection and atraumatic Ears: hearing grossly normal bilaterally Mouth: moist mucous membranes and muffled voice Teeth and gingiva: dentition normal Chest Chest: normal inspection of the chest Resp Effort & Inspection: normal respiratory effort Auscultation: clear to auscultation bilaterally, no rales, no rhonchi and no wheezes GI Other: min pain except prior to BM no peritonitis. no sepsis or megacolon Skin General skin exam: no rashes or lesions noted Other: no joint pain or swelling Extrem General: no clubbing, cyanosis or edema Objective Objective Clinical Data: Abnormal lab results 08/09/18 08/09/18 08/09/18 Range/Units 05:36 05:36 05:36 WBC 17.17 H (4.4-10.8) k/cumm RBC 3.84 L (4.50-6.00) m/cumm Hgb 11.1 L (13.5-17.5) g/dL Hct 33.3 L (40.0-50.0) % Plt Count 425 H (130-400) x1000/uL Potassium 2.3 L* (3.5-5.1) mmol/L Carbon Dioxide 35.4 H (21.0-32.0) mmol/L Creatinine 0.67 L (0.70-1.30) mg/dL Glucose 117 H (70-100) mg/dL Calcium 7.6 L (8.5-10.1) mg/dL C-Reactive Protein 0.89 H (0.0-0.3) mg/dL Vital Signs Temperature 36.4 C L 08/09/18 12:00 Temperature Source Tympanic 08/09/18 12:00 Pulse 71 08/09/18 12:00 Pulse Rhythm Regular 08/09/18 07:16 Respiratory Rate 18 08/09/18 12:00 Respiratory Effort Non-Labored 08/09/18 07:16 Respiratory Depth Normal 08/09/18 07:16 Respiratory Pattern Normal 08/09/18 07:16 Blood Pressure 118/76 08/09/18 12:00 Pulse Oximetry 98 08/09/18 12:00 Oxygen Delivery Method Room Air 08/09/18 12:00 Oxygen Flow Rate 0 08/09/18 12:00 Pain Level 0 08/09/18 07:16 Comment 08/02/18 08:11 Intake & Output 08/08/18 08/09/18 08/09/18 23:59 11:59 23:59 Intake Total 2750.25 / 5190.5833 2209.0003 / 2309.0003 100 / 2309.0003 Output Total 1400 / 2150 325 / 325 Balance 1350.25 / 3040.5833 2208.2 / 1983.0003 - Intake: IV 1755.25 / 3655.5833 1749.0003 / 1848.0003 100 / 184.0003 Oral 995 / 1535 460 / 460 Output: Urine 1100 / 1600 300 / 300 Stool 200 / 450 25 / 25 Emesis 100 / 100 Other: Urine Color Yellow Yellow Straw Straw Urine Appearance Clear Clear Clear Urine Odor None None None Comment Void x1 in the toilet. Pt. encouraged to void in the hat or the urinal so that the RN can measure output. Pt. agreed to do so. Void x1 in the toilet. Stool Size Small Moderate Small Stool Characteristics Liquid Soft Soft Brown Liquid Liquid Bloody Brown Mucoid Brown Emesis Description Retching Voiding Methods Toilet Toilet Toilet Laboratory Results WBC 17.17 k/cumm (4.4-10.8) H 08/09/18 05:36 RBC 3.84 m/cumm (4.50-6.00) L 08/09/18 05:36 Hgb 11.1 g/dL (13.5-17.5) L 08/09/18 05:36 Hct 33.3 % (40.0-50.0) L 08/09/18 05:36 MCV 86.7 fL (80-95) 08/09/18 05:36 MCH 28.9 pg (27.0-33.0) 08/09/18 05:36 MCHC 33.3 g/dL (32.0-36.0) 08/09/18 05:36 RDW 13.5 % (11.8-14.1) 08/09/18 05:36 Plt Count 425 x1000/uL (130-400) H 08/09/18 05:36 MPV 9.8 fL (8.0-11.0) 08/09/18 05:36 Immature Gran % See Differential 08/07/18 06:50 Neutrophils % 73.0 08/07/18 06:50 Band Neutrophils % 2.0 % 08/07/18 06:50 Lymphocytes % 10.0 08/07/18 06:50 Atypical Lymphs % 4 08/07/18 06:50 Monocytes % 7.0 08/07/18 06:50 Eosinophils % 0.0 08/07/18 06:50 Basophils % 0.0 08/07/18 06:50 Metamyelocytes % 4.0 % 08/07/18 06:50 Myelocytes % 0.0 % 08/07/18 06:50 Promyelocytes % 0 % 08/07/18 06:50 Absolute Neutrophils 12.23 k/cumm (1.2-6.7) H 08/07/18 06:50 Absolute Lymphocytes 2.28 k/cumm (1.2-3.4) 08/07/18 06:50 Absolute Monocytes 1.14 k/cumm (0.11-0.7) H 08/07/18 06:50 Absolute Eosinophils 0.00 k/cumm (0.0-0.7) 08/07/18 06:50 Absolute Basophils 0.00 k/cumm (0.0-0.2) 08/07/18 06:50 Differential Comment Manual differential 08/07/18 06:50 Other Cell Type 0 08/07/18 06:50 RBC Morphology See below 08/07/18 06:50 Polychromasia Present 08/07/18 06:50 Poikilocytosis 1+ 08/05/18 06:05 ESR 48 MM/HR (0-15) H 08/05/18 06:05 PT 10.6 sec (9.3-11.0) 08/08/18 06:54 INR 1.1 (0.9-1.1) 08/08/18 06:54 Sodium 142 mmol/L (136-145) 08/09/18 05:36 Potassium 2.3 mmol/L (3.5-5.1) L* 08/09/18 05:36 Chloride 102 mmol/L (98-107) 08/09/18 05:36 Carbon Dioxide 35.4 mmol/L (21.0-32.0) H 08/09/18 05:36 Anion Gap 4.6 mmol/L (3-11) 08/09/18 05:36 BUN 12 mg/dL (7-18) 08/09/18 05:36 Creatinine 0.67 mg/dL (0.70-1.30) L 08/09/18 05:36 Estimated GFR/1.73 m2 >= 60.00 (mL/min/1.73m2) 08/09/18 05:36 Glucose 117 mg/dL (70-100) H 08/09/18 05:36 Calcium 7.6 mg/dL (8.5-10.1) L 08/09/18 05:36 Phosphorus 2.8 mg/dL (2.6-4.7) 08/09/18 05:36 Magnesium 2.2 mg/dL (1.8-2.4) 08/09/18 05:36 Total Bilirubin 0.3 mg/dL (0.2-1.0) 08/08/18 06:54 Conjugated Bilirubin 0.35 mg/dL (0.00-0.20) H 08/01/18 10:10 AST 16 U/L (15-37) 08/08/18 06:54 ALT 47 U/L (12-78) 08/08/18 06:54 Alkaline Phosphatase 91 U/L (46-116) 08/08/18 06:54 C-Reactive Protein 0.89 mg/dL (0.0-0.3) H 08/09/18 05:36 C-React Prot High Sens Cancelled 08/06/18 Unknown Total Protein 5.7 g/dL (6.4-8.2) L 08/08/18 06:54 Albumin 1.9 g/dL (3.4-5.0) L 08/08/18 06:54 Urine Color Yellow (Yellow) 08/03/18 14:55 Urine Clarity Clear 08/03/18 14:55 Urine pH 7.5 (5-8) 08/03/18 14:55 Ur Specific [place] 1.010 (1.005-1.025) 08/03/18 14:55 Urine Protein Negative mg/dL (Negative) 08/03/18 14:55 Urine Ketones Trace mg/dL (Negative) H 08/03/18 14:55 Urine Blood Negative (Negative) 08/03/18 14:55 Urine Nitrite Negative (Negative) 08/03/18 14:55 Urine Bilirubin Negative (Negative) 08/03/18 14:55 Urine Urobilinogen 0.2 EU/dL (Up TO 0.2) 08/03/18 14:55 Ur Leukocyte Esterase Negative (Negative) 08/03/18 14:55 Urine Glucose Negative mg/dL (Negative) 08/03/18 14:55 YENNY Titer 1:80 speckled 08/01/18 10:10 YENNY Titer 2 Not Applicable 08/01/18 10:10 YENNY Titer 3 Not Applicable 08/01/18 10:10 YENNY Interpretation Positive (NEGAT) A 08/01/18 10:10 Neutrophil-Specific Ab Negative (Negative) 08/01/18 10:10 C.difficile Tox Ab Neut Cancelled 08/01/18 09:25 S.cerevisiae IgG Ab 16.9 U 08/01/18 10:10 S.cerevisiae IgA Ab 86.7 U H 08/01/18 10:10
[2018-08-09] MEDS: Normal Saline Flush 10 ML SYR IV ×3 (14:00→15:52)
[2018-08-09 15:40] LABS: Anion Gap 6.7 mmol/L (3-11); BUN 13 mg/dL (7-18); CO2 30.3 mmol/L (21.0-32.0); CREATININE 0.88 mg/dL (0.70-1.30); Calcium 7.8 mg/dL (8.5-10.1); Chloride 101 mmol/L (98-107); Glucose 162 mg/dL (70-100); Magnesium 2.1 mg/dL (1.8-2.4); PHOSPHORUS 2.9 mg/dL (2.6-4.7); Sodium 138 mmol/L (136-145)
[2018-08-09] MEDS: Pantoprazole 40 MG VIAL IVP (15:52)
[2018-08-09] MEDS: Enoxaparin 40 MG/0.4 ML SYR SC (15:52)
[2018-08-09 15:55] VITALS: BP 117/70; PULSE 88; RESP 17; TEMP 37.5; O2SAT 96
[2018-08-09 16:09] LABS: Potassium 2.6 mmol/L (3.5-5.1)
[2018-08-09 16:41] LABS: Ferritin 374 ng/mL (8-388)
[2018-08-09 18:20] LABS: Iron 19 ug/dL (50-175)
[2018-08-09 19:18] VITALS: BP 111/74; PULSE 89; RESP 17; TEMP 36.4; O2SAT 97
[2018-08-09 23:52] VITALS: BP 110/72; PULSE 64; RESP 17; TEMP 36.4; O2SAT 95
[2018-08-10] MEDS: Hydrocortisone SOD SUC. 100 MG VIAL IVP (05:43)
[2018-08-10 06:09] LABS: HCT 32.9 % (40.0-50.0); Mean Corp. HGB Concentration 33.4 g/dL (32.0-36.0); Mean Corpuscular Hemoglobin 28.8 pg (27.0-33.0); Mean Corpuscular Volume 86.1 fL (80-95); Mean Platelet Volume 9.3 fL (8.0-11.0); Platelet Count 423 x1000/uL (130-400); RBC 3.82 m/cumm (4.50-6.00); RBC Distribution Width 13.9 % (11.8-14.1); White Blood Cell Count 21.47 k/cumm (4.4-10.8)
[2018-08-10 06:19] LABS: Anion Gap 6.1 mmol/L (3-11); BUN 11 mg/dL (7-18); CO2 31.9 mmol/L (21.0-32.0); CREATININE 0.67 mg/dL (0.70-1.30); Calcium 7.6 mg/dL (8.5-10.1); Chloride 103 mmol/L (98-107); Glucose 118 mg/dL (70-100); Sodium 141 mmol/L (136-145)
[2018-08-10 06:21] LABS: Potassium 2.7 mmol/L (3.5-5.1)
[2018-08-10 06:24] LABS: Magnesium 2.1 mg/dL (1.8-2.4); PHOSPHORUS 2.8 mg/dL (2.6-4.7)
[2018-08-10] MEDS: POTASSIUM CHLORIDE 10 MEQ/100 ML BAG 100 MEQ IVPB ×4 (06:40→10:30)
[2018-08-10 07:30] VITALS: BP 111/68; PULSE 79; RESP 16; TEMP 36.8; O2SAT 96
[2018-08-10] MEDS: Lactobacillus Acidophilus CAP 1 CAP PO ×3 (08:26→20:26)
--- NOTE | 2018-08-10 11:29 | PGE_ITS ---
Date of Service Date of service: 08/10/18 Time of Service: 11:28 Assessment and Plan (1) Anemia, chronic disease: Current visit: Yes Status: Acute will do some IV Fe (2) Dysplasia of colon: Current visit: Yes Status: Acute need to re eval once in remission and decreased inflammation will need to be followed very closely (3) Hypoalbuminemia due to protein-calorie malnutrition: Current visit: Yes Status: Acute cont tpn adn protein supp for now (4) Ulcerative colitis, acute: Current visit: Yes Status: Acute dont very well on remicade appears to have turned the corner today signif less BM, no bleeding, tolerating po's. will start to wean steroids. pt is going to require maintenance remicaide and prob a port in the future will have [place] [facility] [place] in quiescent state to eval the dysplasia Qualifiers: Digestive disease complication type: with rectal bleeding Qualified Code(s): K51.911 - Ulcerative colitis, unspecified with rectal bleeding (5) Hypokalemia: Current visit: Yes Status: Acute cont to monitor and replace. 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 delia. about 50% of tray per nursing. 1 bm in approx 12 hrs. min blood. bowels are starting to firm up. wants to try something more solid to eat. no fevers. no productive cough. no leg pain or swelling. no dysuria or thrush Exam Const General: comfortable Orientation: alert, awake and oriented x3 HENMT Head: normal to inspection and normocephalic Mouth: oral mucosae normal and moist mucous membranes abnormal Teeth and gingiva: dentition normal Chest Chest: normal inspection of the chest Resp Effort & Inspection: normal respiratory effort Auscultation: no rales, no rhonchi and no wheezes Cardio Palpation: normal PMI Rate: regular rate Rhythm: regular rhythm GI Inspection: normal to inspection, no edema and non-distended Palpation: soft, no guarding and No ascites Percussion: normal to percussion Auscultation: normal bowel sounds Skin Other: no breakdown. PICC site c/d/i no arm swelling or pain Extrem General: normal to inspection and no clubbing, cyanosis or edema Objective Objective Clinical Data: Abnormal lab results 08/09/18 08/09/18 08/10/18 Range/Units 15:17 15:17 05:40 WBC 21.47 H (4.4-10.8) k/cumm RBC 3.82 L (4.50-6.00) m/cumm Hgb 11.0 L (13.5-17.5) g/dL Hct 32.9 L (40.0-50.0) % Plt Count 423 H (130-400) x1000/uL Potassium 2.6 L* (3.5-5.1) mmol/L Creatinine (0.70-1.30) mg/dL Glucose 162 H (70-100) mg/dL Calcium 7.8 L (8.5-10.1) mg/dL Iron 19 L (50-175) ug/dL 08/10/18 Range/Units 05:40 WBC (4.4-10.8) k/cumm RBC (4.50-6.00) m/cumm Hgb (13.5-17.5) g/dL Hct (40.0-50.0) % Plt Count (130-400) x1000/uL Potassium 2.7 L* (3.5-5.1) mmol/L Creatinine 0.67 L (0.70-1.30) mg/dL Glucose 118 H (70-100) mg/dL Calcium 7.6 L (8.5-10.1) mg/dL Iron (50-175) ug/dL Vital Signs Temperature 36.8 C 08/10/18 07:30 Temperature Source Tympanic 08/10/18 07:30 Pulse 79 08/10/18 07:30 Pulse Rhythm Regular 08/09/18 19:59 Respiratory Rate 16 08/10/18 07:30 Respiratory Effort Non-Labored 08/09/18 19:59 Respiratory Depth Normal 08/09/18 19:59 Respiratory Pattern Normal 08/09/18 19:59 Blood Pressure 111/68 08/10/18 07:30 Pulse Oximetry 96 08/10/18 07:30 Oxygen Delivery Method Room Air 08/10/18 07:30 Oxygen Flow Rate 0 08/10/18 07:30 Pain Level 0 08/10/18 07:26 Comment 08/02/18 08:11 Intake & Output 08/09/18 08/09/18 08/10/18 11:59 23:59 11:59 Intake Total 2209.0003 / 4967.7503 2758.750 / 4967.7503 2022.6663 / 2022.6663 Output Total 1800 / 1800 525 / 525 Balance 2209.0003 / 3167.7503 958.750 / 3167.7503 1497.6663 / 1497.6663 Intake: IV 1749.0003 / 3827.7503 2078.750 / 3827.7503 1327.6663 / 1327.6663 Oral 460 / 1140 680 / 1140 695 / 695 Output: Urine 1575 / 1575 500 / 500 Stool 225 / 225 25 / 25 Other: Urine Color Yellow Straw Light [place] Urine Appearance Clear Clear Clear Urine Odor None None None Comment Void x1 in the toilet. Pt. encouraged to void in the hat or the urinal so that the RN can measure output. Pt. agreed to do so. Void x1 in the toilet. Void x1 in the toilet. Stool Size Moderate Moderate Small Stool Characteristics Soft Soft Soft Liquid Liquid Liquid Brown Brown Brown Voiding Methods Toilet Toilet Toilet Laboratory Results WBC 21.47 k/cumm (4.4-10.8) H 08/10/18 05:40 RBC 3.82 m/cumm (4.50-6.00) L 08/10/18 05:40 Hgb 11.0 g/dL (13.5-17.5) L 08/10/18 05:40 Hct 32.9 % (40.0-50.0) L 08/10/18 05:40 MCV 86.1 fL (80-95) 08/10/18 05:40 MCH 28.8 pg (27.0-33.0) 08/10/18 05:40 MCHC 33.4 g/dL (32.0-36.0) 08/10/18 05:40 RDW 13.9 % (11.8-14.1) 08/10/18 05:40 Plt Count 423 x1000/uL (130-400) H 08/10/18 05:40 MPV 9.3 fL (8.0-11.0) 08/10/18 05:40 Immature Gran % See Differential 08/07/18 06:50 Neutrophils % 73.0 08/07/18 06:50 Band Neutrophils % 2.0 % 08/07/18 06:50 Lymphocytes % 10.0 08/07/18 06:50 Atypical Lymphs % 4 08/07/18 06:50 Monocytes % 7.0 08/07/18 06:50 Eosinophils % 0.0 08/07/18 06:50 Basophils % 0.0 08/07/18 06:50 Metamyelocytes % 4.0 % 08/07/18 06:50 Myelocytes % 0.0 % 08/07/18 06:50 Promyelocytes % 0 % 08/07/18 06:50 Absolute Neutrophils 12.23 k/cumm (1.2-6.7) H 08/07/18 06:50 Absolute Lymphocytes 2.28 k/cumm (1.2-3.4) 08/07/18 06:50 Absolute Monocytes 1.14 k/cumm (0.11-0.7) H 08/07/18 06:50 Absolute Eosinophils 0.00 k/cumm (0.0-0.7) 08/07/18 06:50 Absolute Basophils 0.00 k/cumm (0.0-0.2) 08/07/18 06:50 Differential Comment Manual differential 08/07/18 06:50 Other Cell Type 0 08/07/18 06:50 RBC Morphology See below 08/07/18 06:50 Polychromasia Present 08/07/18 06:50 Poikilocytosis 1+ 08/05/18 06:05 ESR 48 MM/HR (0-15) H 08/05/18 06:05 PT 10.6 sec (9.3-11.0) 08/08/18 06:54 INR 1.1 (0.9-1.1) 08/08/18 06:54 Sodium 141 mmol/L (136-145) 08/10/18 05:40 Potassium 2.7 mmol/L (3.5-5.1) L* 08/10/18 05:40 Chloride 103 mmol/L (98-107) 08/10/18 05:40 Carbon Dioxide 31.9 mmol/L (21.0-32.0) 08/10/18 05:40 Anion Gap 6.1 mmol/L (3-11) 08/10/18 05:40 BUN 11 mg/dL (7-18) 08/10/18 05:40 Creatinine 0.67 mg/dL (0.70-1.30) L 08/10/18 05:40 Estimated GFR/1.73 m2 >= 60.00 (mL/min/1.73m2) 08/10/18 05:40 Glucose 118 mg/dL (70-100) H 08/10/18 05:40 Calcium 7.6 mg/dL (8.5-10.1) L 08/10/18 05:40 Phosphorus 2.8 mg/dL (2.6-4.7) 08/10/18 05:40 Magnesium 2.1 mg/dL (1.8-2.4) 08/10/18 05:40 Iron 19 ug/dL (50-175) L 08/09/18 15:17 Ferritin 374 ng/mL (8-388) 08/09/18 15:17 Total Bilirubin 0.3 mg/dL (0.2-1.0) 08/08/18 06:54 Conjugated Bilirubin 0.35 mg/dL (0.00-0.20) H 08/01/18 10:10 AST 16 U/L (15-37) 08/08/18 06:54 ALT 47 U/L (12-78) 08/08/18 06:54 Alkaline Phosphatase 91 U/L (46-116) 08/08/18 06:54 C-Reactive Protein 0.89 mg/dL (0.0-0.3) H 08/09/18 05:36 C-React Prot High Sens Cancelled 08/06/18 Unknown Total Protein 5.7 g/dL (6.4-8.2) L 08/08/18 06:54 Albumin 1.9 g/dL (3.4-5.0) L 08/08/18 06:54 Urine Color Yellow (Yellow) 08/03/18 14:55 Urine Clarity Clear 08/03/18 14:55 Urine pH 7.5 (5-8) 08/03/18 14:55 Ur Specific [place] 1.010 (1.005-1.025) 08/03/18 14:55 Urine Protein Negative mg/dL (Negative) 08/03/18 14:55 Urine Ketones Trace mg/dL (Negative) H 08/03/18 14:55 Urine Blood Negative (Negative) 08/03/18 14:55 Urine Nitrite Negative (Negative) 08/03/18 14:55 Urine Bilirubin Negative (Negative) 08/03/18 14:55 Urine Urobilinogen 0.2 EU/dL (Up TO 0.2) 08/03/18 14:55 Ur Leukocyte Esterase Negative (Negative) 08/03/18 14:55 Urine Glucose Negative mg/dL (Negative) 08/03/18 14:55 YENNY Titer 1:80 speckled 08/01/18 10:10 YENNY Titer 2 Not Applicable 08/01/18 10:10 YENNY Titer 3 Not Applicable 08/01/18 10:10 YENNY Interpretation Positive (NEGAT) A 08/01/18 10:10 Neutrophil-Specific Ab Negative (Negative) 08/01/18 10:10 C.difficile Tox Ab Neut Cancelled 08/01/18 09:25 S.cerevisiae IgG Ab 16.9 U 08/01/18 10:10 S.cerevisiae IgA Ab 86.7 U H 08/01/18 10:10
[2018-08-10] MEDS: Insulin Aspart 300 UNITS/3 ML PEN SC ×3 (11:55→23:43)
--- NOTE | 2018-08-10 13:20 | PDOC.CMPRO ---
- If Service Date Differs Date of service: 08/10/18 Time of Service: 13:20 Care Management Progress Note S/O: Albert has been ambulating in the halls throughout the day and visiting with family. He continues to receive TPN at this time and has received multiple potassium infusions throughout his stay. No change in DC plan at this time. A:Albert is a 43 year male admitted with ulcerative colitis P:Albert will be discharged when medically ready per provider. Anticipate no services at time of discharge. Albert will F/U with Dr. Mcgrath and plan of care as prescribed.
[2018-08-10] MEDS: Hydrocortisone SOD SUC. 100 MG VIAL 90 MG IVP ×2 (14:33→22:15)
[2018-08-10] MEDS: Normal Saline Flush 10 ML SYR IV ×3 (14:33→16:38)
[2018-08-10 16:23] LABS: Anion Gap 6.2 mmol/L (3-11); BUN 13 mg/dL (7-18); CO2 29.8 mmol/L (21.0-32.0); CREATININE 0.89 mg/dL (0.70-1.30); Calcium 7.8 mg/dL (8.5-10.1); Chloride 102 mmol/L (98-107); Glucose 165 mg/dL (70-100); Potassium 3.3 mmol/L (3.5-5.1); Sodium 138 mmol/L (136-145)
[2018-08-10] MEDS: Pantoprazole 40 MG VIAL IVP (16:38)
[2018-08-10] MEDS: Enoxaparin 40 MG/0.4 ML SYR SC (16:39)
[2018-08-10 18:05] VITALS: BP 127/71; PULSE 95; RESP 17; TEMP 36.6; O2SAT 96
[2018-08-10 23:42] VITALS: BP 115/68; PULSE 78; RESP 18; TEMP 36; O2SAT 96
[2018-08-10] MEDS: POTASSIUM CHLORIDE/D5-0.45NACL 1,000 ML 30 MEQ IV (23:43)
[2018-08-11] MEDS: Insulin Aspart 300 UNITS/3 ML PEN SC ×3 (06:19→18:09)
[2018-08-11] MEDS: Hydrocortisone SOD SUC. 100 MG VIAL 90 MG IVP (06:19)
[2018-08-11 07:20] VITALS: BP 124/74; PULSE 97; RESP 18; TEMP 36.9; O2SAT 99
[2018-08-11 07:34] LABS: HCT 32.5 % (40.0-50.0); HGB 10.7 g/dL (13.5-17.5); Mean Corp. HGB Concentration 32.9 g/dL (32.0-36.0); Mean Corpuscular Hemoglobin 28.7 pg (27.0-33.0); Mean Corpuscular Volume 87.1 fL (80-95); Mean Platelet Volume 9.7 fL (8.0-11.0); Platelet Count 412 x1000/uL (130-400); RBC 3.73 m/cumm (4.50-6.00); White Blood Cell Count 20.93 k/cumm (4.4-10.8)
[2018-08-11 07:40] LABS: Prothrombin Time 9.9 sec (9.3-11.0)
[2018-08-11 07:46] LABS: C-Reactive Protein 0.48 mg/dL (0.0-0.3); Magnesium 2.2 mg/dL (1.8-2.4)
[2018-08-11] MEDS: Lactobacillus Acidophilus CAP 1 CAP PO ×3 (07:57→19:32)
[2018-08-11 08:20] LABS: ALT 38 U/L (12-78); AST 14 U/L (15-37); Albumin 1.9 g/dL (3.4-5.0); Alkaline Phosphatase 84 U/L (46-116); Anion Gap 5.8 mmol/L (3-11); BUN 11 mg/dL (7-18); Bilirubin, Total 0.3 mg/dL (0.2-1.0); CO2 31.2 mmol/L (21.0-32.0); CREATININE 0.65 mg/dL (0.70-1.30); Calcium 7.9 mg/dL (8.5-10.1); Chloride 104 mmol/L (98-107); Glucose 137 mg/dL (70-100); PHOSPHORUS 3.3 mg/dL (2.6-4.7); Potassium 3.1 mmol/L (3.5-5.1); Sodium 141 mmol/L (136-145); Total Protein 5.4 g/dL (6.4-8.2)
--- NOTE | 2018-08-11 09:34 | PDOC.CMPRO ---
- If Service Date Differs Date of service: 08/11/18 Time of Service: 09:34 Care Management Progress Note S/O: Albert is ambulating in the halls today he is interacting well. He is hopeful to be discharged in the next 48 hours. His TPN will be discontinued and he will be discharged home with a PICC line in place for ongoing Remicade treatments. CM faxed referral to [facility] for saline flushes a referral to home health for nursing. Albert's SO will learn how to flush the picc line nurse teaching and continue teaching through home health. A:Albert is a 43 year male admitted with ulcerative colitis P:Albert will be discharged when medically ready per provider. New home health nursing face to face will be needed and new services through [facility] for Picc maintaining line. Albert will F/U with Dr. Mcgrath and plan of care as prescribed.
--- NOTE | 2018-08-11 09:34 | W.PM.PROGNOT ---
Date of Service Date of service: 08/11/18 Time of Service: 09:34 Assessment and Plan (1) Anemia, chronic disease: Current visit: No Status: Acute IV Iron (2) Hypoalbuminemia due to protein-calorie malnutrition: Current visit: No Status: Acute cont TPN (3) Ulcerative colitis, acute: Current visit: No Status: Acute awaiting fpr antiinflammatory affect and healing of mucosa. d/w pt and family expectations for future. adjusted electrolytes cont supportive care no signs of infections or peritonitis Qualifiers: Digestive disease complication type: with rectal bleeding Qualified Code(s): K51.911 - Ulcerative colitis, unspecified with rectal bleeding Subjective Patient reports: pain is less, tolerating liquids well, voiding w/o difficulty, flatus, diarrhea and afebrile Interval history since last seen: few less BM today. still bleeding but seems to be slowing up. pt has tolerated gatorade. Exam [facility] Head: normal to inspection, normocephalic and atraumatic Ears: hearing grossly normal bilaterally General nose exam: external nose normal Face and sinus: normal facial exam and sinuses nontender Mouth: oral mucosae normal, tongue normal and moist mucous membranes Teeth and gingiva: dentition normal Eyes Conjunctivae: conjunctivae normal Sclera: sclerae normal Cornea: corneas normal Chest Chest: normal inspection of the chest Resp Effort & Inspection: normal respiratory effort Auscultation: clear to auscultation bilaterally Cardio Rate: regular rate Rhythm: regular rhythm GI Inspection: normal to inspection Palpation: soft Auscultation: normal bowel sounds Other: occ pain on LLQ prior to BM. no R/R/G. no dysuria Skin General skin exam: no rashes or lesions noted Other: no breakdown. No arm swelling/pain. PICC site is c/d/i Extrem General: normal to inspection and no clubbing, cyanosis or edema Objective Objective Clinical Data: Abnormal lab results 08/10/18 08/11/18 08/11/18 Range/Units 16:07 06:35 06:35 WBC (4.4-10.8) k/cumm RBC (4.50-6.00) m/cumm Hgb (13.5-17.5) g/dL Hct (40.0-50.0) % Plt Count (130-400) x1000/uL Potassium 3.3 L 3.1 L (3.5-5.1) mmol/L Creatinine 0.65 L (0.70-1.30) mg/dL Glucose 165 H 137 H (70-100) mg/dL Calcium 7.8 L 7.9 L (8.5-10.1) mg/dL AST 14 L (15-37) U/L C-Reactive Protein 0.48 H (0.0-0.3) mg/dL Total Protein 5.4 L (6.4-8.2) g/dL Albumin 1.9 L (3.4-5.0) g/dL 08/11/18 Range/Units 06:35 WBC 20.93 H (4.4-10.8) k/cumm RBC 3.73 L (4.50-6.00) m/cumm Hgb 10.7 L (13.5-17.5) g/dL Hct 32.5 L (40.0-50.0) % Plt Count 412 H (130-400) x1000/uL Potassium (3.5-5.1) mmol/L Creatinine (0.70-1.30) mg/dL Glucose (70-100) mg/dL Calcium (8.5-10.1) mg/dL AST (15-37) U/L C-Reactive Protein (0.0-0.3) mg/dL Total Protein (6.4-8.2) g/dL Albumin (3.4-5.0) g/dL Vital Signs Temperature 36.9 C 08/11/18 07:20 Temperature Source Tympanic 08/11/18 07:20 Pulse 97 H 08/11/18 07:20 Pulse Rhythm Regular 08/10/18 20:48 Respiratory Rate 18 08/11/18 07:20 Respiratory Effort Non-Labored 08/10/18 20:48 Respiratory Depth Normal 08/10/18 20:48 Respiratory Pattern Normal 08/10/18 20:48 Blood Pressure 124/74 08/11/18 07:20 Pulse Oximetry 99 08/11/18 07:20 Oxygen Delivery Method Room Air 08/11/18 07:20 Oxygen Flow Rate 0 08/11/18 07:20 Pain Level 0 08/10/18 07:26 Comment 08/02/18 08:11 Intake & Output 08/10/18 08/10/18 08/11/18 11:59 23:59 11:59 Intake Total 2762.6663 / 6172.9996 3410.3333 / 6172.9996 2647.1664 / 2647.1664 Output Total 725 / 2675 1950 / 2675 1200 / 1200 Balance 2037.6663 / 3497.9996 1460.3333 / 3497.9996 1447.1664 / 1447.1664 Intake: IV 1427.6663 / 3697.9996 2270.3333 / 3697.9996 1047.1664 / 1047.1664 Oral 1335 / 2475 1140 / 2475 1600 / 1600 Output: Urine 700 / 2350 1650 / 2350 800 / 800 Stool 25 / 325 300 / 325 400 / 400 Other: Urine Color Yellow Yellow Yellow Urine Appearance Clear Clear Clear Urine Odor None Normal Normal Comment Void x1 in the toilet. Void x1 in the toilet. Stool Size Small Moderate Small Stool Characteristics Soft Soft Liquid Liquid Liquid Brown Brown Brown Bloody Bloody Voiding Methods Toilet Urinal Urinal Laboratory Results WBC 20.93 k/cumm (4.4-10.8) H 08/11/18 06:35 RBC 3.73 m/cumm (4.50-6.00) L 08/11/18 06:35 Hgb 10.7 g/dL (13.5-17.5) L 08/11/18 06:35 Hct 32.5 % (40.0-50.0) L 08/11/18 06:35 MCV 87.1 fL (80-95) 08/11/18 06:35 MCH 28.7 pg (27.0-33.0) 08/11/18 06:35 MCHC 32.9 g/dL (32.0-36.0) 08/11/18 06:35 RDW 14.0 % (11.8-14.1) 08/11/18 06:35 Plt Count 412 x1000/uL (130-400) H 08/11/18 06:35 MPV 9.7 fL (8.0-11.0) 08/11/18 06:35 Immature Gran % See Differential 08/07/18 06:50 Neutrophils % 73.0 08/07/18 06:50 Band Neutrophils % 2.0 % 08/07/18 06:50 Lymphocytes % 10.0 08/07/18 06:50 Atypical Lymphs % 4 08/07/18 06:50 Monocytes % 7.0 08/07/18 06:50 Eosinophils % 0.0 08/07/18 06:50 Basophils % 0.0 08/07/18 06:50 Metamyelocytes % 4.0 % 08/07/18 06:50 Myelocytes % 0.0 % 08/07/18 06:50 Promyelocytes % 0 % 08/07/18 06:50 Absolute Neutrophils 12.23 k/cumm (1.2-6.7) H 08/07/18 06:50 Absolute Lymphocytes 2.28 k/cumm (1.2-3.4) 08/07/18 06:50 Absolute Monocytes 1.14 k/cumm (0.11-0.7) H 08/07/18 06:50 Absolute Eosinophils 0.00 k/cumm (0.0-0.7) 08/07/18 06:50 Absolute Basophils 0.00 k/cumm (0.0-0.2) 08/07/18 06:50 Differential Comment Manual differential 08/07/18 06:50 Other Cell Type 0 08/07/18 06:50 RBC Morphology See below 08/07/18 06:50 Polychromasia Present 08/07/18 06:50 Poikilocytosis 1+ 08/05/18 06:05 ESR 48 MM/HR (0-15) H 08/05/18 06:05 PT 9.9 sec (9.3-11.0) 08/11/18 06:35 INR 1.0 (0.9-1.1) 08/11/18 06:35 Sodium 141 mmol/L (136-145) 08/11/18 06:35 Potassium 3.1 mmol/L (3.5-5.1) L 08/11/18 06:35 Chloride 104 mmol/L (98-107) 08/11/18 06:35 Carbon Dioxide 31.2 mmol/L (21.0-32.0) 08/11/18 06:35 Anion Gap 5.8 mmol/L (3-11) 08/11/18 06:35 BUN 11 mg/dL (7-18) 08/11/18 06:35 Creatinine 0.65 mg/dL (0.70-1.30) L 08/11/18 06:35 Estimated GFR/1.73 m2 >= 60.00 (mL/min/1.73m2) 08/11/18 06:35 Glucose 137 mg/dL (70-100) H 08/11/18 06:35 Calcium 7.9 mg/dL (8.5-10.1) L 08/11/18 06:35 Phosphorus 3.3 mg/dL (2.6-4.7) 08/11/18 06:35 Magnesium 2.2 mg/dL (1.8-2.4) 08/11/18 06:35 Iron 19 ug/dL (50-175) L 08/09/18 15:17 Ferritin 374 ng/mL (8-388) 08/09/18 15:17 Total Bilirubin 0.3 mg/dL (0.2-1.0) 08/11/18 06:35 Conjugated Bilirubin 0.35 mg/dL (0.00-0.20) H 08/01/18 10:10 AST 14 U/L (15-37) L 08/11/18 06:35 ALT 38 U/L (12-78) 08/11/18 06:35 Alkaline Phosphatase 84 U/L (46-116) 08/11/18 06:35 C-Reactive Protein 0.48 mg/dL (0.0-0.3) H 08/11/18 06:35 C-React Prot High Sens Cancelled 08/06/18 Unknown Total Protein 5.4 g/dL (6.4-8.2) L 08/11/18 06:35 Albumin 1.9 g/dL (3.4-5.0) L 08/11/18 06:35 Urine Color Yellow (Yellow) 08/03/18 14:55 Urine Clarity Clear 08/03/18 14:55 Urine pH 7.5 (5-8) 08/03/18 14:55 Ur Specific [place] 1.010 (1.005-1.025) 08/03/18 14:55 Urine Protein Negative mg/dL (Negative) 08/03/18 14:55 Urine Ketones Trace mg/dL (Negative) H 08/03/18 14:55 Urine Blood Negative (Negative) 08/03/18 14:55 Urine Nitrite Negative (Negative) 08/03/18 14:55 Urine Bilirubin Negative (Negative) 08/03/18 14:55 Urine Urobilinogen 0.2 EU/dL (Up TO 0.2) 08/03/18 14:55 Ur Leukocyte Esterase Negative (Negative) 08/03/18 14:55 Urine Glucose Negative mg/dL (Negative) 08/03/18 14:55 YENNY Titer 1:80 speckled 08/01/18 10:10 YENNY Titer 2 Not Applicable 08/01/18 10:10 YENNY Titer 3 Not Applicable 08/01/18 10:10 YENNY Interpretation Positive (NEGAT) A 08/01/18 10:10 Neutrophil-Specific Ab Negative (Negative) 08/01/18 10:10 C.difficile Tox Ab Neut Cancelled 08/01/18 09:25 S.cerevisiae IgG Ab 16.9 U 08/01/18 10:10 S.cerevisiae IgA Ab 86.7 U H 08/01/18 10:10
[2018-08-11] MEDS: POTASSIUM CHLORIDE 10 MEQ/100 ML BAG 100 MEQ IVPB ×2 (09:51→11:06)
[2018-08-11] MEDS: Hydrocortisone SOD SUC. 100 MG VIAL 80 MG IVP ×2 (13:54→21:29)
[2018-08-11] MEDS: Normal Saline Flush 10 ML SYR IV ×3 (13:55→16:06)
--- NOTE | 2018-08-11 14:47 | W.NUTRFU ---
Date of service: 08/11/18 Time of Service: 14:48 Nutritional Follow up NOTE: PO intake is improving. Weight is up to 87.3 kg. Not losing more weight as he had been prior to admission. Instructed Mr. Nguyễn on nutrition therapy for ulcerative colitis and provided written materials. Also provided written materials with a list of high potassium low fiber foods. Mr. Nguyễn verbalized a good understanding of the information. He has my contact information and is encouraged to call me with any questions or concerns regarding his nutrition therapy. Time Spent in Nutritional Counseling and Treatment: TRINIDAD
[2018-08-11] MEDS: Enoxaparin 40 MG/0.4 ML SYR SC (15:58)
[2018-08-11] MEDS: Pantoprazole 40 MG VIAL IVP (15:58)
[2018-08-11 17:44] VITALS: BP 151/80; PULSE 79; RESP 18; TEMP 36.9; O2SAT 97
--- NOTE | 2018-08-11 19:10 | NUR.NOTE ---
Nursing Note: 1815H Clinimix consumed. No further bags hung per MD order
[2018-08-12 00:28] VITALS: BP 112/68; PULSE 78; RESP 17; TEMP 36.5; O2SAT 96
[2018-08-12] MEDS: Insulin Aspart 300 UNITS/3 ML PEN SC (00:32)
[2018-08-12] MEDS: Normal Saline Flush 10 ML SYR IV ×3 (06:30→12:54)
[2018-08-12] MEDS: Hydrocortisone SOD SUC. 100 MG VIAL 80 MG IVP ×2 (06:30→12:54)
[2018-08-12 07:45] VITALS: BP 136/75; PULSE 80; RESP 20; TEMP 37.1; O2SAT 98
--- NOTE | 2018-08-12 07:55 | PGE_ITS ---
Documented by User: NAHUN Ortiz 08/12/18 07:57 Date of Service Date of service: 08/12/18 Time of Service: 07:53 Assessment and Plan (1) Anemia, chronic disease: Current visit: No Status: Acute (2) Dysplasia of colon: Current visit: No Status: Acute (3) Hypoalbuminemia due to protein-calorie malnutrition: Current visit: No Status: Acute (4) Ulcerative colitis, acute: Current visit: No Status: Acute Tolerating normal diet and increased activity. Frequency of BMs has decreased, denies blood in stool. Qualifiers: Digestive disease complication type: with rectal bleeding Qualified Code(s): K51.911 - Ulcerative colitis, unspecified with rectal bleeding (5) Hypokalemia: Current visit: No Status: Acute (6) GERD (gastroesophageal reflux disease): Current visit: No Status: Chronic Qualifiers: Esophagitis presence: esophagitis presence not specified Qualified Code(s): K21.9 - Gastro-esophageal reflux disease without esophagitis Subjective Patient reports: feels better and tolerating a regular diet; denies nausea, vomiting and fever Interval history since last seen: Mr. Richey reports that he has been tolerating the regular, low fiber diet. Denies abdominal pain, fevers or chills. He reports ambulating in the hallway frequently and expressed eagerness to return home. Exam Const General: cooperative, healthy appearing and comfortable Orientation: alert and oriented x3 Resp Effort & Inspection: normal respiratory effort, no audible wheezes and no cough GI Inspection: normal to inspection and non-distended Palpation: soft, no guarding and nontender Objective Objective Clinical Data: Abnormal lab results 08/11/18 08/11/18 Range/Units 06:35 06:35 Potassium 3.1 L (3.5-5.1) mmol/L Creatinine 0.65 L (0.70-1.30) mg/dL Glucose 137 H (70-100) mg/dL Calcium 7.9 L (8.5-10.1) mg/dL AST 14 L (15-37) U/L C-Reactive Protein 0.48 H (0.0-0.3) mg/dL Total Protein 5.4 L (6.4-8.2) g/dL Albumin 1.9 L (3.4-5.0) g/dL Vital Signs Temperature 37.1 C 08/12/18 07:45 Temperature Source Tympanic 08/12/18 07:45 Pulse 80 08/12/18 07:45 Pulse Rhythm Regular 08/12/18 00:25 Respiratory Rate 20 08/12/18 07:45 Respiratory Effort 08/12/18 00:25 Respiratory Depth Normal 08/12/18 00:25 Respiratory Pattern Normal 08/12/18 00:25 Blood Pressure 136/75 08/12/18 07:45 Pulse Oximetry 98 08/12/18 07:45 Oxygen Delivery Method Room Air 08/12/18 07:45 Oxygen Flow Rate 0 08/12/18 07:45 Pain Level 0 08/10/18 07:26 Comment 08/02/18 08:11 Intake & Output 08/11/18 08/11/18 08/12/18 11:59 23:59 11:59 Intake Total 2747.1664 / 4910.4997 2163.3333 / 4910.4997 Output Total 1650 / 2550 900 / 2550 Balance 1097.1664 / 2360.4997 1263.3333 / 2360.4997 Weight 87.3 kg Intake: IV 1147.1664 / 2170.4997 1023.3333 / 2170.4997 Oral 1600 / 2740 1140 / 2740 Output: Urine 1200 / 2100 900 / 2100 Stool 450 / 450 Other: Urine Color Yellow Yellow Straw Urine Appearance Clear Clear Urine Odor Normal Normal Comment void x 2 in toilet during noc Stool Size Small Moderate Stool Characteristics Liquid Soft Brown Bloody Voiding Methods Urinal Urinal Toilet Laboratory Results WBC 20.93 k/cumm (4.4-10.8) H 08/11/18 06:35 RBC 3.73 m/cumm (4.50-6.00) L 08/11/18 06:35 Hgb 10.7 g/dL (13.5-17.5) L 08/11/18 06:35 Hct 32.5 % (40.0-50.0) L 08/11/18 06:35 MCV 87.1 fL (80-95) 08/11/18 06:35 MCH 28.7 pg (27.0-33.0) 08/11/18 06:35 MCHC 32.9 g/dL (32.0-36.0) 08/11/18 06:35 RDW 14.0 % (11.8-14.1) 08/11/18 06:35 Plt Count 412 x1000/uL (130-400) H 08/11/18 06:35 MPV 9.7 fL (8.0-11.0) 08/11/18 06:35 Immature Gran % See Differential 08/07/18 06:50 Neutrophils % 73.0 08/07/18 06:50 Band Neutrophils % 2.0 % 08/07/18 06:50 Lymphocytes % 10.0 08/07/18 06:50 Atypical Lymphs % 4 08/07/18 06:50 Monocytes % 7.0 08/07/18 06:50 Eosinophils % 0.0 08/07/18 06:50 Basophils % 0.0 08/07/18 06:50 Metamyelocytes % 4.0 % 08/07/18 06:50 Myelocytes % 0.0 % 08/07/18 06:50 Promyelocytes % 0 % 08/07/18 06:50 Absolute Neutrophils 12.23 k/cumm (1.2-6.7) H 08/07/18 06:50 Absolute Lymphocytes 2.28 k/cumm (1.2-3.4) 08/07/18 06:50 Absolute Monocytes 1.14 k/cumm (0.11-0.7) H 08/07/18 06:50 Absolute Eosinophils 0.00 k/cumm (0.0-0.7) 08/07/18 06:50 Absolute Basophils 0.00 k/cumm (0.0-0.2) 08/07/18 06:50 Differential Comment Manual differential 08/07/18 06:50 Other Cell Type 0 08/07/18 06:50 RBC Morphology See below 08/07/18 06:50 Polychromasia Present 08/07/18 06:50 Poikilocytosis 1+ 08/05/18 06:05 ESR 48 MM/HR (0-15) H 08/05/18 06:05 PT 9.9 sec (9.3-11.0) 08/11/18 06:35 INR 1.0 (0.9-1.1) 08/11/18 06:35 Sodium 141 mmol/L (136-145) 08/11/18 06:35 Potassium 3.1 mmol/L (3.5-5.1) L 08/11/18 06:35 Chloride 104 mmol/L (98-107) 08/11/18 06:35 Carbon Dioxide 31.2 mmol/L (21.0-32.0) 08/11/18 06:35 Anion Gap 5.8 mmol/L (3-11) 08/11/18 06:35 BUN 11 mg/dL (7-18) 08/11/18 06:35 Creatinine 0.65 mg/dL (0.70-1.30) L 08/11/18 06:35 Estimated GFR/1.73 m2 >= 60.00 (mL/min/1.73m2) 08/11/18 06:35 Glucose 137 mg/dL (70-100) H 08/11/18 06:35 Calcium 7.9 mg/dL (8.5-10.1) L 08/11/18 06:35 Phosphorus 3.3 mg/dL (2.6-4.7) 08/11/18 06:35 Magnesium 2.2 mg/dL (1.8-2.4) 08/11/18 06:35 Iron 19 ug/dL (50-175) L 08/09/18 15:17 Ferritin 374 ng/mL (8-388) 08/09/18 15:17 Total Bilirubin 0.3 mg/dL (0.2-1.0) 08/11/18 06:35 Conjugated Bilirubin 0.35 mg/dL (0.00-0.20) H 08/01/18 10:10 AST 14 U/L (15-37) L 08/11/18 06:35 ALT 38 U/L (12-78) 08/11/18 06:35 Alkaline Phosphatase 84 U/L (46-116) 08/11/18 06:35 C-Reactive Protein 0.48 mg/dL (0.0-0.3) H 08/11/18 06:35 C-React Prot High Sens Cancelled 08/06/18 Unknown Total Protein 5.4 g/dL (6.4-8.2) L 08/11/18 06:35 Albumin 1.9 g/dL (3.4-5.0) L 08/11/18 06:35 Urine Color Yellow (Yellow) 08/03/18 14:55 Urine Clarity Clear 08/03/18 14:55 Urine pH 7.5 (5-8) 08/03/18 14:55 Ur Specific [place] 1.010 (1.005-1.025) 08/03/18 14:55 Urine Protein Negative mg/dL (Negative) 08/03/18 14:55 Urine Ketones Trace mg/dL (Negative) H 08/03/18 14:55 Urine Blood Negative (Negative) 08/03/18 14:55 Urine Nitrite Negative (Negative) 08/03/18 14:55 Urine Bilirubin Negative (Negative) 08/03/18 14:55 Urine Urobilinogen 0.2 EU/dL (Up TO 0.2) 08/03/18 14:55 Ur Leukocyte Esterase Negative (Negative) 08/03/18 14:55 Urine Glucose Negative mg/dL (Negative) 08/03/18 14:55 YENNY Titer 1:80 speckled 08/01/18 10:10 YENNY Titer 2 Not Applicable 08/01/18 10:10 YENNY Titer 3 Not Applicable 08/01/18 10:10 YENNY Interpretation Positive (NEGAT) A 08/01/18 10:10 Neutrophil-Specific Ab Negative (Negative) 08/01/18 10:10 C.difficile Tox Ab Neut Cancelled 08/01/18 09:25 S.cerevisiae IgG Ab 16.9 U 08/01/18 10:10 S.cerevisiae IgA Ab 86.7 U H 08/01/18 10:10 Documented by User: Catie Mcgrath DO 08/13/18 22:03 Assessment and Plan (1) Ulcerative colitis, acute: Current visit: No Status: Acute pt seen and examined. Agree w/ above. Remicaide is taking affect and pt is feeling. d/c abx. advance diet. Will start weaning steriods. Pt will go home w/ PICC. repeat labs and decide on Remicaide timing at F/u appt in clinic. Qualifiers: Digestive disease complication type: with rectal bleeding Qualified Code(s): K51.911 - Ulcerative colitis, unspecified with rectal bleeding
[2018-08-12] MEDS: Lactobacillus Acidophilus CAP 1 CAP PO (08:16)
--- NOTE | 2018-08-12 09:08 | PDOC.CMDIS ---
- If Service Date Differs Date of service: 08/12/18 Time of Service: 09:08 LACE Index Scoring Tool - Questions: Length of Stay (in days): 7 - 13 Acuity (Admit via E.D.?): Yes Care Management Discharge Reason for Hospitalization: Rectal bleeding and abdominal pain, colitis Discharge Plan: Albert is being discharged home today with new home health services, PICC line, [facility] for suppplies and outpatient infusion as directed. He will plan to follow up with surgeon as directed. Teaching has occured with nursing and SO r/t PICC line, flusing and maintance of the line. Home health will resume the teaching. CM faxed the information to Home health PICC line measurements and documentation of placement. Patient/Family Education Needs: Discharge education, limitations and follow up plan of donnie. Disease specific teaching and medication educations. Services Needed at Discharge: DME Agency, Home Health Care Services, Infusion Therapy
--- NOTE | 2018-08-12 11:26 | DSE_ITS ---
Date of service: 08/12/18 Time of Service: 11:26 DS: Diagnosis Discharge Diagnosis (1) Anemia, chronic disease: Status: Acute (2) Dysplasia of colon: Status: Acute (3) Hypoalbuminemia due to protein-calorie malnutrition: Status: Acute (4) Ulcerative colitis, acute: Status: Acute (5) Hypokalemia: Status: Acute (6) GERD (gastroesophageal reflux disease): Status: Chronic Discharge Plan Disposition Patient Disposition: HOME Condition: Improving Discharge Details Reason For Visit: ACUTE IBD Admit Date/Time: 08/01/18 14:50 Admit Provider: Catie Mcgrath Attending Provider: Catie Mcgrath Primary Care Provider: R[facility] Course Hospital Course: Pt was admitted after endoscopy- showing severe erythema, swelling, ulceration w/ membrane. He was unable to eat do to recalcitrant vomiting, abdominal pain and and rectal bleeding. CRP was 15. He has been losing wt. Bx and labs eventually confirm UC. He was admitted for steroids, abx, hydration and supportive care. He failed to respond to seriods and was not able to eat. PICC line and TPN was started. [place] [facility] [place]. Pt understood risk and benefits of this medications. He tolerated this dose well adn seem about 10% better. Again at the recommendation of GI (Dr. Palacio[place] [facility] [place]. 48hrs after this- pt was able to keep down liquids, pain was decreased, and the volume of stools- frequency adn amount was decreasing. abx were stopped and TPN weaning was begun. At the time of d/c steroids have been weaned from 100mg to 80mg. Pt was tolerating soft diet. and was having 1-2 stools per day, with minimal blood and pain. CRpPwas .9 TPN was stopped. Pt will be DC'ed to home w/ PICC line. the is able to flush this daily. dressing changes will be done by infusion. pt is able to tolerate a low fiber diet and protein supplements. He will be started on a tapering dose of prednisone. [place] be [place]/ [place] [facility] [place] Pathology fro Bx did show some dysplasia. This will need to be repeated. He will F/u in office to check progress. He will most likely require reglar Remicade infusions and implanted port at some point. Home Meds and New Rx's Prescriptions: New acetaminophen [Mapap Extra Strength] 500 mg Tablet 1,000 mg PO Q6H PRN PRNQty: 0 RF: 0 Iv Access 1 ea IV DIRECTED Qty: 0 RF: 0 Florastor 250 mg capsule 250 mg PO BID Qty: 60 RF: 2 sodium chloride 0.9 % [Monoject 0.9% Sodium Chloride] Syringe IV PRN PRNQty: 0 RF: 0 ondansetron 4 mg Tablet,Disintegrating 4 mg PO Q4H PRN PRNQty: 12 RF: 0 Continued acetaminophen [Tylenol] 325 mg Tablet 650 mg PO Q6H PRNRF: 0 esomeprazole magnesium [Nexium] 40 mg Capsule,Delayed Release(Dr/Ec) 40 mg PO DAILY RF: 0 Discontinued promethazine [Phenergan] 25 mg suppository 25 mg IN Q6H PRN (Reason: nausea and vomiting) Qty: 12 RF: 0 Discharge Instructions Instructions: Low Fiber Diet (DC), Ulcerative Colitis (DC) Additional Instructions: low fiber diet Prednisone Rx is hand written daily flushing will be done by the pt's Rx for saline flushes written dressing changes will be done weekly by infusion labs on Saturday and in office activity as tolerated instructions and orders for labs faxed to [facility] Stand Alone Forms: Nursing Discharge Form Referrals: Catie Mcgrath DO [OSTEOPATHIC DOCTOR] - 08/18/18 1:30 pm Activity:: Activity as Tolerated Equipment/Supplies:: saline flushed Diet:: Other Discharge Orders Discharge Orders: Discharge Order (Routine); Ordered 08/12/18 Ordered By: Catie Mcgrath Discharge Data Discharge Date/Time-TO BE ENTERED AT DEPARTURE: 08/12/18 13:22 DS: Summary Time Spent with Patient Greater than 30 minutes Exam Const General: cooperative and comfortable Orientation: alert, awake and oriented x3 HENMT Head: normal to inspection, normocephalic and atraumatic Ears: hearing grossly normal bilaterally General nose exam: external nose normal Face and sinus: normal facial exam and sinuses nontender Mouth: oral mucosae normal, lip normal, tongue normal and moist mucous membranes abnormal Teeth and gingiva: dentition normal Eyes Eyelids: eyelids normal Conjunctivae: conjunctivae normal Chest Chest: normal inspection of the chest Resp Effort & Inspection: normal respiratory effort Auscultation: clear to auscultation bilaterally GI Inspection: normal to inspection Palpation: soft Auscultation: normal bowel sounds Other: no pain Skin Other: no breakdown. PICC site is C/D/I. no arm swelling or pain Extrem General: normal to inspection and no clubbing, cyanosis or edema DS: Data Vitals/I&O Vitals and I&O: Vital Signs Temperature 37.1 C 08/12/18 07:45 Temperature Source Tympanic 08/12/18 07:45 Pulse 80 08/12/18 07:45 Pulse Rhythm Regular 08/12/18 08:00 Respiratory Rate 20 08/12/18 07:45 Respiratory Effort Non-Labored 08/12/18 08:00 Respiratory Depth Normal 08/12/18 08:00 Respiratory Pattern Normal 08/12/18 08:00 Blood Pressure 136/75 08/12/18 07:45 Pulse Oximetry 98 08/12/18 07:45 Oxygen Delivery Method Room Air 08/12/18 07:45 Oxygen Flow Rate 0 08/12/18 07:45 Pain Level 0 08/10/18 07:26 Comment 08/02/18 08:11 Intake & Output 08/11/18 08/11/18 08/12/18 11:59 23:59 11:59 Intake Total 2747.1664 / 4910.4997 2163.3333 / 4910.4997 300 / 300 Output Total 1650 / 2550 900 / 2550 Balance 1097.1664 / 2360.4997 1263.3333 / 2360.4997 300 / 300 Weight 87.3 kg Intake: IV 1147.1664 / 2170.4997 1023.3333 / 2170.4997 Oral 1600 / 2740 1140 / 2740 300 / 300 Output: Urine 1200 / 2100 900 / 2100 Stool 450 / 450 Other: Urine Color Yellow Yellow Yellow Straw Urine Appearance Clear Clear Cloudy Urine Odor Normal Normal Comment amount unknown. Stool Size Small Moderate Stool Characteristics Liquid Soft Brown Bloody Voiding Methods Urinal Urinal Toilet [facility] Medical History Chest pain due to gastrointestinal reflux disease (Chronic) GERD (gastroesophageal reflux disease) (Chronic) Shoulder joint pain (Acute) Heart murmur (Chronic) VSD (ventricular septal defect) (Chronic) Surgical History History of esophagogastroduodenoscopy (EGD) (Chronic) Social History Smoking and Tabacco status: Never
--- NOTE | 2018-08-12 14:30 | HHF2F_ITS ---
1. Encounter Date and Reason I certify that EMILY GAGNON was seen by Catie Mcgrath on 08/12/18 and that I had a [id number] encounter with this patient that meets the physician face to face encounter requirements. 2. Clinical Findings Supporting Skilled Need and Homebound Status I certify that home health services are medically necessary, include either intermittent usp and/or physical/speech therapy, and that this patient is homebound in that absences from the home require considerable and taxing effort and are infrequent or of short duration, or are attributable to the need to receive medical care. [X] (a) Attached documentation from encounter provides clinical findings supporting skilled need and homebound status (including what assistance patient requires to leave the home). The encounter with the patient was in whole, or in part, for the following medical condition, which is the primary reason for home health care: ACUTE IBD Residential:PICC line flushing and supplies Physical Therapy: Speech Therapy: Homebound: 3. Certification and Authentication I certify that I composed the above information based on my clinical judgement relating to this patient's medical condition and, if applicable, clinical findings communicated to me by the NPP or inpatient physician who performed the Home Health Referral. All further orders will be obtained through (Community Based Physician - PCP)
== END 2018-08-12 13:22 | disposition home or self-care (01) | DRG 386 ==
LOC: PDS 14:51 → MS 16:10
PROVIDERS: Surgery; Admitting Provider Surgery; PCP Family Medicine; Visit Provider Surgery
PROC: 0DB98ZX Excision of Duodenum, Via Natural or Artificial Opening Endoscopic, Diagnostic (ICD-10-PCS; CPT 43239; principal; 2018-08-01 08:15)
DX: D12.8 Benign neoplasm of rectum (principal); D50.9 Iron deficiency anemia, unspecified; K51.911 Ulcerative colitis, unspecified with rectal bleeding; E46 Unspecified protein-calorie malnutrition; K58.9 Irritable bowel syndrome, unspecified; E88.09 Other disorders of plasma-protein metabolism, not elsewhere classified; Z68.26 Body mass index [BMI] 26.0-26.9, adult; E87.6 Hypokalemia; K21.0 Gastro-esophageal reflux disease with esophagitis; K62.89 Other specified diseases of anus and rectum; K31.7 Polyp of stomach and duodenum; K29.50 Unspecified chronic gastritis without bleeding; K31.89 Other diseases of stomach and duodenum; R13.10 Dysphagia, unspecified; R10.32 Left lower quadrant pain; E83.42 Hypomagnesemia; R68.0 Hypothermia, not associated with low environmental temperature; R31.9 Hematuria, unspecified; K91.0 Vomiting following gastrointestinal surgery
CPT/HCPCS: 43239; 45380; 36415; 36569; 80048; 80053; 80076; 85027; 85652; 87040; 88305; 99223; 99232; 99233; 99239; J1650; NC; 74177; 81003; 82728; 83540; 83735; 84100; 84132; 85025; 85610; 86038; 86140; 86255; 86671; 87230; 87324; 88361; J0131; J0744; J1720; J1745; J1756; J2060; J2250; J2405; J3475; J3480; J3490

== ENCOUNTER 2018-09-03 02:05 | Outpatient (RCR) | payer BC, SELFPAY ==
[2018-08-18 11:00] LABS: Abs Immature Grans 0.08 k/cumm (0.0-0.09); Absolute Basophil Count 0.02 k/cumm (0.0-0.2); Absolute Lymphocyte Count 0.83 k/cumm (1.2-3.4); Absolute Monocyte Count 1.21 k/cumm (0.11-0.7); Absolute Neutrophil Count 13.52 k/cumm (1.2-6.7); Basophils % 0.1; HCT 36.9 % (40.0-50.0); Immature Grans % 0.5; Lymphocytes % 5.3; Mean Corp. HGB Concentration 32.5 g/dL (32.0-36.0); Mean Corpuscular Volume 92.3 fL (80-95); Mean Platelet Volume 9.1 fL (8.0-11.0); Monocytes % 7.7; Neutrophils % 86.4; Platelet Count 379 x1000/uL (130-400); RBC Distribution Width 15.8 % (11.8-14.1); White Blood Cell Count 15.65 k/cumm (4.4-10.8)
[2018-08-18 11:27] LABS: ALT 98 U/L (12-78); AST 20 U/L (15-37); Albumin 2.5 g/dL (3.4-5.0); Alkaline Phosphatase 111 U/L (46-116); Anion Gap 8.4 mmol/L (3-11); BUN 19 mg/dL (7-18); Bilirubin, Total 0.4 mg/dL (0.2-1.0); CO2 29.6 mmol/L (21.0-32.0); CREATININE 0.84 mg/dL (0.70-1.30); Calcium 8.4 mg/dL (8.5-10.1); Chloride 100 mmol/L (98-107); Glucose 149 mg/dL (70-100); Potassium 4.1 mmol/L (3.5-5.1); Sodium 138 mmol/L (136-145); Total Protein 6.2 g/dL (6.4-8.2)
[2018-08-18 11:35] LABS: C-Reactive Protein < 0.05 mg/dL (0.0-0.3)
[2018-08-25] MEDS: Normal Saline Flush 10 ML SYR IVP (11:07)
[2018-09-03 09:31] VITALS: BP 144/70; PULSE 98; RESP 18; TEMP 36.5; O2SAT 97
[2018-09-03 09:48] LABS: Abs Immature Grans 0.19 k/cumm (0.0-0.09); Absolute Basophil Count 0.03 k/cumm (0.0-0.2); Absolute Eosinophil Count 0.04 k/cumm (0.0-0.7); Absolute Lymphocyte Count 4.01 k/cumm (1.2-3.4); Absolute Monocyte Count 1.16 k/cumm (0.11-0.7); Basophils % 0.2; Eosinophils % 0.3; HGB 12.9 g/dL (13.5-17.5); Immature Grans % 1.4; Lymphocytes % 29.7; Mean Corp. HGB Concentration 32.3 g/dL (32.0-36.0); Mean Corpuscular Hemoglobin 30.6 pg (27.0-33.0); Mean Platelet Volume 8.8 fL (8.0-11.0); Monocytes % 8.6; Neutrophils % 59.8; Platelet Count 215 x1000/uL (130-400); RBC 4.21 m/cumm (4.50-6.00); RBC Distribution Width 16.9 % (11.8-14.1); White Blood Cell Count 13.49 k/cumm (4.4-10.8)
[2018-09-03 09:53] LABS: Absolute Neutrophil Count 8.07 k/cumm (1.2-6.7)
[2018-09-03 09:59] LABS: ALT 77 U/L (12-78); AST 8 U/L (15-37); Albumin 2.7 g/dL (3.4-5.0); Alkaline Phosphatase 115 U/L (46-116); Anion Gap 6.4 mmol/L (3-11); BUN 19 mg/dL (7-18); Bilirubin, Total 0.3 mg/dL (0.2-1.0); CO2 30.6 mmol/L (21.0-32.0); CREATININE 0.93 mg/dL (0.70-1.30); Calcium 8.2 mg/dL (8.5-10.1); Chloride 102 mmol/L (98-107); Glucose 111 mg/dL (70-100); Sodium 139 mmol/L (136-145); Total Protein 6.1 g/dL (6.4-8.2)
[2018-09-03 10:04] LABS: C-Reactive Protein < 0.05 mg/dL (0.0-0.3)
[2018-09-03] MEDS: Normal Saline Flush 10 ML SYR IVP (10:07)
[2018-09-03 10:28] LABS: Hemoglobin A1C 6.2 % (4.5-6.2)
[2018-09-03 10:30] VITALS: BP 140/73; PULSE 89; RESP 18; TEMP 36.7; O2SAT 96
[2018-09-03 10:57] VITALS: BP 117/73; PULSE 86; RESP 18; TEMP 37; O2SAT 98
[2018-09-03 11:17] VITALS: BP 118/69; PULSE 88; RESP 18; TEMP 37; O2SAT 96
[2018-09-03 12:30] VITALS: BP 120/72; PULSE 89; RESP 18; TEMP 36.8; O2SAT 98
== END 2018-09-07 23:59 | disposition home or self-care (01) ==
LOC: INF 02:05
PROVIDERS: PCP Family Medicine; Visit Provider Surgery
DX: K51.90 Ulcerative colitis, unspecified, without complications (principal); E87.6 Hypokalemia; E83.42 Hypomagnesemia; D63.8 Anemia in other chronic diseases classified elsewhere; Z45.2 Encounter for adjustment and management of vascular access device
CPT/HCPCS: 36415; 36592; 80053; 96365; 96366; 83036; 85025; 86140; J1745

== ENCOUNTER 2018-09-29 12:45 | Outpatient (CLI) | payer BC, SELFPAY ==
[2018-09-29 13:19] LABS: Abs Immature Grans 0.09 k/cumm (0.0-0.09); Absolute Monocyte Count 1.45 k/cumm (0.11-0.7); Basophils % 0.2; Eosinophils % 1.8; HCT 38.7 % (40.0-50.0); HGB 12.7 g/dL (13.5-17.5); Immature Grans % 0.7; Lymphocytes % 40.6; Mean Corp. HGB Concentration 32.8 g/dL (32.0-36.0); Mean Corpuscular Hemoglobin 29.4 pg (27.0-33.0); Mean Corpuscular Volume 89.6 fL (80-95); Mean Platelet Volume 9.1 fL (8.0-11.0); Monocytes % 11.1; Neutrophils % 45.6; Platelet Count 336 x1000/uL (130-400); RBC 4.32 m/cumm (4.50-6.00); RBC Distribution Width 15.1 % (11.8-14.1); White Blood Cell Count 13.06 k/cumm (4.4-10.8)
[2018-09-29 13:26] LABS: Anion Gap 8.5 mmol/L (3-11); BUN 9 mg/dL (7-18); CO2 27.5 mmol/L (21.0-32.0); CREATININE 1.01 mg/dL (0.70-1.30); Chloride 100 mmol/L (98-107); Glucose 108 mg/dL (70-100); Potassium 3.8 mmol/L (3.5-5.1); Sodium 136 mmol/L (136-145)
[2018-09-29 13:31] LABS: Absolute Basophil Count 0.03 k/cumm (0.0-0.2); Absolute Eosinophil Count 0.24 k/cumm (0.0-0.7); Absolute Neutrophil Count 5.96 k/cumm (1.2-6.7)
[2018-09-29 13:46] LABS: Diff Comment Diff Reviewed; RBC Morphology Normal
[2018-09-29 13:58] LABS: C-Reactive Protein 3.43 mg/dL (0.0-0.3)
== END 2018-09-29 13:05 ==
PROVIDERS: Physical Therapy Assistant; PCP Family Medicine; Visit Provider Surgery
DX: K51.90 Ulcerative colitis, unspecified, without complications (principal)
CPT/HCPCS: 36415; 80048; 85025; 86140

== ENCOUNTER 2018-10-08 01:26 | Outpatient (RCR) | payer BC, SELFPAY ==
[2018-10-08] VITALS (8 sets, daily range): BP systolic 112–127; BP diastolic 70–80; PULSE 82–99; RESP 13–16; TEMP 36.3–36.7; O2SAT 96–100
[2018-10-08] MEDS: Normal Saline Flush 10 ML SYR IVP (08:57)
[2018-10-08 09:38] LABS: Abs Immature Grans 0.05 k/cumm (0.0-0.09); HCT 41.7 % (40.0-50.0); HGB 13.9 g/dL (13.5-17.5); Mean Corp. HGB Concentration 33.3 g/dL (32.0-36.0); Mean Corpuscular Hemoglobin 29.8 pg (27.0-33.0); Mean Corpuscular Volume 89.3 fL (80-95); Mean Platelet Volume 9.4 fL (8.0-11.0); Platelet Count 385 x1000/uL (130-400); RBC 4.67 m/cumm (4.50-6.00); White Blood Cell Count 11.82 k/cumm (4.4-10.8)
[2018-10-08 09:43] LABS: Anion Gap 8.8 mmol/L (3-11); BUN 10 mg/dL (7-18); C-Reactive Protein 0.26 mg/dL (0.0-0.3); CO2 29.2 mmol/L (21.0-32.0); CREATININE 0.91 mg/dL (0.70-1.30); Calcium 9.1 mg/dL (8.5-10.1); Chloride 101 mmol/L (98-107); Glucose 84 mg/dL (70-100); Potassium 3.7 mmol/L (3.5-5.1); Sodium 139 mmol/L (136-145)
[2018-10-08 09:52] LABS: Absolute Basophil Count 0.12 k/cumm (0.0-0.2); Absolute Eosinophil Count 0.24 k/cumm (0.0-0.7); Absolute Lymphocyte Count 4.96 k/cumm (1.2-3.4); Absolute Monocyte Count 0.95 k/cumm (0.11-0.7); Absolute Neutrophil Count 5.56 k/cumm (1.2-6.7); Atypical Lymphocytes % 4; Diff Comment Manual Differential; RBC Morphology Normal
[2018-10-10 20:10] LABS: Infliximab 2.9 mcg/mL
== END 2018-11-07 23:59 | disposition home or self-care (01) ==
LOC: INF 01:26
PROVIDERS: Internal Medicine Gastroenterology; PCP Family Medicine; Visit Provider Surgery
DX: K51.90 Ulcerative colitis, unspecified, without complications (principal)
CPT/HCPCS: 36415; 80048; 82397; 96365; 96366; 85025; 86140; J1745

== ENCOUNTER 2018-10-31 01:13 | Outpatient (CLI) | payer BC, SELFPAY ==
[2018-11-05 12:37] LABS: 6-Methylmercaptopurine ribosid 6.57 nmol/mL/h (5.04-9.57)
== END 2018-10-31 01:33 ==
PROVIDERS: PCP Family Medicine; Visit Provider Internal Medicine Gastroenterology
DX: K51.011 Ulcerative (chronic) pancolitis with rectal bleeding (principal)
CPT/HCPCS: 36415; 82657

== ENCOUNTER 2018-11-18 01:36 | Outpatient (RCR) | payer BC, SELFPAY ==
[2018-11-18] MEDS: Normal Saline Flush 10 ML SYR IVP (07:33)
[2018-11-18 08:13] VITALS: BP 122/82; PULSE 99; RESP 18; TEMP 36.6; O2SAT 97
[2018-11-18 08:30] VITALS: BP 119/77; PULSE 86; RESP 18; TEMP 36.4; O2SAT 98
[2018-11-18 09:05] VITALS: BP 117/65; PULSE 65; RESP 18; TEMP 36.5; O2SAT 98
[2018-11-18 09:23] VITALS: BP 126/80; PULSE 77; RESP 18; TEMP 36.4; O2SAT 97
[2018-11-18 10:11] VITALS: BP 120/81; PULSE 75; RESP 18; TEMP 36.2; O2SAT 98
== END 2018-12-07 23:59 | disposition home or self-care (01) ==
LOC: INF 01:36
PROVIDERS: PCP Family Medicine; Visit Provider Internal Medicine
DX: K51.90 Ulcerative colitis, unspecified, without complications (principal)
CPT/HCPCS: 96365; 96366; J1745

== ENCOUNTER 2018-12-25 01:38 | Outpatient (RCR) | payer BC, SELFPAY ==
[2018-12-25 07:29] VITALS: BP 114/70; PULSE 72; RESP 18; TEMP 36.6; O2SAT 98
[2018-12-25 07:49] LABS: Abs Immature Grans 0.03 k/cumm (0.0-0.09); Absolute Basophil Count 0.02 k/cumm (0.0-0.2); Absolute Eosinophil Count 0.18 k/cumm (0.0-0.7); Absolute Lymphocyte Count 4.42 k/cumm (1.2-3.4); Absolute Neutrophil Count 4.53 k/cumm (1.2-6.7); Basophils % 0.2; Eosinophils % 1.8; HCT 40.6 % (40.0-50.0); HGB 13.3 g/dL (13.5-17.5); Immature Grans % 0.3; Lymphocytes % 43.4; Mean Corp. HGB Concentration 32.8 g/dL (32.0-36.0); Mean Corpuscular Hemoglobin 27.5 pg (27.0-33.0); Mean Corpuscular Volume 84.1 fL (80-95); Mean Platelet Volume 9.4 fL (8.0-11.0); Monocytes % 9.8; Neutrophils % 44.5; Platelet Count 342 x1000/uL (130-400); RBC 4.83 m/cumm (4.50-6.00); RBC Distribution Width 13.9 % (11.8-14.1); White Blood Cell Count 10.18 k/cumm (4.4-10.8)
[2018-12-25] MEDS: Normal Saline Flush 10 ML SYR IVP (07:59)
[2018-12-25 08:05] LABS: ALT 25 U/L (12-78); AST 9 U/L (15-37); Albumin 3.4 g/dL (3.4-5.0); Alkaline Phosphatase 74 U/L (46-116); Bilirubin, Direct 0.05 mg/dL (0.00-0.20); Bilirubin, Total 0.3 mg/dL (0.2-1.0); C-Reactive Protein 0.38 mg/dL (0.0-0.3); Total Protein 7.5 g/dL (6.4-8.2)
[2018-12-25 08:16] VITALS: BP 113/66; PULSE 70; RESP 14; TEMP 36.8; O2SAT 99
[2018-12-25 08:46] VITALS: BP 114/70; PULSE 70; RESP 18; TEMP 36.6; O2SAT 98
[2018-12-25 09:38] VITALS: BP 109/63; PULSE 65; RESP 16; TEMP 36.4; O2SAT 99
== END 2019-01-07 23:59 | disposition home or self-care (01) ==
LOC: INF 01:38
PROVIDERS: PCP Family Medicine; Visit Provider Internal Medicine
DX: K51.90 Ulcerative colitis, unspecified, without complications (principal)
CPT/HCPCS: 36415; 80076; 96365; 96366; 85025; 86140; J1745

== ENCOUNTER 2019-01-21 04:06 | Outpatient (RCR) | payer BC, SELFPAY ==
[2019-01-21] VITALS (7 sets, daily range): BP systolic 112–137; BP diastolic 73–82; PULSE 67–72; RESP 18–19; TEMP 36–36.7; O2SAT 97–99
[2019-01-21] MEDS: Normal Saline Flush 10 ML SYR IVP (07:45)
== END 2019-02-07 23:59 | disposition home or self-care (01) ==
LOC: INF 04:06
PROVIDERS: PCP Family Medicine; Visit Provider Internal Medicine
DX: K51.90 Ulcerative colitis, unspecified, without complications (principal)
CPT/HCPCS: 96365; 96366; J1745

== ENCOUNTER 2019-02-18 01:09 | Outpatient (RCR) | payer BC, SELFPAY ==
[2019-02-18 07:12] VITALS: BP 122/79; PULSE 93; RESP 18; TEMP 36.6; O2SAT 97
[2019-02-18 07:23] LABS: Abs Immature Grans 0.03 k/cumm (0.0-0.09); Absolute Basophil Count 0.03 k/cumm (0.0-0.2); Absolute Eosinophil Count 0.62 k/cumm (0.0-0.7); Basophils % 0.2; Eosinophils % 3.9; HCT 40.8 % (40.0-50.0); HGB 13.6 g/dL (13.5-17.5); Immature Grans % 0.2; Lymphocytes % 20.4; Mean Corp. HGB Concentration 33.3 g/dL (32.0-36.0); Mean Corpuscular Hemoglobin 28.2 pg (27.0-33.0); Mean Corpuscular Volume 84.5 fL (80-95); Mean Platelet Volume 9.1 fL (8.0-11.0); Monocytes % 6.6; Neutrophils % 68.7; Platelet Count 308 x1000/uL (130-400); RBC 4.83 m/cumm (4.50-6.00); RBC Distribution Width 14.3 % (11.8-14.1); White Blood Cell Count 16.01 k/cumm (4.4-10.8)
[2019-02-18 07:29] LABS: Absolute Lymphocyte Count 3.27 k/cumm (1.2-3.4); Absolute Monocyte Count 1.06 k/cumm (0.11-0.7)
[2019-02-18] MEDS: Normal Saline Flush 10 ML SYR IVP (07:54)
[2019-02-18 07:56] VITALS: BP 125/75; PULSE 80; RESP 18; TEMP 36; O2SAT 97
[2019-02-18 08:20] LABS: ALT 27 U/L (16-63); AST 20 U/L (15-37); Albumin 3.6 g/dL (3.4-5.0); Alkaline Phosphatase 76 U/L (46-116); Bilirubin, Total 0.4 mg/dL (0.2-1.0); C-Reactive Protein 0.43 mg/dL (0.0-0.3); Total Protein 7.5 g/dL (6.4-8.2)
[2019-02-18 08:25] VITALS: BP 135/76; PULSE 76; RESP 18; TEMP 36; O2SAT 98
[2019-02-18 08:54] VITALS: BP 123/81; PULSE 75; RESP 18; TEMP 36.4; O2SAT 98
[2019-02-18 09:25] VITALS: BP 121/73; PULSE 73; RESP 18; TEMP 36.4; O2SAT 99
== END 2019-03-09 23:59 | disposition home or self-care (01) ==
LOC: INF 01:09
PROVIDERS: PCP Family Medicine; Visit Provider Internal Medicine
DX: K51.90 Ulcerative colitis, unspecified, without complications (principal)
CPT/HCPCS: 36415; 80076; 96365; 96366; 85025; 86140; J1745

== ENCOUNTER 2019-03-18 01:41 | Outpatient (RCR) | payer BC, SELFPAY ==
[2019-03-18] VITALS (7 sets, daily range): BP systolic 115–128; BP diastolic 69–83; PULSE 66–82; RESP 18–19; TEMP 36.4–36.6; O2SAT 97–99
== END 2019-04-09 23:59 | disposition home or self-care (01) ==
LOC: INF 01:41
PROVIDERS: PCP Family Medicine; Visit Provider Internal Medicine
DX: K51.90 Ulcerative colitis, unspecified, without complications (principal)
CPT/HCPCS: 96365; 96366; J1745

== ENCOUNTER 2019-04-12 19:48 | Inpatient (IN) | payer BC, SELFPAY ==
[2019-04-12 19:52] VITALS: BP 151/97; PULSE 69; RESP 16; TEMP 36.6; O2SAT 98
--- NOTE | 2019-04-12 20:02 | W.ED.GENAD ---
Discharge Plan Disposition Patient Disposition: [facility] INPATIENT Condition: Fair Discharge Details Chief Complaint: Abd Prob Clinical Impression: Acute appendicitis Primary Care Provider: Rina Long ED Provider: Justice Awan [place] Meds and New Rx's Prescriptions: No Action pantoprazole [Protonix] 40 mg tablet,delayed release (DR/EC) 40 mg PO DAILY RF: 0 Centrum MultiGummies 150 mcg tablet,chewable 2 tab PO DAILY RF: 0 Remicade 100 mg recon soln IV RF: 0 acetaminophen [Tylenol] 325 mg Tablet 650 mg PO Q6H PRNRF: 0 budesonide 9 mg Tablet,Delayed And Ext.Release 9 mg PO DAILY RF: 0 Medical Decision Making Patient with right-sided abdominal pain that localized to McBurney's point. He has no associated symptoms but he reports pain getting worse over 24 hours. He does have a history of ulcerative colitis but does not really sound like he is having a flare. He does get Remicade once a month for this. Will place a line and make n.p.o. I will get labs and abdominal pelvic CT scan. Patient laboratory studies are unremarkable. His white count is normal but he is immunosuppressed with Remicade monthly. He remains afebrile and hemodynamically stable. CT scan confirms acute appendicitis without evidence of rupture. He is also noted to have mild inflammation of the descending colon and sigmoid consistent with his UC. Patient continues to decline pain medication. He remains n.p.o. Case discussed with surgery, Dr. Antony. Patient will be given a dose of Zosyn here. He will be kept n.p.o. and admitted overnight with plan to go to OR in the morning. Patient aware of plan and in agreement. Admitted in stable condition. Medical Records Medical records reviewed: Yes I reviewed the patient's medical records. Lab Data Lab results reviewed: Yes I reviewed the patient's lab results. HPI General Mode of arrival: ambulatory. Date/Time Provider Initiated Documentation: 04/12/19 20:00. Limitations to Documentation: no limitations. Information obtained by: patient, RN notes reviewed and old records reviewed. HPI Narrative: Patient presents to ED for evaluation of right lower quadrant abdominal pain. Patient reports that it started yesterday and has got progressively worse. He has no fever, nausea, vomiting, loss of appetite, diarrhea. Feels a little like his flare when he was diagnosed with ulcerative colitis but at that time he was unable to eat, had persistent vomiting and bloody diarrhea. He has no urinary symptoms. There is no back pain. He has no chest pain or shortness of breath. No previous surgeries on his abdomen. Related Data Home Medications Medication Instructions Recorded Confirmed acetaminophen [Tylenol] 650 mg PO Q6H PRN 07/27/18 04/12/19 infliximab 100 mg intravenous IV each 09/08/18 11/10/18 solution multivit with min-folic acid 150 2 tab PO DAILY 11/10/18 04/12/19 mcg chewable tablet pantoprazole 40 mg tablet,delayed 40 mg PO DAILY 11/10/18 04/12/19 release budesonide 9 mg PO DAILY 04/12/19 04/12/19 Allergies Allergy/AdvReac Type Severity Reaction Status Date / Time No Known Allergies Allergy Verified 04/12/19 19:57 General Stated Complaint: Abd Prob REBECCA: 3 Review of Systems Narrative: 03/23 Review of Systems completed and is negative except as stated above in HPI (Systems reviewed: Const, Eyes, ENT, Resp, CV, GI, , MSK, Skin, Neuro) [facility] Medical History GERD (gastroesophageal reflux disease) (Chronic) 08/01/18 EGD and flex sig, showed acute severe ulcerative colitis, active chronic colitis. Tx with steroids, infliximab. Seen at [facility] with rec of cont prednisone and infliximab, repeat colo 4-6 mos, [facility] f/up 2 mos. mg Ulcerative colitis (Chronic) 08/01/18 EGD and flex sig, showed acute severe ulcerative colitis, active chronic colitis. Tx with steroids, infliximab. Seen at [facility] with rec of cont prednisone and infliximab, repeat colo 4-6 mos, [facility] f/up 2 mos. mg VSD (ventricular septal defect) (Chronic) Surgical History History of esophagogastroduodenoscopy (EGD) (Chronic) [facility], 10/03/2016 EGD foreign body in esophagus, hx of multiple esophageal dilatations and foreign bodies dating back to childhood. Social History Smoking/Tobacco Use Status: Never Alcohol Intake: never Drug use: Never Substance use type: does not use Do you feel safe in your relationship?: Yes Additional Social history: unable to ask d/t lack of privacy Exam Narrative Exam Narrative: Vitals: Afebrile. Mild elevated blood pressure. Otherwise normal vital signs and normal pulse ox on room air. Const: WDWN male in NAD. HEENT: NC/AT. Normal facial exam. Eyes: Normal conjunctiva and sclera. Neck: Supple. Trachea midline. Lungs: Normal respiratory effort. Lungs are clear. Cor: RRR without murmur/gallop. Good radial pulses. GI: Soft and non-distended. Tender in the RLQ but no guarding. No Rosving. Minimal rebound. Neuro: A+O x 3. CN grossly in tact. Good strength and no focal deficit. Ext: No C/C/E. No deformity or tenderness. Skin: Warm and dry without rash. Course Vital Signs Vital signs: Vital Signs Temperature 97.9 F 04/12/19 19:52 Pulse 69 04/12/19 19:52 Respiratory Rate 16 04/12/19 19:52 Blood Pressure 151/97 H 04/12/19 19:52 Pulse Oximetry 98 04/12/19 19:52 Temperature 97.9 F 04/12/19 19:52 Temperature Source Temporal Artery Scan 04/12/19 19:52 Pulse 69 04/12/19 19:52 Respiratory Rate 16 04/12/19 19:52 Respiratory Effort 04/12/19 19:54 Blood Pressure 151/97 H 04/12/19 19:52 Blood Pressure Position Sitting 04/12/19 19:52 Pulse Oximetry 98 04/12/19 19:52 Oxygen Delivery Method Room Air 04/12/19 19:52 Oxygen Flow Rate 0 04/12/19 19:52 Pain Level 6 04/12/19 19:54
--- NOTE | 2019-04-12 20:08 | DI.CT_ITS ---
EXAM: CT ABDOMEN PELVIS W CLINICAL HISTORY: RLQ pain worsening over 24 hours TECHNIQUE: Images were performed from the lung bases through the ischial tuberosities after IV and w ithout oral contrast. . COMPARISON: CT ABDOMEN PELVIS W from 08/03/2018 FINDINGS: The heart size is normal. The lung bases are clear. There is mild fatty infiltration of the liver. No biliary dilatation is seen. The gallbladder is unremarkable. Pancreas, spleen, kidneys and adrenals are unremarkable. The appendix is dilated to 1 cm. There is mild stranding in the fat around the appe ndix. There is no evidence of abscess, free air or free fluid. There is mild stranding surrounding th e lower descending and sigmoid colon. Findings could represent a mild ulcerative colitis flare. There small bilateral fatty containing inguinal hernias. The bladder and prostate are unremarkable. There is again noted to be bilateral L5 spondylolysis and slight L5-S1 spondylolisthesis. The aorta is norm al in diameter. IMPRESSION: Acute appendicitis without evidence of abscess or perforation. Question of mild stranding around the lower descending and sigmoid colon.
[2019-04-12] MEDS: Lactated Ringers 1,000 ML 125 ML IV (20:44)
[2019-04-12 20:49] LABS: Abs Immature Grans 0.01 k/cumm (0.0-0.09); Absolute Basophil Count 0.01 k/cumm (0.0-0.2); Absolute Eosinophil Count 0.29 k/cumm (0.0-0.7); Absolute Lymphocyte Count 3.81 k/cumm (1.2-3.4); Absolute Monocyte Count 0.81 k/cumm (0.11-0.7); Absolute Neutrophil Count 4.17 k/cumm (1.2-6.7); Basophils % 0.1; Eosinophils % 3.2; HGB 13.4 g/dL (13.5-17.5); Immature Grans % 0.1; Lymphocytes % 41.9; Mean Corp. HGB Concentration 33.5 g/dL (32.0-36.0); Mean Corpuscular Hemoglobin 28.9 pg (27.0-33.0); Mean Corpuscular Volume 86.2 fL (80-95); Mean Platelet Volume 9.2 fL (8.0-11.0); Monocytes % 8.9; Neutrophils % 45.8; Platelet Count 281 x1000/uL (130-400); RBC 4.64 m/cumm (4.50-6.00); RBC Distribution Width 13.5 % (11.8-14.1)
[2019-04-12 20:54] LABS: Bilirubin Negative (Negative); Blood Trace-intact (Negative); Clarity Clear (Clear); Glucose Negative (Negative); Ketones Negative (Negative); Leukocyte Esterase Negative (Negative); Nitrite Negative (Negative); Specific Gravity 1.025 (1.005-1.025); Urobilinogen 0.2 EU/dL (Up TO 0.2)
[2019-04-12 20:57] LABS: ALT 26 U/L (16-63); AST 23 U/L (15-37); Albumin 3.3 g/dL (3.4-5.0); Alkaline Phosphatase 70 U/L (46-116); Anion Gap 10.4 mmol/L (3-11); BUN 13 mg/dL (7-18); Bilirubin, Total 0.4 mg/dL (0.2-1.0); CO2 25.6 mmol/L (21.0-32.0); CREATININE 0.96 mg/dL (0.70-1.30); Calcium 8.5 mg/dL (8.5-10.1); Chloride 105 mmol/L (98-107); Glucose 111 mg/dL (70-100); Lipase 134 U/L (73-393); Sodium 141 mmol/L (136-145); Total Protein 7.5 g/dL (6.4-8.2)
[2019-04-12 21:02] LABS: Bacteria Rare HPF (Negative); C & S Indicated? No; Casts Negative LPF (Negative); Crystals Negative HPF (Negative); Epithelial Cells Negative HPF (Negative); Mucus Negative (Negative); Other Cells Negative (Negative); RBC 0-2 (0-2); WBC Negative HPF (0-5)
--- NOTE | 2019-04-12 21:37 | DI.VRAD_ITS ---
Addendum created by Jagdish Mcclure MD on 04/12/2019 9:39:11 PM EST THIS REPORT CONTAINS FINDINGS THAT MAY BE CRITICAL TO PATIENT CARE. The findings were verbally communicated via telephone conference with ABHINAV GROVES at 9:39 PM EST on 04/12/2019. The findings were acknowledged and understood. Initial report created on 04/12/2019 9:36:32 PM EST PROCEDURE INFORMATION: Exam: CT Abdomen And Pelvis With Contrast Exam date and time: 04/12/2019 8:11 PM Clinical history: 43 years old, male; Other: Rlq pain x 2 days; Patient HX: HX of ulcerative colitis TECHNIQUE: Imaging protocol: Computed tomography of the abdomen and pelvis with intravenous contrast. Radiation optimization: All CT scans at this facility use at least one of these dose optimization techniques: automated exposure control; mA and/or kV adjustment per patient size (includes targeted exams where dose is matched to clinical indication); or iterative reconstruction. Contrast material: OMNIPAQUE 350; Contrast volume: 100 ml; Contrast route: IV; COMPARISON: CT ABDOMEN PELVIS W 08/03/2018 12:42 PM FINDINGS: Lungs: The visualized portions of the lung bases demonstrate no acute disease. Liver: There is moderate enlargement of the liver. There is a diffuse decrease in hepatic parenchymal density, consistent with fatty infiltration. Gallbladder and bile ducts: Normal. No calcified stones. No ductal dilation. Pancreas: Normal. No ductal dilation. Spleen: Normal. No splenomegaly. Adrenals: Normal. No mass. Kidneys and ureters: Normal. No hydronephrosis. Stomach and bowel: There is diffuse wall thickening with associated pericolonic stranding at the proximal sigmoid and descending colon. There is engorgement of the vasa recta at these levels as well. This is compatible with acute UC flare. There is loss of the haustral margins of the sigmoid. There is submucosal fat deposition in the rectum and sigmoid. This is related to sequela of chronic ulcerative colitis. No bowel obstruction. No other segmental bowel wall thickening. Appendix: Distended appendix measuring 1 cm. There is periappendiceal stranding. No periappendiceal fluid collections. Intraperitoneal space: Unremarkable. No free air. No significant fluid collection. Vasculature: Unremarkable. No abdominal aortic aneurysm. Lymph nodes: Scattered prominent mesenteric lymph nodes are appreciated, most likely reactive. No concerning retroperitoneal or pelvic adenopathy is otherwise appreciated. Bladder: There is mild fat deposition in the urinary bladder wall, this is chronic and of no clinical concern. Urinary bladder is otherwise unremarkable. Reproductive: Unremarkable as visualized. Bones/joints: No acute abnormality or aggressive osseous lesion. Soft tissues: Small bilateral fat-containing inguinal hernias are appreciated. IMPRESSION: 1. Acute uncomplicated appendicitis. 2. Mild acute UC flare involving predominantly the descending colon and sigmoid. 3. Chronic sequela of UC, detailed above. Dictated and Authenticated by: Jagdish Mcclure MD. Ordering:JASPREET Rendon MD
[2019-04-12] MEDS: PIPERACILLIN/TAZO 3.375 GM in Normal Saline 50 ML IVPB (22:19)
[2019-04-12 23:21] VITALS: BP 133/92; PULSE 75; RESP 16; TEMP 37.2; O2SAT 97
[2019-04-13] VITALS (10 sets, daily range): BP systolic 112–128; BP diastolic 65–80; PULSE 64–76; RESP 13–19; TEMP 36.1–37; O2SAT 94–98
[2019-04-13] MEDS: PIPERACILLIN/TAZO 3.375 GM in Normal Saline 50 ML IVPB ×4 (03:52→21:42)
[2019-04-13] MEDS: Lactated Ringers 1,000 ML 125 ML IV ×3 (04:37→22:27)
--- NOTE | 2019-04-13 07:22 | HPE_ITS ---
Documented by User: NAHUN Ortiz 04/13/19 07:39 Date of service: 04/13/19 Time of Service: 07:22 Assessment and Plan Assessment and plan (1) Acute appendicitis: Status: Acute Assessment and plan: A// Acute Appendicitis on CT scan without signs of rupture. He has had a dose of IV Zosyn and has NPO since last evening. P// Laproscopic Appendectomy. History of Present Illness History of Present Illness Chief Complaint: Acute Appendicitis Narrative: 43 y/o male with history of Ulcerative Colitis and GERD presented to the ER on 04/12 in the evening with complaints of progressively worsening RLQ pain. He denies any nausea or vomiting. CT scan showed acute appendicitis and he was admitted to med/surg and was kept NPO over night. He denies having any chest pain, palpitations, dypsnea or dyspnea with exertion. He denies any personal or family history of adverse reactions to anesthesia. Review of Systems Constitutional Constitutional: Denies chills, Denies excessive sweating, Denies fever(s) and Denies night sweats ENT Ears, Nose, Mouth, and Throat: Denies dysphagia Cardiovascular Cardiovascular: Denies chest pain, Denies chest pain with activity, Denies syncope, Denies palpitations, Denies dyspnea and Denies dyspnea on exertion Respiratory Respiratory: Denies cough, Denies dyspnea and Denies dyspnea on exertion Gastrointestinal Gastrointestinal: Reports abdominal pain (RLQ), Denies dysphagia, Denies diarrhea and Denies nausea Neurologic Neurologic: Denies syncope Endocrine Endocrine: Denies excessive sweating and Denies palpitations [facility] Medical History GERD (gastroesophageal reflux disease) (Chronic) 08/01/18 EGD and flex sig, showed acute severe ulcerative colitis, active chronic colitis. Tx with steroids, infliximab. [place] [facility] [place] pred[place] and infliximab, repeat colo 4-6 mos, [facility] [place] 2 [place]. mg Ulcerative colitis (Chronic) 08/01/18 EGD and flex sig, showed acute severe ulcerative colitis, active chronic colitis. Tx with steroids, infliximab. [place] [facility] [place] prednisone and infliximab, repeat colo 4-6 mos, [facility] [place] 2 [place] mg VSD (ventricular septal defect) (Chronic) Surgical History History of esophagogastroduodenoscopy (EGD) (Chronic) [place], 10/03/2016 EGD foreign body in esophagus, hx of multiple esophageal dilatations and foreign bodies dating back to childhood. Social History Smoking/Tobacco Use Status: Never Alcohol Intake: never Drug use: Never Substance use type: does not use Do you feel safe in your relationship?: Yes Additional Social history: unable to ask d/t lack of privacy Meds Home Medications and Allergies Home Medications Medication Instructions Recorded Confirmed Type acetaminophen [Tylenol] 650 mg PO Q6H PRN 07/27/18 04/12/19 History infliximab 100 mg intravenous IV each 09/08/18 11/10/18 History solution multivit with min-folic acid 150 2 tab PO DAILY 11/10/18 04/12/19 History mcg chewable tablet pantoprazole 40 mg tablet,delayed 40 mg PO DAILY 11/10/18 04/12/19 History release budesonide 9 mg PO DAILY 04/12/19 04/12/19 History Allergies Allergy/AdvReac Type Severity Reaction Status Date / Time No Known Allergies Allergy Verified 04/12/19 19:57 Exam Const General: cooperative, healthy appearing and comfortable Orientation: alert and oriented x3 Cardio Rate: regular rate Rhythm: regular rhythm Heart Sounds: murmur GI Inspection: normal to inspection and non-distended Palpation: soft, no guarding and tender Auscultation: normal bowel sounds Results Labs Result diagrams: 04/12/19 20:40 04/12/19 20:40 Labs: Laboratory Results - last 24 hr 04/12/19 04/12/19 04/12/19 20:40 20:40 20:45 WBC 9.10 RBC 4.64 Hgb 13.4 L Hct 40.0 MCV 86.2 MCH 28.9 MCHC 33.5 RDW 13.5 Plt Count 281 MPV 9.2 Immature Gran % 0.1 Neutrophils % 45.8 Lymphocytes % 41.9 Monocytes % 8.9 Eosinophils % 3.2 Basophils % 0.1 Absolute Neutrophils 4.17 Absolute Lymphocytes 3.81 H Absolute Monocytes 0.81 H Absolute Eosinophils 0.29 Absolute Basophils 0.01 Sodium 141 Potassium 4.0 Chloride 105 Carbon Dioxide 25.6 Anion Gap 10.4 BUN 13 Creatinine 0.96 Estimated GFR/1.73 m2 >= 60.00 Glucose 111 H Calcium 8.5 Total Bilirubin 0.4 AST 23 ALT 26 Alkaline Phosphatase 70 Total Protein 7.5 Albumin 3.3 L Lipase 134 Urine Color Yellow Urine Clarity Clear Urine pH 6.0 Ur Specific [place] 1.025 Urine Protein Negative Urine Ketones Negative Urine Blood Trace-intact H Urine Nitrite Negative Urine Bilirubin Negative Urine Urobilinogen 0.2 Ur Leukocyte Esterase Negative Urine RBC 0-2 Urine WBC Negative Ur Epithelial Cells Negative Urine Crystals Negative Urine Bacteria Rare Urine Casts Negative Urine Mucus Negative Urine Other Negative Ur Culture Indicated? No Urine Glucose Negative Last Vital Signs Temp 37.0 C 04/13/19 07:20 Pulse 76 04/13/19 07:20 Resp 16 04/13/19 07:20 BP 123/80 04/13/19 07:20 Pulse Ox 98 04/13/19 07:20 Documented by User: Magda Antony MD 04/13/19 08:26 Assessment and Plan Assessment and plan (1) Acute appendicitis: Status: Acute [facility] Medical History GERD (gastroesophageal reflux disease) (Chronic) 08/01/18 EGD and flex sig, showed acute severe ulcerative colitis, active chronic colitis. Tx with steroids, infliximab. [place] [facility] [place] prednisone and infliximab, repeat colo 4-6 mos, [facility] [place] 2 [place]. mg Ulcerative colitis (Chronic) 08/01/18 EGD and flex sig, showed acute severe ulcerative colitis, active chronic colitis. Tx with steroids, infliximab. [place] [facility] [place] cont prednisone and infliximab, repeat colo 4-6 mos, [facility] [place] 2 [place] mg VSD (ventricular septal defect) (Chronic) Surgical History History of esophagogastroduodenoscopy (EGD) (Chronic) [facility], 10/03/2016 EGD foreign body in esophagus, hx of multiple esophageal dilatations and foreign bodies dating back to childhood. Social History Smoking/Tobacco Use Status: Never Alcohol Intake: never Drug use: Never Substance use type: does not use Do you feel safe in your relationship?: Yes Additional Social history: unable to ask d/t lack of privacy Meds Home Medications and Allergies Home Medications Medication Instructions Recorded Confirmed Type acetaminophen [Tylenol] 650 mg PO Q6H PRN 07/27/18 04/12/19 History infliximab 100 mg intravenous IV each 09/08/18 11/10/18 History solution multivit with min-folic acid 150 2 tab PO DAILY 11/10/18 04/12/19 History mcg chewable tablet pantoprazole 40 mg tablet,delayed 40 mg PO DAILY 11/10/18 04/12/19 History release budesonide 9 mg PO DAILY 04/12/19 04/12/19 History Allergies Allergy/AdvReac Type Severity Reaction Status Date / Time No Known Allergies Allergy Verified 04/12/19 19:57 Results Labs Result diagrams: 04/12/19 20:40 04/12/19 20:40
[2019-04-13] MEDS: Pantoprazole 40 MG TABCR PO (08:06)
--- NOTE | 2019-04-13 09:29 | INITIAL_ITS ---
- If Service Date Differs Date of service: 04/13/19 Time of Service: 09:29 Care Management Initial Assess REASON FOR HOSPITALIZATION:: Appendicitis PAST MEDICAL HISTORY/PAST SURGICAL HISTORY:: Medical History: GERD (gastroesophageal reflux disease), 08/01/18 EGD and flex sig, showed acute severe ulcerative colitis, active chronic colitis. Tx with steroids, infliximab. Seen at [facility] [place] with rec of cont prednisone and infliximab, repeat colo 4-6 mos, [facility] [place] f/up 2 mos. mg, Ulcerative colitis, 08/01/18 EGD and flex sig, showed acute severe ulcerative colitis, active chronic colitis. Tx with steroids, infliximab. Seen at [facility] [place] with rec of cont prednisone and infliximab, repeat colo 4-6 mos, [facility] f/up 2 mos. mg. VSD (ventricular septal defect). Surgical History: History of esophagogastroduodenoscopy (EGD), [facility], 10/03/2016 EGD foreign body in esophagus, hx of multiple esophageal dilatations and foreign bodies dating back to childhood. 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 Albert lives in [place] with his significant other, Ginette. Together they have 2 sons, a 12 year old and a 6 year old. Albert is independent with activities of daily living and transportation. CURRENT FUNCTIONAL STATUS:: Albert is sitting up in bed with his significant other at his side. Albert states he is not allowed to have any food or anything to drink because he is awaiting surgery later on this morning. He states he is anxious to get the surgery over with and hopes to be able to return home soon. ADVANCE DIRECTIVES:: None on file at [facility]. Has patient been provided with information about the portal?: Yes Did the patient sign up for the portal?: Yes CODE STATUS:: Full Code INSURANCE COVERAGE / FINANCIAL ISSUES:: [facility] CURRENT HOME/COMMUNITY SERVICES/EQUIPMENT:: No current equipment or services at home. Albert states he comes to [facility] monthly for infusion. PRIMARY CARE PHYSICIAN:: Rina Long MD, [facility] POTENTIAL DISCHARGE NEEDS:: Follow-up appointment with primary care physician. PATIENT/FAMILY EDUCATION NEEDS:: Discharge plan, limitations, follow up plan, Ask Me Three. ANTICIPATED BARRIERS TO DISCHARGE:: None identified at this time. TRANSPORTATION:: Ginette Albert's significant other, will transport him home via private vehicle at time of discharge. PLAN:: Albert will be discharged home when medically cleared by provider. Anticipate no additional services at time of discharge. CM will continue to provide support and ongoing discharge planning.
[2019-04-13] MEDS: Bupivacaine 0.5% Pres-Free 30 ML VIAL (12:50)
--- NOTE | 2019-04-13 12:55 | APP_PTH ---
PATIENT: Albert Nguyễn LOC: U#:[id number] AGE/SX: 43/M ROOM: 207 RE04/12/[address]: Magda Antony MD : [id number] BED: A DIS: 04/14/2019 SPEC #: [id number] RECD: 04/13/19 15:50 STATUS: MITZY REQ #: [id number] RANDEE: 04/13/19 12:[address]: Magda Antony DEPT: Surgical Specimen RECD BY: Yvette Melchor ENTERED: 04/13/19 15:51 SP TYPE: Appendix OTHR DR: Rina Long Tissues: 1 - APPENDIX NOT INCIDENTAL Procedures: GROSS AND MICRO LEVEL 3 Comments: [id number]
--- NOTE | 2019-04-13 13:22 | W.PM.DS.N ---
Date of service: 04/14/19 Time of Service: 07:26 DS: Diagnosis Discharge Diagnosis (1) Acute appendicitis: Status: Acute Discharge Plan Disposition Patient Disposition: HOME Condition: Improving Discharge Details Chief Complaint: Abd Prob Clinical Impression: Acute appendicitis Reason For Visit: APPENDICITIS Admit Date/Time: 04/12/19 22:08 Admit Provider: Magda Antony Attending Provider: Magda Antony Primary Care Provider: Rina Long ED Provider: Justice A[facility] Hospital Course: The patient presented with a 24 hour history of RLQ pain. He presented to the emergency department where CT showed a dilated and mildly inflamed appendix. WBC normal. He underwent laparoscopic appendectomy and was found to have early inflamed appendicitis. There was no inflammation of the cecum. His diet was advanced without difficulty postop and he had adequate pain control. He was discharged to home. Home Meds and New Rx's Prescriptions: New hydrocodone-acetaminophen 5-325 mg tablet 1 tab PO Q4H PRN (Reason: pain) Qty: 20 RF: 0 Continued pantoprazole [Protonix] 40 mg tablet,delayed release (DR/EC) 40 mg PO DAILY RF: 0 Centrum MultiGummies 150 mcg tablet,chewable 2 tab PO DAILY RF: 0 Remicade 100 mg recon soln IV RF: 0 acetaminophen [Tylenol] 325 mg Tablet 650 mg PO Q6H PRNRF: 0 budesonide 9 mg Tablet,Delayed And Ext.Release 9 mg PO DAILY RF: 0 Discharge Instructions Additional Instructions: The top bandages can be removed today. The steri strips will usually stick for about a week. When the edges start to curl up, they can be removed. It is okay to shower today, the water can run over the steri strips Do not swim or soak in a tub for two weeks Call for any concerns including fever, increased pain, vomiting, incision redness or drainage. Do not lift more than 15 pounds for two weeks. Walking and stairs are fine. Do not drive if on narcotic pain meds or if limited by pain. May use Tylenol alternating with ibuprofen for pain control. Ice is also an option. The maximum dose for Tylenol is 4000 mg/day. May use ibuprofen 800 mg every 8 hours as needed. If concerned about constipation, you may use a stool softener or milk of magnesia. Referrals: Magda Antony MD [ [facility] STAFF PHYSICIAN] - (Return in 7-10 days for a postoperative visit) Activity:: DO not lift more than 15 pounds for two weeks, then gradually resume Equipment/Supplies:: No Equipment Needed Diet:: As Tolerated Discharge Orders Discharge Orders: Discharge Order (Routine); Ordered 04/14/19 Ordered By: Magda Antony DS: Summary Status at Discharge Functional status at discharge: independent ambulation Overall status at discharge: patient is progressing back to baseline Mental Status: mental status grossly normal Speech and Movement: speech and movement normal Mood: congruent mood Affect: normal affect Exam Psych Mental Status: mental status grossly normal Speech and Movement: speech and movement normal Mood: congruent mood Affect: normal affect DS: Data Vitals/I&O Vitals and I&O: Vital Signs Temperature 98.6 F 04/13/19 07:20 Temperature Source Tympanic 04/13/19 07:20 Pulse 76 04/13/19 07:20 Pulse Rhythm Regular 04/13/19 11:03 Respiratory Rate 16 04/13/19 07:20 Respiratory Effort Non-Labored 04/13/19 11:03 Respiratory Depth Normal 04/13/19 11:03 Respiratory Pattern Normal 04/13/19 11:03 Blood Pressure 123/80 04/13/19 07:20 Blood Pressure Position Sitting 04/12/19 19:52 Pulse Oximetry 98 04/13/19 07:20 Oxygen Delivery Method Room Air 04/13/19 07:20 Oxygen Flow Rate 0 04/13/19 07:20 Pain Level 4 04/13/19 07:20 Comment 04/12/19 23:21 Intake & Output 04/12/19 04/13/19 04/13/19 23:59 11:59 23:59 Intake Total 50 / 50 1895.834 / 1895.834 Output Total 400 / 400 700 / 700 Balance -350 / -350 1195.834 / 1195.834 Weight 202 lb 15.991 oz Intake: IV 50 / 50 1895.834 / 1895.834 Output: Urine 400 / 400 700 / 700 Other: Urine Color Yellow Yellow Urine Appearance Clear Clear Urine Odor Normal Voiding Methods Toilet Urinal Data Completed and Pending Labs on day of discharge: Labs from last 24 hours 04/12/19 04/12/19 04/12/19 20:45 20:40 20:40 WBC 9.10 RBC 4.64 Hgb 13.4 L Hct 40.0 MCV 86.2 MCH 28.9 MCHC 33.5 RDW 13.5 Plt Count 281 MPV 9.2 Immature Gran % 0.1 Neutrophils % 45.8 Lymphocytes % 41.9 Monocytes % 8.9 Eosinophils % 3.2 Basophils % 0.1 Absolute Neutrophils 4.17 Absolute Lymphocytes 3.81 H Absolute Monocytes 0.81 H Absolute Eosinophils 0.29 Absolute Basophils 0.01 Sodium 141 Potassium 4.0 Chloride 105 Carbon Dioxide 25.6 Anion Gap 10.4 BUN 13 Creatinine 0.96 Estimated GFR/1.73 m2 >= 60.00 Glucose 111 H Calcium 8.5 Total Bilirubin 0.4 AST 23 ALT 26 Alkaline Phosphatase 70 Total Protein 7.5 Albumin 3.3 L Lipase 134 Urine Color Yellow Urine Clarity Clear Urine pH 6.0 Ur Specific [place] 1.025 Urine Protein Negative Urine Ketones Negative Urine Blood Trace-intact H Urine Nitrite Negative Urine Bilirubin Negative Urine Urobilinogen 0.2 Ur Leukocyte Esterase Negative Urine RBC 0-2 Urine WBC Negative Ur Epithelial Cells Negative Urine Crystals Negative Urine Bacteria Rare Urine Casts Negative Urine Mucus Negative Urine Other Negative Ur Culture Indicated? No Urine Glucose Negative [facility] Medical History GERD (gastroesophageal reflux disease) (Chronic) 08/01/18 EGD and flex sig, showed acute severe ulcerative colitis, active chronic colitis. Tx with steroids, infliximab. [place] [facility] [place] [facility] [place] of cont prednisone and infliximab, repeat colo 4-6 mos, [facility] [place] [place] f/up 2 mos. mg Ulcerative colitis (Chronic) 08/01/18 EGD and flex sig, showed acute severe ulcerative colitis, active chronic colitis. Tx with steroids, infliximab. Seen at [facility] [place] [place] of cont prednisone and infliximab, repeat colo 4-6 mos, [facility] [place] [facility] [place]/up 2 mos. mg VSD (ventricular septal defect) (Chronic) Surgical History (Updated 04/13/19 @ 13:22 by Magda Antony MD) History of esophagogastroduodenoscopy (EGD) (Chronic) Walko, 10/03/2016 EGD foreign body in esophagus, hx of multiple esophageal dilatations and foreign bodies dating back to childhood. S/P laparoscopic appendectomy (Acute) 04/13/19 Social History Smoking/Tobacco Use Status: Never Alcohol Intake: never Drug use: Never Substance use type: does not use Do you feel safe in your relationship?: Yes Additional Social history: unable to ask d/t lack of privacy
[2019-04-13] MEDS: Ketorolac 30 MG/ML VIAL IVP ×2 (14:05→21:49)
--- NOTE | 2019-04-13 14:40 | NUR.NOTE ---
Nursing Note: 1440: pt returns to room 207 via stretcher from pacu. pt drowsy but alert. pt VSS-see VS intervention. pt has 3 trochar incision sites, all CDI. steri strips and bandaids. continue to monitor.
--- NOTE | 2019-04-13 16:57 | ROE_ITS ---
DATE OF PROCEDURE: April 13, 2019 PREOPERATIVE DIAGNOSIS: Acute appendicitis. POSTOPERATIVE DIAGNOSIS: Acute, inflamed appendicitis. PROCEDURE: Laparoscopic appendectomy. SURGEON: Magda Antony M.D. VICE PRESIDENT LENDING: Brent Ortiz INDICATIONS: This is a 43-year-old man who presented with about 24 hours of right lower quadrant abd ominal pain. He was afebrile and had a normal white blood cell count. A CT scan of the abdomen and pelvis showed a dilated and mildly inflamed appendix. The patient's history is significant for colit is, being treated with Remicade. He had a colonoscopy earlier this month which showed some inflammat ion in the rectosigmoid region, but none on the right side of the colon. The biopsies of the ileum a nd right colon were also normal. PROCEDURE: The patient was placed supine on the operating table and under general anesthetic a small infraumbilical midline incision was made after injecting local anesthetic. The abdomen was entered bluntly with a finger. #0 Vicryl sutures were placed on either side of the fascia and the [place] por t held in place with these. A CO2 pneumoperitoneum was sunday. A 5 mm port was placed in the suprapu bic and right upper quadrant locations after injecting local anesthetic under direct visualization. Inspection of the abdomen revealed no inflammation on the serosa of the bowel. The colon appeared no rmal, as did the small intestine. The appendix was definitely inflamed but not yet suppurative. The base of the appendix appeared normal. The base of the appendix was somewhat tethered with lateral p eritoneal attachments. These were taken down sharply with scissors to mobilize the base of the appen raquel and the cecum. An opening was made in the mesoappendix using the [place] dissector, and then th e laparoscopic stapler used to divide the appendix from the cecum using the bowel load. The mesoappe ndix was divided with the vascular load of the stapler. The appendix was removed through the umbilic al incision in an EndoCatch bag. The abdomen was inspected. There was no bleeding noted from the st aple lines. The CO2 was released and the ports removed. The #0 Vicryl sutures were tied together wi th good closure of the fascia and the skin closed at all port sites with a #4-0 Monocryl subcuticular stitch. He tolerated the procedure well and was stable to recovery. cc: Rina Long M.D.
[2019-04-14] MEDS: PIPERACILLIN/TAZO 3.375 GM in Normal Saline 50 ML IVPB (03:26)
[2019-04-14 03:28] VITALS: BP 124/77; PULSE 71; RESP 17; TEMP 36.7; O2SAT 98
[2019-04-14] MEDS: Pantoprazole 40 MG TABCR PO (07:38)
[2019-04-14 08:45] VITALS: BP 137/81; PULSE 64; RESP 18; TEMP 35.7; O2SAT 97
== END 2019-04-14 09:13 | disposition home or self-care (01) | DRG 342 ==
LOC: ER 22:08 → MS 23:18
PROVIDERS: Admitting Provider Surgery; Emergency Provider Emergency Medicine; PCP Family Medicine; Visit Provider Surgery
PROC: 0DTJ4ZZ Resection of Appendix, Percutaneous Endoscopic Approach (ICD-10-PCS; CPT 44970; principal; 2019-04-13 11:00)
DX: K35.890 Other acute appendicitis without perforation or gangrene (principal); K51.90 Ulcerative colitis, unspecified, without complications; K21.9 Gastro-esophageal reflux disease without esophagitis
CPT/HCPCS: 44970; 36415; 80053; 83690; 96361; 96365; 99223; 99238; 99285; 74177; 81003; 81015; 85025; 88304; 99284; J0131; J0360; J1100; J1885; J2250; J2543

== ENCOUNTER 2019-04-30 02:40 | Outpatient (RCR) | payer BC, SELFPAY ==
[2019-04-17 00:53] LABS: Infliximab 25 mcg/mL
[2019-04-29] MEDS: Normal Saline Flush 10 ML SYR IVP (07:25)
[2019-04-29 07:33] LABS: Abs Immature Grans 0.02 k/cumm (0.0-0.09); Absolute Basophil Count 0.02 k/cumm (0.0-0.2); Absolute Eosinophil Count 0.19 k/cumm (0.0-0.7); Absolute Lymphocyte Count 3.74 k/cumm (1.2-3.4); Absolute Monocyte Count 0.75 k/cumm (0.11-0.7); Absolute Neutrophil Count 5.63 k/cumm (1.2-6.7); Basophils % 0.2; Eosinophils % 1.8; HGB 14.3 g/dL (13.5-17.5); Immature Grans % 0.2; Lymphocytes % 36.1; Mean Corp. HGB Concentration 33.3 g/dL (32.0-36.0); Mean Corpuscular Hemoglobin 28.2 pg (27.0-33.0); Mean Corpuscular Volume 84.8 fL (80-95); Mean Platelet Volume 8.9 fL (8.0-11.0); Monocytes % 7.2; Neutrophils % 54.5; Platelet Count 329 x1000/uL (130-400); RBC 5.07 m/cumm (4.50-6.00); RBC Distribution Width 13.4 % (11.8-14.1); White Blood Cell Count 10.35 k/cumm (4.4-10.8)
[2019-04-29 07:45] LABS: ALT 21 U/L (16-63); AST 9 U/L (15-37); Albumin 3.8 g/dL (3.4-5.0); Alkaline Phosphatase 69 U/L (46-116); Bilirubin, Direct 0.08 mg/dL (0.00-0.20); Bilirubin, Total 0.4 mg/dL (0.2-1.0); Total Protein 7.7 g/dL (6.4-8.2)
[2019-04-29 07:46] LABS: C-Reactive Protein < 0.05 mg/dL (0.0-0.3)
[2019-04-30] MEDS: Normal Saline Flush 10 ML SYR IVP (08:29)
[2019-04-30 08:30] VITALS: BP 124/80; PULSE 70; RESP 18; TEMP 36.7; O2SAT 99
[2019-04-30 08:45] VITALS: BP 132/73; PULSE 70; RESP 18; TEMP 36.7; O2SAT 99
[2019-04-30 08:50] VITALS: BP 117/73; PULSE 68; RESP 19; TEMP 36.6; O2SAT 99
[2019-04-30 09:05] VITALS: BP 116/75; PULSE 71; RESP 18; TEMP 36.6; O2SAT 97
[2019-04-30 09:20] VITALS: BP 119/71; PULSE 69; RESP 18; TEMP 36.7; O2SAT 99
[2019-04-30 09:35] VITALS: BP 119/79; PULSE 75; RESP 19; TEMP 36.7; O2SAT 99
== END 2019-05-09 23:59 | disposition home or self-care (01) ==
LOC: INF 02:40
PROVIDERS: PCP Family Medicine; Visit Provider Internal Medicine Gastroenterology
DX: K51.011 Ulcerative (chronic) pancolitis with rectal bleeding (principal); Z79.899 Other long term (current) drug therapy
CPT/HCPCS: 36415; 80076; 82397; 96365; 96366; 85025; 86140; J1745

== ENCOUNTER 2019-05-05 09:57 | Outpatient (REF) | payer BC, SELFPAY ==
[2019-05-08 14:34] LABS: Calprotectin 717 mcg/g
== END 2019-05-05 10:17 ==
LOC: LBN 09:57
PROVIDERS: PCP Family Medicine; Visit Provider Internal Medicine Gastroenterology
DX: K51.011 Ulcerative (chronic) pancolitis with rectal bleeding (principal)
CPT/HCPCS: 83993

== ENCOUNTER 2019-06-01 01:23 | Outpatient (RCR) | payer BC, SELFPAY ==
[2019-06-01] MEDS: Normal Saline Flush 10 ML SYR IVP (08:35)
[2019-06-01 08:39] VITALS: BP 136/78; PULSE 82; RESP 18; TEMP 36.7; O2SAT 98
[2019-06-01 08:54] VITALS: BP 115/74; PULSE 82; RESP 18; TEMP 36.7; O2SAT 98
[2019-06-01 09:06] VITALS: BP 112/74; PULSE 76; RESP 18; TEMP 36.8; O2SAT 99
[2019-06-01 09:16] VITALS: BP 115/74; PULSE 78; RESP 19; TEMP 36.6; O2SAT 99
[2019-06-01 09:46] VITALS: BP 117/76; PULSE 75; RESP 19; TEMP 36.8; O2SAT 98
[2019-06-01 10:16] VITALS: BP 113/74; PULSE 80; RESP 19; TEMP 36.4; O2SAT 99
== END 2019-06-09 23:59 | disposition home or self-care (01) ==
LOC: INF 01:23
PROVIDERS: PCP Family Medicine; Visit Provider Internal Medicine Gastroenterology
DX: K51.90 Ulcerative colitis, unspecified, without complications (principal)
CPT/HCPCS: 96365; 96366; J1745

== ENCOUNTER 2019-07-01 01:54 | Outpatient (RCR) | payer BC, SELFPAY ==
[2019-07-01] VITALS (8 sets, daily range): BP systolic 114–149; BP diastolic 72–80; PULSE 78–87; RESP 18–19; TEMP 36.6–37.2; O2SAT 96–99
[2019-07-01 07:47] LABS: Abs Immature Grans 0.02 k/cumm (0.0-0.09); Absolute Basophil Count 0.02 k/cumm (0.0-0.2); Absolute Eosinophil Count 0.41 k/cumm (0.0-0.7); Absolute Lymphocyte Count 3.65 k/cumm (1.2-3.4); Absolute Monocyte Count 0.56 k/cumm (0.11-0.7); Absolute Neutrophil Count 4.03 k/cumm (1.2-6.7); Basophils % 0.2; Eosinophils % 4.7; HCT 44.3 % (40.0-50.0); HGB 14.8 g/dL (13.5-17.5); Immature Grans % 0.2 %; Mean Corp. HGB Concentration 33.4 g/dL (32.0-36.0); Mean Corpuscular Hemoglobin 28.3 pg (27.0-33.0); Mean Corpuscular Volume 84.7 fL (80-95); Mean Platelet Volume 9.2 fL (8.0-11.0); Monocytes % 6.4; Neutrophils % 46.5; Platelet Count 319 x1000/uL (130-400); RBC 5.23 m/cumm (4.50-6.00); RBC Distribution Width 13.5 % (11.8-14.1); White Blood Cell Count 8.69 k/cumm (4.4-10.8)
[2019-07-01 08:07] LABS: ALT 23 U/L (16-63); AST 14 U/L (15-37); Alkaline Phosphatase 71 U/L (46-116); Bilirubin, Direct 0.14 mg/dL (0.00-0.20); Bilirubin, Total 0.5 mg/dL (0.2-1.0); Total Protein 7.8 g/dL (6.4-8.2)
[2019-07-01] MEDS: Normal Saline Flush 10 ML SYR IVP (08:16)
[2019-07-01 08:22] LABS: C-Reactive Protein < 0.05 mg/dL (0.0-0.3)
== END 2019-07-10 23:59 | disposition home or self-care (01) ==
LOC: INF 01:54
PROVIDERS: Internal Medicine Gastroenterology; PCP Family Medicine; Visit Provider Internal Medicine
DX: K51.90 Ulcerative colitis, unspecified, without complications (principal)
CPT/HCPCS: 36415; 80076; 96365; 96366; 96413; 96415; 85025; 86140; J1745

== ENCOUNTER 2019-07-30 02:22 | Outpatient (RCR) | payer BC, SELFPAY ==
[2019-07-30] VITALS (7 sets, daily range): BP systolic 118–139; BP diastolic 74–84; PULSE 66–85; RESP 18–20; TEMP 36.5–37.5; O2SAT 98–100
[2019-07-30] MEDS: Normal Saline Flush 10 ML SYR IVP (08:08)
== END 2019-08-08 23:59 | disposition home or self-care (01) ==
LOC: INF 02:22
PROVIDERS: PCP Family Medicine; Visit Provider Internal Medicine
DX: K51.90 Ulcerative colitis, unspecified, without complications (principal)
CPT/HCPCS: 96365; 96366; 96413; 96415; J1745

== ENCOUNTER 2019-08-24 07:36 | Outpatient (REF) | payer BC, SELFPAY ==
[2019-08-25 19:47] LABS: Calprotectin 29.3 mcg/g
== END 2019-08-24 07:56 ==
LOC: LBN 07:36
PROVIDERS: PCP Family Medicine; Visit Provider Internal Medicine Gastroenterology
DX: K51.011 Ulcerative (chronic) pancolitis with rectal bleeding (principal)
CPT/HCPCS: 83993

== ENCOUNTER 2019-08-26 02:44 | Outpatient (RCR) | payer BC, SELFPAY ==
[2019-08-26] VITALS (7 sets, daily range): BP systolic 116–143; BP diastolic 78–86; PULSE 73–86; RESP 18–19; TEMP 35.7–36.5; O2SAT 97–99
[2019-08-26 07:36] LABS: Abs Immature Grans 0.01 k/cumm (0.0-0.09); Absolute Basophil Count 0.02 k/cumm (0.0-0.2); Absolute Eosinophil Count 0.32 k/cumm (0.0-0.7); Absolute Lymphocyte Count 4.34 k/cumm (1.2-3.4); Absolute Monocyte Count 0.57 k/cumm (0.11-0.7); Absolute Neutrophil Count 2.41 k/cumm (1.2-6.7); Basophils % 0.3; Eosinophils % 4.2; HCT 44.3 % (40.0-50.0); HGB 15.2 g/dL (13.5-17.5); Immature Grans % 0.1 %; Lymphocytes % 56.6; Mean Corp. HGB Concentration 34.3 g/dL (32.0-36.0); Mean Corpuscular Hemoglobin 28.9 pg (27.0-33.0); Mean Corpuscular Volume 84.2 fL (80-95); Mean Platelet Volume 9.2 fL (8.0-11.0); Monocytes % 7.4; Neutrophils % 31.4; Platelet Count 301 x1000/uL (130-400); RBC 5.26 m/cumm (4.50-6.00); RBC Distribution Width 13.2 % (11.8-14.1); White Blood Cell Count 7.67 k/cumm (4.4-10.8)
[2019-08-26 07:51] LABS: ALT 40 U/L (16-63); AST 23 U/L (15-37); Alkaline Phosphatase 66 U/L (46-116); Bilirubin, Total 0.5 mg/dL (0.2-1.0); C-Reactive Protein < 0.05 mg/dL (0.0-0.3); Total Protein 7.9 g/dL (6.4-8.2)
[2019-08-26] MEDS: Normal Saline Flush 10 ML SYR IVP (08:21)
== END 2019-09-08 23:59 | disposition home or self-care (01) ==
LOC: INF 02:44
PROVIDERS: PCP Family Medicine; Visit Provider Internal Medicine
DX: K51.90 Ulcerative colitis, unspecified, without complications (principal)
CPT/HCPCS: 36415; 80076; 96365; 96366; 96413; 96415; 85025; 86140; J1745

== ENCOUNTER 2019-10-06 00:36 | Outpatient (RCR) | payer BC, SELFPAY ==
[2019-10-06 08:35] VITALS: BP 127/70; PULSE 78; RESP 18; TEMP 36.8; O2SAT 97
[2019-10-06 09:40] VITALS: BP 154/75; PULSE 66; RESP 18; TEMP 36.6; O2SAT 98
[2019-10-06 09:56] VITALS: BP 130/83; PULSE 69; RESP 18; TEMP 36; O2SAT 98
[2019-10-06] MEDS: Normal Saline Flush 10 ML SYR IVP (09:56)
[2019-10-06 10:11] VITALS: BP 133/87; PULSE 68; RESP 18; TEMP 36; O2SAT 98
[2019-10-06 10:26] VITALS: BP 130/79; PULSE 67; RESP 18; TEMP 36.8; O2SAT 99
[2019-10-06 10:56] VITALS: BP 127/77; PULSE 73; RESP 19; TEMP 36.6; O2SAT 98
== END 2019-10-08 23:59 | disposition home or self-care (01) ==
LOC: INF 00:36
PROVIDERS: PCP Family Medicine; Visit Provider Internal Medicine
DX: K51.90 Ulcerative colitis, unspecified, without complications (principal)
CPT/HCPCS: 96365; 96366; 96413; 96415; J1745

== ENCOUNTER 2019-11-18 01:09 | Outpatient (RCR) | payer BC, SELFPAY ==
[2019-11-18] VITALS (7 sets, daily range): BP systolic 106–133; BP diastolic 63–84; PULSE 71–89; RESP 18–19; TEMP 36.2–37; O2SAT 96–98
[2019-11-18 08:50] LABS: Abs Immature Grans 0.01 k/cumm (0.0-0.09); Absolute Basophil Count 0.01 k/cumm (0.0-0.2); Absolute Eosinophil Count 0.29 k/cumm (0.0-0.7); Absolute Lymphocyte Count 3.11 k/cumm (1.2-3.4); Absolute Monocyte Count 0.48 k/cumm (0.11-0.7); Absolute Neutrophil Count 2.83 k/cumm (1.2-6.7); Basophils % 0.1; Eosinophils % 4.3; HCT 41.4 % (40.0-50.0); HGB 14.3 g/dL (13.5-17.5); Immature Grans % 0.1 %; Lymphocytes % 46.2; Mean Corp. HGB Concentration 34.5 g/dL (32.0-36.0); Mean Corpuscular Hemoglobin 29.4 pg (27.0-33.0); Mean Platelet Volume 9.5 fL (8.0-11.0); Monocytes % 7.1; Neutrophils % 42.2; Platelet Count 278 x1000/uL (130-400); RBC 4.87 m/cumm (4.50-6.00); RBC Distribution Width 13.1 % (11.8-14.1); White Blood Cell Count 6.73 k/cumm (4.4-10.8)
[2019-11-18 09:09] LABS: ALT 48 U/L (16-63); AST 27 U/L (15-37); Albumin 3.9 g/dL (3.4-5.0); Alkaline Phosphatase 73 U/L (46-116); Bilirubin, Direct 0.11 mg/dL (0.00-0.20); Bilirubin, Total 0.5 mg/dL (0.2-1.0); Total Protein 7.8 g/dL (6.4-8.2)
[2019-11-18 09:13] LABS: C-Reactive Protein < 0.05 mg/dL (0.0-0.3)
[2019-11-18] MEDS: Normal Saline Flush 10 ML SYR IVP (09:20)
[2019-11-25 18:58] LABS: Infliximab 23 mcg/mL
== END 2019-12-08 23:59 | disposition home or self-care (01) ==
LOC: INF 01:09
PROVIDERS: PCP Family Medicine; Visit Provider Internal Medicine
DX: K51.90 Ulcerative colitis, unspecified, without complications (principal)
CPT/HCPCS: 36415; 80076; 82397; 96365; 96366; 96413; 96415; 85025; 86140; J1745

== ENCOUNTER 2019-12-29 01:59 | Outpatient (RCR) | payer BC, SELFPAY ==
[2019-12-29] MEDS: Normal Saline Flush 10 ML SYR IVP (08:20)
[2019-12-29 09:15] VITALS: BP 130/88; PULSE 73; RESP 18; TEMP 36.3; O2SAT 98
[2019-12-29 09:30] VITALS: BP 125/72; PULSE 76; RESP 19; TEMP 36.4; O2SAT 97
[2019-12-29 09:45] VITALS: BP 118/80; PULSE 73; RESP 18; TEMP 36.3; O2SAT 98
[2019-12-29 10:00] VITALS: BP 117/74; PULSE 71; RESP 19; TEMP 36.4; O2SAT 96
[2019-12-29 10:30] VITALS: BP 110/69; PULSE 70; RESP 18; TEMP 36.3; O2SAT 99
[2019-12-29 11:00] VITALS: BP 119/80; PULSE 78; RESP 19; TEMP 36.4; O2SAT 98
== END 2020-01-08 23:59 | disposition home or self-care (01) ==
LOC: INF 01:59
PROVIDERS: PCP Family Medicine; Visit Provider Internal Medicine
DX: K51.90 Ulcerative colitis, unspecified, without complications (principal)
CPT/HCPCS: 96365; 96366; 96413; 96415; J1745

== ENCOUNTER 2020-02-10 04:47 | Outpatient (RCR) | payer BC, SELFPAY ==
[2020-02-10] VITALS (7 sets, daily range): BP systolic 114–128; BP diastolic 73–83; PULSE 78–94; RESP 18–19; TEMP 36.4–36.9; O2SAT 95–98
[2020-02-10] MEDS: Normal Saline Flush 10 ML SYR IVP (09:09)
[2020-02-10 11:46] LABS: Abs Immature Grans 0.04 10^3/uL (0.0-0.06); Absolute Basophil Count 0.02 10^3/uL (0.0-0.2); Absolute Eosinophil Count 0.41 10^3/uL (0.0-0.7); Absolute Lymphocyte Count 3.59 10^3/uL (1.2-3.4); Absolute Monocyte Count 0.62 10^3/uL (0.1-0.8); Absolute Neutrophil Count 4.82 10^3/uL (1.2-6.7); Basophils % 0.2; Eosinophils % 4.3; HCT 41.5 % (40.0-50.0); HGB 14.4 g/dL (13.5-17.5); Immature Grans % 0.4; Lymphocytes % 37.8; MCH 29.6 pg (27.0-33.0); MCHC 34.7 % (32.0-36.0); MCV 85.2 fL (80-95); MPV 9.6 fL (8.0-11.0); Monocytes % 6.5; Neutrophils % 50.8; Nucleated RBC 0 %; Platelet Count 281 10^3/uL (130-400); RBC 4.87 10^6/uL (4.36-5.78); RDW 12.5 % (11.8-14.1); RDW-SD 38.5 fL
[2020-02-10 11:50] LABS: ALT 34 U/L (16-63); AST 19 U/L (15-37); Albumin 3.6 g/dL (3.4-5.0); Alkaline Phosphatase 68 U/L (46-116); Anion Gap 7.2 mmol/L (3-11); BUN 13 mg/dL (7-18); Bilirubin, Total 0.5 mg/dL (0.2-1.0); CO2 25.8 mmol/L (21.0-32.0); CREATININE 0.97 mg/dL (0.70-1.30); Calcium 8.3 mg/dL (8.5-10.1); Chloride 103 mmol/L (98-107); Glucose 106 mg/dL (74-106); Potassium 3.9 mmol/L (3.5-5.1); Sodium 136 mmol/L (136-145); Total Protein 7.5 g/dL (6.4-8.2)
[2020-02-10 11:51] LABS: C-Reactive Protein < 0.05 mg/dL (0.0-0.3)
== END 2020-03-09 23:59 | disposition home or self-care (01) ==
LOC: INF 04:47
PROVIDERS: Internal Medicine Gastroenterology; PCP Family Medicine; Visit Provider Internal Medicine
DX: K51.90 Ulcerative colitis, unspecified, without complications (principal)
CPT/HCPCS: 36415; 80053; 96365; 96366; 85025; 86140; J1745

== ENCOUNTER 2020-03-22 01:13 | Outpatient (RCR) | payer BC, SELFPAY ==
[2020-03-22] VITALS (7 sets, daily range): BP systolic 119–146; BP diastolic 74–81; PULSE 68–86; RESP 18–19; TEMP 36.2–36.7; O2SAT 97–100
[2020-03-22] MEDS: Normal Saline Flush 10 ML SYR IVP (11:52)
== END 2020-04-09 23:59 | disposition home or self-care (01) ==
LOC: INF 01:13
PROVIDERS: PCP Family Medicine; Visit Provider Internal Medicine
DX: K51.80 Other ulcerative colitis without complications (principal)
CPT/HCPCS: 96365; 96366; 96413; 96415; J1745

== ENCOUNTER 2020-04-04 00:47 | Outpatient (CLI) | payer BC, SELFPAY ==
--- NOTE | 2020-04-04 14:00 | DI.US_ITS ---
APPROVED REPORT EXAM: Comprehensive 2D, Doppler, and color-flow Echocardiogram Patient Location: Out-Patient Roundsman: Aggie Arias RDCS (AE) Indications: Congenital VSD Other Information Study Quality: Adequate Conclusion Normal left ventricular wall thickness and chamber size. Estimated ejection fraction is 55 to 60%. There are no segmental wall motion abnormalities There is a membranous ventricular septal defect with [id number] flow Right ventricular size and systolic function are normal Both the right and left atrium are normal in size There are no structural valvular abnormalities There is trace mitral, tricuspid, and pulmonic regurgitation Estimated right ventricular systolic pressure is normal There does not appear to be a significant change compared to an echocardiogram done in 2017 Wall motion Left Ventricle The left ventricle is normal size. The left ventricular systolic function is normal. The left ventric ular ejection fraction is within the normal range. There is normal left ventricular wall thickness. T here is normal LV segmental wall motion. Color flow Doppler is consistent with a ventricular septal d efect with left to right shunt flow. LVEF is 55-60%. Right Ventricle The right ventricle is normal size. The right ventricular systolic function is normal. The RVSP is 22 .9 mmHg. Atria The left atrium size is normal. The right atrium size is normal. The interatrial septum is intact wit h no evidence for an atrial septal defect. Aortic Valve The aortic valve is normal in structure. Aortic valve is trileaflet. There is no aortic valvular sten osis. No aortic regurgitation is present. Mitral Valve The mitral valve is normal in structure. No evidence of mitral valve stenosis. Trace mitral regurgita tion. Tricuspid Valve The tricuspid valve is normal in structure. There is no tricuspid valve stenosis. Trace tricuspid reg urgitation. Pulmonic Valve The pulmonary valve is normal in structure. There is no pulmonic valvular stenosis. Trace pulmonic re gurgitation. Great Vessels The aortic root is normal in size. The ascending aorta is normal in size. Aortic arch is normal in ca liber. IVC is normal in size and collapses >50% with inspiration. Pericardium There is no pericardial effusion. 2D Dimensions IVSD d PLAX 0.96 cm M: 0.6-1.2 LV Vol A2C d MOD 107.1 mL LVPW d PLAX 0.98 cm M: 0.6 - 1.2 LV Vol A4C d MOD 158.0 mL LVID d PLAX 5.74 cm M: 4.2 - 5.8 LA vol/ BSA A2C s A-L 28.7 mL/m2 LVDs 4.20 cm M: 2.5 - 4.0 LA vol/ BSA A4C s A-L 34.2 mL/m2 Ao Root d 3.00 cm M: 3.1 - 3.7 LA Vol/ BSA Biplane s A-L 33.8 mL/m2 RA Area A4C 10.72 cm2 LA Area A4C s MOD 23.84 cm2 RA Vol/ BSA A4C s A-L 11.1 mL/m2 LA Area A2C s MOD 20.22 cm2 Ao Asc Diam d 3.04 cm M: 2.6 - 3.4 LV EF A4C MOD 52.3 % LV EF Teichholz 50.6 % LV EF A2C MOD 52.1 % LVEF (Cam's) 51.95 % M: 52 - 72 LV EF Biplane MOD 52.0 % LV Volume 95.49 mL M: 62 - 150 SV 67.96 mL LV Volume Index 44.00 mL/m2 M: 34 - 74 SV Index 31.25 mL/m2 LV Vol Biplane MOD 130.8 mL FS 26.10 % M-Mode TAPSE 1.80 cm (M/F) >1.7 LV Diastology MV E' medial 0.080 (>0.07 m/s) E/A Ratio 1.2 LV E/e MED 9.95 (<14) MV E Vmax 0.80 (0.4-1.3 m/s) MV E' lateral 0.127 (>0.1 m/s) MV A Vmax 0.65 (0.4-1.3 m/s) LV E/e LAT 6.25 (<14) MV E/A Ratio 1.20 MV E/E' medial 9.96 MV E/E' lateral 6.28 Aortic Valve LVOT Area 3.30 cm2 AoV Area Vmax 2.70 cm2 LVOT Vmax 1.27 m/s AoV Area/ BSA (Vmax) 1.24 cm2/m2 LVOT Mean Bernard. 0.74 m/s HERMILA Mean Bernard. 2.42 cm2 LVOT Peak Grad 6.4 mmHg HERMILA Mean Bernard. Index 1.11 cm2/m2 LVOT Mean Grad 2.8 mmHg LVOT VTI 0.230 m LVOT Diam s 2.00 cm AoV Vmax 1.55 m/s Velocity Ratio 0.81 AoV Mean Bernard. 1.01 m/s AoV Peak Grad 9.6 mmHg LVOT SV 75.81 mL AoV Mean Grad 4.7 mmHg AoV VTI 0.273 m AoV Area VTI 2.78 cm2 AoV Area/ BSA (VTI) 1.28 cm/m2 Mitral Valve MV DT 186 (160-240 msec) MV PHT 54 msec MV Area PHT 4.07 cm2 MV VTI 0.298 m MV VTI Annulus 0.315 m MV Area VTI 2.70 (4.0-6.0 cm2) Pulmonary Valve PV Vmax 1.13 (0.5-1.5 m/s) RVOT Peak Gr. 2.50 mmHg PV Peak Grad 5.1 mmHg RVOT Mean Gr. 1.20 mmHg PV Mean Grad 2.8 mmHg RVOT Diam s 2.55 cm (M/F) 2.1-3.5 PV VTI 0.217 m RVOT VTI 0.163 m PV SV 111.2 mL RVOT Vmax 0.79 m/s Tricuspid Valve TR Peak Grad 19.8 mmHg TR Vmax 2.23 m/s RA Pressure 3.00 mmHg RVSP (TR) 22.9 mmHg
== END 2020-04-04 01:07 ==
PROVIDERS: PCP Family Medicine; Visit Provider Family Medicine
DX: Q21.0 Ventricular septal defect (principal)
CPT/HCPCS: 93306

== ENCOUNTER 2020-05-04 01:20 | Outpatient (RCR) | payer BC, SELFPAY | END 2020-05-09 23:59 | disposition home or self-care (01) | LOC: INF 01:20 | PROVIDERS: PCP Family Medicine; Visit Provider Internal Medicine ==

== ENCOUNTER 2020-05-12 08:30 | Outpatient (RCR) | payer BC, SELFPAY ==
[2020-05-12 08:35] LABS: Abs Immature Grans 0.02 10^3/uL (0.0-0.06); Absolute Basophil Count 0.01 10^3/uL (0.0-0.2); Absolute Eosinophil Count 0.29 10^3/uL (0.0-0.7); Absolute Lymphocyte Count 2.98 10^3/uL (1.2-3.4); Absolute Monocyte Count 0.54 10^3/uL (0.1-0.8); Absolute Neutrophil Count 4.17 10^3/uL (1.2-6.7); Basophils % 0.1; Eosinophils % 3.6; HCT 44.7 % (40.0-50.0); HGB 15.1 g/dL (13.5-17.5); Immature Grans % 0.2; Lymphocytes % 37.2; MCH 29.2 pg (27.0-33.0); MCHC 33.8 % (32.0-36.0); MCV 86.3 fL (80-95); MPV 9.3 fL (8.0-11.0); Monocytes % 6.7; Neutrophils % 52.2; Nucleated RBC 0 %; Platelet Count 259 10^3/uL (130-400); RBC 5.18 10^6/uL (4.36-5.78); RDW 12.3 % (11.8-14.1); RDW-SD 38.7 fL; WBC 8.01 10^3/uL (4.4-10.8)
[2020-05-12 08:51] VITALS: BP 133/80; PULSE 86; RESP 19; TEMP 36.9; O2SAT 97
[2020-05-12 09:01] LABS: ALT 35 U/L (16-63); AST 23 U/L (15-37); Albumin 4.1 g/dL (3.4-5.0); Alkaline Phosphatase 83 U/L (46-116); Bilirubin, Total 0.5 mg/dL (0.2-1.0); C-Reactive Protein 0.11 mg/dL (0.0-0.3); TSH 1.94 uIU/mL (0.36-3.74); Total Protein 8.4 g/dL (6.4-8.2)
[2020-05-12] MEDS: Normal Saline Flush 10 ML SYR IVP (09:03)
[2020-05-12 09:04] VITALS: BP 136/81; PULSE 98; RESP 18; TEMP 36.6; O2SAT 98
[2020-05-12 09:11] LABS: Hemoglobin A1C 5.3 % (<5.7)
[2020-05-12 09:17] VITALS: BP 127/77; PULSE 99; RESP 18; TEMP 37.1; O2SAT 96
[2020-05-12 09:47] VITALS: BP 130/77; PULSE 85; RESP 16; TEMP 37.1; O2SAT 95
[2020-05-12 10:25] LABS: Vitamin B12 796 pg/mL (193-986)
[2020-05-12 10:27] VITALS: BP 131/77; PULSE 80; RESP 18; TEMP 37.1; O2SAT 98
[2020-05-12 10:58] VITALS: BP 124/79; PULSE 86; RESP 17; TEMP 37; O2SAT 98
[2020-05-16 14:35] LABS: Albumin 56.2 % (55.8-66.1); Total Protein 8.2 g/dL (6.3-8.2)
== END 2020-06-09 23:59 | disposition home or self-care (01) ==
LOC: INF 08:30
PROVIDERS: PCP Family Medicine; Visit Provider Internal Medicine
DX: G90.09 Other idiopathic peripheral autonomic neuropathy (principal); K51.90 Ulcerative colitis, unspecified, without complications
CPT/HCPCS: 36415; 80076; 96365; 96366; 96413; 96415; 82607; 83036; 84165; 84443; 85025; 86140; J1745

== ENCOUNTER 2020-06-21 01:46 | Outpatient (RCR) | payer OTHER, SELFPAY ==
[2020-06-10 00:14] VITALS: BP 124/79; PULSE 86; RESP 17; TEMP 37
[2020-06-21] VITALS (8 sets, daily range): BP systolic 117–141; BP diastolic 70–80; PULSE 75–101; RESP 16–20; TEMP 36.1–36.8; O2SAT 96–100
[2020-06-21] MEDS: Normal Saline Flush 10 ML SYR IVP (09:12)
== END 2020-07-10 23:59 | disposition home or self-care (01) ==
LOC: INF 01:46
PROVIDERS: PCP Family Medicine; Visit Provider Internal Medicine
DX: G90.09 Other idiopathic peripheral autonomic neuropathy (principal); K51.90 Ulcerative colitis, unspecified, without complications
CPT/HCPCS: 96365; 96366; J1745

== ENCOUNTER 2020-08-02 09:00 | Outpatient (RCR) | payer OTHER, SELFPAY ==
[2020-07-11 00:14] VITALS: BP 117/78; PULSE 75; RESP 20; TEMP 36.1
[2020-08-02] VITALS (7 sets, daily range): BP systolic 117–145; BP diastolic 70–93; PULSE 79–100; RESP 18–19; TEMP 37–37.5; O2SAT 96–98
[2020-08-02] MEDS: Normal Saline Flush 10 ML SYR IVP (09:00)
[2020-08-02 09:08] LABS: Absolute Basophil Count 0.03 10^3/uL (0.0-0.2); Absolute Lymphocyte Count 2.03 10^3/uL (1.2-3.4); Absolute Monocyte Count 0.39 10^3/uL (0.1-0.8); Basophils % 0.2; Eosinophils % 0.1; HCT 44.6 % (40.0-50.0); HGB 15.3 g/dL (13.5-17.5); Immature Grans % 1.9; Lymphocytes % 12.9; MCH 29.6 pg (27.0-33.0); MCHC 34.3 % (32.0-36.0); MCV 86.3 fL (80-95); MPV 9.1 fL (8.0-11.0); Monocytes % 2.5; Neutrophils % 82.4; Nucleated RBC 0 %; Platelet Count 376 10^3/uL (130-400); RBC 5.17 10^6/uL (4.36-5.78); RDW 12.9 % (11.8-14.1); RDW-SD 40.5 fL; WBC 15.72 10^3/uL (4.4-10.8)
[2020-08-02 09:09] LABS: Absolute Eosinophil Count 0.02 10^3/uL (0.0-0.7); Absolute Neutrophil Count 12.95 10^3/uL (1.2-6.7)
[2020-08-02 09:20] LABS: ALT 31 U/L (16-63); AST 12 U/L (15-37); Albumin 3.9 g/dL (3.4-5.0); Alkaline Phosphatase 90 U/L (46-116); Bilirubin, Direct 0.05 mg/dL (0.00-0.20); Bilirubin, Total 0.4 mg/dL (0.2-1.0); Total Protein 8.5 g/dL (6.4-8.2)
[2020-08-02 09:21] LABS: C-Reactive Protein < 0.05 mg/dL (0.0-0.3)
== END 2020-08-07 23:59 | disposition home or self-care (01) ==
LOC: INF 09:00
PROVIDERS: PCP Family Medicine; Visit Provider Internal Medicine
DX: K51.90 Ulcerative colitis, unspecified, without complications (principal); G90.09 Other idiopathic peripheral autonomic neuropathy
CPT/HCPCS: 80076; 96365; 96366; 85025; 86140; J1745

== ENCOUNTER 2020-08-15 12:54 | Outpatient (REF) | payer OTHER, SELFPAY ==
--- NOTE | 2020-08-15 11:18 | SKI_PTH ---
PATIENT: Albert Nguyễn LOC: [facility] U#:[id number] AGE/SX: 45/M ROOM: RE08/15/[address]: Jared Puentes DO : 1975 BED: DIS: 08/15/2020 SPEC #: [id number] RECD: 08/15/20 17:50 STATUS: MITZY REQ #: [id number] RANDEE: 08/15/20 11:[address]: Luis Armando Owen DEPT: Surgical Specimen RECD BY: Sofya Hensley ENTERED: 08/15/20 17:50 SP TYPE: SHE BATISTA DR: Rina Long Tissues: 1 - SKIN BIOPSY(SHAVE/PUNCH) Procedures: SKIN LEVEL 4 Comments: [id number]
== END 2020-08-15 12:55 | disposition home or self-care (01) ==
LOC: LBN 12:54
PROVIDERS: PCP Family Medicine; Referring Provider Family Medicine; Visit Provider Otolaryngology Otolaryngology/Facial Plastic Surgery
DX: L30.8 Other specified dermatitis (principal)
CPT/HCPCS: 88305

== ENCOUNTER 2020-08-17 03:53 | Outpatient (CLI) | payer OTHER, SELFPAY ==
[2020-08-18 20:35] LABS: Alternaria Tenuis IgE <0.35 kU/L; Aspergillus Fumigatus IgE <0.35 kU/L; Bermuda Grass IgE <0.35 kU/L; Cockroach IgE <0.35 kU/L; Cottonwood IgE <0.35 kU/L; D Farinae IgE <0.35 kU/L; D Pteronyssinus IgE <0.35 kU/L; Eastern Sycamore IgE <0.35 kU/L; Elm IgE <0.35 kU/L; Epicoccum purpurascens IgE <0.35 kU/L; Giant Ragweed IgE <0.35 kU/L; Oak IgE <0.35 kU/L; Penicillium chrysogenum IgE <0.35 kU/L; Red Sorrel IgE <0.35 kU/L; Rough Pigweed IgE <0.35 kU/L; Silver Birch IgE <0.35 kU/L; Stemphyllium IgE <0.35 kU/L; Walnut Tree IgE <0.35 kU/L
[2020-08-18 21:27] LABS: Cat Epithelium IgE <0.35 kU/L; Cladosporium IgE <0.35 kU/L; Cocklebur IgE <0.35 kU/L; Dog Dander IgE <0.35 kU/L; Lamb's Quarter IgE <0.35 kU/L; Short Ragweed IgE <0.35 kU/L; Timothy Grass IgE <0.35 kU/L; Wormwood IgE <0.35 kU/L
[2020-08-24 17:41] LABS: CLASS 0; CLASS 0/1; Cedar Red IgE 0.12 kU/L (<0.35); Fusarium oxysporum/vasinfectum <0.35 kU/L (<0.35); Rhodotorula IgE <0.35 kU/L (<0.35)
== END 2020-08-17 03:54 | disposition home or self-care (01) ==
LOC: LBO 03:54
PROVIDERS: PCP Family Medicine; Visit Provider Otolaryngology Otolaryngology/Facial Plastic Surgery
DX: L08.1 Erythrasma (principal); L20.9 Atopic dermatitis, unspecified
CPT/HCPCS: 36415; 86003

== ENCOUNTER 2020-09-12 03:46 | Outpatient (RCR) | payer OTHER, SELFPAY ==
[2020-08-08 00:17] VITALS: BP 121/75; PULSE 84; RESP 18; TEMP 37
[2020-09-12] MEDS: Normal Saline Flush 10 ML SYR IVP (08:25)
[2020-09-12 09:01] VITALS: BP 110/70; PULSE 74; RESP 14; TEMP 36; O2SAT 97
[2020-09-12 09:25] VITALS: BP 129/84; PULSE 69; RESP 14; TEMP 37; O2SAT 97
[2020-09-12 09:40] VITALS: BP 142/88; PULSE 74; RESP 14; TEMP 36.8; O2SAT 97
[2020-09-12 09:55] VITALS: BP 137/87; PULSE 68; RESP 16; TEMP 37; O2SAT 96
[2020-09-12 10:25] VITALS: BP 128/81; PULSE 66; RESP 16; TEMP 36.7; O2SAT 98
[2020-09-12 11:15] VITALS: BP 133/71; PULSE 76; RESP 16; TEMP 36.7; O2SAT 97
== END 2020-10-07 23:59 | disposition home or self-care (01) ==
LOC: INF 03:46
PROVIDERS: PCP Family Medicine; Visit Provider Internal Medicine
DX: K51.011 Ulcerative (chronic) pancolitis with rectal bleeding (principal); G90.09 Other idiopathic peripheral autonomic neuropathy
CPT/HCPCS: 96365; 96366; 96413; 96415; J1745

== ENCOUNTER 2020-10-25 02:44 | Outpatient (RCR) | payer OTHER, SELFPAY ==
[2020-10-08 00:14] VITALS: BP 133/71; PULSE 76; RESP 16; TEMP 36.7
[2020-10-25 08:43] LABS: Abs Immature Grans 0.02 10^3/uL (0.0-0.06); Absolute Basophil Count 0.02 10^3/uL (0.0-0.2); Absolute Eosinophil Count 0.24 10^3/uL (0.0-0.7); Absolute Lymphocyte Count 2.72 10^3/uL (1.2-3.4); Absolute Monocyte Count 0.56 10^3/uL (0.1-0.8); Absolute Neutrophil Count 3.73 10^3/uL (1.2-6.7); Basophils % 0.3; Eosinophils % 3.3; HCT 44.5 % (40.0-50.0); HGB 14.9 g/dL (13.5-17.5); Immature Grans % 0.3; Lymphocytes % 37.3; MCH 29.3 pg (27.0-33.0); MCHC 33.5 % (32.0-36.0); MCV 87.6 fL (80-95); MPV 9.4 fL (8.0-11.0); Monocytes % 7.7; Neutrophils % 51.1; Nucleated RBC 0 %; Platelet Count 280 10^3/uL (130-400); RBC 5.08 10^6/uL (4.36-5.78); RDW 12.1 % (11.8-14.1); RDW-SD 38.9 fL; WBC 7.29 10^3/uL (4.4-10.8)
[2020-10-25 08:56] LABS: ALT 34 U/L (16-63); AST 20 U/L (15-37); Albumin 4.1 g/dL (3.4-5.0); Alkaline Phosphatase 75 U/L (46-116); Bilirubin, Direct 0.1 mg/dL (0.0-0.2); Bilirubin, Total 0.6 mg/dL (0.2-1.0)
[2020-10-25 08:58] LABS: C-Reactive Protein < 0.05 mg/dL (0.0-0.3)
[2020-10-25] MEDS: Normal Saline Flush 10 ML SYR IVP (08:59)
[2020-10-25 09:05] VITALS: BP 124/81; PULSE 77; RESP 16; TEMP 36.5; O2SAT 96
[2020-10-25 09:20] VITALS: BP 124/80; PULSE 76; RESP 16; TEMP 36.6; O2SAT 98
[2020-10-25 09:35] VITALS: BP 128/80; PULSE 72; RESP 16; TEMP 36.6; O2SAT 97
[2020-10-25 09:50] VITALS: BP 120/77; PULSE 72; RESP 16; TEMP 36.6; O2SAT 98
[2020-10-25 10:20] VITALS: BP 131/77; PULSE 74; RESP 16; TEMP 36.6; O2SAT 97
[2020-10-25 10:50] VITALS: BP 121/79; PULSE 64; RESP 16; TEMP 36.6; O2SAT 98
== END 2020-11-07 23:59 | disposition home or self-care (01) ==
LOC: INF 02:44
PROVIDERS: Internal Medicine Gastroenterology; PCP Family Medicine; Visit Provider Internal Medicine
DX: K51.011 Ulcerative (chronic) pancolitis with rectal bleeding (principal); G90.09 Other idiopathic peripheral autonomic neuropathy
CPT/HCPCS: 36415; 80076; 96365; 96366; 96413; 96415; 85025; 86140; J1745

== ENCOUNTER 2020-12-07 02:31 | Outpatient (RCR) | payer OTHER, SELFPAY ==
[2020-11-08 00:06] VITALS: BP 121/79; PULSE 64; RESP 16; TEMP 36.6
[2020-12-07 08:13] VITALS: BP 122/81; PULSE 74; RESP 16; TEMP 36.4; O2SAT 100
[2020-12-07] MEDS: Normal Saline Flush 10 ML SYR IVP (08:49)
[2020-12-07 09:05] VITALS: BP 115/70; PULSE 75; RESP 16; TEMP 36.4; O2SAT 98
[2020-12-07 09:20] VITALS: BP 117/77; PULSE 73; RESP 16; TEMP 37; O2SAT 100
[2020-12-07 09:36] VITALS: BP 118/77; PULSE 75; RESP 16; TEMP 37; O2SAT 98
[2020-12-07 09:51] VITALS: BP 121/78; PULSE 71; RESP 16; TEMP 37; O2SAT 98
[2020-12-07 10:24] VITALS: BP 117/79; PULSE 72; RESP 16; TEMP 37; O2SAT 97
== END 2020-12-07 23:59 | disposition home or self-care (01) ==
LOC: INF 02:31
PROVIDERS: PCP Family Medicine; Visit Provider Internal Medicine
DX: G62.9 Polyneuropathy, unspecified (principal)
CPT/HCPCS: 96365; 96366; J1745

== ENCOUNTER 2021-01-18 03:01 | Outpatient (RCR) | payer OTHER, SELFPAY ==
[2020-12-08 00:05] VITALS: BP 117/79; PULSE 72; RESP 16; TEMP 37
[2021-01-18 08:05] VITALS: BP 143/83; PULSE 85; RESP 16; TEMP 36.6; O2SAT 99
[2021-01-18 08:25] LABS: HCT 44.4 % (40.0-50.0); HGB 14.8 g/dL (13.5-17.5); MCH 29.6 pg (27.0-33.0); MCHC 33.3 % (32.0-36.0); MCV 88.8 fL (80-95); MPV 9.4 fL (8.0-11.0); Platelet Count 280 10^3/uL (130-400); RDW 12.4 % (11.8-14.1); RDW-SD 40.5 fL; WBC 7.55 10^3/uL (4.4-10.8)
[2021-01-18 08:33] LABS: ALT 33 U/L (16-63); AST 18 U/L (15-37); Albumin 4.1 g/dL (3.4-5.0); Alkaline Phosphatase 75 U/L (46-116); Bilirubin, Direct 0.1 mg/dL (0.0-0.2); Bilirubin, Total 0.6 mg/dL (0.2-1.0)
[2021-01-18 08:35] LABS: C-Reactive Protein < 0.05 mg/dL (0.0-0.3)
[2021-01-18] MEDS: Normal Saline Flush 10 ML SYR IVP (08:59)
[2021-01-18 09:30] VITALS: BP 123/76; PULSE 85; RESP 17; TEMP 36.2; O2SAT 97
[2021-01-18 09:49] VITALS: BP 121/70; PULSE 72; RESP 17; TEMP 36.4; O2SAT 99
[2021-01-18 10:05] VITALS: BP 135/78; PULSE 73; RESP 17; TEMP 36.2; O2SAT 99
[2021-01-18 10:40] VITALS: BP 114/75; PULSE 74; RESP 19; TEMP 36.6; O2SAT 99
[2021-01-18 11:11] VITALS: BP 125/78; PULSE 72; RESP 16; TEMP 36.6; O2SAT 98
[2021-01-21 13:12] LABS: Infliximab 20 mcg/mL
== END 2021-02-07 23:59 | disposition home or self-care (01) ==
LOC: INF 03:01
PROVIDERS: PCP Family Medicine; Visit Provider Internal Medicine
DX: K51.011 Ulcerative (chronic) pancolitis with rectal bleeding (principal); Z79.899 Other long term (current) drug therapy
CPT/HCPCS: 36415; 80076; 82397; 85027; 96365; 96366; 86140; J1745

== ENCOUNTER 2021-02-28 01:03 | Outpatient (RCR) | payer OTHER, SELFPAY ==
[2021-02-08 00:02] VITALS: BP 125/78; PULSE 72; RESP 16; TEMP 36.6
[2021-02-28 08:18] VITALS: BP 118/77; PULSE 83; RESP 17; TEMP 36.7; O2SAT 98
[2021-02-28] MEDS: Normal Saline Flush 10 ML SYR IVP (08:48)
[2021-02-28 09:00] VITALS: BP 133/79; PULSE 74; RESP 16; TEMP 35.6; O2SAT 96
[2021-02-28 09:15] VITALS: BP 119/75; PULSE 65; RESP 16; TEMP 36.2; O2SAT 95
[2021-02-28 09:30] VITALS: BP 122/78; PULSE 69; RESP 16; TEMP 36.6; O2SAT 97
[2021-02-28 09:45] VITALS: BP 124/78; PULSE 70; RESP 16; TEMP 36.6; O2SAT 98
[2021-02-28 10:15] VITALS: BP 126/77; PULSE 64; RESP 16; TEMP 36.5; O2SAT 98
== END 2021-03-09 23:59 | disposition home or self-care (01) ==
LOC: INF 01:03
PROVIDERS: PCP Family Medicine; Visit Provider Internal Medicine
DX: K51.011 Ulcerative (chronic) pancolitis with rectal bleeding (principal)
CPT/HCPCS: 96365; 96366; 96413; 96415; J1745

== ENCOUNTER 2021-06-30 01:24 | Outpatient (RCR) | payer OTHER, SELFPAY ==
[2021-06-30] MEDS: Normal Saline Flush 10 ML SYR IVP (08:38)
== END 2021-07-10 23:59 | disposition home or self-care (01) ==
LOC: INF 01:24
PROVIDERS: PCP Family Medicine; Visit Provider Internal Medicine
DX: K51.90 Ulcerative colitis, unspecified, without complications (principal)
CPT/HCPCS: 96365; J3358

== ENCOUNTER 2021-07-14 01:38 | Outpatient (CLI) | payer OTHER, SELFPAY ==
[2021-07-14 15:36] LABS: Abs Immature Grans 0.04 10^3/uL (0.0-0.06); Absolute Basophil Count 0.04 10^3/uL (0.0-0.2); Absolute Eosinophil Count 0.24 10^3/uL (0.0-0.7); Absolute Lymphocyte Count 2.41 10^3/uL (1.2-3.4); Absolute Monocyte Count 0.67 10^3/uL (0.1-0.8); Absolute Neutrophil Count 6.05 10^3/uL (1.2-6.7); Basophils % 0.4; Eosinophils % 2.5; HCT 44.7 % (40.0-50.0); HGB 14.7 g/dL (13.5-17.5); Immature Grans % 0.4; Lymphocytes % 25.5; MCH 28.8 pg (27.0-33.0); MCHC 32.9 % (32.0-36.0); MCV 87.6 fL (80-95); MPV 9.5 fL (8.0-11.0); Monocytes % 7.1; Neutrophils % 64.1; Nucleated RBC 0 %; Platelet Count 313 10^3/uL (130-400); RDW 12.5 % (11.8-14.1); RDW-SD 40.2 fL; WBC 9.45 10^3/uL (4.4-10.8)
[2021-07-14 16:43] LABS: ALT 34 U/L (16-63); AST 20 U/L (15-37); Albumin 4.1 g/dL (3.4-5.0); Alkaline Phosphatase 85 U/L (46-116); Bilirubin, Direct 0.2 mg/dL (0.0-0.2); Bilirubin, Total 0.6 mg/dL (0.2-1.0); C-Reactive Protein 0.06 mg/dL (0.0-0.3); Total Protein 8.2 g/dL (6.4-8.2)
== END 2021-07-14 01:39 | disposition home or self-care (01) ==
LOC: LBO 01:38
PROVIDERS: PCP Family Medicine; Visit Provider Internal Medicine Gastroenterology
DX: K51.00 Ulcerative (chronic) pancolitis without complications (principal); L40.9 Psoriasis, unspecified; Z79.899 Other long term (current) drug therapy
CPT/HCPCS: 36415; 80076; 85025; 86140

== ENCOUNTER 2021-07-28 03:42 | Outpatient (CLI) | payer OTHER, SELFPAY ==
[2021-07-28 07:08] LABS: Abs Immature Grans 0.02 10^3/uL (0.0-0.06); Absolute Basophil Count 0.02 10^3/uL (0.0-0.2); Absolute Eosinophil Count 0.18 10^3/uL (0.0-0.7); Absolute Lymphocyte Count 1.94 10^3/uL (1.2-3.4); Absolute Monocyte Count 0.54 10^3/uL (0.1-0.8); Absolute Neutrophil Count 4.87 10^3/uL (1.2-6.7); Basophils % 0.3; Eosinophils % 2.4; HCT 43.9 % (40.0-50.0); HGB 14.5 g/dL (13.5-17.5); Immature Grans % 0.3; Lymphocytes % 25.6; MCH 28.9 pg (27.0-33.0); MCV 87.6 fL (80-95); MPV 9.1 fL (8.0-11.0); Monocytes % 7.1; Neutrophils % 64.3; Nucleated RBC 0 %; Platelet Count 291 10^3/uL (130-400); RBC 5.01 10^6/uL (4.36-5.78); RDW 12.6 % (11.8-14.1); RDW-SD 40.5 fL; WBC 7.57 10^3/uL (4.4-10.8)
[2021-07-28 08:06] LABS: ALT 33 U/L (16-63); AST 21 U/L (15-37); Alkaline Phosphatase 79 U/L (46-116); Bilirubin, Direct 0.1 mg/dL (0.0-0.2); Bilirubin, Total 0.5 mg/dL (0.2-1.0); Total Protein 7.9 g/dL (6.4-8.2)
[2021-07-28 08:08] LABS: C-Reactive Protein < 0.05 mg/dL (0.0-0.3)
== END 2021-07-28 03:43 | disposition home or self-care (01) ==
LOC: LBO 03:42
PROVIDERS: PCP Family Medicine; Visit Provider Internal Medicine Gastroenterology
DX: K51.00 Ulcerative (chronic) pancolitis without complications (principal); L40.9 Psoriasis, unspecified; Z79.899 Other long term (current) drug therapy
CPT/HCPCS: 36415; 80076; 85025; 86140

== ENCOUNTER 2021-08-03 18:13 | Emergency (ER) | payer OTHER, SELFPAY ==
[2021-08-03 18:21] VITALS: BP 179/99; PULSE 109; RESP 16; TEMP 36.6; O2SAT 97
--- NOTE | 2021-08-03 18:50 | ED.GENADUL_ITS ---
Discharge Plan Disposition Patient Disposition: HOME Condition: Stable Discharge Details Clinical Impression: Cellulitis Primary Care Provider: Rina Long ED Provider: Jona Madden Home Meds and New Rx's Prescriptions: New cephalexin 500 mg tablet 500 mg PO QID 7 Days Qty: 28 0RF Continued pantoprazole [Protonix] 40 mg tablet,delayed release (DR/EC) 40 mg PO DAILY 0RF Centrum MultiGummies 150 mcg tablet,chewable 2 tab PO DAILY 0RF infliximab [Remicade] 100 mg recon soln IV 0RF triamcinolone acetonide 0.025 % cream 1 applic TOPICAL PRN PRN0RF Label Comments: APPLY TO AFFECTED AREAS ON THE TRUNK AND EXTREMITIES NEEDED FR UP TO 14 DAYS THEN TAKE 1 WEEK OFF REPEAT NEEDED betamethasone dipropionate 0.05 % ointment 1 applic TOPICAL PRN PRN0RF Label Comments: APPLY TOPICALLY TO THE AFFECTED AREA OF FEET TWICE DAILY FOR 2 WEEKS THEN 1 WEEK OFF. REPEAT NEEDED. acetaminophen [Tylenol] 325 mg Tablet 650 mg PO Q6H PRN0RF Label Comments: 07/29/18 Pt stopped d/t vomiting. PG Discharge Instructions Instructions: Cellulitis (ED) Additional Instructions: Please continue to monitor your symptoms closely. If redness slightly goes outside of markings in the next 24 hours that is okay but if it drastically changes and worsens or you have additional symptoms as discussed please return immediately to the emergency department for reassessment. Take antibiotic as prescribed and for the full week. If not improving in the next 48 to 72 hours feel free to return to the emergency department or follow-up with your primary care provider. Referrals: Rina Long [Primary Care Provider] - 3 days (If not improving) Medical Decision Making Patient presenting to the emergency department for chief complaint of right lower leg redness swelling and pain. Patient states that it started out as a small reddened spot on dorsal foot and is now spread. Patient does report history of staph infection to lower extremities that is been treated with antibiotics in the past. Patient is on immunosuppressant due to autoimmune diseases. Patient denies fever chills, or systemic symptoms. Physical exam is consistent with cellulitis to the dorsal aspect of the right foot with some streaking up the tibia. Exam is otherwise unremarkable and at baseline for patient. Patient placed upon antibiotics but given no systemic symptoms and otherwise stable I do feel that outpatient therapy is appropriate at this time but close monitoring return and follow-up precautions were discussed with patient given that he is on immunosuppressants. HPI General Mode of arrival: ambulatory . Date/Time Provider Initiated Documentation: 08/03/21 18:37 . Limitations to Documentation: no limitations . Information obtained by: patient . History of Present Illness 46 year old M presents to the emergency department with the chief complaint of right foot pain and reddness, described as moderate, with intensity rated at 8. Quality is described as aching and sharp, and is localized to the right and lower extremity. Patient proximal. Patient started experiencing this day(s) (1) and it has been constant. improves with No relieving factors improve symptom(s), No exacerbating factors reported . Patient notes no other symptoms.. Patient did receive the following treatments prior to arrival, NSAID Related Data Home Medications Medication Instructions Recorded Confirmed acetaminophen 325 mg tablet 650 mg PO Q6H PRN 07/27/18 08/03/21 (Tylenol) infliximab 100 mg intravenous IV each 09/08/18 04/27/20 solution (Remicade) multivitamin with minerals-folic 2 tab PO DAILY 11/10/18 08/03/21 acid 150 mcg chewable tablet (Centrum MultiGummies) pantoprazole 40 mg tablet,delayed 40 mg PO DAILY 11/10/18 08/03/21 release (Protonix) betamethasone dipropionate 0.05 % 1 applic TOPICAL PRN PRN 08/03/21 08/03/21 topical ointment cephalexin 500 mg tablet 500 mg PO QID 7 Days #28 tab 08/03/21 triamcinolone acetonide 0.025 % 1 applic TOPICAL PRN PRN 08/03/21 08/03/21 topical cream Previous Rx's Medication Instructions Recorded cephalexin 500 mg tablet 500 mg PO QID 7 Days #28 tab 08/03/21 Allergies Allergy/AdvReac Type Severity Reaction Status Date / Time No Known Allergies Allergy Verified 08/03/21 18:29 General Stated Complaint: Cellulitis REBECCA: 3 Review of Systems Constitutional Constitutional: Denies body ache(s), Denies chills and Denies fever(s) Cardiovascular Cardiovascular: Denies chest pain and Denies dyspnea Respiratory Respiratory: Denies dyspnea Gastrointestinal Gastrointestinal: Denies abdominal pain, Denies nausea and Denies vomiting Integumentary/Breasts Skin/Breast: Reports as per HPI, Reports erythema and Reports sores Neurologic Neurologic: Denies confusion and Denies sensory deficit Psychiatric Psychiatric: Denies confusion PFSH All Active Problems Cellulitis (Acute) Atopic dermatitis (Acute) Peripheral neuropathy (Acute) Postop check (Acute) Acute appendicitis (Acute) Ulcerative colitis (Chronic) 08/01/18 EGD and flex sig, showed acute severe ulcerative colitis, active chronic colitis. Tx with steroids, infliximab. Seen at [facility] [place] with rec of cont prednisone and infliximab, repeat colo 4-6 mos, [facility] [place] f/up 2 mos. mg Abnormal colonoscopy (Chronic) 08/01/18 EGD and flex sig, showed acute severe ulcerative colitis, active chronic colitis. Tx with steroids, infliximab. Seen at [facility] [place] with rec of cont prednisone and infliximab, repeat colo 4-6 mos, [facility] [place] f/up 2 mos. mg Fever of unknown origin (Acute) Anemia, chronic disease (Acute) Dysplasia of colon (Acute) Vomiting (Acute) Hypoalbuminemia due to protein-calorie malnutrition (Acute) Ulcerative colitis, acute (Acute) Hypomagnesemia (Acute) Hypokalemia (Acute) Colitis (Acute) Chest pain due to gastrointestinal reflux disease (Chronic) History of esophagogastroduodenoscopy (EGD) (Chronic) Walko, 10/03/2016 EGD foreign body in esophagus, hx of multiple esophageal dilatations and foreign bodies dating back to childhood. GERD (gastroesophageal reflux disease) (Chronic) 08/01/18 EGD and flex sig, showed acute severe ulcerative colitis, active chronic colitis. Tx with steroids, infliximab. Seen at [facility] [place] with rec of cont prednisone and infliximab, repeat colo 4-6 mos, [facility] [place] f/up 2 mos. mg Medical History VSD (ventricular septal defect) Surgical History S/P laparoscopic appendectomy 04/13/19 Social History Smoking/Tobacco Use Status: Never Smoking risk assessment performed?: Yes Alcohol Intake: never Drug use: Never Substance use type: does not use Household members: significant other and children Number of Children: 2 current occupation: self employed builder/plows What type of physical activity do you participate in: none Seatbelt use: sometimes Do you feel safe at home: Yes Do you feel safe in your relationship?: Yes Exam Const General: cooperative, no acute distress and not ill appearing Orientation: alert, awake and oriented x3 HENMT Mouth: moist mucous membranes Resp Effort & Inspection: normal respiratory effort, able to speak in complete sentences and no respiratory distress Cardio Rate: regular rate Rhythm: regular rhythm Heart Sounds: murmur systolic III/ Skin General skin exam: erythema (Dorsal aspect of right lower extremity with streaking proximally ) Neuro General: patient alert, patient awake, patient oriented x3 and moves all extremities Extrem Right lower extremity: lower leg Details: no edema; Negative for no tenderness and no palpable cords Course Vital Signs Vital signs: Vital Signs Temperature 36.6 C 08/03/21 18:21 Pulse 109 H 08/03/21 18:21 Respiratory Rate 16 08/03/21 18:21 Blood Pressure 179/99 H 08/03/21 18:21 Pulse Oximetry 97 08/03/21 18:21 Temperature 36.6 C 08/03/21 18:21 Temperature Source Oral 08/03/21 18:21 Pulse 109 H 08/03/21 18:21 Respiratory Rate 16 08/03/21 18:21 Respiratory Effort Non-Labored 08/03/21 18:28 Blood Pressure 179/99 H 08/03/21 18:21 Blood Pressure Position Supine 08/03/21 18:21 Pulse Oximetry 97 08/03/21 18:21 Oxygen Delivery Method Room Air 08/03/21 18:21 Oxygen Flow Rate 0 08/03/21 18:21 Pain Level 10 08/03/21 18:21
[2021-08-03] MEDS: Cephalexin 500 MG CAP PO (19:08)
[2021-08-03 19:09] VITALS: BP 138/74; PULSE 68; RESP 18; O2SAT 98
== END 2021-08-03 19:10 | disposition home or self-care (01) ==
PROVIDERS: Emergency Provider Nurse Practitioner Family; PCP Family Medicine
DX: L03.115 Cellulitis of right lower limb (principal); Z79.899 Other long term (current) drug therapy
CPT/HCPCS: 99283

== ENCOUNTER 2021-08-25 01:28 | Outpatient (CLI) | payer OTHER, SELFPAY ==
[2021-08-25 07:20] LABS: Abs Immature Grans 0.01 10^3/uL (0.0-0.06); Absolute Basophil Count 0.02 10^3/uL (0.0-0.2); Absolute Eosinophil Count 0.32 10^3/uL (0.0-0.7); Absolute Lymphocyte Count 1.81 10^3/uL (1.2-3.4); Absolute Monocyte Count 0.47 10^3/uL (0.1-0.8); Absolute Neutrophil Count 3.64 10^3/uL (1.2-6.7); Basophils % 0.3; Eosinophils % 5.1; HCT 42.4 % (40.0-50.0); HGB 13.9 g/dL (13.5-17.5); Immature Grans % 0.2; Lymphocytes % 28.9; MCH 28.7 pg (27.0-33.0); MCHC 32.8 % (32.0-36.0); MCV 87.4 fL (80-95); MPV 9.3 fL (8.0-11.0); Monocytes % 7.5; Nucleated RBC 0 %; Platelet Count 276 10^3/uL (130-400); RBC 4.85 10^6/uL (4.36-5.78); RDW 12.6 % (11.8-14.1); RDW-SD 40.5 fL; WBC 6.27 10^3/uL (4.4-10.8)
[2021-08-25 08:06] LABS: ALT 33 U/L (16-63); AST 21 U/L (15-37); Albumin 3.9 g/dL (3.4-5.0); Alkaline Phosphatase 81 U/L (46-116); Bilirubin, Direct 0.2 mg/dL (0.0-0.2); Bilirubin, Total 0.6 mg/dL (0.2-1.0); C-Reactive Protein 0.14 mg/dL (0.0-0.3); Total Protein 7.5 g/dL (6.4-8.2)
== END 2021-08-25 01:29 | disposition home or self-care (01) ==
LOC: LBO 01:28
PROVIDERS: PCP Family Medicine; Visit Provider Internal Medicine Gastroenterology
DX: K51.00 Ulcerative (chronic) pancolitis without complications (principal); L40.9 Psoriasis, unspecified; Z79.899 Other long term (current) drug therapy
CPT/HCPCS: 36415; 80076; 85025; 86140

== ENCOUNTER 2021-09-04 01:53 | Outpatient (CLI) | payer OTHER, SELFPAY ==
--- NOTE | 2021-09-04 07:58 | DI.RAD_ITS ---
Exam(s) XR FOOT RT COMPLETE EXAM: XR FOOT RT COMPLETE CLINICAL HISTORY: PSORIASIS, L40.9,RT FOOT CELLULITIS, L03.115. TECHNIQUE: 2D digital imaging was performed. Three views. COMPARISON: No exams were available for comparison FINDINGS: BONES: No acute fracture is present. No bony destructive lesion is seen. Bones are normally minerali zed. JOINTS: No dislocation present. Minimal degenerative changes. SOFT TISSUE: Mild diffuse soft tissue swelling. No foreign body or gas collection. IMPRESSION: Unremarkable radiographs of the right foot. DATA REPOSITORY: RADIATION DOSE DELIVERED:
== END 2021-09-04 02:13 ==
PROVIDERS: PCP Family Medicine; Visit Provider Internal Medicine
DX: L03.115 Cellulitis of right lower limb (principal); L40.8 Other psoriasis; M79.89 Other specified soft tissue disorders
CPT/HCPCS: 73630

== ENCOUNTER 2021-09-22 02:09 | Outpatient (CLI) | payer OTHER, SELFPAY ==
[2021-09-22 07:11] LABS: Abs Immature Grans 0.03 10^3/uL (0.0-0.06); Absolute Basophil Count 0.02 10^3/uL (0.0-0.2); Absolute Eosinophil Count 0.42 10^3/uL (0.0-0.7); Absolute Lymphocyte Count 2.02 10^3/uL (1.2-3.4); Absolute Monocyte Count 0.56 10^3/uL (0.1-0.8); Absolute Neutrophil Count 5.39 10^3/uL (1.2-6.7); Basophils % 0.2; HCT 42.7 % (40.0-50.0); HGB 14.3 g/dL (13.5-17.5); Immature Grans % 0.4; Lymphocytes % 23.9; MCH 28.9 pg (27.0-33.0); MCHC 33.5 % (32.0-36.0); MCV 86.3 fL (80-95); MPV 8.9 fL (8.0-11.0); Monocytes % 6.6; Neutrophils % 63.9; Platelet Count 267 10^3/uL (130-400); RBC 4.95 10^6/uL (4.36-5.78); RDW 12.5 % (11.8-14.1); RDW-SD 39.5 fL; WBC 8.44 10^3/uL (4.4-10.8)
[2021-09-22 08:30] LABS: ALT 42 U/L (16-63); AST 25 U/L (15-37); Alkaline Phosphatase 80 U/L (46-116); Bilirubin, Direct 0.1 mg/dL (0.0-0.2); Bilirubin, Total 0.6 mg/dL (0.2-1.0); C-Reactive Protein 0.21 mg/dL (0.0-0.3); Total Protein 7.5 g/dL (6.4-8.2)
== END 2021-09-22 02:10 | disposition home or self-care (01) ==
LOC: LBO 02:09
PROVIDERS: PCP Family Medicine; Visit Provider Internal Medicine Gastroenterology
DX: K51.00 Ulcerative (chronic) pancolitis without complications (principal); L40.9 Psoriasis, unspecified; Z79.899 Other long term (current) drug therapy
CPT/HCPCS: 36415; 80076; 85025; 86140

== ENCOUNTER 2022-01-26 01:17 | Outpatient (CLI) | payer OTHER, SELFPAY ==
[2022-01-26 07:31] LABS: Abs Immature Grans 0.02 10^3/uL (0.0-0.06); Absolute Basophil Count 0.01 10^3/uL (0.0-0.2); Absolute Eosinophil Count 0.27 10^3/uL (0.0-0.7); Absolute Lymphocyte Count 2.19 10^3/uL (1.2-3.4); Absolute Monocyte Count 0.41 10^3/uL (0.1-0.8); Absolute Neutrophil Count 3.57 10^3/uL (1.2-6.7); Basophils % 0.2; Eosinophils % 4.2; HGB 14.1 g/dL (13.5-17.5); Immature Grans % 0.3; Lymphocytes % 33.8; MCHC 34.4 % (32.0-36.0); MCV 87 fL (80-95); MPV 9.4 fL (8.0-11.0); Monocytes % 6.3; Neutrophils % 55.2; Platelet Count 264 10^3/uL (130-400); RDW 12.2 % (11.8-14.1); RDW-SD 39.4 fL; WBC 6.47 10^3/uL (4.4-10.8)
[2022-01-26 08:02] LABS: ALT 30 U/L (16-63); AST 15 U/L (15-37); Albumin 3.9 g/dL (3.4-5.0); Alkaline Phosphatase 68 U/L (46-116); Bilirubin, Direct 0.1 mg/dL (0.0-0.2); Bilirubin, Total 0.6 mg/dL (0.2-1.0); C-Reactive Protein < 0.05 mg/dL (0.0-0.3); Total Protein 7.6 g/dL (6.4-8.2)
== END 2022-01-26 01:18 | disposition home or self-care (01) ==
LOC: LBO 01:18
PROVIDERS: PCP Family Medicine; Visit Provider Internal Medicine Gastroenterology
DX: K51.00 Ulcerative (chronic) pancolitis without complications (principal); L40.9 Psoriasis, unspecified; Z79.899 Other long term (current) drug therapy
CPT/HCPCS: 36415; 80076; 85025; 86140

== ENCOUNTER 2022-04-27 01:09 | Outpatient (CLI) | payer OTHER, SELFPAY ==
[2022-04-27 07:12] LABS: Abs Immature Grans 0.02 10^3/uL (0.0-0.06); Absolute Basophil Count 0.03 10^3/uL (0.0-0.2); Absolute Eosinophil Count 0.19 10^3/uL (0.0-0.7); Absolute Lymphocyte Count 2.04 10^3/uL (1.2-3.4); Absolute Monocyte Count 0.55 10^3/uL (0.1-0.8); Absolute Neutrophil Count 4.57 10^3/uL (1.2-6.7); Basophils % 0.4; Eosinophils % 2.6; HGB 14.6 g/dL (13.5-17.5); Immature Grans % 0.3; Lymphocytes % 27.6; MCH 29.7 pg (27.0-33.0); MCV 88 fL (80-95); Monocytes % 7.4; Neutrophils % 61.7; Platelet Count 266 10^3/uL (130-400); RBC 4.91 10^6/uL (4.36-5.78); RDW 12.4 % (11.8-14.1); RDW-SD 40.1 fL
[2022-04-27 07:53] LABS: ALT 39 U/L (16-63); AST 23 U/L (15-37); Albumin 4.1 g/dL (3.4-5.0); Alkaline Phosphatase 92 U/L (46-116); Bilirubin, Direct 0.2 mg/dL (0.0-0.2); Bilirubin, Total 0.7 mg/dL (0.2-1.0); C-Reactive Protein 0.05 mg/dL (0.0-0.3); Total Protein 8.1 g/dL (6.4-8.2)
== END 2022-04-27 01:10 | disposition home or self-care (01) ==
LOC: LBO 01:10
PROVIDERS: PCP Family Medicine; Visit Provider Internal Medicine Gastroenterology
DX: K51.00 Ulcerative (chronic) pancolitis without complications (principal); Z79.899 Other long term (current) drug therapy
CPT/HCPCS: 36415; 80076; 85025; 86140

== ENCOUNTER 2022-09-07 09:31 | Outpatient (CLI) | payer OTHER, SELFPAY ==
[2022-09-07 09:36] LABS: Abs Immature Grans 0.02 10^3/uL (0.0-0.06); Absolute Basophil Count 0.04 10^3/uL (0.0-0.2); Absolute Eosinophil Count 0.35 10^3/uL (0.0-0.7); Absolute Lymphocyte Count 2.75 10^3/uL (1.2-3.4); Absolute Monocyte Count 0.62 10^3/uL (0.1-0.8); Absolute Neutrophil Count 4.28 10^3/uL (1.2-6.7); Basophils % 0.5; Eosinophils % 4.3; HCT 44.4 % (40.0-50.0); HGB 15.4 g/dL (13.5-17.5); Immature Grans % 0.2; Lymphocytes % 34.1; MCHC 34.7 % (32.0-36.0); MCV 86 fL (80-95); Monocytes % 7.7; Neutrophils % 53.2; Platelet Count 279 10^3/uL (130-400); RBC 5.14 10^6/uL (4.36-5.78); RDW 12.3 % (11.8-14.1); RDW-SD 38.9 fL; WBC 8.06 10^3/uL (4.4-10.8)
[2022-09-07 10:24] LABS: ALT 61 U/L (16-63); AST 26 U/L (15-37); Albumin 4.1 g/dL (3.4-5.0); Alkaline Phosphatase 87 U/L (46-116); Bilirubin, Direct 0.1 mg/dL (0.0-0.2); Bilirubin, Total 0.5 mg/dL (0.2-1.0); Total Protein 7.9 g/dL (6.4-8.2)
[2022-09-07 10:26] LABS: C-Reactive Protein < 0.05 mg/dL (0.0-0.3)
== END 2022-09-07 09:32 | disposition home or self-care (01) ==
LOC: LBO 09:31
PROVIDERS: PCP Family Medicine; Visit Provider Internal Medicine Gastroenterology
DX: K51.00 Ulcerative (chronic) pancolitis without complications (principal); Z79.899 Other long term (current) drug therapy
CPT/HCPCS: 36415; 80076; 85025; 86140

== ENCOUNTER 2023-01-04 01:18 | Outpatient (CLI) | payer OTHER, SELFPAY ==
[2023-01-04 07:13] LABS: Abs Immature Grans 0.02 10^3/uL (0.0-0.06); Absolute Basophil Count 0.03 10^3/uL (0.0-0.2); Absolute Eosinophil Count 0.38 10^3/uL (0.0-0.7); Absolute Lymphocyte Count 2.41 10^3/uL (1.2-3.4); Absolute Monocyte Count 0.41 10^3/uL (0.1-0.8); Absolute Neutrophil Count 3.31 10^3/uL (1.2-6.7); Basophils % 0.5; Eosinophils % 5.8; HCT 42.7 % (40.0-50.0); HGB 14.6 g/dL (13.5-17.5); Immature Grans % 0.3; Lymphocytes % 36.7; MCH 29.6 pg (27.0-33.0); MCHC 34.2 % (32.0-36.0); MCV 86 fL (80-95); MPV 8.9 fL (8.0-11.0); Monocytes % 6.3; Neutrophils % 50.4; Platelet Count 283 10^3/uL (130-400); RBC 4.94 10^6/uL (4.36-5.78); RDW 12.4 % (11.8-14.1); RDW-SD 39.3 fL; WBC 6.56 10^3/uL (4.4-10.8)
[2023-01-04 08:27] LABS: ALT 49 U/L (16-63); AST 24 U/L (15-37); Alkaline Phosphatase 87 U/L (46-116); Bilirubin, Direct 0.1 mg/dL (0.0-0.2); Bilirubin, Total 0.6 mg/dL (0.2-1.0); C-Reactive Protein 0.05 mg/dL (0.0-0.3); Total Protein 7.6 g/dL (6.4-8.2)
== END 2023-01-04 01:19 | disposition home or self-care (01) ==
LOC: LBO 01:18
PROVIDERS: PCP Family Medicine; Visit Provider Internal Medicine Gastroenterology
DX: K51.00 Ulcerative (chronic) pancolitis without complications (principal); Z79.899 Other long term (current) drug therapy
CPT/HCPCS: 36415; 80076; 85025; 86140

== ENCOUNTER 2023-05-03 07:50 | Outpatient (CLI) | payer OTHER, SELFPAY ==
[2023-05-03 07:33] LABS: Abs Immature Grans 0.02 10^3/uL (0.0-0.06); Absolute Basophil Count 0.02 10^3/uL (0.0-0.2); Absolute Eosinophil Count 0.35 10^3/uL (0.0-0.7); Absolute Lymphocyte Count 2.21 10^3/uL (1.2-3.4); Absolute Monocyte Count 0.36 10^3/uL (0.1-0.8); Absolute Neutrophil Count 3.38 10^3/uL (1.2-6.7); Basophils % 0.3; Eosinophils % 5.5; HCT 44.6 % (40.0-50.0); HGB 15.2 g/dL (13.5-17.5); Immature Grans % 0.3; Lymphocytes % 34.9; MCH 29.5 pg (27.0-33.0); MCHC 34.1 % (32.0-36.0); MCV 87 fL (80-95); Monocytes % 5.7; Neutrophils % 53.3; Platelet Count 271 10^3/uL (130-400); RBC 5.15 10^6/uL (4.36-5.78); RDW 12.1 % (11.8-14.1); WBC 6.34 10^3/uL (4.4-10.8)
[2023-05-03 08:34] LABS: ALT 36 U/L (16-63); AST 19 U/L (15-37); Albumin 3.9 g/dL (3.4-5.0); Alkaline Phosphatase 77 U/L (46-116); Bilirubin, Direct 0.1 mg/dL (0.0-0.2); Bilirubin, Total 0.6 mg/dL (0.2-1.0); Total Protein 7.8 g/dL (6.4-8.2)
[2023-05-03 08:38] LABS: C-Reactive Protein < 0.05 mg/dL (0.0-0.3)
== END 2023-05-03 07:51 | disposition home or self-care (01) ==
LOC: LBO 07:50
PROVIDERS: PCP Family Medicine; Visit Provider Internal Medicine Gastroenterology
DX: K51.00 Ulcerative (chronic) pancolitis without complications (principal); Z79.899 Other long term (current) drug therapy
CPT/HCPCS: 36415; 80076; 85025; 86140

== ENCOUNTER 2023-07-14 07:47 | Outpatient (REF) | payer OTHER, SELFPAY ==
[2023-07-20 13:15] LABS: Calprotectin <50.0 mcg/g
== END 2023-07-14 07:48 | disposition home or self-care (01) ==
LOC: LBN 07:47
PROVIDERS: PCP Family Medicine; Visit Provider Internal Medicine Gastroenterology
DX: K51.00 Ulcerative (chronic) pancolitis without complications (principal)
CPT/HCPCS: 83993

== ENCOUNTER 2023-08-23 02:41 | Outpatient (CLI) | payer OTHER, SELFPAY ==
[2023-08-23 07:33] LABS: Abs Immature Grans 0.03 10^3/uL (0.0-0.06); Absolute Basophil Count 0.03 10^3/uL (0.0-0.2); Absolute Eosinophil Count 0.39 10^3/uL (0.0-0.7); Absolute Lymphocyte Count 2.33 10^3/uL (1.2-3.4); Absolute Monocyte Count 0.44 10^3/uL (0.1-0.8); Absolute Neutrophil Count 3.52 10^3/uL (1.2-6.7); Basophils % 0.4; Eosinophils % 5.8; HCT 42.6 % (40.0-50.0); HGB 14.5 g/dL (13.5-17.5); Immature Grans % 0.4; Lymphocytes % 34.6; MCH 30.2 pg (27.0-33.0); MCV 89 fL (80-95); MPV 9.4 fL (8.0-11.0); Monocytes % 6.5; Neutrophils % 52.3; Platelet Count 277 10^3/uL (130-400); RDW 12.4 % (11.8-14.1); RDW-SD 40.6 fL; WBC 6.74 10^3/uL (4.4-10.8)
[2023-08-23 07:57] LABS: ALT 41 U/L (16-63); AST 24 U/L (15-37); Albumin 3.9 g/dL (3.4-5.0); Alkaline Phosphatase 86 U/L (46-116); Anion Gap 10.5 mmol/L (3-11); BUN 9 mg/dL (7-18); Bilirubin, Total 0.6 mg/dL (0.2-1.0); CO2 26.5 mmol/L (21.0-32.0); Calcium 8.7 mg/dL (8.5-10.1); Chloride 105 mmol/L (98-107); Estimated GFR 93.42 (mL/min/1.73m2); Glucose 131 mg/dL (74-106); Sodium 142 mmol/L (136-145); Total Protein 7.5 g/dL (6.4-8.2)
[2023-08-23 07:58] LABS: C-Reactive Protein < 0.50 mg/dL (<or=0.5)
== END 2023-08-23 02:42 | disposition home or self-care (01) ==
LOC: LBO 02:42
PROVIDERS: PCP Family Medicine; Visit Provider Internal Medicine Gastroenterology
DX: Z79.899 Other long term (current) drug therapy (principal); K51.00 Ulcerative (chronic) pancolitis without complications
CPT/HCPCS: 36415; 80053; 85025; 86140

== ENCOUNTER 2023-12-20 01:46 | Outpatient (CLI) | payer OTHER, SELFPAY ==
[2023-12-20 07:15] LABS: Abs Immature Grans 0.01 10^3/uL (0.0-0.06); Absolute Basophil Count 0.03 10^3/uL (0.0-0.2); Absolute Eosinophil Count 0.35 10^3/uL (0.0-0.7); Absolute Lymphocyte Count 2.12 10^3/uL (1.2-3.4); Absolute Monocyte Count 0.41 10^3/uL (0.1-0.8); Absolute Neutrophil Count 3.56 10^3/uL (1.2-6.7); Basophils % 0.5 %; Eosinophils % 5.4 %; HCT 43.3 % (40.0-50.0); Immature Grans % 0.2 %; Lymphocytes % 32.7 %; MCHC 34.6 % (32.0-36.0); MCV 87 fL (80-95); MPV 9.1 fL (8.0-11.0); Monocytes % 6.3 %; Neutrophils % 54.9 %; Platelet Count 274 10^3/uL (130-400); RDW 12.3 % (11.8-14.1); RDW-SD 38.9 fL; WBC 6.48 10^3/uL (4.4-10.8)
[2023-12-20 09:15] LABS: ALT 40 U/L (16-63); AST 22 U/L (15-37); Alkaline Phosphatase 73 U/L (46-116); Anion Gap 7.5 mmol/L (3-11); BUN 9 mg/dL (7-18); Bilirubin, Total 0.62 mg/dL (0.2-1.0); C-Reactive Protein < 0.50 mg/dL (<or=0.5); CO2 27.5 mmol/L (21.0-32.0); Calcium 8.9 mg/dL (8.5-10.1); Chloride 103 mmol/L (98-107); Estimated GFR 93.42 (mL/min/1.73m2); Glucose 131 mg/dL (74-106); Potassium 3.9 mmol/L (3.5-5.1); Sodium 138 mmol/L (136-145); Total Protein 7.7 g/dL (6.4-8.2)
== END 2023-12-20 01:47 | disposition home or self-care (01) ==
LOC: LBO 01:46
PROVIDERS: PCP Family Medicine; Visit Provider Internal Medicine Gastroenterology
DX: K51.00 Ulcerative (chronic) pancolitis without complications (principal); Z79.899 Other long term (current) drug therapy
CPT/HCPCS: 36415; 80053; 85025; 86140

== ENCOUNTER 2024-04-22 02:15 | Outpatient (CLI) | payer OTHER, SELFPAY ==
[2024-04-22 07:36] LABS: Abs Immature Grans 0.03 10^3/uL (0.0-0.06); Absolute Basophil Count 0.03 10^3/uL (0.0-0.2); Absolute Eosinophil Count 0.35 10^3/uL (0.0-0.7); Absolute Lymphocyte Count 2.17 10^3/uL (1.2-3.4); Absolute Neutrophil Count 2.94 10^3/uL (1.2-6.7); Basophils % 0.5 %; Eosinophils % 5.8 %; HCT 43.5 % (40.0-50.0); HGB 14.9 g/dL (13.5-17.5); Immature Grans % 0.5 %; MCHC 34.3 % (32.0-36.0); MCV 88 fL (80-95); MPV 9.3 fL (8.0-11.0); Monocytes % 8.3 %; Neutrophils % 48.9 %; Platelet Count 236 10^3/uL (130-400); RBC 4.97 10^6/uL (4.36-5.78); RDW 12.4 % (11.8-14.1); RDW-SD 39.4 fL; WBC 6.02 10^3/uL (4.4-10.8)
[2024-04-22 07:59] LABS: ALT 31 U/L (16-63); AST 23 U/L (15-37); Alkaline Phosphatase 73 U/L (46-116); Anion Gap 8.9 mmol/L (3-11); BUN 11 mg/dL (7-18); Bilirubin, Total 0.81 mg/dL (0.2-1.0); CO2 27.1 mmol/L (21.0-32.0); CREATININE 1.1 mg/dL (0.70-1.30); Calcium 9.2 mg/dL (8.5-10.1); Chloride 106 mmol/L (98-107); Estimated GFR 83.32 (mL/min/1.73m2); Glucose 122 mg/dL (74-106); Potassium 4.2 mmol/L (3.5-5.1); Sodium 142 mmol/L (136-145); Total Protein 7.6 g/dL (6.4-8.2)
[2024-04-22 08:05] LABS: C-Reactive Protein < 0.50 mg/dL (<or=0.5)
== END 2024-04-22 02:16 | disposition home or self-care (01) ==
LOC: LBO 02:15
PROVIDERS: PCP Family Medicine; Visit Provider Internal Medicine Gastroenterology
DX: K51.00 Ulcerative (chronic) pancolitis without complications (principal); Z79.899 Other long term (current) drug therapy
CPT/HCPCS: 36415; 80053; 85025; 86140

== ENCOUNTER 2024-10-20 04:01 | Outpatient (CLI) | payer OTHER, SELFPAY ==
[2024-10-20 10:46] LABS: Abs Immature Grans 0.02 10^3/uL (0.0-0.06); Absolute Basophil Count 0.03 10^3/uL (0.0-0.2); Absolute Eosinophil Count 0.33 10^3/uL (0.0-0.7); Absolute Lymphocyte Count 2.12 10^3/uL (1.2-3.4); Absolute Monocyte Count 0.41 10^3/uL (0.1-0.8); Absolute Neutrophil Count 4.29 10^3/uL (1.2-6.7); Basophils % 0.4 %; Eosinophils % 4.6 %; HCT 43.5 % (40.0-50.0); HGB 15.2 g/dL (13.5-17.5); Immature Grans % 0.3 %; Lymphocytes % 29.4 %; MCHC 34.9 % (32.0-36.0); MCV 86 fL (80-95); Monocytes % 5.7 %; Neutrophils % 59.6 %; Platelet Count 264 10^3/uL (130-400); RBC 5.06 10^6/uL (4.36-5.78); RDW 12.3 % (11.8-14.1); RDW-SD 38.5 fL
[2024-10-20 11:03] LABS: ALT 40 U/L (16-63); AST 25 U/L (15-37); Albumin 4.2 g/dL (3.4-5.0); Alkaline Phosphatase 77 U/L (46-116); Bilirubin, Direct 0.2 mg/dL (0.0-0.2); Bilirubin, Total 0.7 mg/dL (0.2-1.0); C-Reactive Protein < 0.50 mg/dL (<or=0.5); Total Protein 7.8 g/dL (6.4-8.2)
[2024-10-20 21:20] LABS: Calculated LDL 141 mg/dL (<100); Cholesterol 220 mg/dL (<200); HDL Cholesterol 46 mg/dL (>or=40); Triglyceride 166 mg/dL (<150)
== END 2024-10-20 04:02 | disposition home or self-care (01) ==
LOC: LBO 04:01
PROVIDERS: Internal Medicine Gastroenterology; PCP Family Medicine; Visit Provider Family Medicine
DX: Z00.00 Encounter for general adult medical examination without abnormal findings (principal); K51.00 Ulcerative (chronic) pancolitis without complications; Z79.899 Other long term (current) drug therapy
CPT/HCPCS: 36415; 80061; 80076; 85025; 86140

== ENCOUNTER 2025-05-27 08:23 | Outpatient (CLI) | payer OTHER, SELFPAY ==
[2025-05-27 15:34] LABS: RBC 4.97 10^6/uL (4.36-5.78); WBC 9.39 10^3/uL (4.4-10.8)
[2025-05-27 15:35] LABS: HCT 43.3 % (40.0-50.0); HGB 14.8 g/dL (13.5-17.5); Immature Grans % 0.3 %; MCH 29.8 pg (27.0-33.0); MCHC 34.2 % (32.0-36.0); MCV 87 fL (80-95); MPV 9.6 fL (8.0-11.0); Platelet Count 288 10^3/uL (130-400); RDW 12.5 % (11.8-14.1); RDW-SD 39.6 fL
[2025-05-27 15:36] LABS: Abs Immature Grans 0.03 10^3/uL (0.0-0.06)
[2025-05-27 16:16] LABS: C-Reactive Protein < 0.50 mg/dL (<=0.50)
[2025-05-27 16:18] LABS: ALT 29 U/L (10-49); AST 24 U/L (<34); Albumin 4.4 g/dL (3.2-5.0); Alkaline Phosphatase 81 U/L (46-116); Bilirubin, Direct 0.1 mg/dL (<=0.3); Bilirubin, Total 0.4 mg/dL (0.2-1.2); Total Protein 7.6 g/dL (5.7-8.2)
== END 2025-05-27 08:24 | disposition home or self-care (01) ==
LOC: LBO 08:23
PROVIDERS: PCP Family Medicine; Visit Provider Internal Medicine Gastroenterology
DX: K51.00 Ulcerative (chronic) pancolitis without complications (principal); Z79.899 Other long term (current) drug therapy
CPT/HCPCS: 36415; 80076; 85025; 86140